=== PATIENT | female | born 1950 | race Caucasian/White ===

== ENCOUNTER → 2017-08-22 | Outpatient (CLI) | payer MEDICAID ==
[~2017-08-22] VITALS: Ht 147.3 cm; Wt 73.0 kg
[~2017-08-22] MED LIST: ASP81CT; ATOR80TA2 PO; CATHETER FLUSH 10 ML SYR IV PRN; DICY10CA12 PO; DICY20TA57 PO; GBPN300C PO; GLIP10TA23; GLUC1000 PO; GLUC500C2; INSU100I16 SQ; LISI20TA; MELO-198 PO; METO25TA2 PO; MTF500T PO; NF-ESOM40C PO; OMEP-10; PHEN100T26 PO; PRAS10TA6 PO; PRAV40TA; QNPR20T PO; REGADENOSON 0.4 MG/5 ML SYR (LEXISCAN) IV ONE; SITA100T PO; TICA90TA PO; VNL75CCR PO
[2017-08-22 08:55] VITALS: BP 124/66
[2017-08-22 09:02] VITALS: BP 126/64
--- NOTE | 2017-08-22 19:55 | STRESS TEST ---
DATE OF SERVICE: 08/22/2017 RESTING AND POST REGADENOSON TECHNETIUM 99M TETROFOSMIN SPECT CT IMAGING ORDERING PHYSICIAN: Dr. Savage. PRIMARY PHYSICIAN: Dr. Johnson. OTHER PHYSICIAN: Arlene Kinney APRN. CLINICAL DIAGNOSES: Shortness of breath. Baseline images were carried out after injection of 10.73 mCi of technetium-99m Tetrofosmin. This was followed by 0.4 mg regadenoson and 29.5 mCi technetium-99m Tetrofosmin for stress imaging. The electrocardiogram showed sinus rhythm with right bundle branch block throughout the study. The electrocardiogram did not change significantly with the regadenoson infusion. Review of images at rest and following stress does not indicate any significant perfusion defects consistent with significant myocardial ischemia or infarction. Gated images show normal global left ventricular systolic function with normal regional wall motion. Left ventricular ejection fraction is calculated to be 74%. Left ventricular end diastolic volume is 17 mL. TID is absent (0.93). CONCLUSIONS: 1. No evidence of any significant myocardial ischemia or infarction on this study. 2. Normal to hyperdynamic left ventricular systolic function with ejection fraction of 74%. 3. No regional wall motion abnormality. Job ID: [id number] DocumentID: [id number] Dictated Date: 08/22/2017 16:32:52 [employer] Worker Date: 08/22/2017 19:55:15 Dictated By: YASSINE SAVAGE MD, MA, FACP, FACC,
== END ==
LOC: CARD 07:20
PROVIDERS: ATTEND Internal Medicine Cardiovascular Disease
DX: I25.10 Atherosclerotic heart disease of native coronary artery without angina pectoris (principal); R06.02 Shortness of breath; I10 Essential (primary) hypertension; E78.4 Other hyperlipidemia; E11.9 Type 2 diabetes mellitus without complications
CPT/HCPCS: 78452; 93017; 93306

== ENCOUNTER 2019-04-13 06:37 | Day surgery (SDC) | payer MEDICARE, MEDICAID ==
[2019-04-13] VITALS (10 sets, daily range): BP systolic 125–150; BP diastolic 59–94
[~2019-04-13] VITALS: Ht 157 cm; Wt 66.0 kg
[~2019-04-13 06:37] MED LIST changes: +AMLO5TAB9 PO; +ANAS1TAB7 PO; +ASPI-983 PO; +ASPI-999 PO; +ATOR40TA70 PO; +BORAGE PO; +CA C1TAB78 PO; -CATHETER FLUSH 10 ML SYR IV PRN; +CLOP75TA69 PO; +EMPA10TA PO; +EXEN2AUT SQ; +EXEN2PEN SQ; +FISH OIL PO; +FLAX PO; +GABA-490 PO; +GLUC100016 PO; +HEParin (CATH LAB) 2,000 ML IV ONE; +INSU100C3 SQ; +INSU100I34 SQ; +LIDOCAINE 1% INJ 20 ML 20 ML VIAL ONE; +LISI-552 PO; +MAGN400T39 PO; +METF-478 PO; +METO-333 PO; +MULT-974 PO; +NS IV 1000 ML 1,000 ML ONE; +OMEP40CA27 PO; +OMG1KC PO; -REGADENOSON 0.4 MG/5 ML SYR (LEXISCAN) IV ONE; +VENL75TA2 PO; +[UNRECOGNIZED DRUG - OTHER] PO
[2019-04-13] MEDS ORDERED: NS IV 1000 ML 1,000 ML IV SCH ×2 (07:00→09:13)
[2019-04-13] MEDS ORDERED: AMLO5TAB9 PO (07:34)
[2019-04-13] MEDS ORDERED: OMG1KC PO (07:34)
[2019-04-13] MEDS ORDERED: CLOP75TA69 PO (07:34)
[2019-04-13] MEDS ORDERED: ACET325T38 PO (07:34)
[2019-04-13] MEDS ORDERED: BUSP15TA60 PO (07:34)
[2019-04-13] MEDS ORDERED: ASPI-999 PO (07:34)
[2019-04-13] MEDS ORDERED: GBPN600T PO ×2 (07:34)
[2019-04-13] MEDS ORDERED: VITA1CAP19 PO (07:34)
[2019-04-13 07:42] LABS: HEMOGLOBIN 11.2 G/DL (11.5-16.0); MEAN PLATELET VOLUME 10.6 FL (7.4-10.4); RED CELL DISTRIBUTION WIDTH 13.4 % (10.0-14.5); WHITE BLOOD COUNT 6.5 10^3/uL (4.3-11.0)
[2019-04-13 07:55] LABS: PROTHROMBIN TIME PATIENT 13.6 SEC (12.2-14.7)
[2019-04-13 07:57] LABS: ALANINE AMINOTRANSFERASE 22 U/L (0-55); ALBUMIN 4.2 GM/DL (3.2-4.5); ALKALINE PHOSPHATASE 60 U/L (40-136); BILIRUBIN,TOTAL 0.3 MG/DL (0.1-1.0); BUN/CREATININE RATIO 20; CALCIUM 9.8 MG/DL (8.5-10.1); CARBON DIOXIDE 22 MMOL/L (21-32); CHLORIDE 105 MMOL/L (98-107); CHOLESTEROL 145 MG/DL (< 200); CREATININE SERUM 0.64 MG/DL (0.60-1.30); GFR ESTIMATED > 60; GLUCOSE 113 MG/DL (70-105); HDL CHOLESTEROL 49 MG/DL (40-60); POTASSIUM 4.1 MMOL/L (3.6-5.0); SODIUM 138 MMOL/L (135-145); TOTAL PROTEIN 7.3 GM/DL (6.4-8.2); TRIGLYCERIDES 119 MG/DL (<150); VLDL CHOLESTEROL 24 MG/DL (5-40)
[2019-04-13] MEDS ORDERED: MIDAZOLAM 5 MG/5 ML (VERSED) VIAL ONE (08:15)
[2019-04-13] MEDS ORDERED: fentaNYL INJECTION 100 MCG/2 ML AMP ONE (08:15)
[2019-04-13] MEDS ORDERED: PATIENT MAY USE OWN MEDS, ALL PO SCH (09:15)
--- NOTE | 2019-04-13 09:17 | Discharge Inst-Cardiology ---
Discharge Inst-Cardiac Discharge Medications Continued Medications: Acetaminophen (Tylenol) 325 Mg Tablet 650 MG PO Q4-6 PRN for PAIN-MILD (1-4) OR TEMPATURE, TAB Amlodipine Besylate (Amlodipine Besylate) 5 Mg Tablet 5 MG PO DAILY, TAB Anastrozole (Anastrozole) 1 Mg Tablet 1 MG PO DAILY, TAB Aspirin (Aspirin) 81 Mg Tab.chew 81 MG PO DAILY, TAB Atorvastatin Calcium (Atorvastatin Calcium) 40 Mg Tablet 40 MG PO DAILY, TAB Buspirone HCl (Buspirone HCl) 15 Mg Tablet 15 MG PO BID PRN for ANXIETY, TAB [Calcium,Magox,Zinc] () 1 CAP PO BID Clopidogrel Bisulfate (Plavix) 75 Mg Tablet 75 MG PO DAILY, TAB Empagliflozin (Jardiance) 10 Mg Tablet 10 MG PO DAILY, TAB Exenatide Microspheres (Bydureon Bcise) 2 Mg/0.85 Ml Auto.injct 2 MG SQ FRIDAY, ML Gabapentin (Gabapentin) 600 Mg Tablet 600 MG PO TID, TAB Gabapentin (Gabapentin) 600 Mg Tablet 600 MG PO HS PRN for FIBROMYALGIA, TAB Glucosamine Sulfate 2Kcl (Glucosamine) 1,000 Mg Tablet 1000 MG PO BID, TAB Insulin Glargine,Hum.rec.anlog (Basaglar Kwikpen U-100) 100 Unit/1 Ml Insuln.pen 40 UNIT SQ HS, EA TAKES BETWEEN 8 AND 9AM Lisinopril (Lisinopril) 20 Mg Tablet 20 MG PO DAILY, TAB Metoprolol Tartrate (Metoprolol Tartrate) 25 Mg Tablet 25 MG PO BID, TAB [place] 3 Polyunsat Fatty Acids (Fish Oil 1,000 mg Capsule) 1,000 Mg Cap 1000 MG PO DAILY, CAP Omeprazole (Omeprazole) 40 Mg Capsule.dr 40 MG PO DAILY, CAP Venlafaxine HCl (Venlafaxine HCl ER) 75 Mg Tab.er.24 75 MG PO DAILY, TAB Vitamin B Complex (Super B-50 Complex) 1 Each Capsule 1 EACH PO DAILY, CAP Discontinued Medications: Metformin HCl (Metformin HCl ER) 500 Mg Tab.er.24 500 MG PO BID, TAB Patient Instructions Patient Instructions: Hold METFORMIN until the evening of 04/15/19; then resume previous home dose YASSINE SAVAGE MD FACP FAC CCDS Apr 13, 2019 09:17
--- NOTE | 2019-04-13 09:18 | Discharge Inst-Post CATH ---
Discharge Inst-CATH/EP Post Cardiac Cath/EP D/C Inst Follow Up/Plan F/u with Dr Savage in 2 weeks ACTIVITY * Go Home directly and rest. * Limit activity of the leg (or wrist if it was used) for 7 days including aerobics, swimming, jogging, bicycling, etc. * Restrict stair-climbing for 7 days if possible, if not, climb up with your n on-cath leg, then bring together on the same step. * Avoid lifting, pushing, pulling or excessive movement of the affected ex tremity for 7 days. * Customary sexual activity may be resumed after 2 days-use caution not to use a position that strains or causes pain to the affected extremity. * No driving for 24 hours. * NO SMOKING. * Avoid straining for bowel movements for 7 days. * Gentle walking on level ground is allowed. * Returning to work will depend on the type of procedure and the results. Your doctor will discuss this with you. CALL YOUR DOCTOR FOR ANY OF THE FOLLOWING: *If bleeding from the puncture site occurs- Apply gentle pressure to site with clean cloth and call your doctor or EMS. * If a knot or lump forms under the skin, increases in size, or causes pain. * If bruising appears to be worsening or moving further down your leg instead of disappearing. * Temperature above 101 F. CARE OF YOUR GROIN INCISION; * Bruising or purple discoloration of the skin near the puncture site is common. * You may shower only, no bathtub bathing for 5 days. Be careful to avoid slipping as your leg may feel stiff. * If a closure device was used on your femoral artery, please see the attached guide regarding care of the device and your leg. * Leave dressing on FOR 24 hours. CARE OF YOUR WRIST INCISION; * Bruising or purple discoloration of the skin near the puncture site is common. * You may shower. * DO NOT submerge wrist. * Leave dressing on FOR 24 hours. YASSINE SAVAGE MD [facility] CCDS Apr 13, 2019 09:18
--- NOTE | 2019-04-13 09:53 | CARDIAC CATHETERIZATION ---
DATE OF SERVICE: 04/13/2019 CARDIAC CATHETERIZATION REPORT The patient is a 68-year-old lady, who is known to have coronary artery disease and who has had coronary stenting in the past. She has been experiencing recurrent chest discomfort. Recurrent angina was suspected. Informed consent was obtained for cardiac catheterization. DESCRIPTION OF PROCEDURE: She was brought to the cardiac catheterization laboratory in a fasting state. Right groin was prepared and draped in the usual sterile fashion. Lidocaine 1% was used for local anesthesia. Modified Seldinger technique was used to advance a 5-Libyan sheath in the right femoral artery. A 5-Libyan JL3.5 catheter was used for left coronary angiography. A 5-Libyan JR4 catheter was used for right coronary angiography. A 5-Libyan pigtail catheter was used for left heart catheterization and left ventricular angiography. Angiography of the right femoral artery was carried out through the sheath after the diagnostic catheter and diagnostic catheters had been removed. Mynx was used to achieve hemostasis. She tolerated the procedure well. HEMODYNAMICS: Left ventricular end-diastolic pressure following coronary angiography was 17 mmHg. There was no significant pressure gradient on pullback across the aortic valve. Ascending aortic pressure was 127/74 with a mean of 99 mmHg. CORONARY ANGIOGRAPHY: Left main coronary artery does not exhibit significant disease. Left anterior descending artery has a patent stented segment in its proximal portion. Beyond the stented segment, the vessel tapers off. There appears to be approximately 30% stenosis in the distal left anterior descending and the main diagonal. The left circumflex artery is nondominant. It does not exhibit significant stenosis. Right coronary artery is dominant and does not exhibit significant stenosis. LEFT VENTRICULAR ANGIOGRAPHY: Left ventricular angiography was carried out in the right anterior oblique projection. Global left ventricular systolic function is normal. Left ventricular ejection fraction is approximately 60%. Mitral annular calcification is seen. There does not appear to be significant mitral regurgitation. CONCLUSIONS: 1. Coronary artery disease, mild. There is a patent proximal stented segment in the left anterior descending. This is known to be Alpine Xience 2.25 x 12 mm stent that overlaps a Promus 2.25 x 16 mm stent. There is no significant in-stent restenosis. 2. Mild to moderate elevation of left ventricular end-diastolic pressure. 3. Normal global left ventricular systolic function with an ejection fraction approximately 60%. DISCUSSION AND RECOMMENDATIONS: Based on results of the study, it appears appropriate to continue a conservative approach. Risk factor modification has been reviewed. Current regimen is being continued. Outpatient followup is advised. Job ID: [id number] DocumentID: [id number] Dictated Date: 04/13/2019 09:00:42 Director Date: 04/13/2019 09:52:28 Dictated By: YASSINE SAVAGE MD, MA, FACP, FACC,
--- NOTE | 2019-04-13 12:52 | NUR ---
Spoke with pt's batch tank controller's in the waiting area. Pt is [employer] and has longtime, supportive relationships with his batch tank controller and who have helped her with transportation and provided emotional and spiritual support through challenging family dynamics.
== END 2019-04-13 12:55 | disposition home or self-care (01) ==
LOC: CATH 06:37 → SDC 09:25 → CATH 12:55
PROVIDERS: ATTEND Internal Medicine Cardiovascular Disease
DX: I25.10 Atherosclerotic heart disease of native coronary artery without angina pectoris (principal); I77.9 Disorder of arteries and arterioles, unspecified; I10 Essential (primary) hypertension; I45.10 Unspecified right bundle-branch block; E11.9 Type 2 diabetes mellitus without complications; E78.49 Other hyperlipidemia; Z79.02 Long term (current) use of antithrombotics/antiplatelets; Z79.84 Long term (current) use of oral hypoglycemic drugs; Z79.899 Other long term (current) drug therapy; Z85.3 Personal history of malignant neoplasm of breast; Z79.82 Long term (current) use of aspirin; Z82.3 Family history of stroke
CPT/HCPCS: 36415; 80053; 80061; 85027; 85610; 85730; 87081; 93005; 93458

== ENCOUNTER → 2021-05-24 | Outpatient (CLI) | payer MEDICARE, MEDICAID ==
[~2021-05-24] VITALS: Ht 154.9 cm; Wt 65.9 kg
[~2021-05-24] MED LIST changes: +ACET325T38 PO; +AMLO-250 PO; +AMLO1TAB5 PO; -AMLO5TAB9 PO; +ANAS1TAB50 PO; +ASPI-1238 PO; -ASPI-983 PO; +BUSP15TA60 PO; +DEXL60CA PO; +EMPA25TA PO; +FLUT9.9S NS; +GBPN600T PO; -HEParin (CATH LAB) 2,000 ML IV ONE; -LIDOCAINE 1% INJ 20 ML 20 ML VIAL ONE; -LISI-552 PO; +LISI20TA26 PO; +MELO-170 PO; +METF-397 PO; +MULT-1136 PO; -NS IV 1000 ML 1,000 ML ONE; -OMEP40CA27 PO; +OMEP40CA6 PO; +ONDA4TAB11 PO; +SEMA1PEN3 SQ; +VITA1CAP19 PO; +[UNRECOGNIZED DRUG - OTHER] PO
== END | disposition home or self-care (01) ==
LOC: PREOP 08:01
PROVIDERS: ATTEND Specialist
DX: Z01.818 Encounter for other preprocedural examination (principal)

== ENCOUNTER → 2021-06-07 | Outpatient (CLI) | payer MEDICARE, MEDICAID | END | disposition home or self-care (01) | LOC: PREOP 05:56 | PROVIDERS: ATTEND Specialist | DX: Z01.818 Encounter for other preprocedural examination (principal) ==

== ENCOUNTER 2021-06-15 10:12 | Day surgery (SDC) | payer MEDICARE, MEDICAID ==
[~2021-06-15] VITALS: Ht 155 cm; Wt 65.9 kg
[2021-06-15 10:10] VITALS: BP 129/62
[2021-06-15] MEDS ORDERED: MOXIFLOXACIN OPHTH SOLN 5 MG/ML 0.3 ML SYRINGE OP ONE (10:30)
[2021-06-15] MEDS ORDERED: LIDOCAINE PF 1% 2 ML VIAL IR PRN (10:30)
[2021-06-15] MEDS ORDERED: POVIDONE (BETADINE) OPHTH SOLN 5% 30 ML OP ONE (10:30)
[2021-06-15] MEDS ORDERED: TIMOLOL MALEATE 0.5% 5 ML (TIMOPTIC) BTL OU PRN (10:30)
[2021-06-15] MEDS ORDERED: MIDAZOLAM 2 MG/2 ML (VERSED) VIAL ONE (10:33)
[2021-06-15] MEDS: TETRACAINE 0.5% OPHTH SOLN 4 ML BTL (SINGLE DOSE ONLY) OU PRN ×4 (10:35→10:52)
[2021-06-15] MEDS: PHENYLEPHRINE 10% OPHTH (NEO-SYN) 5 ML BTL OU SCH ×3 (10:40→10:52)
[2021-06-15] MEDS: TROPICAMIDE 1% OPH SOLN (MYDRIACYL) 15 ML BTL OP SCH ×3 (10:40→10:52)
--- NOTE | 2021-06-15 11:12 | Ophthalmologist Pre-Op Note ---
Pre-Operative Progress Note H&P Reviewed The H&P was reviewed, patient examined and no changes noted. Date H&P Reviewed: Jun 15, 2021 Time H&P Reviewed: 11:12 Pre-Op Dx Cataract, Left Eye ENRIQUE PICKETT MD Jun 15, 2021 11:12
--- NOTE | 2021-06-15 11:34 | Ophthalmology Operative Report ---
Cataract removal/placement IOL PREOPERATIVE DIAGNOSIS: Cataract Left Eye POSTOPERATIVE DIAGNOSIS: Cataract Left Eye PROCEDURE: Cataract removal and placement of posterior chamber implant, left eye SURGEON: Crescencio Pickett ANESTHESIA: Topical with sedation COMPLICATIONS: None ESTIMATED BLOOD LOSS: Minimal DESCRIPTION OF PROCEDURE: After proper informed consent was obtained, the patient, a 70 female, was taken to the Operating Room and the left eye was anesthetized with tetracaine. The left eye was then prepped and draped in the usual manner. A wire lid speculum was placed. A paracentesis was made at the left hand position. Preservative free lidocaine was injected into the anterior chamber followed by viscoelastic. A clear corneal incision was made in the temporal position. A capsulorrhexis was preformed and the central nuclear and cortical material were removed. The posterior capsule was polished and an Abdirahman 17.0 [id number] was placed into the capsular bag. The residual viscoelastic was aspirated and balanced saline solution was injected into the anterior chamber. Moxifloxacin was injected into the anterior chamber. The wound was checked and found to be water tight. The patient tolerated the procedure well without complications. CRESCENCIO PICKETT MD Jun 15, 2021 11:34
[2021-06-15 11:47] VITALS: BP 129/62
[2021-06-15] MEDS ORDERED: acetaZOLAMIDE ER 500 MG CAP (DIAMOX SEQUELS) PO ONE (12:15)
--- NOTE | 2021-06-15 13:21 | Anesthesia-General Post-Op ---
MAC Patient Condition Mental Status/LOC: Same as Preop Cardiovascular: Satisfactory Nausea/Vomiting: Absent Respiratory: Satisfactory Pain: Controlled Complications: Absent Post Op Complications Complications None Follow Up Care/Instructions Patient Instructions None needed. Anesthesiology Discharge Order Discharge Order Patient is doing well, no complaints, stable vital signs, no apparent adverse anesthesia problems. No complications reported per nursing. SHRUTHI BHANDARI CRNA Jun 15, 2021 13:21
== END 2021-06-15 11:48 | disposition home or self-care (01) ==
LOC: SDC 10:12
PROVIDERS: ATTEND Specialist
DX: E11.36 Type 2 diabetes mellitus with diabetic cataract (principal); H25.9 Unspecified age-related cataract; Z85.3 Personal history of malignant neoplasm of breast; Z79.4 Long term (current) use of insulin; Z79.84 Long term (current) use of oral hypoglycemic drugs
CPT/HCPCS: 66984; V2632

== ENCOUNTER 2021-08-11 18:36 | Inpatient (IN) | payer MEDICARE, MEDICAID ==
[~2021-08-11] VITALS: Ht 154.9 cm; Wt 66.9 kg
[2021-08-11] MEDS ORDERED: diphenhydrAMINE 25 MG TAB (BENADRYL) PO PRN (19:30)
[2021-08-11] MEDS ORDERED: CALCIUM CARBONATE 500 MG (TUMS) TAB.CHEW PO PRN (19:30)
[2021-08-11] MEDS ORDERED: ANTACID SUSP 30 ML UDC (MYLANTA) PO PRN (19:30)
[2021-08-11] MEDS ORDERED: MELATONIN 3 MG TABLET PO PRN (19:30)
[2021-08-11] MEDS ORDERED: polyethylene glycoL POWDER 17 GM (MIRALAX) PACK PO PRN (19:30)
[2021-08-11] MEDS ORDERED: morphine INJ 4 MG/ML 1 ML (VIAL/SYRINGE) IV PRN (19:30)
[2021-08-11] MEDS ORDERED: ACETAMINOPHEN 325 MG TABLET PO PRN (19:30)
[2021-08-11] MEDS ORDERED: PATIENT MAY USE OWN MEDS, ALL PO SCH (19:30)
[2021-08-11] MEDS ORDERED: diphenhydrAMINE 50 MG/ML INJ (BENADRYL) IVP PRN (19:30)
[2021-08-11] MEDS ORDERED: LACTULOSE SYRUP 10GM/15ML (ENULOSE) 30ML UDC PO PRN (19:30)
[2021-08-11] MEDS ORDERED: BISACODYL 10 MG SUPP (DULCOLAX) PR PRN (19:30)
[2021-08-11] MEDS ORDERED: MILK OF MAGNESIA 400 MG/5 ML 30 ML UDC PO PRN (19:30)
[2021-08-11] MEDS ORDERED: CALCIUM CHLORIDE 1 GM/10 ML (IMS) SYR INJ ONE (20:45)
[2021-08-11] MEDS ORDERED: ONDANSETRON 4 MG/2 ML (SDV) Z0FRAN IVP ONE (20:45)
--- NOTE | 2021-08-11 20:48 | Tele-ICU Consult ---
History of Present Illness History of Present Illness Date Seen by Provider: Aug 11, 2021 Time Seen by Provider: 20:43 Date of Admission 70 y old lady presented to an outside ED with cc of nausea/ vomiting; pt was found to be bradycardic, in 3rd degree av block; we were told that pt is on beta lazaro. No CaCl/ glucagon or dopamine given. Upon arrival patient continues to have episodes of bradycardia and nausea associated with it. Allergies and Home Medications Allergies Coded Allergies: NKANo Known Allergies (Verified Allergy, Unknown, 06/01/21) Home Medications Acetaminophen 325 Mg Tablet, 650 MG PO Q4-6 PRN for PAIN-MILD (1-4) OR TEMPATURE, (Reported) Amlodipine/Atorvastatin 1 Each Tablet, 1 EACH PO DAILY, (Reported) Anastrozole 1 Mg Tablet, 1 MG PO DAILY, (Reported) Aspirin 81 Mg Tab.chew, 81 MG PO DAILY, (Reported) Buspirone HCl 15 Mg Tablet, 15 MG PO BID PRN for ANXIETY, (Reported) Clopidogrel Bisulfate 75 Mg Tablet, 75 MG PO DAILY, (Reported) Dexlansoprazole 60 Mg Williams., 60 MG PO DAILY, (Reported) Empagliflozin 25 Mg Tablet, 25 MG PO DAILY, (Reported) Fluticasone Propionate 9.9 Ml [place].susp, 1 SPRAY NS BID, (Reported) 1 SPRAY EACH NARE DAILY Gabapentin 600 Mg Tablet, 600 MG PO TID, (Reported) Gabapentin 600 Mg Tablet, 600 MG PO HS PRN for FIBROMYALGIA, (Reported) Insulin Glargine,Hum.rec.anlog 100 Unit/1 Ml Insuln.pen, 40 UNIT SQ HS, (Reported) Lisinopril 20 Mg Tablet, 20 MG PO DAILY, (Reported) Meloxicam 7.5 Mg Tablet, 7.5 MG PO DAILY, (Reported) Metformin HCl 500 Mg Tablet, 500 MG PO BID, (Reported) Metoprolol Tartrate 25 Mg Tablet, 25 MG PO BID, (Reported) Multivitamin 1 Each Tablet, 1 EACH PO DAILY, (Reported) [place] 3 Polyunsat Fatty Acids 1,000 Mg Cap, 1,000 MG PO DAILY, (Reported) Ondansetron 4 Mg Tab.rapdis, 4 MG PO UD, (Reported) Semaglutide 1 Mg/0.75 Ml Pen.injctr, 1 MG SQ WEEK, (Reported) Venlafaxine HCl 75 Mg Tab.er.24, 75 MG PO DAILY, (Reported) [Sm Fiber] , 625 MG PO DAILY, (Reported) Past Medical/Social/Family Hx Immunizations Up To Date Date of Pneumonia Vaccine: Jan 21, 2019 Current Status Primary Language: Azerbaij[place] Past Medical History DM Review of Systems Constitutional: see HPI Focused Exam Height, Weight, BMI Height: 4'10.00" Weight: 161lbs. 0.0oz. 73.455597dp; 26.77 BMI Method: Exam Exam Patient acknowledged, consented, and participated in this virtual visit which was conducted using real time audio/video Height & Weight Height: 4'10.00" Weight: 161lbs. 0.0oz. 73.000065wy; 26.77 BMI Method: General Appearance: Moderate Distress Assessment/Plan Assessment/Plan Bradycardia with 3rd degree av blocks. MAR reviewed: no ccb/ bb ekg/ tsh/ cardiac enzymes basic labs ordered may need dopamine or dobutamine based on BP cardiology on board for possible pacemaker in TONI THOMAS MD Aug 11, 2021 20:48
[2021-08-11] MEDS ORDERED: NS IV 1000 ML 1,000 ML ONE (20:52)
[2021-08-11] MEDS ORDERED: DOBUTamine DRIP 250 ML IV ONE (20:52)
[2021-08-11] MEDS: NS IV 1000 ML 1,000 ML IV SCH (20:59)
[2021-08-11] MEDS ORDERED: DOBUTamine DRIP 250 ML IV SCH (21:00)
[2021-08-11 21:02] LABS: BASOPHILS % (AUTO) 0 % (0-10); EOSINOPHILS % (AUTO) 0 % (0-10); HEMATOCRIT 36 % (35-52); HEMOGLOBIN 12.3 g/dL (11.5-16.0); LYMPHOCYTES # (AUTO) 1.3 10^3/uL (1.0-4.0); LYMPHOCYTES % (AUTO) 13 % (12-44); MEAN CORPUSCULAR HEMOGLOBIN 30 pg (25-34); MEAN CORPUSCULAR HGB CONC 34 g/dL (32-36); MEAN CORPUSCULAR VOLUME 88 fL (80-99); MEAN PLATELET VOLUME 11.1 fL (9.0-12.2); MONOCYTES # (AUTO) 0.6 10^3/uL (0.0-1.0); MONOCYTES % (AUTO) 6 % (0-12); NEUTROPHILS # (AUTO) 7.7 10^3/uL (1.8-7.8); NEUTROPHILS % (AUTO) 80 % (42-75); PLATELET COUNT 319 10^3/uL (130-400); WHITE BLOOD COUNT 9.6 10^3/uL (4.3-11.0)
[2021-08-11 21:22] LABS: ALANINE AMINOTRANSFERASE 18 U/L (0-55); ALBUMIN 4.2 GM/DL (3.2-4.5); ALKALINE PHOSPHATASE 63 U/L (40-136); BILIRUBIN,TOTAL 0.6 MG/DL (0.1-1.0); BUN/CREATININE RATIO 23; CALCIUM 9.4 MG/DL (8.5-10.1); CARBON DIOXIDE 17 MMOL/L (21-32); CHLORIDE 104 MMOL/L (98-107); GFR ESTIMATED 94; GLUCOSE 138 MG/DL (70-105); POTASSIUM 3.5 MMOL/L (3.6-5.0); SODIUM 138 MMOL/L (135-145); TOTAL PROTEIN 7.6 GM/DL (6.4-8.2)
[2021-08-11 21:28] LABS: LYMPHOCYTES % (MANUAL) 15 %; MONOCYTES % (MANUAL) 3 %; NEUTROPHILS % (MANUAL) 82 %; RBC MORPH NORMAL
[2021-08-11] MEDS: SENNOSIDES 8.6 MG (SENOKOT) TAB PO SCH (21:35)
[2021-08-11] MEDS: inSUlin ASPART (NovoLOG) 1 UNIT/0.01 ML (CHARGE PER UNIT) SC SCH (21:35)
[2021-08-11] MEDS: DOCUSATE SODIUM 100 MG (COLACE) CAP PO SCH (21:35)
[2021-08-11] MEDS ORDERED: POTASSIUM CL 10MEQ/50ML IVPB 50 ML IV SCH (22:15)
[2021-08-11] MEDS ORDERED: POTASSIUM CL 10MEQ/50ML IVPB 200 ML IV ONE (22:17)
[2021-08-11] MEDS: POTASSIUM CL 10MEQ/50ML IVPB 50 ML IV SCH ×2 (22:20→23:06)
[2021-08-11 22:29] LABS: MAGNESIUM 1.5 MG/DL (1.6-2.4)
[2021-08-11] MEDS ORDERED: MAGNESIUM 2 GM/50 ML IVPB 50 ML IV ONE (23:00)
[2021-08-11] MEDS ORDERED: MAGNESIUM 1 GM/100 ML IVPB 200 ML IV ONE (23:03)
[2021-08-11] MEDS: MAGNESIUM 1 GM/100 ML IVPB 100 ML IV SCH (23:12)
[2021-08-11] MEDS: DOPamine DRIP 250 ML IV SCH (23:45)
[2021-08-12] MEDS ORDERED: CEFEPIME INJECTION 1,000 MG in NS (IVPB) 50 ML IV ONE ×2
[2021-08-12] MEDS: POTASSIUM CL 10MEQ/50ML IVPB 50 ML IV SCH ×8 (00:03→21:16)
[2021-08-12] MEDS: MAGNESIUM 1 GM/100 ML IVPB 100 ML IV SCH ×2 (00:04→05:27)
[2021-08-12 00:22] LABS: BILIRUBIN,URINE NEGATIVE (NEGATIVE); CLARITY,URINE CLEAR; COLOR,URINE YELLOW; GLUCOSE, URINE (UA) 3+ (NEGATIVE); KETONES,URINE 3+ (NEGATIVE); LEUKOCYTE ESTERASE ,URINE NEGATIVE (NEGATIVE); NITRITE,URINE NEGATIVE (NEGATIVE); PROTEIN,URINE NEGATIVE (NEGATIVE)
[2021-08-12 00:33] LABS: BACTERIA,URINE TRACE /HPF; SQUAMOUS EPITHELIAL CELL,UR 0-2 /HPF; WBC,URINE 0-2 /HPF
[2021-08-12] MEDS: DOPamine DRIP 250 ML IV SCH ×3 (00:38→06:54)
[2021-08-12] MEDS ORDERED: ONDANSETRON 4 MG/2 ML (SDV) Z0FRAN ONE (01:44)
[2021-08-12] MEDS: ONDANSETRON 4 MG/2 ML (SDV) Z0FRAN IV PRN (01:46)
--- NOTE | 2021-08-12 01:57 | Consultation-Cardiology ---
HPI-Cardiology Cardiology Consultation: Date of Consultation 08/12/21 Date of Admission 08/11/21 Attending Physician Judith,Local Physician Admitting Physician Admitting Physician: Vickie Mcarthur DO Attending Physician: Vickie Mcarthur DO Consulting Physician MARLENI ROD JR, MD HPI: Time Seen by a Provider: 01:51 Chief Complaint: REASON FOR CONSULTATION: Severe bradycardia. At the pleasure of seeing Roz in the intensive care unit and [facility] in [place], [place] today. She has a history of coronary artery disease with 2 previous stents in the left anterior descending coronary artery, hypertension, hyperlipidemia, left breast carcinoma, and type 2 diabetes mellitus. On Friday she was at home and had a syncopal spell. She went to an outside emergency room for evaluation. It sounds as though she may have been diagnosed with a urinary tract infection and was discharged home. However, yesterday she had another episode of syncope. She went back to the emergency room and at that time was found to be in sinus rhythm with intermittent complete heart block. She was subsequently transferred to our facility for further treatment and evaluation. She arrived here late in the evening and soon thereafter, developed more severe bradycardia with intermittent heart block. The eICU started the patient on dobutamine infusion. She continued to have symptomatic bradycardia with low blood pressure. She was then started on dopamine. External pacing was applied and she was paced at 65 bpm. She has had persistent nausea and vomiting since arriving here. When the intravenous medications were not working for the bradycardia, they called me for further assistance. She denies any chest discomfort other than discomfort from the external pacer. She denies dyspnea, paroxysmal nocturnal dyspnea, orthopnea, palpitations, or lower extremity edema. She has not had any recent change in her medications. Certain portions of this document may have been dictated utilizing voice recognition technology. Inherent to this technology, typographical and grammatical errors may exist. As much as I am diligent to identify and correct these mistakes, some errors may remain in the document. Review of Systems-Cardiology Review of Systems Other comments Review of 10 organ systems is as per the history of present illness, otherwise negative. VNJ-Uilgoa-Npczhv Hx Patient Social History Smoking Status: Never a Smoker 2nd Hand Smoke Exposure: No Have you traveled recently?: No Alcohol Use?: No Pt feels they are or have been: No Immunizations Up To Date Tetanus Booster (TDap): Unknown Date of Pneumonia Vaccine: Jan 21, 2019 Date of Influenza Vaccine: Jan 21, 2019 Past Medical History PMH As described under Assessment. Family Medical History Family Medical History: Her mother from heart disease. Allergies and Home Medications Allergies Coded Allergies: Lynda Known Allergies (Verified Allergy, Unknown, 06/01/21) Patient Home Medication List Home Medication List Reviewed: Yes Acetaminophen (Tylenol) 325 Mg Tablet, 650 MG PO Q4-6 PRN for PAIN-MILD (1-4) OR TEMPATURE, (Reported) Entered as Reported by: ANASTASIA HUGHES on 04/13/19733 Amlodipine/Atorvastatin (Caduet 5 mg-40 mg Tablet) 1 Each Tablet, 1 EACH PO DAILY, (Reported) Entered as Reported by: ALLI DICKERSON on 05/24/211550 Anastrozole (Arimidex) 1 Mg Tablet, 1 MG PO DAILY, (Reported) Entered as Reported by: ALLI DICKERSON on 05/24/211550 Aspirin (Aspirin) 81 Mg Tab.chew, 81 MG PO DAILY, (Reported) Entered as Reported by: ANASTASIA HUGHES on 04/13/19733 Buspirone HCl (Buspirone HCl) 15 Mg Tablet, 15 MG PO BID PRN for ANXIETY, (Reported) Entered as Reported by: ANASTASIA HUGHES on 04/13/19733 Clopidogrel Bisulfate (Plavix) 75 Mg Tablet, 75 MG PO DAILY, (Reported) Entered as Reported by: ANASTASIA HUGHES on 04/13/19733 Dexlansoprazole (Dexilant) 60 Mg , 60 MG PO DAILY, (Reported) Entered as Reported by: ALLI DICKERSON on 05/24/211550 Empagliflozin (Jardiance) 25 Mg Tablet, 25 MG PO DAILY, (Reported) Entered as Reported by: ALLI DICKERSON on 05/24/211550 Fluticasone Propionate (Flonase Allergy Relief) 9.9 Ml [place].susp, 1 SPRAY NS BID, (Reported) Entered as Reported by: ALLI DICKERSON on 05/24/211550 Gabapentin (Gabapentin) 600 Mg Tablet, 600 MG PO TID, (Reported) Entered as Reported by: ANASTASIA HUGHES on 04/13/19733 Gabapentin (Gabapentin) 600 Mg Tablet, 600 MG PO HS PRN for FIBROMYALGIA, (Reported) Entered as Reported by: ANASTASIA HUGHES on 04/13/19 0734 Insulin Glargine,Hum.rec.anlog (Basaglar Kwikpen U-100) 100 Unit/1 Ml Insuln.pen, 40 UNIT SQ HS, (Reported) Entered as Reported by: ALLI DICKERSON on 05/24/211550 Lisinopril (Lisinopril) 20 Mg Tablet, 20 MG PO DAILY, (Reported) Entered as Reported by: EMILIE VOSS on 11/10/18 1056 Meloxicam (Mobic) 7.5 Mg Tablet, 7.5 MG PO DAILY, (Reported) Entered as Reported by: ALLI DICKERSON on 05/24/211550 Metformin HCl (Metformin HCl) 500 Mg Tablet, 500 MG PO BID, (Reported) Entered as Reported by: ALLI DICKERSON on 05/24/211550 Metoprolol Tartrate (Metoprolol Tartrate) 25 Mg Tablet, 25 MG PO BID, (Reported) Entered as Reported by: BÁRBARA LUNA on 11/10/18 1445 Multivitamin (Multivitamin) 1 Each Tablet, 1 EACH PO DAILY, (Reported) Entered as Reported by: ALLI DICKERSON on 05/24/211550 [place] 3 Polyunsat Fatty Acids (Fish Oil 1,000 mg Capsule) 1,000 Mg Cap, 1,000 MG PO DAILY, (Reported) Entered as Reported by: ANASTASIA HUGHES on 04/13/19 0734 Ondansetron (Ondansetron Odt) 4 Mg Tab.rapdis, 4 MG PO UD, (Reported) Entered as Reported by: ALLI DICKERSON on 05/24/211550 Semaglutide (Ozempic) 1 Mg/0.75 Ml Pen.injctr, 1 MG SQ WEEK, (Reported) Entered as Reported by: ALLI DICKERSON on 05/24/211550 Venlafaxine HCl (Venlafaxine HCl ER) 75 Mg Tab.er.24, 75 MG PO DAILY, (Reported) Entered as Reported by: EMILIE VOSS on 11/10/18 1055 [Sm Fiber] , 625 MG PO DAILY, (Reported) Entered as Reported by: ALLI DICKERSON on 3/31/22 1551 Exam Vital Signs Vital Signs Date Time Temp Pulse Resp B/P (MAP) Pulse Ox O2 Delivery O2 Flow Rate FiO2 08/12/21 01:13 Nasal Cannula 2.00 08/12/21 00:38 45 101/35 08/11/21 23:10 100 08/11/21 23:09 36.5 08/11/21 23:00 37 Physical Exam General: Alert. Mild distress from the external pacing and nausea. Well nourished and appears stated age. She has externally pacing. Eye: Extraocular movements are intact. Conjunctivae are clear. There are no xanthelasma. HENT: Normocephalic. Atraumatic. Carotid pulsations 2/2 without bruits. Neck: Jugular venous pressure does not appear elevated. No thyromegaly darren reciated. Respiratory: Lungs are clear to auscultation. Respirations are non-labored. Breath sounds are equal. Symmetrical chest wall expansion. Cardiovascular: Normal rate. Regular rhythm. No murmur. No gallop. Point of maximal impulse is not appear displaced. Good pulses equal in all extremities. No edema. Gastrointestinal: Soft. Normal bowel sounds. Skin: Skin turgor is normal. There is no pallor. Musculoskeletal: No kyphosis or scoliosis appreciated. Neurologic: Alert and oriented to person, place, time. Cranial nerves 3-12 appear grossly intact. The patient has good motor tone strength in the upper and lower extremities bilaterally. Psychiatric: Cooperative. Appropriate mood & affect. Labs Laboratory Tests Test 08/11/21 20:55 08/11/21 23:00 08/12/21 00:00 Range/Units White Blood Count 9.6 4.3-11.0 10^3/uL Red Blood Count 4.14 3.80-5.11 10^6/uL Hemoglobin 12.3 11.5-16.0 g/dL Hematocrit 36 35-52 % Mean Corpuscular Volume 88 80-99 fL Mean Corpuscular Hemoglobin 30 25-34 pg Mean Corpuscular Hemoglobin Concent 34 32-36 g/dL Red Cell Distribution Width 13.1 10.0-14.5 % Platelet Count 319 130-400 10^3/uL Mean Platelet Volume 11.1 9.0-12.2 fL Immature Granulocyte % (Auto) 0 % Neutrophils (%) (Auto) 80 H 42-75 % Lymphocytes (%) (Auto) 13 12-44 % Monocytes (%) (Auto) 6 0-12 % Eosinophils (%) (Auto) 0 0-10 % Basophils (%) (Auto) 0 0-10 % Neutrophils # (Auto) 7.7 1.8-7.8 10^3/uL Lymphocytes # (Auto) 1.3 1.0-4.0 10^3/uL Monocytes # (Auto) 0.6 0.0-1.0 10^3/uL Eosinophils # (Auto) 0.0 0.0-0.3 10^3/uL Basophils # (Auto) 0.0 0.0-0.1 10^3/uL Immature Granulocyte # (Auto) 0.0 0.0-0.1 10^3/uL Neutrophils % (Manual) 82 % Lymphocytes % (Manual) 15 % Monocytes % (Manual) 3 % Blood Morphology Comment NORMAL Sodium Level 138 135-145 MMOL/L Potassium Level 3.5 L 3.6-5.0 MMOL/L Chloride Level 104 98-107 MMOL/L Carbon Dioxide Level 17 L 21-32 MMOL/L Anion Gap 17 H 5-14 MMOL/L Blood Urea Nitrogen 16 7-18 MG/DL Creatinine 0.70 0.60-1.30 MG/DL Estimat Glomerular Filtration Rate 94 BUN/Creatinine Ratio 23 Glucose Level 138 H 70-105 MG/DL Lactic Acid Level 2.08 *H 2.68 *H 0.50-2.00 MMOL/L Calcium Level 9.4 8.5-10.1 MG/DL Corrected Calcium 9.2 8.5-10.1 MG/DL Phosphorus Level 2.0 L 2.3-4.7 MG/DL Magnesium Level 1.5 L 1.6-2.4 MG/DL Total Bilirubin 0.6 0.1-1.0 MG/DL Aspartate Amino Transf (AST/SGOT) 14 5-34 U/L Alanine Aminotransferase (ALT/SGPT) 18 0-55 U/L Alkaline Phosphatase 63 40-136 U/L Troponin I < 0.028 <0.028 NG/ML Total Protein 7.6 6.4-8.2 GM/DL Albumin 4.2 3.2-4.5 GM/DL Thyroid Stimulating Hormone (TSH) 2.43 0.35-4.94 UIU/ML Urine Color YELLOW Urine Clarity CLEAR Urine pH 6.0 5-9 Urine Specific [place] 1.025 H 1.016-1.022 Urine Protein NEGATIVE NEGATIVE Urine Glucose (UA) 3+ H NEGATIVE Urine Ketones 3+ H NEGATIVE Urine Nitrite NEGATIVE NEGATIVE Urine Bilirubin NEGATIVE NEGATIVE Urine Urobilinogen 0.2 < = 1.0 MG/DL Urine Leukocyte Esterase NEGATIVE NEGATIVE Urine RBC (Auto) NEGATIVE NEGATIVE Urine RBC NONE /HPF Urine WBC 0-2 /HPF Urine Squamous Epithelial Cells 0-2 /HPF Urine Crystals NONE /LPF Urine Bacteria TRACE /HPF Urine Casts NONE /LPF Urine Mucus NEGATIVE /LPF Urine Culture Indicated NO ECG Impression ECG Comment Electrocardiogram on arrival on 08/11 showed sinus bradycardia 58 bpm with right bundle branch block. Diagnosis/Problems Diagnosis/Problems (1) Heart block AV third degree Assessment & Plan: She appears to be having intermittent complete heart block as well as symptomatic bradycardia. She is currently externally pacing and is maximized on intravenous dopamine infusion. I will bring her to the cardiac catheterization laboratory for temporary pacemaker insertion via the right femoral vein. We need to clarify whether or not the patient was taking metoprolol at home. She was last seen in our office in June by Dr. Savage and at that time she was reportedly taking metoprolol tartrate 25 mg twice a day. The outside emergency room provider also told me she was taking metoprolol but the nurses in the intensive care unit states she has not been on this medication. If she has been on metoprolol, we need to give this at least 48 hours to wash out of her system before we decide on whether or not she would need a permanent pacemaker. (2) Coronary artery disease without angina pectoris Assessment & Plan: She is not having any angina. Her troponin level was undetectable. There are no ischemic changes on her electrocardiogram. We will continue the present guideline directed medical therapy that she was taking as an outpatient but discontinue any AV lorene blocking agents. (3) Primary hypertension Assessment & Plan: She is currently hypotensive due to the profound bradycardia. Once this resolved, we can slowly start to resume her outpatient antihypertensive medication. As above, no AV lorene blockers due to the bradycardia. (4) Mixed hyperlipidemia Assessment & Plan: Continue outpatient dose of atorvastatin. (5) Type 2 diabetes mellitus with complication Assessment & Plan: This will be managed by the hospitalist. MARLENI ROD JR, MD Aug 12, 2021 01:57
[2021-08-12] MEDS ORDERED: MIDAZOLAM 5 MG/5 ML (VERSED) VIAL ONE (01:58)
[2021-08-12] MEDS ORDERED: ATROPINE INJECTION 1 MG/10 ML SYR (ABBOTT) ONE (01:58)
[2021-08-12] MEDS ORDERED: HEParin 1000 UNIT/ML (10ML VIAL) FOR BOLUS ONE (01:58)
[2021-08-12] MEDS ORDERED: fentaNYL INJ 100 MCG/2 ML AMP ONE (01:58)
[2021-08-12] MEDS ORDERED: LIDOCAINE 1% INJ 20 ML VIAL ONE (01:58)
[2021-08-12] MEDS ORDERED: NS IV 1000 ML 0 ML ONE (01:59)
[2021-08-12] MEDS ORDERED: HEParin (CATH LAB) 2,000 ML IV ONE (02:00)
--- NOTE | 2021-08-12 02:03 | Pre-Op Note & Conscious Sedat ---
Pre-Operative Progress Note H&P Reviewed The H&P was reviewed, patient examined and no changes noted. Date H&P Reviewed: Aug 12, 2021 Time H&P Reviewed: 02:03 Pre-Op Diagnosis: Complete heart block Conscious Sedation Pre-Proced ASA Score 2 For ASA 3 and 4: Consider anesthesia and medical clearance. Also, for patients with a history of failed moderate sedation consider anesthesia. Airway Lungs Heart ASA score ASA 1: a normal healthy patient ASA 2: a patient with a mild systemic disease (mid diabetes, controlled hypertension, obesity ASA 3: a patient with a severe systemic disease that limits activity (angina, COPD, prior Myocardial infarction) ASA 4: a patient with an incapacitating disease that is a constant threat to life (CHF, renal failure) ASA 5: a moribund patient not expected to survive 24 hrs. (ruptured aneurysm) ASA 6: a declared brain- patient whose organs are being harvested. For emergent operations, add the letter E after the classification Mallampati Classification Grade 2 Sedation Plan Analgesia, Amnesia, Plan communicated to team members, Discussed options with patient/fam, Discussed risks with patient/fam The patient is an appropriate candidate to undergo the planned procedure, sedation, and anesthesia. The patient immediately re-assessed prior to indication. MARLENI ROD JR, MD Aug 12, 2021 02:03
--- NOTE | 2021-08-12 03:01 | Cardiac Cath Report ---
CARDIAC CATHETERIZATION DATE OF PROCEDURE: 08/12/2021 INDICATION: Complete heart block. HISTORY: The patient is a 70 year old female with a history of coronary artery disease but no history of heart block who presented to an outside hospital twice with syncope within the past 48 hours. During her second evaluation in the outside emergency room, she was found to have developed intermittent complete heart block. She was then transferred to her hospital for further treatment and evaluation. She was initially treated with intravenous dobutamine and dopamine as ordered by the eICU physician. External pacing was then applied. I was then contacted for pacemaker insertion. The dobutamine was discontinued and the dopamine was maximized. The heart rate on the temporary pacemaker was reduced to 40 bpm but the patient then developed hypotension. As such, she is now referred for temporary pacemaker insertion. PROCEDURES PERFORMED: 1. Temporary pacemaker insertion under fluoroscopic guidance via right femoral vein. PROCEDURE DESCRIPTION: After informed consent and in the fasting state, the patient was prepped and draped in the usual sterile fashion. 1% lidocaine was used for local anesthesia. I subsequently gained access to the right femoral vein with a micropuncture technique. The micropuncture sheath was then exchanged for a 5 Vincentian sheath. Under fluoroscopic guidance, I then passed a 4 Vincentian balloon tipped pacemaker wire into the right ventricle in the vicinity of the right ventricular apex. The balloon was deflated. The pacemaker wire was attached to the pacemaker generator box. There was good capture. Loss of capture occurred at 0.3 mA. Final settings on the device were output 3 mA and heart rate 60 bpm. The device was sutured in place and a sterile dressing was applied. IMPRESSION: 1. Status post successful temporary pacemaker insertion via the right femoral vein under fluoroscopic guidance with a 4 Vincentian balloon tipped pacemaker wire. Final settings were output 3 mA with a heart rate of 60 bpm. Certain portions of this document may have been dictated utilizing voice recognition technology. Inherent to this technology, typographical and grammatical errors may exist. As much as I am diligent to identify and correct these mistakes, some errors may remain in the document. MARLENI ROD JR, MD Aug 12, 2021 03:01
[2021-08-12] MEDS: NS IV 1000 ML 1,000 ML IV SCH (03:49)
[2021-08-12 04:55] LABS: HEMATOCRIT 38 % (35-52); HEMOGLOBIN 12.3 g/dL (11.5-16.0); MEAN CORPUSCULAR HEMOGLOBIN 30 pg (25-34); MEAN CORPUSCULAR HGB CONC 32 g/dL (32-36); MEAN CORPUSCULAR VOLUME 93 fL (80-99); MEAN PLATELET VOLUME 11.5 fL (9.0-12.2); PLATELET COUNT 339 10^3/uL (130-400); WHITE BLOOD COUNT 24.1 10^3/uL (4.3-11.0)
[2021-08-12 05:06] LABS: POTASSIUM 4.6 MMOL/L (3.6-5.0)
[2021-08-12 05:08] LABS: CALCIUM 8.6 MG/DL (8.5-10.1)
[2021-08-12 05:09] LABS: TOTAL PROTEIN 7.2 GM/DL (6.4-8.2)
[2021-08-12 05:11] LABS: BILIRUBIN,TOTAL 0.7 MG/DL (0.1-1.0)
[2021-08-12 05:12] LABS: PHOSPHORUS 4.8 MG/DL (2.3-4.7)
[2021-08-12 05:13] LABS: CREATININE SERUM 1.05 MG/DL (0.60-1.30)
[2021-08-12 05:15] LABS: MAGNESIUM 2.3 MG/DL (1.6-2.4)
[2021-08-12 05:22] LABS: ANISOCYTOSIS SLIGHT; LYMPHOCYTES % (MANUAL) 6 %; MICROCYTOSIS SLIGHT; MONOCYTES % (MANUAL) 8 %; NEUTROPHILS % (MANUAL) 86 %; POIKILOCYTOSIS SLIGHT; POLYCHROMASIA SLIGHT
[2021-08-12] MEDS: KCL 20 MEQ TAB (K-DUR) PO SCH (05:27)
[2021-08-12] MEDS: inSUlin ASPART (NovoLOG) 1 UNIT/0.01 ML (CHARGE PER UNIT) SC SCH ×4 (05:44→21:17)
[2021-08-12] MEDS ORDERED: POTASSIUM CL 10MEQ/50ML IVPB 50 ML IV SCH (06:00)
[2021-08-12] MEDS ORDERED: NS IV 1000 ML 1,000 ML IV SCH ×2 (06:00→06:15)
[2021-08-12] MEDS: 1/2 NS IV SOLUTION 1,000 ML IV SCH ×4 (06:37→18:00)
--- NOTE | 2021-08-12 07:02 | History & Physical-Hospitalist ---
History of Present Illness HPI/Chief Complaint Chief complaint: Third-degree heart block History present illness: This is a 70-year-old female from [place] who obtains cardiology care from Dr. Savage who presents to the ICU as a direct admission from [facility] ER due to confirmed third-degree heart block. Patient had a syncopal episode yesterday seen in the ER given IV fluids and UTI treated and had another episode at the dinner table and face fell into her plate. DKA diagnosed and insulin drip maintained. Patient is very talkative. Temporary pacemaker was placed at [address] Harden in cathodic protection technician. Source: patient Date Seen 08/12/21 Time Seen by a Provider: 10:00 Attending Physician No,Local Physician PCP Admitting Physician: Vickie Mcarthur DO Attending Physician: Vickie Mcarthur DO Referring Physician Date of Admission Aug 11, 2021 at 20:36 Home Medications & Allergies Home Medications Reviewed patient Home Medication Reconciliation performed by pharmacy medication reconciliations commercial technician and/or nursing. Patients Allergies have been reviewed. Allergies Allergies Coded Allergies NKANo Known Allergies (Verified Allergy, Unknown, 06/01/21) Past Kwhpazp-Aydfdw-Xejcih Hx Patient Social History Marrital Status: single Employed/Student: retired Tobacco Use?: No Smoking Status: Never a Smoker Use of E-Cig and/or Vaping dev: No Substance use?: No Alcohol Use?: No Pt feels they are or have been: No Immunizations Up To Date Date of Influenza Vaccine: Jan 21, 2019 First/Initial COVID19 Vaccinat: Mar Second COVID19 Vaccination Oscar: April Tetanus Booster (TDap): Less Than 5 Years Hepatitis A: No Hepatitis B: No Date of Pneumonia Vaccine: Jan 21, 2019 Current Status status: No status: No Advance Directives: No Communicates: Verbally Primary Language: [place] Citizen Preferred Spoken Language: [place] Citizen Is interpretation needed?: No Implanted or Applied Medical D: None Past Medical History Surgeries: Coronary Stent Currently Using CPAP: No Currently Using BIPAP: No Coronary Artery Disease, High Cholesterol, Hypertension Gastroesophageal Reflux Lymphoma Did You Recieve Any Treatments: Yes What Type of Treatment Did You: Chemotherapy, Radiation, Surgical Intervention Blood Disorders: No Adverse Reaction/Blood Tranf: No DM Review of Systems Constitutional: see HPI, malaise, weakness EENTM: no symptoms reported Respiratory: no symptoms reported Cardiovascular: no symptoms reported Gastrointestinal: no symptoms reported Genitourinary: no symptoms reported Musculoskeletal: no symptoms reported Skin: no symptoms reported Psychiatric/Neurological: No Symptoms Reported All Other Systems Reviewed Negative Unless Noted: Yes Physical Exam Physical Exam Vital Signs Vital Signs - First Documented 08/11/21 08/11/21 08/12/21 20:30 20:38 01:13 Temp 36.4 Pulse 59 Resp 24 B/P (MAP) 176/80 Pulse Ox 100 O2 Delivery Room Air O2 Flow Rate 2.00 Capillary Refill : Less Than 3 Seconds Height, Weight, BMI Height: 4'10.00" Weight: 161lbs. 0.0oz. 73.353960wn; 27.88 BMI Method: General Appearance: No Apparent Distress, Chronically ill Eyes: Right Eye Normal Inspection, Right Eye PERRL HEENT: PERRL/EOMI, Normal ENT Inspection, Pharynx Normal, Moist Mucous Membranes Neck: Full Range of Motion, Normal Inspection, Non Tender Respiratory: Chest Non Tender, Lungs Clear, Normal Breath Sounds, No Accessory Muscle Use, No Respiratory Distress Cardiovascular: Regular Rate, Rhythm, No Edema, No Gallop, No JVD, No Murmur, Normal Peripheral Pulses Gastrointestinal: Normal Bowel Sounds, No Organomegaly, No Pulsatile Mass, Non Tender, Soft Back: Normal Inspection, No CVA Tenderness, No Vertebral Tenderness Extremity: Normal Capillary Refill, Normal Inspection, Normal Range of Motion, Non Tender, No Calf Tenderness, No Pedal Edema Neurologic/Psychiatric: Alert, Oriented x3, No Motor/Sensory Deficits, Normal Mood/Affect Skin: Normal Color, Warm/Dry Lymphatic: No Adenopathy Results Results/Procedures Labs Laboratory Tests 08/11/21 20:55 08/12/21 04:30 08/12/21 08:59 08/12/21 13:00 08/12/21 16:50 Patient resulted labs reviewed. Assessment/Plan Admission Diagnosis Assessment: Syncope due to heart block CAD previous stent remotely DKA DM HTN HLP Plan: Monitor glucose Supportive care Plavix Dr Harden appreciated Admission Status: Inpatient Order (span 2 midnights) Reason for Inpatient Admission: heart block Diagnosis/Problems Diagnosis/Problems (1) Heart block AV third degree (2) Cardiogenic shock (3) Coronary artery disease without angina pectoris (4) DKA (diabetic ketoacidosis) (5) Type 2 diabetes mellitus with complication (6) Primary hypertension (7) Mixed hyperlipidemia VICKIE MCARTHUR DO Aug 12, 2021 07:02
[2021-08-12] MEDS ORDERED: POTASSIUM PHOSPHATE INJ 30 MM in NS (IVPB) 250 ML IV ONE (08:00)
[2021-08-12] MEDS: CEFEPIME INJECTION 1,000 MG in NS (IVPB) 50 ML IV SCH ×3 (08:26→21:16)
[2021-08-12] MEDS: DOCUSATE SODIUM 100 MG (COLACE) CAP PO SCH ×2 (08:27→21:17)
[2021-08-12] MEDS: SENNOSIDES 8.6 MG (SENOKOT) TAB PO SCH ×2 (08:28→21:17)
[2021-08-12] MEDS ORDERED: CLOPIDOGREL 75 MG (PLAVIX) TABLET PO SCH (09:00)
[2021-08-12] MEDS: D5 1/2 NS 1000 ML IV SOLUTION 1,000 ML IV SCH ×3 (09:02→18:14)
[2021-08-12] MEDS ORDERED: NS IV 1000 ML 1,000 ML IV ONE (09:15)
[2021-08-12 09:22] LABS: POTASSIUM 4.4 MMOL/L (3.6-5.0)
[2021-08-12 09:23] LABS: CALCIUM 8.3 MG/DL (8.5-10.1)
--- NOTE | 2021-08-12 09:24 | Cardiology Progress Note ---
Progress Note-Cardiology Events since last exam Date Seen by Provider: Aug 12, 2021 Time Seen by Provider: 09:19 Events since last exam We are following her due to complete heart block. Early this morning I placed a temporary pacemaker wire. This morning she has sinus rhythm with intrinsic AV conduction and a heart rate in the 90s. She is still on low-dose dopamine. The dobutamine that was ordered by the eICU was discontinued last evening. She feels much better this morning. She denies chest discomfort, dyspnea, palpitations, recurrent syncope, or peripheral edema. She does note that she was having nausea and some vomiting off and on for a couple of days prior to that all of this happening. She reports that she does have irritable bowel syndrome and from time to time does have constipation and/or nausea and vomiting. Certain portions of this document may have been dictated utilizing voice r ecognition technology. Inherent to this technology, typographical and grammatical errors may exist. As much as I am diligent to identify and correct these mistakes, some errors may remain in the document. Vitals Last set of Vitals Signs Vital Signs 08/12/21 08/12/21 07:48 08:00 Temp 36.3 Pulse 92 Resp 13 B/P (MAP) 127/64 Pulse Ox 95 O2 Delivery Nasal Cannula O2 Flow Rate 2.00 Labs Labs Laboratory Tests 08/11/21 20:55 08/12/21 04:30 Exam Vital Signs Vital Signs Date Time Temp Pulse Resp B/P (MAP) Pulse Ox O2 Delivery O2 Flow Rate FiO2 08/12/21 08:00 92 13 127/64 95 Nasal Cannula 2.00 08/12/21 07:48 36.3 Physical Exam General: Alert. No acute distress. Eye: No xanthelasma. HENT: Normocephalic. Neck: Jugular venous pressure does not appear elevated. Respiratory: Lungs are clear to auscultation. Respirations are non-labored. Breath sounds are equal. Symmetrical chest wall expansion. Cardiovascular: Normal rate. Regular rhythm. No murmur. No gallop. No edema. Gastrointestinal: Soft. Normal bowel sounds. Skin: Warm. Dry. Neurologic: Alert and oriented to person, place, time. Cranial nerves 3-11 g rossly intact. Psychiatric: Cooperative. Appropriate mood & affect. Labs Laboratory Tests Test 6/18/22 20:55 08/11/21 23:00 08/12/21 00:00 08/12/21 04:30 Range/Units White Blood Count 9.6 24.1 H 4.3-11.0 10^3/uL Red Blood Count 4.14 4.14 3.80-5.11 10^6/uL Hemoglobin 12.3 12.3 11.5-16.0 g/dL Hematocrit 36 38 35-52 % Mean Corpuscular Volume 88 93 80-99 fL Mean Corpuscular Hemoglobin 30 30 25-34 pg Mean Corpuscular Hemoglobin Concent 34 32 32-36 g/dL Red Cell Distribution Width 13.1 13.2 10.0-14.5 % Platelet Count 319 339 130-400 10^3/uL Mean Platelet Volume 11.1 11.5 9.0-12.2 fL Immature Granulocyte % (Auto) 0 % Neutrophils (%) (Auto) 80 H 42-75 % Lymphocytes (%) (Auto) 13 12-44 % Monocytes (%) (Auto) 6 0-12 % Eosinophils (%) (Auto) 0 0-10 % Basophils (%) (Auto) 0 0-10 % Neutrophils # (Auto) 7.7 1.8-7.8 10^3/uL Lymphocytes # (Auto) 1.3 1.0-4.0 10^3/uL Monocytes # (Auto) 0.6 0.0-1.0 10^3/uL Eosinophils # (Auto) 0.0 0.0-0.3 10^3/uL Basophils # (Auto) 0.0 0.0-0.1 10^3/uL Immature Granulocyte # (Auto) 0.0 0.0-0.1 10^3/uL Neutrophils % (Manual) 82 86 % Lymphocytes % (Manual) 15 6 % Monocytes % (Manual) 3 8 % Blood Morphology Comment NORMAL Sodium Level 138 134 L 135-145 MMOL/L Potassium Level 3.5 L 4.6 3.6-5.0 MMOL/L Chloride Level 104 103 98-107 MMOL/L Carbon Dioxide Level 17 L 11 L 21-32 MMOL/L Anion Gap 17 H 20 H 5-14 MMOL/L Blood Urea Nitrogen 16 18 7-18 MG/DL Creatinine 0.70 1.05 0.60-1.30 MG/DL Estimat Glomerular Filtration Rate 94 58 BUN/Creatinine Ratio 23 17 Glucose Level 138 H 402 *H 70-105 MG/DL Lactic Acid Level 2.08 *H 2.68 *H 0.50-2.00 MMOL/L Calcium Level 9.4 8.6 8.5-10.1 MG/DL Corrected Calcium 9.2 8.6 8.5-10.1 MG/DL Phosphorus Level 2.0 L 4.8 H 2.3-4.7 MG/DL Magnesium Level 1.5 L 2.3 1.6-2.4 MG/DL Total Bilirubin 0.6 0.7 0.1-1.0 MG/DL Aspartate Amino Transf (AST/SGOT) 14 15 5-34 U/L Alanine Aminotransferase (ALT/SGPT) 18 20 0-55 U/L Alkaline Phosphatase 63 60 40-136 U/L Troponin I < 0.028 <0.028 NG/ML Total Protein 7.6 7.2 6.4-8.2 GM/DL Albumin 4.2 4.0 3.2-4.5 GM/DL Thyroid Stimulating Hormone (TSH) 2.43 0.35-4.94 UIU/ML Urine Color YELLOW Urine Clarity CLEAR Urine pH 6.0 5-9 Urine Specific [place] 1.025 H 1.016-1.022 Urine Protein NEGATIVE NEGATIVE Urine Glucose (UA) 3+ H NEGATIVE Urine Ketones 3+ H NEGATIVE Urine Nitrite NEGATIVE NEGATIVE Urine Bilirubin NEGATIVE NEGATIVE Urine Urobilinogen 0.2 < = 1.0 MG/DL Urine Leukocyte Esterase NEGATIVE NEGATIVE Urine RBC (Auto) NEGATIVE NEGATIVE Urine RBC NONE /HPF Urine WBC 0-2 /HPF Urine Squamous Epithelial Cells 0-2 /HPF Urine Crystals NONE /LPF Urine Bacteria TRACE /HPF Urine Casts NONE /LPF Urine Mucus NEGATIVE /LPF Urine Culture Indicated NO Lipase 62 8-78 U/L Smudge Cells SLIGHT Polychromasia SLIGHT Poikilocytosis SLIGHT Anisocytosis SLIGHT Microcytosis SLIGHT Beta-Hydroxybutyrate (Chem panel) 3.48 H 0.00-0.27 MMOL/L Test 08/12/21 05:39 08/12/21 05:43 08/12/21 05:50 08/12/21 06:41 Range/Units Urine Ketones 2+ Bedside Blood Gas pH (LAB) 7.267 *L 7.310-7.410 Bedside Blood Gas pCO2 (LAB) 32.7 L 41.0-51.0 mmHg Bedside Blood Gas pO2 (LAB) 94 80-105 mmHg Bedside Blood Gas HCO3 (LAB) 14.9 *L 23.0-28.0 mmol/L POC Blood Gas Total CO2 Calc 16 L 24-29 mmol/L Bedside Bl Gas O2 Saturation (Calc) 96 95-98 % Bedside Arterial Blood Base Excess -12 L -2-3 mmol/L Lactic Acid Level 2.18 *H 0.50-2.00 MMOL/L Glucometer 269 H 70-110 MG/DL Test 08/12/21 07:30 08/12/21 07:57 08/12/21 08:26 08/12/21 08:59 Range/Units Glucometer 213 H 207 H 70-110 MG/DL Lactic Acid Level 1.45 0.50-2.00 MMOL/L Diagnosis/Problems Diagnosis/Problems (1) Heart block AV third degree Assessment & Plan: She appears to be having intermittent complete heart block as well as symptomatic bradycardia. I have verified her medication list from the assisted living and she has in fact been receiving metoprolol tartrate 25 mg twice daily. This medication may be responsible for the heart block. Furthermo re, with all the nausea and vomiting she was having at the time of admission, she likely had some superimposed vagal activity exacerbating the bradycardia and heart block. She has not received any metoprolol since coming to the hospital and the heart block now seems to be improving. We will attempt to wean off the dopamine. She can eat today but I will keep her n.p.o. after midnight in the event that she has recurrent heart block and requires a permanent pacemaker. She should not be given any AV lorene blocking agents. (2) Cardiogenic shock Assessment & Plan: She remains on low-dose dopamine. We will continue to wean this to off. The shock was most likely due to the severe bradycardia and intermittent complete heart block. I will give her half liter normal saline bolus. (3) Coronary artery disease without angina pectoris Assessment & Plan: She is not having any angina. Her troponin level was undetectable. There are no ischemic changes on her electrocardiogram. I will discontinue the clopidogrel she was taking at home in the event she needs a pacemaker. I have reordered aspirin. No beta-lazaro as above. Statin medication has also been reordered. (4) Primary hypertension Assessment & Plan: She is currently hypotensive due to the profound bradycardia. Once this resolves, we can slowly start to resume her outpatient antihypertensive medication. As above, no AV lorene blockers due to the bradycardia and heart block. (5) Mixed hyperlipidemia Assessment & Plan: Continue outpatient dose of atorvastatin. (6) Type 2 diabetes mellitus with complication Assessment & Plan: This is being managed by the hospitalist. MARLENI ROD JR, MD Aug 12, 2021 09:24
[2021-08-12 09:27] LABS: CREATININE SERUM 0.72 MG/DL (0.60-1.30)
[2021-08-12] MEDS ORDERED: ASPIRIN E.C. 81 MG (ECOTRIN) TAB PO NR (09:30)
[2021-08-12] MEDS: PANTOPRAZOLE 40 MG (PROTONIX) VIAL IV SCH (11:11)
[2021-08-12 13:23] LABS: POTASSIUM 3.8 MMOL/L (3.6-5.0)
[2021-08-12 13:28] LABS: CREATININE SERUM 0.67 MG/DL (0.60-1.30)
[2021-08-12 17:07] LABS: POTASSIUM 4.3 MMOL/L (3.6-5.0)
[2021-08-12 17:09] LABS: CALCIUM 8.4 MG/DL (8.5-10.1)
[2021-08-12 17:13] LABS: CREATININE SERUM 0.68 MG/DL (0.60-1.30)
[2021-08-12] MEDS ORDERED: FAMOTIDINE 20 MG (PEPCID) TABLET PO ONE (17:45)
[2021-08-12] MEDS ORDERED: FAMOTIDINE 20 MG (PEPCID) TABLET ONE ×2 (18:03→18:12)
[2021-08-12 21:20] LABS: POTASSIUM 4.2 MMOL/L (3.6-5.0)
[2021-08-12 21:21] LABS: CALCIUM 8.5 MG/DL (8.5-10.1)
[2021-08-12 21:25] LABS: CREATININE SERUM 0.63 MG/DL (0.60-1.30)
[2021-08-13] MEDS: POTASSIUM CL 10MEQ/50ML IVPB 50 ML IV SCH ×4 (00:10→09:08)
[2021-08-13] MEDS: D5 1/2 NS 1000 ML IV SOLUTION 1,000 ML IV SCH ×3 (00:11→06:58)
[2021-08-13] MEDS: CEFEPIME INJECTION 1,000 MG in NS (IVPB) 50 ML IV SCH ×4 (00:11→21:15)
[2021-08-13] MEDS: 1/2 NS IV SOLUTION 1,000 ML IV SCH ×4 (00:20→10:00)
[2021-08-13] MEDS: NS IV 1000 ML 1,000 ML IV SCH ×2 (00:20→14:24)
[2021-08-13 02:18] LABS: POTASSIUM 4.7 MMOL/L (3.6-5.0)
[2021-08-13 02:19] LABS: CALCIUM 8.6 MG/DL (8.5-10.1)
[2021-08-13 02:24] LABS: CREATININE SERUM 0.61 MG/DL (0.60-1.30)
[2021-08-13 04:54] LABS: HEMATOCRIT 34 % (35-52); HEMOGLOBIN 11.3 g/dL (11.5-16.0); MEAN CORPUSCULAR HEMOGLOBIN 30 pg (25-34); MEAN CORPUSCULAR HGB CONC 33 g/dL (32-36); MEAN CORPUSCULAR VOLUME 91 fL (80-99); MEAN PLATELET VOLUME 10.8 fL (9.0-12.2); PLATELET COUNT 260 10^3/uL (130-400); WHITE BLOOD COUNT 9.5 10^3/uL (4.3-11.0)
[2021-08-13 05:06] LABS: ALBUMIN 3.6 GM/DL (3.2-4.5); POTASSIUM 4.4 MMOL/L (3.6-5.0)
[2021-08-13 05:08] LABS: CALCIUM 8.7 MG/DL (8.5-10.1)
[2021-08-13 05:09] LABS: TOTAL PROTEIN 6.6 GM/DL (6.4-8.2)
[2021-08-13 05:11] LABS: BILIRUBIN,TOTAL 0.5 MG/DL (0.1-1.0)
[2021-08-13 05:12] LABS: PHOSPHORUS 1.6 MG/DL (2.3-4.7)
[2021-08-13 05:13] LABS: CREATININE SERUM 0.59 MG/DL (0.60-1.30)
[2021-08-13 05:16] LABS: MAGNESIUM 1.5 MG/DL (1.6-2.4)
[2021-08-13] MEDS: DOPamine DRIP 250 ML IV SCH (06:47)
[2021-08-13] MEDS: MAGNESIUM 1 GM/100 ML IVPB 100 ML IV SCH ×3 (07:28→10:02)
[2021-08-13] MEDS: inSUlin ASPART (NovoLOG) 1 UNIT/0.01 ML (CHARGE PER UNIT) SC SCH ×3 (07:28→20:43)
[2021-08-13] MEDS: KCL 20 MEQ TAB (K-DUR) PO SCH (07:28)
--- NOTE | 2021-08-13 08:03 | Progress Note - Cardiology ---
Cardiology SOAP Progress Note Subjective: Lying in bed States she feels much better No c/o dizziness, CP or SOB Objective: I&O/Vital Signs 08/13/21 08/13/21 08/13/21 08/14/21 20:00 20:50 23:57 01:00 Temp 36.9 36.9 Pulse 82 81 77 Resp 18 18 B/P (MAP) 117/58 127/59 Pulse Ox 97 94 O2 Delivery Room Air Room Air Room Air 08/14/21 08/14/21 08/14/21 04:20 07:32 07:44 Temp 36.6 37.1 Pulse 82 80 Resp 18 20 B/P (MAP) 118/55 135/63 Pulse Ox 96 94 O2 Delivery Room Air Room Air Room Air 08/14/21 00:00 Intake Total 1570 ml Output Total 1725 ml Balance -155 ml Weight (Pounds): 161 Weight (Ounces): 0.0 Weight (Calculated Kilograms): 73.684412 Constitutional: AAO x 3, well-developed, well-nourished Respiratory: No accessory muscle use, No respiratory distress; chest expansion is symmetric, chest is bilaterally symmetric, other (good air entry) Cardiovascular: regular rate-rhythm; No JVD; S1 and S2 Gastrointestional: No tender; soft, round, audible bowel sounds Extremities: no lower extremity edema bilateral Neurologic/Psychiatric: grossly intact (moves all extremities) Skin: No rash on exposed areas, No ulcerations on exposed areas Results/Procedures: Labs Laboratory Tests 08/13/21 09:59: Sodium Level 137, Potassium Level 4.3, Chloride Level 109H, Carbon Dioxide Level 19L, Anion Gap 9, Blood Urea Nitrogen 6L, Creatinine 0.59L, Estimat Glomerular Filtration Rate 98, BUN/Creatinine Ratio 10, Glucose Level 153H, Calcium Level 8.6 08/13/21 11:51: Glucometer 135H 08/13/21 12:07: Sodium Level 137, Potassium Level 3.9, Chloride Level 106, Carbon Dioxide Level 18L, Anion Gap 13, Blood Urea Nitrogen 5L, Creatinine 0.59L, Estimat Glomerular Filtration Rate 98, BUN/Creatinine Ratio 8, Glucose Level 130H, Calcium Level 9.0 08/13/21 14:29: Glucometer 171H 08/13/21 17:38: Glucometer 203H 08/13/21 20:42: Glucometer 121H 08/13/21 23:59: Glucometer 144H 08/14/21 04:21: Glucometer 102 08/14/21 05:32: White Blood Count 8.7, Red Blood Count 3.98, Hemoglobin 11.7, Hematocrit 35, Mean Corpuscular Volume 87, Mean Corpuscular Hemoglobin 29, Mean Corpuscular Hemoglobin Concent 34, Red Cell Distribution Width 13.2, Platelet Count 288, Mean Platelet Volume 11.1, Sodium Level 137, Potassium Level 3.8, Chloride Level 104, Carbon Dioxide Level 22, Anion Gap 11, Blood Urea Nitrogen 9, Creatinine 0.63, Estimat Glomerular Filtration Rate 97, BUN/Creatinine Ratio 14, Glucose Level 109H, Calcium Level 9.1, Corrected Calcium 9.3, Phosphorus Level 2.6, Magnesium Level 1.8, Total Bilirubin 0.7, Aspartate Amino Transf (AST/SGOT) 34, Alanine Aminotransferase (ALT/SGPT) 38, Alkaline Phosphatase 62, Total Protein 7.1, Albumin 3.8 08/14/21 07:35: Glucometer 115H Microbiology 08/12/21 Blood Culture - Preliminary, Resulted No growth 08/12/21 Urine Culture - Final, Complete NO GROWTH 08/11/21 MRSA Screen - Final, Complete MRSA not isolated A/P: Assessment: Episode of symptomatic CHB (syncope) - seen on equipment monitor phototypesetting strips of 08-11-21 from [facility] (symptomatic), in the presence of BB tx - Temp pacemaker inserted by Dr. Harden - has had no further episodes of bradycardia since cessation of BB - advise MPI d/t known h/o CAD with previous intervention - continue ASA N/V - management per medical services - resolved UTI - Management per medical services Hypotension - resolved Electrolytes abnormalities - replace Coronary artery disease - MPI of 08/22/17: no ischemia or infarction: LVEF 74% - Echo of 08/22/17: LVEF 60-65%, grade 1 donaldson dysfunction - cardiac cath of 04/13/19 showed mild CAD, patent stented segment in prox LAD (Alpine Xience 2.25 x 12 mm that overlaps an old stent that is known to be Promus 2.25 x 16 mm). The rest of the coronary arteries have diffuse mild disease. Normal global left ventricular systolic function with an ejection fraction of approximately 60%. Mild to mod elev of left ventricular end- diastolic pressure. - Echocardiogram of 08-12-[address] Harden showes LVEF 55-60%. Grade 2 jarad stolic dysfunction. Mild AoV sclerosis. Mod mitral valve calcification H/O Hypertension - controlled Hyperlipidemia - statin tx - followed by PCP DM II - managed by PCP Carotid dz - Mild carotid art dz on carotid u/s of 06/28/21 Chronic abn ECG: - NSR with RBBB on ECG of 08/18/17. RBBB is chronic Oncology - L Breast Ca treated with surgery and chemo and radiation in the half 2016 (Dr Lamas oncologist in [place], [place]) Raynaud's phenomenon - managed by PCP EMELIA (+) Jan 2020 s/p R carpal tunnel and R elbow surgery in 2020 Plan: Symptomatice CHB seen on tele strips at [facility] - resolved following cessation of BB tx - dc temp pacer today - consider ILR implant prior to discharge Hypotension - resolved Dopamine off Monitor lab - replace electrolytes Management of UTI per medical services Dr. Harden notes from the weekend have been reviewed in detail EVELIO URIOSTEGUI Aug 13, 2021 08:03
[2021-08-13] MEDS ORDERED: SODIUM PHOSPHATE INJ 15 MM in D5W 100 ML IVPB 100 ML IV NR (08:41)
--- NOTE | 2021-08-13 08:51 | Tele-ICU Progress Note ---
Subjective Date Seen by a Provider: Aug 12, 2021 Time Seen by a Provider: 10:24 Subjective/Events-last exam (Tele-ICU Physician , Progress Note ) Available chart/ vitals / labs / Images reviewed Video assessment done using teleICU camera, rest of exam as per RN Discussed with RN , EXAM PER RN Events overnight : Afebrile FiO2 - 2l I/O + Drips: d51/2 250 Pressors: , hemodynamically stable Consultants: Hospital course: 08/11: 70 y/o female admitted direct from OSH-ED with 3rd degree AVB. Dobutamine gtt ordered. 08/12: Dobutamine gtt stopped. Dopamine gtt maxed, . CCL: s/p TPM insertion via R femoral vein. Abx started A/P Bradycardia with shock - 08/12 s/p TPM insertion via R femoral vein(hr 50 - cards follow - to wean off dopa DKA - insulin gtt, follow as per protocol -follow leukocytosis - as per review appraiser chart - CXR in transferred chart reported cleat , cxr here is pending, UA and blood cx done , empiric abx started Lines : peripf (Central Line Necessity Reviewed) Quintana: + OG: Nutrition: to strt soon Analgesia: Anxiety/ delirium na VTE Prophylaxis: scd on left Stress Ulcer Prophylaxis: na Sepsis Event Evaluation Height, Weight, BMI Height: 4'10.00" Weight: 161lbs. 0.0oz. 73.753514io; 27.88 BMI Method: Focused Exam Lactate Level 08/11/21 23:00: Lactic Acid Level 2.68*H 08/12/21 05:50: Lactic Acid Level 2.18*H 08/12/21 07:57: Lactic Acid Level 1.45 Exam Exam Patient acknowledged, consented, and participated in this virtual visit which was conducted using real time audio/video Vital Signs Date Time Temp Pulse Resp B/P (MAP) Pulse Ox O2 Delivery O2 Flow Rate FiO2 08/13/21 08:00 36.2 08/13/21 07:00 77 08/13/21 06:00 82 19 112/55 99 Nasal Cannula 2.00 08/13/21 05:00 77 16 103/49 98 Nasal Cannula 2.00 08/13/21 04:00 80 11 118/57 99 Nasal Cannula 2.00 08/13/21 03:38 98 Nasal Cannula 2.00 08/13/21 03:00 79 9 132/64 97 Nasal Cannula 2.00 08/13/21 02:00 89 11 122/65 100 Nasal Cannula 2.00 08/13/21 01:00 80 12 111/61 96 Nasal Cannula 2.00 08/13/21 01:00 80 08/13/21 00:00 36.9 08/13/21 00:00 80 12 101/61 99 Nasal Cannula 2.00 08/13/21 00:00 98 Nasal Cannula 2.00 08/12/21 23:00 81 14 109/57 96 Nasal Cannula 2.00 08/12/21 22:00 87 12 132/65 99 Nasal Cannula 2.00 08/12/21 21:00 86 10 129/61 96 Nasal Cannula 2.00 08/12/21 20:00 36.7 08/12/21 20:00 90 9 133/62 98 Nasal Cannula 2.00 08/12/21 20:00 98 Nasal Cannula 2.00 08/12/21 19:00 93 18 134/60 97 Nasal Cannula 2.00 08/12/21 19:00 93 08/12/21 18:00 89 13 126/57 96 Nasal Cannula 2.00 08/12/21 17:00 92 9 127/64 98 Nasal Cannula 2.00 08/12/21 16:00 86 14 106/56 97 Nasal Cannula 2.00 08/12/21 16:00 98 Nasal Cannula 2.00 08/12/21 15:46 37.0 08/12/21 15:00 86 11 105/53 97 Nasal Cannula 2.00 08/12/21 14:00 87 13 100/47 95 Nasal Cannula 2.00 08/12/21 13:00 89 08/12/21 13:00 89 14 89/50 96 Nasal Cannula 2.00 08/12/21 12:00 98 Nasal Cannula 2.00 08/12/21 12:00 98 18 110/61 98 Nasal Cannula 2.00 08/12/21 11:55 36.6 08/12/21 11:00 89 11 91/60 98 Nasal Cannula 2.00 08/12/21 10:00 90 110/59 98 Nasal Cannula 2.00 08/12/21 09:37 Nasal Cannula 2.00 08/12/21 09:00 98 Nasal Cannula 2.00 08/12/21 09:00 90 13 105/57 96 Nasal Cannula 2.00 I & O 08/13/21 07:00 Intake Total 4575 ml Output Total 6425 ml Balance -1850 ml Height & Weight Height: 4'10.00" Weight: 161lbs. 0.0oz. 73.916250ou; 27.88 BMI Method: General Appearance: No Apparent Distress, Chronically ill HEENT: PERRL/EOMI, Normal ENT Inspection, Pharynx Normal, Moist Mucous Membranes Neck: Full Range of Motion, Normal Inspection, Non Tender Respiratory: Chest Non Tender, Lungs Clear, Normal Breath Sounds, No Accessory Muscle Use, No Respiratory Distress Cardiovascular: Regular Rate, Rhythm, No Edema, No Gallop, No JVD, No Murmur, Normal Peripheral Pulses Capillary Refill: Less Than 3 Seconds Extremity: Normal Capillary Refill, Normal Inspection, Normal Range of Motion, Non Tender, No Calf Tenderness, No Pedal Edema Neurologic/Psychiatric: Alert, Oriented x3, No Motor/Sensory Deficits, Normal Mood/Affect Skin: Normal Color, Warm/Dry Lymphatic: No Adenopathy Results Lab Laboratory Tests 08/11/21 20:55 08/12/21 04:30 08/12/21 08:59 08/12/21 13:00 08/12/21 16:50 08/12/21 21:04 08/13/21 02:02 08/13/21 04:35 Assessment/Plan Assessment/Plan WALE CONNELLY MD Aug 13, 2021 08:51
[2021-08-13] MEDS: PANTOPRAZOLE 40 MG (PROTONIX) VIAL IV SCH (08:55)
[2021-08-13] MEDS: ASPIRIN E.C. 81 MG (ECOTRIN) TAB PO SCH (08:55)
--- NOTE | 2021-08-13 08:55 | Tele-ICU Progress Note ---
Subjective Date Seen by a Provider: Aug 13, 2021 Time Seen by a Provider: 08:54 Subjective/Events-last exam (Tele-ICU Physician , Progress Note ) Available chart/ vitals / labs / Images reviewed Video assessment done using teleICU camera, rest of exam as per RN Discussed with RN , EXAM PER RN Events overnight : Afebrile FiO2 - 2L I/O = neg 400 Drips: off dopa Pressors: , hemodynamically stable Consultants: Hospital course: 08/11: 70 y/o female admitted direct from OSH-ED with 3rd degree AVB. Dobutamine gtt ordered. 08/12: Dobutamine gtt stopped. Dopamine gtt maxed, . CCL: s/p TPM insertion via R femoral vein. 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 Discussed with RN to reach out if any questions or concerns A total of 31 minutes of critical care time was devoted to this patient today, required to treat and/or prevent further deterioration of critical care condition ( as above) . Sepsis Event Evaluation Height, Weight, BMI Height: 4'10.00" Weight: 161lbs. 0.0oz. 73.714573pm; 27.88 BMI Method: Focused Exam Lactate Level 08/11/21 23:00: Lactic Acid Level 2.68*H 08/12/21 05:50: Lactic Acid Level 2.18*H 08/12/21 07:57: Lactic Acid Level 1.45 Exam Exam Patient acknowledged, consented, and participated in this virtual visit which was conducted using real time audio/video Vital Signs Date Time Temp Pulse Resp B/P (MAP) Pulse Ox O2 Delivery O2 Flow Rate FiO2 08/13/21 08:00 36.2 08/13/21 07:00 77 08/13/21 06:00 82 19 112/55 99 Nasal Cannula 2.00 08/13/21 05:00 77 16 103/49 98 Nasal Cannula 2.00 08/13/21 04:00 80 11 118/57 99 Nasal Cannula 2.00 08/13/21 03:38 98 Nasal Cannula 2.00 08/13/21 03:00 79 9 132/64 97 Nasal Cannula 2.00 08/13/21 02:00 89 11 122/65 100 Nasal Cannula 2.00 08/13/21 01:00 80 12 111/61 96 Nasal Cannula 2.00 08/13/21 01:00 80 08/13/21 00:00 36.9 08/13/21 00:00 80 12 101/61 99 Nasal Cannula 2.00 08/13/21 00:00 98 Nasal Cannula 2.00 08/12/21 23:00 81 14 109/57 96 Nasal Cannula 2.00 08/12/21 22:00 87 12 132/65 99 Nasal Cannula 2.00 08/12/21 21:00 86 10 129/61 96 Nasal Cannula 2.00 08/12/21 20:00 36.7 08/12/21 20:00 90 9 133/62 98 Nasal Cannula 2.00 08/12/21 20:00 98 Nasal Cannula 2.00 08/12/21 19:00 93 18 134/60 97 Nasal Cannula 2.00 08/12/21 19:00 93 08/12/21 18:00 89 13 126/57 96 Nasal Cannula 2.00 08/12/21 17:00 92 9 127/64 98 Nasal Cannula 2.00 08/12/21 16:00 86 14 106/56 97 Nasal Cannula 2.00 08/12/21 16:00 98 Nasal Cannula 2.00 08/12/21 15:46 37.0 08/12/21 15:00 86 11 105/53 97 Nasal Cannula 2.00 08/12/21 14:00 87 13 100/47 95 Nasal Cannula 2.00 08/12/21 13:00 89 08/12/21 13:00 89 14 89/50 96 Nasal Cannula 2.00 08/12/21 12:00 98 Nasal Cannula 2.00 08/12/21 12:00 98 18 110/61 98 Nasal Cannula 2.00 08/12/21 11:55 36.6 08/12/21 11:00 89 11 91/60 98 Nasal Cannula 2.00 08/12/21 10:00 90 110/59 98 Nasal Cannula 2.00 08/12/21 09:37 Nasal Cannula 2.00 08/12/21 09:00 98 Nasal Cannula 2.00 08/12/21 09:00 90 13 105/57 96 Nasal Cannula 2.00 I & O 08/13/21 07:00 Intake Total 4575 ml Output Total 6425 ml Balance -1850 ml Height & Weight Height: 4'10.00" Weight: 161lbs. 0.0oz. 73.371155pg; 27.88 BMI Method: General Appearance: No Apparent Distress, Chronically ill HEENT: PERRL/EOMI, Normal ENT Inspection, Pharynx Normal, Moist Mucous Membra anna Neck: Full Range of Motion, Normal Inspection, Non Tender Respiratory: Chest Non Tender, Lungs Clear, Normal Breath Sounds, No Accessory Muscle Use, No Respiratory Distress Cardiovascular: Regular Rate, Rhythm, No Edema, No Gallop, No JVD, No Murmur, Normal Peripheral Pulses Capillary Refill: Less Than 3 Seconds Extremity: Normal Capillary Refill, Normal Inspection, Normal Range of Motion, Non Tender, No Calf Tenderness, No Pedal Edema Neurologic/Psychiatric: Alert, Oriented x3, No Motor/Sensory Deficits, Normal Mood/Affect Skin: Normal Color, Warm/Dry Lymphatic: No Adenopathy Results Lab Laboratory Tests 08/11/21 20:55 08/12/21 04:30 08/12/21 08:59 08/12/21 13:00 08/12/21 16:50 08/12/21 21:04 08/13/21 02:02 08/13/21 04:35 Assessment/Plan Assessment/Plan ` WALE DAHL MD Aug 13, 2021 08:55
--- NOTE | 2021-08-13 09:07 | Progress Note ---
MICHELLE GOMEZ 08/13/21 0906: Subjective Date Seen by a Provider: Aug 13, 2021 Time Seen by a Provider: 08:30 Subjective/Events-last exam 70 year old female admitted for DKA and syncopal episodes secondary to 3rd degree heart block. Since yesterday she has been able to have dopamine drop discontinued and pulse was in the 80's while I was in the room with her. Spoke with the MAGNET PLACER for Dr. Savage and she said they may try to remove temporary pacemaker today and see how she does without it. Patient's anion gap is within normal range and blood sugars have been more stable since midnight at less than or equal to 160 since then. She has llanos catheter in place that is working well and reports not having a bowel movement since Friday. She has not been walking. She is having a headache, some nausea, chest tightness, SOB, and suprapubic pain at this time. Review of Systems General: No Chills HEENT: Head Aches; No Visual Changes Pulmonary: Dyspnea; No Cough, No Pleuritic Chest Pain Cardiovascular: Other (chest tightness); No: Chest Pain, Edema Gastrointestinal: Nausea, Abdominal Pain (suprapubic); No: Vomiting Genitourinary: No Hematuria; Other (llanos catheter in place) Musculoskeletal: neck pain (neck pain since her fall), shoulder pain (chronic right shoulder pain) Neurological: No: Weakness, Numbness, Change in speech Focused Exam Lactate Level 08/11/21 23:00: Lactic Acid Level 2.68*H 08/12/21 05:50: Lactic Acid Level 2.18*H 08/12/21 07:57: Lactic Acid Level 1.45 Objective Exam Last Set of Vital Signs Vital Signs Date Time Temp Pulse Resp B/P (MAP) Pulse Ox O2 Delivery O2 Flow Rate FiO2 08/13/21 08:00 36.2 08/13/21 08:00 79 25 134/75 99 Nasal Cannula 2.00 Capillary Refill : Less Than 3 Seconds I&O Intake and Output 08/13/21 00:00 Intake Total 4870 ml Output Total 5300 ml Balance -430 ml Intake Oral 570 ml IV Total 4300 ml Output Urine Total 5300 ml General: Alert, Oriented X3 HEENT: Atraumatic, EOMI, Mucous Memb Moist/Munising Neck: Supple, No Thyromegaly, Other (mild tenderness in paraspinal muscles bilaterally) Lungs: Clear to Auscultation Heart: Regular Rate, No Murmurs Abdomen: Normal Bowel Sounds, Other (LLQ tenderness to deep palpation) Extremities: No Edema, Normal Pulses Skin: No Rashes, No Breakdown Neuro: Normal Speech, Cranial Nerves 3-12 NL Results Lab Laboratory Tests 08/12/21 09:28: Glucometer 180H 08/12/21 09:56: Glucometer 163H 08/12/21 10:32: Glucometer 134H 08/12/21 11:36: Glucometer 190H 08/12/21 12:45: Glucometer 222H 08/12/21 13:00: Sodium Level 137, Potassium Level 3.8, Chloride Level 108H, Carbon Dioxide Level 16L, Anion Gap 13, Blood Urea Nitrogen 13, Creatinine 0.67, Estimat Glomerular Filtration Rate 95, BUN/Creatinine Ratio 19, Glucose Level 213H, Calcium Level 8.0L 08/12/21 13:31: Glucometer 247H 08/12/21 14:24: Glucometer 205H 08/12/21 15:33: Glucometer 203H 08/12/21 16:30: Glucometer 186H 08/12/21 16:50: Sodium Level 138, Potassium Level 4.3, Chloride Level 110H, Carbon Dioxide Level 18L, Anion Gap 10, Blood Urea Nitrogen 11, Creatinine 0.68, Estimat Glomerular Filtration Rate 95, BUN/Creatinine Ratio 16, Glucose Level 168H, Calcium Level 8.4L 08/12/21 17:32: Glucometer 165H 08/12/21 18:40: Glucometer 161H 08/12/21 20:46: Glucometer 159H 08/12/21 21:04: Sodium Level 139, Potassium Level 4.2, Chloride Level 110H, Carbon Dioxide Level 19L, Anion Gap 10, Blood Urea Nitrogen 10, Creatinine 0.63, Estimat Glomerular Filtration Rate 97, BUN/Creatinine Ratio 16, Glucose Level 149H, Calcium Level 8.5 08/12/21 22:35: Glucometer 167H 08/13/21 00:48: Glucometer 160H 08/13/21 02:02: Sodium Level 138, Potassium Level 4.7, Chloride Level 109H, Carbon Dioxide Level 20L, Anion Gap 9, Blood Urea Nitrogen 8, Creatinine 0.61, Estimat Glomerular Filtration Rate 97, BUN/Creatinine Ratio 13, Glucose Level 145H, Calcium Level 8.6 08/13/21 04:35: Sodium Level 138, Potassium Level 4.4, Chloride Level 108H, Carbon Dioxide Level 19L, Anion Gap 11, Blood Urea Nitrogen 7, Creatinine 0.59L, Estimat Glomerular Filtration Rate 98, BUN/Creatinine Ratio 12, Glucose Level 111H, Calcium Level 8.7, White Blood Count 9.5, Red Blood Count 3.78L, Hemoglobin 11.3L, Hematocrit 34L, Mean Corpuscular Volume 91, Mean Corpuscular Hemoglobin 30, Mean Corpuscular Hemoglobin Concent 33, Red Cell Distribution Width 13.6, Platelet Count 260, Mean Platelet Volume 10.8, Corrected Calcium 9.0, Phosphorus Level 1.6L, Magnesium Level 1.5L, Total Bilirubin 0.5, Aspartate Amino Transf (AST/SGOT) 19, Alanine Aminotransferase (ALT/SGPT) 16, Alkaline Phosphatase 55, Total Protein 6.6, Albumin 3.6, Beta-Hydroxybutyrate (Chem panel) 0.07 08/13/21 05:27: Glucometer 133H 08/13/21 06:53: Glucometer 139H Microbiology 08/11/21 MRSA Screen - Final, Complete MRSA not isolated Assessment/Plan Assessment/Plan Assess & Plan/Chief Complaint Syncope likely due to 3rd degree heart block -Patient appeared to be in normal sinus rhythm when seen this morning and hard a normal heart rate while not on dobutamine drip. spoke With Dr. Savage's nurse practinioner who was hopefully they will remove temporary pacemaker today. DKA -Patient's DKA appears to be resolving at this time. Will attempt to ween patient off insulin drip at this time, start home meds, and monitor blood sugars closely for now. Leukocytosis -PAtient had WBC of 24.1 yesterday and per nurse was started on cefepime for concern of aspiration pneumonia. Due to temporary cardiac pacemaker she was unable to have chest x ray yesterday. Labs this morning revealed WBC's had improved to 9.5 this morning. Will order chest x ray to look for signs of pneumonia. Possible the leukocytosis was an acute response to the temporary cardiac pacemaker yesterday. PEnding results of imaging may discontiue defepime or choose step down antibiotic. Insulin dependent type 2 diabetes -See DKA plan above Hypertension -BP appears to be within normal range at this time. Will monitor for now and if BP begins to rise will about beta-blockers per cardiology recommendations CAD -Cardiology following at this time. Will continue 81mg aspirin QD and atorvostatin 40mg QD. Will avoid Beta blockers. ILDA HONG MD 08/13/21 1559: Objective Exam General: Alert, Oriented X3 Lungs: Clear to Auscultation Heart: Regular Rate, No Murmurs Abdomen: Normal Bowel Sounds, Soft Extremities: No Edema Neuro: Normal Speech Supervisory-Addendum Brief Verification & Attestation Participated in pt care: history, MDM, physical Personally performed: exam, history, MDM, supervision of care Care discussed with: Medical Student Procedures: n/a I personally saw and examined patient today and did my own exam (see my documentation for my PE) and directed the plan of care as documented by the medical student. At time of my exam, she was lying flat after pacemaker removal. MICHELLE GOMEZ Aug 13, 2021 09:06 ILDA HONG MD Aug 13, 2021 15:59
[2021-08-13] MEDS: DOCUSATE SODIUM 100 MG (COLACE) CAP PO SCH ×2 (09:08→21:15)
[2021-08-13] MEDS: SENNOSIDES 8.6 MG (SENOKOT) TAB PO SCH ×2 (09:08→21:15)
[2021-08-13 10:20] LABS: CALCIUM 8.6 MG/DL (8.5-10.1); CREATININE SERUM 0.59 MG/DL (0.60-1.30); POTASSIUM 4.3 MMOL/L (3.6-5.0)
[2021-08-13] MEDS ORDERED: ATROPINE INJECTION 1 MG/10 ML SYR (ABBOTT) IV ONE (10:30)
[2021-08-13] MEDS ORDERED: ONDA-105 PO (10:40)
[2021-08-13] MEDS ORDERED: MELO7.5T46 PO (10:40)
[2021-08-13] MEDS ORDERED: CEPH500C PO (10:40)
[2021-08-13] MEDS ORDERED: CALC625T14 PO (10:40)
[2021-08-13] MEDS ORDERED: METF-865 PO (10:40)
[2021-08-13] MEDS ORDERED: KETO120S13 TOP (10:40)
[2021-08-13] MEDS ORDERED: FLUT9.9S NSEACH (10:40)
[2021-08-13] MEDS ORDERED: DICL100G13 TOP (10:40)
[2021-08-13] MEDS ORDERED: inSUlin ASPART (NovoLOG) 1 UNIT/0.01 ML (CHARGE PER UNIT) SC SCH ×2 (11:00→14:45)
[2021-08-13 12:50] LABS: CREATININE SERUM 0.59 MG/DL (0.60-1.30); POTASSIUM 3.9 MMOL/L (3.6-5.0)
--- NOTE | 2021-08-13 12:54 | Diagnostic Imaging Report ---
INDICATION: Dyspnea. TIME OF EXAM: 11:48 AM. COMPARISON: Correlation is made with the prior chest from 05/08/2012. FINDINGS: The heart size is normal. There is some patchy infiltrate in the right upper lobe, consistent with pneumonia. The left lung is clear. There is no effusion or pneumothorax. Multiple surgical clips in the left axilla are noted. IMPRESSION: Patchy right upper lobe pneumonia. Dictated by: Dictated on workstation # [id number]
[2021-08-13] MEDS: ONDANSETRON 4 MG/2 ML (SDV) Z0FRAN IV PRN ×2 (13:40→20:47)
--- NOTE | 2021-08-13 16:46 | Progress Note - Cardiology ---
Cardiology SOAP Progress Note Subjective: No cp or palp or syncope or shortness of breath No n/v/d No focal weakness Gen weakness present Objective: I&O/Vital Signs 08/13/21 08/13/21 08/13/21 08/13/21 05:00 06:00 07:00 07:00 Pulse 77 82 77 77 Resp 16 19 25 B/P (MAP) 103/49 112/55 122/62 Pulse Ox 98 99 99 O2 Delivery Nasal Cannula Nasal Cannula Nasal Cannula O2 Flow Rate 2.00 2.00 2.00 08/13/21 08/13/21 08/13/21 08/13/21 08:00 08:00 08:00 09:00 Temp 36.2 Pulse 79 75 Resp 22 B/P (MAP) 134/75 147/75 Pulse Ox 98 99 97 O2 Delivery Nasal Cannula Nasal Cannula Nasal Cannula O2 Flow Rate 2.00 2.00 2.00 08/13/21 08/13/21 08/13/21 08/13/21 10:00 11:00 12:00 12:00 Pulse 74 86 79 Resp 11 28 13 B/P (MAP) 144/71 143/72 142/73 Pulse Ox 99 100 98 97 O2 Delivery Nasal Cannula Nasal Cannula Nasal Cannula Nasal Cannula O2 Flow Rate 2.00 2.00 2.00 2.00 08/13/21 08/13/21 08/13/21 08/13/21 12:49 12:58 13:00 13:55 Temp 37.0 Pulse 81 86 Resp 14 B/P (MAP) 152/73 Pulse Ox 98 97 O2 Delivery Nasal Cannula Nasal Cannula Room Air O2 Flow Rate 2.00 2.00 08/13/21 08/13/21 08/13/21 08/13/21 14:00 15:00 15:26 16:00 Temp 36.6 Pulse 85 85 Resp 14 B/P (MAP) 145/72 117/61 Pulse Ox 98 95 98 O2 Delivery Room Air Room Air Nasal Cannula O2 Flow Rate 2.00 08/13/21 00:00 Intake Total 530 ml Output Total 2800 ml Balance -2270 ml Weight (Pounds): 161 Weight (Ounces): 0.0 Weight (Calculated Kilograms): 73.125022 Constitutional: AAO x 3, well-developed, well-nourished Respiratory: No accessory muscle use, No respiratory distress; chest expansion is symmetric, chest is bilaterally symmetric, other (good air entry) Cardiovascular: regular rate-rhythm; No JVD; S1 and S2 Gastrointestional: No tender; soft, round, audible bowel sounds Extremities: no lower extremity edema bilateral Neurologic/Psychiatric: grossly intact (moves all extremities) Skin: No rash on exposed areas, No ulcerations on exposed areas Results/Procedures: Labs Laboratory Tests 08/12/21 16:50: Sodium Level 138, Potassium Level 4.3, Chloride Level 110H, Carbon Dioxide Level 18L, Anion Gap 10, Blood Urea Nitrogen 11, Creatinine 0.68, Estimat Glomerular Filtration Rate 95, BUN/Creatinine Ratio 16, Glucose Level 168H, Calcium Level 8.4L 08/12/21 17:32: Glucometer 165H 08/12/21 18:40: Glucometer 161H 08/12/21 20:46: Glucometer 159H 08/12/21 21:04: Sodium Level 139, Potassium Level 4.2, Chloride Level 110H, Carbon Dioxide Level 19L, Anion Gap 10, Blood Urea Nitrogen 10, Creatinine 0.63, Estimat Glomerular Filtration Rate 97, BUN/Creatinine Ratio 16, Glucose Level 149H, Calcium Level 8.5 08/12/21 22:35: Glucometer 167H 08/13/21 00:48: Glucometer 160H 08/13/21 02:02: Sodium Level 138, Potassium Level 4.7, Chloride Level 109H, Carbon Dioxide Level 20L, Anion Gap 9, Blood Urea Nitrogen 8, Creatinine 0.61, Estimat Glomerular Filtration Rate 97, BUN/Creatinine Ratio 13, Glucose Level 145H, Calcium Level 8.6 08/13/21 04:35: White Blood Count 9.5, Red Blood Count 3.78L, Hemoglobin 11.3L, Hematocrit 34L, Mean Corpuscular Volume 91, Mean Corpuscular Hemoglobin 30, Mean Corpuscular Hemoglobin Concent 33, Red Cell Distribution Width 13.6, Platelet Count 260, Mean Platelet Volume 10.8, Sodium Level 138, Potassium Level 4.4, Chloride Level 108H, Carbon Dioxide Level 19L, Anion Gap 11, Blood Urea Nitrogen 7, Creatinine 0.59L, Estimat Glomerular Filtration Rate 98, BUN/Creatinine Ratio 12, Glucose Level 111H, Calcium Level 8.7, Corrected Calcium 9.0, Phosphorus Level 1.6L, Magnesium Level 1.5L, Total Bilirubin 0.5, Aspartate Amino Transf (AST/SGOT) 19, Alanine Aminotransferase (ALT/SGPT) 16, Alkaline Phosphatase 55, Total Protein 6.6, Albumin 3.6, Beta-Hydroxybutyrate (Chem panel) 0.07 08/13/21 05:27: Glucometer 133H 08/13/21 06:53: Glucometer 139H 08/13/21 09:59: Sodium Level 137, Potassium Level 4.3, Chloride Level 109H, Carbon Dioxide Level 19L, Anion Gap 9, Blood Urea Nitrogen 6L, Creatinine 0.59L, Estimat Glomerular Filtration Rate 98, BUN/Creatinine Ratio 10, Glucose Level 153H, Calcium Level 8.6 08/13/21 11:51: Glucometer 135H 08/13/21 12:07: Sodium Level 137, Potassium Level 3.9, Chloride Level 106, Carbon Dioxide Level 18L, Anion Gap 13, Blood Urea Nitrogen 5L, Creatinine 0.59L, Estimat Glomerular Filtration Rate 98, BUN/Creatinine Ratio 8, Glucose Level 130H, Calcium Level 9.0 08/13/21 14:29: Glucometer 171H Microbiology 08/12/21 Urine Culture - Final, Complete NO GROWTH 08/11/21 MRSA Screen - Final, Complete MRSA not isolated Laboratory Tests 08/11/21 20:55 08/12/21 04:30 08/12/21 08:59 08/12/21 13:00 08/12/21 16:50 08/12/21 21:04 08/13/21 02:02 08/13/21 04:35 08/13/21 09:59 08/13/21 12:07 A/P: Assessment: Episode of symptomatic CHB (syncope) during treatment with beta-lazaro and presentation with UTI with sepsis - seen on environmental monitoring specialist strips of 08-11-21 from [facility] (symptomatic), in the presence of BB tx - Temp pacemaker inserted by Dr. Harden - has had no further episodes of bradycardia since cessation of BB - advise MPI d/t known h/o CAD with previous intervention - continue ASA - ILR to continue to eval for advanced AV block after removal of temp pacemaker N/V - management per medical services - resolved UTI - Management per medical services Hypotension - resolved Electrolytes abnormalities - replace Coronary artery disease - MPI of 08/22/17: no ischemia or infarction: LVEF 74% - Echo of 08/22/17: LVEF 60-65%, grade 1 donaldson dysfunction - cardiac cath of 04/13/19 showed mild CAD, patent stented segment in prox LAD (Alpine Xience 2.25 x 12 mm that overlaps an old stent that is known to be Promus 2.25 x 16 mm). The rest of the coronary arteries have diffuse mild disease. Normal global left ventricular systolic function with an ejection fraction of approximately 60%. Mild to mod elev of left ventricular end- diastolic pressure. - Echocardiogram of 08-12-[address] Harden showes LVEF 55-60%. Grade 2 diastolic dysfunction. Mild AoV sclerosis. Mod mitral valve calcification H/O Hypertension - controlled Hyperlipidemia - statin tx - followed by PCP DM II - managed by PCP Carotid dz - Mild carotid art dz on carotid u/s of 06/28/21 Chronic abn ECG: - NSR with RBBB on ECG of 08/18/17. RBBB is chronic Oncology - L Breast Ca treated with surgery and chemo and radiation in the half 2016 (Dr Lamas oncologist in [place], [place]) Raynaud's phenomenon - managed by PCP EMELIA (+) Jan 2020 s/p R carpal tunnel and R elbow surgery in 2020 Plan: - dc temp pacer today - keep on tele - ILR implant prior to discharge - monitor lab - replace electrolytes - management of UTI per medical services - we reviewed Dr. Harden notes from the weekend [facility] SAVAGE [facility] Aug 13, 2021 16:46
[2021-08-13] MEDS: ENOXAPARIN 40 MG/0.4 ML (LOVENOX) SYR SC SCH (21:15)
[2021-08-14] MEDS: inSUlin ASPART (NovoLOG) 1 UNIT/0.01 ML (CHARGE PER UNIT) SC SCH ×6 (00:04→20:01)
[2021-08-14] MEDS: NS IV 1000 ML 1,000 ML IV SCH ×2 (04:23→19:09)
[2021-08-14] MEDS: CEFEPIME INJECTION 1,000 MG in NS (IVPB) 50 ML IV SCH ×3 (05:14→21:26)
[2021-08-14 06:20] LABS: HEMATOCRIT 35 % (35-52); HEMOGLOBIN 11.7 g/dL (11.5-16.0); MEAN CORPUSCULAR HEMOGLOBIN 29 pg (25-34); MEAN CORPUSCULAR HGB CONC 34 g/dL (32-36); MEAN CORPUSCULAR VOLUME 87 fL (80-99); MEAN PLATELET VOLUME 11.1 fL (9.0-12.2); PLATELET COUNT 288 10^3/uL (130-400); WHITE BLOOD COUNT 8.7 10^3/uL (4.3-11.0)
[2021-08-14 06:34] LABS: ALBUMIN 3.8 GM/DL (3.2-4.5); POTASSIUM 3.8 MMOL/L (3.6-5.0)
[2021-08-14 06:36] LABS: CALCIUM 9.1 MG/DL (8.5-10.1)
[2021-08-14 06:37] LABS: TOTAL PROTEIN 7.1 GM/DL (6.4-8.2)
[2021-08-14 06:39] LABS: BILIRUBIN,TOTAL 0.7 MG/DL (0.1-1.0)
[2021-08-14 06:40] LABS: PHOSPHORUS 2.6 MG/DL (2.3-4.7)
[2021-08-14 06:41] LABS: CREATININE SERUM 0.63 MG/DL (0.60-1.30)
[2021-08-14 06:43] LABS: MAGNESIUM 1.8 MG/DL (1.6-2.4)
[2021-08-14] MEDS: DOCUSATE SODIUM 100 MG (COLACE) CAP PO SCH ×2 (08:14→20:01)
[2021-08-14] MEDS: PANTOPRAZOLE 40 MG (PROTONIX) VIAL IV SCH (08:14)
[2021-08-14] MEDS: ASPIRIN E.C. 81 MG (ECOTRIN) TAB PO SCH (08:14)
[2021-08-14] MEDS: SENNOSIDES 8.6 MG (SENOKOT) TAB PO SCH ×2 (08:14→20:01)
--- NOTE | 2021-08-14 10:08 | Progress Note - Cardiology ---
Cardiology SOAP Progress Note Subjective: Lying in bed No further c/o syncope or near syncope No c/o CP or SOB Wants to go home today Objective: I&O/Vital Signs 08/14/21 08/15/21 08/15/21 08/15/21 23:50 01:00 04:15 07:00 Temp 36.7 36.6 Pulse 95 87 80 87 Resp 20 20 B/P (MAP) 121/60 (80) 116/58 (77) Pulse Ox 96 97 O2 Delivery Room Air Room Air 08/15/21 07:19 Temp 37.0 Pulse 90 Resp 20 B/P (MAP) 140/65 (90) Pulse Ox 96 O2 Delivery Room Air 08/15/21 00:00 Intake Total 440 ml Output Total 800 ml Balance -360 ml Weight (Pounds): 161 Weight (Ounces): 0.0 Weight (Calculated Kilograms): 73.337284 Constitutional: AAO x 3, well-developed, well-nourished Respiratory: No accessory muscle use, No respiratory distress; chest expansion is symmetric, chest is bilaterally symmetric, other (good air entry) Cardiovascular: regular rate-rhythm; No JVD; S1 and S2 Gastrointestional: No tender; soft, round, audible bowel sounds Extremities: no lower extremity edema bilateral Neurologic/Psychiatric: grossly intact (moves all extremities) Skin: No rash on exposed areas, No ulcerations on exposed areas Results/Procedures: Labs Laboratory Tests 08/14/21 11:46: Glucometer 152H 08/14/21 15:15: Glucometer 99 08/14/21 19:42: Glucometer 238H 08/15/21 00:02: Glucometer 161H 08/15/21 04:18: Glucometer 131H 08/15/21 05:15: White Blood Count 8.8, Red Blood Count 4.31, Hemoglobin 12.7, Hematocrit 37, Mean Corpuscular Volume 87, Mean Corpuscular Hemoglobin 30, Mean Corpuscular Hemoglobin Concent 34, Red Cell Distribution Width 13.1, Platelet Count 301, Mean Platelet Volume 11.0, Sodium Level 138, Potassium Level 3.8, Chloride Level 104, Carbon Dioxide Level 22, Anion Gap 12, Blood Urea Nitrogen 16, Creatinine 0.62, Estimat Glomerular Filtration Rate 97, BUN/Creatinine Ratio 26, Glucose Level 134H, Calcium Level 9.3, Corrected Calcium 9.5, Phosphorus Level 3.1, Magnesium Level 1.7, Total Bilirubin 0.6, Aspartate Amino Transf (AST/SGOT) 19, Alanine Aminotransferase (ALT/SGPT) 34, Alkaline Phosphatase 59, Total Protein 7.1, Albumin 3.8 08/15/21 07:25: Glucometer 126H Microbiology 08/12/21 Blood Culture - Preliminary, Resulted No growth 08/12/21 Urine Culture - Final, Complete NO GROWTH 08/11/21 MRSA Screen - Final, Complete MRSA not isolated A/P: Assessment: Episode of symptomatic CHB (syncope) during treatment with beta-lazaro and presentation with UTI with sepsis - seen on monitoring coordinator strips of 08-11-[address] [facility] (symptomatic), in the presence of BB tx - Temp pacemaker inserted by Dr. Harden - has had no further episodes of bradycardia since cessation of BB - ILR to continue to eval for advanced AV block after removal of temp pacemaker N/V - management per medical services - resolved UTI - Management per medical services Hypotension - resolved Electrolytes abnormalities - replace Coronary artery disease - MPI of 08/22/17: no ischemia or infarction: LVEF 74% - Echo of 08/22/17: LVEF 60-65%, grade 1 donaldson dysfunction - cardiac cath of 04/13/19 showed mild CAD, patent stented segment in prox LAD (Alpine Xience 2.25 x 12 mm that overlaps an old stent that is known to be Promus 2.25 x 16 mm). The rest of the coronary arteries have diffuse mild disease. Normal global left ventricular systolic function with an ejection fraction of approximately 60%. Mild to mod elev of left ventricular end- diastolic pressure. - Echocardiogram of 08-12-[address] Harden showes LVEF 55-60%. Grade 2 diastolic dysfunction. Mild AoV sclerosis. Mod mitral valve calcification H/O Hypertension - controlled Hyperlipidemia - statin tx - followed by PCP DM II - managed by PCP Carotid dz - Mild carotid art dz on carotid u/s of 06/28/21 Chronic abn ECG: - NSR with RBBB on ECG of 08/18/17. RBBB is chronic Oncology - L Breast Ca treated with surgery and chemo and radiation in the half 2016 (Dr Lamas oncologist in [place], [place]) Raynaud's phenomenon - managed by PCP EMELIA (+) Jan 2020 s/p R carpal tunnel and R elbow surgery in 2020 Plan: No further episodes of hypotension or bradycardia - keep on tele - ILR implant today - monitor lab - replace electrolytes - management of UTI per medical services EVELIO URIOSTEGUI Aug 14, 2021 10:08
[2021-08-14] MEDS: ONDANSETRON 4 MG (ZOFRAN) ORAL DISSOLVE TAB PO PRN (11:50)
--- NOTE | 2021-08-14 11:56 | Progress Note - Hospitalist ---
MICHELLE GOMEZ 08/14/21 1156: Subjective HPI/CC On Admission Date Seen by Provider: Aug 14, 2021 Time Seen by Provider: 07:50 Third-degree Heart Block Subjective/Events-last exam Patient was awake and alert in bed when seen today. She reports having some nausea and emesis yesterday evening, but so far feels better today than yesterday. She still has decreased appetite at this time but is tolerating liquids well. She has llanos catheter in place with clear yellow urine present in the bag this morning. She has not been up ambulating but would like to try and do so today. Yesterday she had a chest x ray which showed possible patchy right upper lobe pneumonia and was started on cefepime. She is tolerating it will thus far and denies significant shortness of breath. She does have a mild non- productive cough. Cardiology removed her temporary pacemaker yesterday and has expressed desire to place loop recorder prior to discharge. She had not been seen yet today by cardiology when I saw her. She has no specific questions or concerns at this time. Review of Systems General: No Chills, No Fatigue, No Appetite (mildly decreased) HEENT: Head Aches; No Visual Changes, No Sore Throat Pulmonary: Cough Cardiovascular: Other (chest tightness); No: Palpitations, Edema Gastrointestinal: Nausea, Vomiting; No: Abdominal Pain, Diarrhea, Constipation Genitourinary: No Dysuria, No Hematuria Musculoskeletal: No: neck pain, back pain Neurological: No: Weakness, Numbness Focused Exam Lactate Level 08/11/21 23:00: Lactic Acid Level 2.68*H 08/12/21 05:50: Lactic Acid Level 2.18*H 08/12/21 07:57: Lactic Acid Level 1.45 Objective Exam Vital Signs Vital Signs Date Time Temp Pulse Resp B/P (MAP) Pulse Ox O2 Delivery O2 Flow Rate FiO2 08/14/21 11:43 37.0 85 20 124/63 97 Room Air 08/13/21 16:00 2.00 Capillary Refill : Less Than 3 Seconds General Appearance: No Apparent Distress, WD/WN HEENT: PERRL/EOMI, Pharynx Normal Neck: Normal Inspection, Non Tender, Supple; No Lymphadenopathy (L), No Lymphadenopathy (R), No Thyromegaly Respiratory: Lungs Clear, Normal Breath Sounds, No Accessory Muscle Use, No Respiratory Distress Cardiovascular: Regular Rate, Rhythm, No Murmur, Normal Peripheral Pulses Gastrointestinal: Normal Bowel Sounds, No Pulsatile Mass, Non Tender, Soft Back: Normal Inspection, No Vertebral Tenderness Extremity: Normal Capillary Refill, Non Tender, No Calf Tenderness, No Pedal Edema Neurologic/Psychiatric: Alert, Oriented x3, No Motor/Sensory Deficits, glassblower II- XII Norm as Tested Skin: Normal Color, Warm/Dry Lymphatic: No Adenopathy Results/Procedures Lab Laboratory Tests 08/13/21 12:07 08/14/21 05:32 Patient resulted labs reviewed. Assessment/Plan Assessment and Plan Assess & Plan/Chief Complaint Syncope likely due to 3rd degree heart block -Patient's vitals remain stable without bradycardia or hypotension. Will continue to let cardiology guide care. Will order PT today for patient since she has been up moving very little since admission. DKA -resolved. tolerating sliding scale well at this time with bloodsugars in 100's- 200's Leukocytosis -WBC today of 8.7. Only occurence was the 24.1 on 08/12. Patient was started on cefepime yesterday for concerns of pneumonia per x ray findings. Still possible the acute elevation was a physiologic response to the temporary cardiac pacemaker procedure. Insulin dependent type 2 diabetes -See DKA plan above Hypertension -BP appears to be within normal range at this time. Will monitor for now and if BP begins to rise will about beta-blockers per cardiology recommendations CAD -Cardiology following at this time. Will continue 81mg aspirin QD and atorvostatin 40mg QD. Will avoid Beta blockers. Hospital Acquired Pneumonia -Per X ray yesterday ther were findings indicating patchy right upper lobe pneumonia. Currently on day 2 of cefepime and will continue for now. vitals, labs, and clinical exam are reassuring at this time. Likely could be managed outpatient with oral medications but need to ensure patient is safe with PT and be cleared by cardiology first. Likely won't discharge until tomorrow out of abundance of caution. Acid reflux -Continue IV pantoprazole. VICKIE GOMEZ DO 08/14/212103: Subjective Subjective/Events-last exam Pt is doing a lot better Loop recorder will be placed today Will discontinue catheter PT and OT evaluation will be ordered since she isn't up and walking around In-patient rehab eval Appreciate cardiology Review of Systems General: Fatigue, Malaise Objective Exam General Appearance: No Apparent Distress, WD/WN, Chronically ill Respiratory: Lungs Clear, Normal Breath Sounds Cardiovascular: Regular Rate, Rhythm Neurologic/Psychiatric: Alert, Oriented x3, No Motor/Sensory Deficits, Normal Mood/Affect Assessment/Plan Assessment and Plan Assess & Plan/Chief Complaint Assessment: Syncope due to heart block CAD previous stent remotely DKA DM HTN HLP Plan: Monitor glucose Supportive care Plavix Dr Harden appreciated Supervisory-Addendum Brief Verification & Attestation Participated in pt care: history, MDM, physical Personally performed: exam, history, MDM, supervision of care Care discussed with: Medical Student Procedures: n/a Results interpretation: Verified all documentation Verification and Attestation of Medical Student E/M Service A medical student performed and documented this service in my presence. I reviewed and verified all information documented by the medical student and made modifications to such information, when appropriate. I personally performed the physical exam and medical decision making. Vickie Gomez Aug 14, 2021,21:03 MICHELLE GOMEZ Aug 14, 2021 11:56 VICKIE GOMEZ DO Aug 14, 2021 21:04
[2021-08-14] MEDS ORDERED: LIDOCAINE 1% INJ 20 ML VIAL ONE (12:36)
--- NOTE | 2021-08-14 14:22 | Physical Therapy Progress Note ---
Therapy Progress Note Patient unavailable due to currently in heart cath. Will evaluate patient in AUDELIA Pollock PT Aug 14, 2021 14:22
--- NOTE | 2021-08-14 14:24 | Occ Therapy Progress Note ---
Therapy Progress Note OT orders received, chart reviewed. Patient is currently unavailable due to getting a heart cath. Will evaluate patient in Merry Franco OT Aug 14, 2021 14:24
--- NOTE | 2021-08-14 15:15 | Progress Note - Cardiology ---
Cardiology SOAP Progress Note Subjective: No cp or palp or syncope No shortness of breath Gen weakness and malaise are improving No focal weakness No n/v/d Objective: I&O/Vital Signs 08/14/21 08/14/21 08/14/21 08/14/21 04:20 07:32 07:44 07:50 Temp 36.6 37.1 Pulse 82 80 79 Resp 18 20 B/P (MAP) 118/55 135/63 Pulse Ox 96 94 O2 Delivery Room Air Room Air Room Air 08/14/21 08/14/21 11:43 13:44 Temp 37.0 Pulse 85 80 Resp 20 B/P (MAP) 124/63 Pulse Ox 97 O2 Delivery Room Air 08/14/21 00:00 Intake Total 1570 ml Output Total 1725 ml Balance -155 ml Weight (Pounds): 161 Weight (Ounces): 0.0 Weight (Calculated Kilograms): 73.923984 Constitutional: AAO x 3, well-developed, well-nourished Respiratory: No accessory muscle use, No respiratory distress; chest expansion is symmetric, chest is bilaterally symmetric, other (good air entry) Cardiovascular: regular rate-rhythm; No JVD; S1 and S2 Gastrointestional: No tender; soft, round, audible bowel sounds Extremities: no lower extremity edema bilateral Neurologic/Psychiatric: grossly intact (moves all extremities) Skin: No rash on exposed areas, No ulcerations on exposed areas Results/Procedures: Labs Laboratory Tests 08/13/21 17:38: Glucometer 203H 08/13/21 20:42: Glucometer 121H 08/13/21 23:59: Glucometer 144H 08/14/21 04:21: Glucometer 102 08/14/21 05:32: White Blood Count 8.7, Red Blood Count 3.98, Hemoglobin 11.7, Hematocrit 35, Mean Corpuscular Volume 87, Mean Corpuscular Hemoglobin 29, Mean Corpuscular Hemoglobin Concent 34, Red Cell Distribution Width 13.2, Platelet Count 288, Mean Platelet Volume 11.1, Sodium Level 137, Potassium Level 3.8, Chloride Level 104, Carbon Dioxide Level 22, Anion Gap 11, Blood Urea Nitrogen 9, Creatinine 0.63, Estimat Glomerular Filtration Rate 97, BUN/Creatinine Ratio 14, Glucose Level 109H, Calcium Level 9.1, Corrected Calcium 9.3, Phosphorus Level 2.6, Magnesium Level 1.8, Total Bilirubin 0.7, Aspartate Amino Transf (AST/SGOT) 34, Alanine Aminotransferase (ALT/SGPT) 38, Alkaline Phosphatase 62, Total Protein 7.1, Albumin 3.8 08/14/21 07:35: Glucometer 115H 08/14/21 11:46: Glucometer 152H Microbiology 08/12/21 Blood Culture - Preliminary, Resulted No growth 08/12/21 Urine Culture - Final, Complete NO GROWTH 08/11/21 MRSA Screen - Final, Complete MRSA not isolated Laboratory Tests 08/12/21 16:50 08/12/21 21:04 08/13/21 02:02 08/13/21 04:35 08/13/21 09:59 08/13/21 12:07 08/14/21 05:32 A/P: Assessment: Episode of symptomatic CHB (syncope) during treatment with beta-lazaro and presentation with UTI with sepsis - seen on project reservoir engineer strips of 08-11-21 from [facility] (symptomatic), in the presence of BB tx - Temp pacemaker inserted by Dr. Harden - has had no further episodes of bradycardia since cessation of BB - ILR implanted on 08/14/21 to continue to eval for advanced AV block N/V - management per medical services - resolved UTI - Management per medical services Hypotension - resolved Electrolytes abnormalities - replace Coronary artery disease - MPI of 08/22/17: no ischemia or infarction: LVEF 74% - Echo of 08/22/17: LVEF 60-65%, grade 1 donaldson dysfunction - cardiac cath of 04/13/19 showed mild CAD, patent stented segment in prox LAD (Alpine Xience 2.25 x 12 mm that overlaps an old stent that is known to be Promus 2.25 x 16 mm). The rest of the coronary arteries have diffuse mild disease. Normal global left ventricular systolic function with an ejection fraction of approximately 60%. Mild to mod elev of left ventricular end- diastolic pressure. - Echocardiogram of 08-12-[address] Harden showes LVEF 55-60%. Grade 2 diastolic dysfunction. Mild AoV sclerosis. Mod mitral valve calcification H/O Hypertension - controlled Hyperlipidemia - statin tx - followed by PCP DM II - managed by PCP Carotid dz - Mild carotid art dz on carotid u/s of 06/28/21 Chronic abn ECG: - NSR with RBBB on ECG of 08/18/17. RBBB is chronic Oncology - L Breast Ca treated with surgery and chemo and radiation in the half 2016 (Dr Lamas oncologist in [place], [place]) Raynaud's phenomenon - managed by PCP EMELIA (+) Jan 2020 s/p R carpal tunnel and R elbow surgery in 2020 Plan: No further episodes of hypotension or bradycardia ILR implanted Continue current regimen No beta-lazrao please I discussed her CV issues with her Ok to d/c from cardiac standpoint Close outpt f/u advised YASSINE SAVAGE MD FACP FAC CCDS Aug 14, 2021 15:15
[2021-08-14 15:56] VITALS: BP 140/68
[2021-08-14 19:35] VITALS: BP 131/60
[2021-08-14] MEDS: ENOXAPARIN 40 MG/0.4 ML (LOVENOX) SYR SC SCH (20:02)
--- NOTE | 2021-08-14 23:44 | OPERATIVE REPORT ---
DATE OF SERVICE: 08/14/2021 PREOPERATIVE DIAGNOSIS: Symptomatic bradycardia. POSTOPERATIVE DIAGNOSIS: Symptomatic bradycardia. PROCEDURE PERFORMED: Implantable loop recorder implantation. INDICATIONS: The patient is a 70-year-old lady, who presented with complete heart block that was in the setting of beta-lazaro therapy, septic shock and renal insufficiency. The heart block resolved with cessation of beta blockers and treatment of sepsis. She has had rare episodes of dizziness and near syncope in the past. Implantable loop recorder implantation was carried out today after having obtained an informed consent. [facility] The left prepectoral area was prepared and draped in the usual sterile fashion. Lidocaine 1% was used for local anesthesia. The tools provided with the [employer] LINQ device were used to make a subcutaneous pocket anterior to the fourth intercostal space into which the device was placed. The serial number of the devices are [id number]. The wound edges were closed using Dermabond and Steri-Strips. She tolerated the procedure well. Job ID: [id number] DocumentID: [id number] Dictated Date: 08/14/2021 13:33:46 Site Planner Date: 08/14/2021 23:43:32 Dictated By: YASSINE SAVAGE MD, MA, FACP, FACC,
[2021-08-14 23:50] VITALS: BP 121/60
[2021-08-15] MEDS: inSUlin ASPART (NovoLOG) 1 UNIT/0.01 ML (CHARGE PER UNIT) SC SCH ×6 (01:04→20:32)
[2021-08-15 04:15] VITALS: BP 116/58
[2021-08-15] MEDS: CEFEPIME INJECTION 1,000 MG in NS (IVPB) 50 ML IV SCH ×3 (05:43→22:00)
[2021-08-15 05:58] LABS: HEMATOCRIT 37 % (35-52); HEMOGLOBIN 12.7 g/dL (11.5-16.0); MEAN CORPUSCULAR HEMOGLOBIN 30 pg (25-34); MEAN CORPUSCULAR HGB CONC 34 g/dL (32-36); MEAN CORPUSCULAR VOLUME 87 fL (80-99); PLATELET COUNT 301 10^3/uL (130-400); WHITE BLOOD COUNT 8.8 10^3/uL (4.3-11.0)
[2021-08-15 06:15] LABS: ALBUMIN 3.8 GM/DL (3.2-4.5); POTASSIUM 3.8 MMOL/L (3.6-5.0)
[2021-08-15 06:17] LABS: CALCIUM 9.3 MG/DL (8.5-10.1)
[2021-08-15 06:18] LABS: TOTAL PROTEIN 7.1 GM/DL (6.4-8.2)
[2021-08-15 06:20] LABS: BILIRUBIN,TOTAL 0.6 MG/DL (0.1-1.0)
[2021-08-15 06:21] LABS: PHOSPHORUS 3.1 MG/DL (2.3-4.7)
[2021-08-15 06:22] LABS: CREATININE SERUM 0.62 MG/DL (0.60-1.30)
[2021-08-15 06:24] LABS: MAGNESIUM 1.7 MG/DL (1.6-2.4)
[2021-08-15 07:19] VITALS: BP 140/65
[2021-08-15] MEDS: DOCUSATE SODIUM 100 MG (COLACE) CAP PO SCH ×2 (08:38→20:32)
[2021-08-15] MEDS: SENNOSIDES 8.6 MG (SENOKOT) TAB PO SCH ×2 (08:38→20:32)
[2021-08-15] MEDS: ASPIRIN E.C. 81 MG (ECOTRIN) TAB PO SCH (08:38)
[2021-08-15] MEDS: PANTOPRAZOLE 40 MG (PROTONIX) VIAL IV SCH (08:38)
[2021-08-15] MEDS: NS IV 1000 ML 1,000 ML IV SCH ×2 (10:24→22:21)
--- NOTE | 2021-08-15 10:25 | Physical Therapy Evaluation ---
PT Evaluation-General Medical Diagnosis Admission Date Aug 11, 2021 at 20:36 Medical Diagnosis: Syncope due to heart block Onset Date: Aug 14, 2021 Therapy Diagnosis Therapy Diagnosis: Gait deficit, strength deficit Height/Weight Height (Feet): 4 Height (Inches): 10.00 Weight (Pounds): 161 Weight (Ounces): 0.0 Precautions Precautions/Isolations: Fall Prevention, Standard Precautions Weight Bear Status Right Lower Extremity: Right Full Weight Bearing Left Lower Extremity: Left Full Weight Bearing Referral Physician: Dr. Mcarthur Reason for Referral: Evaluation/Treatment Medical History Reviewed History: Yes Social History Home: Assisted Living Current Living Status: Alone Entry Into Home: Ramp Prior Prior Level of Function SCALE: Activities may be completed with or without assistive devices. 5-Sjyijkfcpv-bxlgjen completes the activity by him/herself with no assistance from a helper. 5-Set-up or Clean-up Assistance-helper sets up or cleans up; patient completes activity. [place] assists only prior to or following the activity. 4-Supervision or Touching Assistance-helper provides verbal cues and/or touching/steadying and/or contact guard assistance as patient completes activity. Assistance may be provided throughout the activity or intermittently. 3-Partial/Moderate Assistance-helper does LESS THAN HALF the effort. [place] lifts, holds or supports trunk or limbs, but provides less than half the effort. 2-Substantial/Maximal Assistance-helper does MORE THAN HALF the effort. [place] lifts or holds trunk or limbs and provides more than half the effort. 7-Uaayszbvm-lovjxd does ALL the effort. Patient does none of the effort to complete the activity. Or, the assistance of 2 or more helpers is required for the patient to complete the activity. If activity was not attempted, code reason: 7-Patient Refused. 9-Not Applicable-not attempted and the patient did not perform the activity before the current illness, exacerbation or injury. 10-Not Attempted due to Environmental Limitations-(lack of equipment, weather restraints, etc.). 88-Not Attempted due to Medical Conditions or Safety Concerns. Bed Mobility: 6 Transfers (B,C,W/C): 6 Gait: 6 Stairs: 6 Indoor Mobility (Ambulation): Independent Stairs: Independent Prior Devices Use: None Patient reports she has a walking stick and a FWW at home, but has not been using either of them. PT Evaluation-Current Subjective Patient sitting in chair upon PT arrival, agreeable to treatment. Patient rates pain currently at 0/10. Objective Patient Orientation: Person, Place, Time, Situation ROM/Strength ROM Lower Extremities WFLs bilaterally all planes Strength Lower Extremities 3/5 Bilaterally all planes Sensory Vision: Functional Hearing: Functional Sensation Right Lower Extremit: Impaired Sensation Left Lower Extremity: Impaired Sensation Lower Extremities Patient reports she has DPN and demonstrates difficulty with L3-S2 dermatomes to light touch bilaterally. Transfers Roll Left to Right (QC): 3 Sit to Lying (QC): 3 Lying to Sitting/Side of Bed(Q: 3 Sit to Stand (QC): 3 Chair/Gvl-ro-Tqxtb Xfer(QC): 3 Gait Does the Patient Walk?: Yes Mode of Locomotion: Walk Anticipated Mode of Locomotion: Walk Walk 10 feet (QC): 3 Distance: 40 feet Gait Assistive Device: FWW Balance Sitting Static: Good Sitting Dynamic: Good Standing Static: Fair Standing Dynamic: Fair Assessment/Needs Patient tolerated treatment fair. Fatigues quickly and reports constant nausea. She also dry heaves 3-4 times during gait which not only contributes to the patients fatigue but also makes gait and standing balance unsafe at this time as she tends to lean forwards and not focus on control of the FWW. Patient ambulates 40 feet in the room with Min a, with FWW, with verbal cues for safety, progression, posture and balance. Patient fatigues quickly though and demonstrates multiple dry heaving episodes during gait. Patient in chair post treatment with all needs met, nursing notified, call light in hand. Rehab Potential: Fair PT Retirement Goals Retirement Goals PT Retirement Goals Time Frame: Sep 07, 2021 Roll Left & Right (QC): 6 Sit to Lying (QC): 6 Lying-Sitting on Side/Bed(QC): 6 Sit to Stand (QC): 6 Chair/Nyz-xq-Kzduo Xfer(QC): 6 Toilet Transfer (QC): 6 Does the Patient Walk: Yes Walk 10 feet (QC): 6 Walk 50ft with 2 Turns (QC): 6 Walk 150 ft (QC): 4 PT Plan Problem List Problem List: Activity Tolerance, Functional Strength, Safety, Balance, Gait, Transfer, Bed Mobility, ROM Treatment/Plan Treatment Plan: Continue Plan of Care Treatment Plan: Bed Mobility, Education, Functional Activity Roxi, Functional Strength, Group Therapy, Gait, Safety, Therapeutic Exercise, Transfers Treatment Duration: Sep 21, 2021 Frequency: 6 times per week Estimated Hrs Per Day: .25 hour per day Safety Risks/Education Patient Education: Gait Training, Transfer Techniques Teaching Recipient: Patient Teaching Methods: Demonstration, Discussion Response to Teaching: Verbalize Understanding, Return Demonstration Time/GCodes Time In: 934 Time Out: 1000 Total Billed Treatment Time: 26 Total Billed Treatment Visit, Dejan IRELAND JOHN A PT Aug 15, 2021 10:25
[2021-08-15 11:36] VITALS: BP 129/58
[2021-08-15] MEDS ORDERED: CEFD300C3 PO (12:43)
--- NOTE | 2021-08-15 12:44 | D/C HH Face to Face Order ---
D/C Face to Face Orders Instructions for Patient Patient Instructions/FollowUp: Follow up with Cardiology as directed. Follow up with primary provider within a week. Physician to follow Patient: Kerrie Santizo Discharge Diet for Home: ADA Diet Patient Problems: Heart block secondary to medication Diabetes Debility Patient Data-Allergies,Ht & Wt Patient Allergies: Coded Allergies: NKANo Known Allergies (Verified Allergy, Unknown, 06/01/21) Height (Feet): 4 Height (Inches): 10.00 Weight (Pounds): 161 Weight (Ounces): 0.0 Home Health Need/Face to Face Date of Face to Face: Aug 15, 2021 Clinical Findings: Generalized weakness and fatigue I have seen Pt [id number]: Yes Discharged To: Home Diagnosis/Conditions: See above Patient is Homebound due to: Muscle weakness Homebound Status Due to the above stated illness, injury or surgical procedure (medical condition or diagnosis) and associated clinical findings, the patient is homebound because of his/her inability to leave home except with aid of a supportive device and/or person AND leaving the home requires a considerable and taxing effort or is medically contraindicated. Pt req the following assistanc: Aid of another person Home Health Nursing Orders Home Health Services Order: Physical Therapy-Evaluate & Treat Certify Stmt I certify that this patient is under my care and that I, a nurse practitioner or a physician; a billing assistant working with me, had a face to face encounter that - meets the physician face to face encounter requirements with this patient as dated. ILDA HONG MD Aug 15, 2021 12:44
--- NOTE | 2021-08-15 13:22 | Occupational Therapy Eval ---
OT Evaluation-General/PLF Medical Diagnosis Admission Date Aug 11, 2021 at 20:36 Medical Diagnosis: Syncope due to heart block Onset Date: Aug 14, 2021 Therapy Diagnosis Therapy Diagnosis: decreased ADL status Height/Weight Height (Feet): 4 Height (Inches): 10.00 Weight (Pounds): 161 Weight (Ounces): 0.0 Precautions Precautions/Isolations: Fall Prevention, Standard Precautions Referral Physician: Dr. Mcarthur Referral Reason: Evaluation/Treatment Medical History Additional Medical History CAD, hypercholesterol, HTN, GERD, lymphoma, DM, DKA Current History ICU from [facility] ED due to 3rd degree heart block, syncopal episode in ED Social History Home: Assisted Living Current Living Status: Alone Entry Into Home: Ramp ADL-Prior Level of Function SCALE: Activities may be completed with or without assistive devices. 3-Ouemkbbesr-wuydskh completes the activity by him/herself with no assistance from a helper. 5-Set-up or Clean-up Assistance-helper sets up or cleans up; patient completes activity. [place] assists only prior to or following the activity. 4-Supervision or Touching Assistance-helper provides verbal cues and/or touching/steadying and/or contact guard assistance as patient completes activity. Assistance may be provided throughout the activity or intermittently. 3-Partial/Moderate Assistance-helper does LESS THAN HALF the effort. [place] lifts, holds or supports trunk or limbs, but provides less than half the effort. 2-Substantial/Maximal Assistance-helper does MORE THAN HALF the effort. [place] lifts or holds trunk or limbs and provides more than half the effort. 5-Cgvdvuwvg-pxscur does ALL the effort. Patient does none of the effort to complete the activity. Or, the assistance of 2 or more helpers is required for the patient to complete the activity. If activity was not attempted, code reason: 7-Patient Refused. 9-Not Applicable-not attempted and the patient did not perform the activity before the current illness, exacerbation or injury. 10-Not Attempted due to Environmental Limitations-(lack of equipment, weather restraints, etc.). 88-Not Attempted due to Medical Conditions or Safety Concerns. ADL PLOF Comments Pt reports IND with ADLs and functional mobility, no AD. She completes dressing tasks laying in bed, does not stand up for pant hike. Self Care: Independent Functional Cognition: Independent DME/Equipment: Bath Chair, Shower OT Current Status Subjective Pt up in recliner, agreeable to OT Tx with encouragement. Pt argumentative throughout session, questioning everything OT says, and appears reluctant to participate in tx. Mental Status/Objective Patient Orientation: Person, Place, Situation Attachments: Telemetry Current Upper Extremity ROM WFL during ADLs. ADL-Treatment Eating (QC): 6 (IND with meal) Lower Body Dressing (QC): 5 Other Treatments Pt in recliner, agreeable to OT Tx with encouragement. Pt provided information about PLOF and home set up, stating she lives in an [place], but IND with all ADLS. Pt requests to get dressed as she is discharging today, OT handed pt her bag of clothes. Pt states she doesn't need any assistance with dressing, OT encouraged pt to complete with OT in the room in order for OT to assess ADLs, she reluctantly agrees. Pt requests OT to call her preacher while she is getting her clothes, OT requests pt to hold off on calling in order to finish dressing. Pt argues with therapist requesting OT to call him and tell him she is leaving the hospital today, but then pt states "don't bother", stating she would do it later. Pt threads pants over LEs without difficulty, OT brought walker over to pt. Pt asks why I brought the walker over, as she doesn't need it. OT educated pt on using it in stand if needed. Pt indicates she did not need to stand for the task. OT asked pt how she completes at home, and she completes dressing at bed level. Pt able to manage LE clothing up over hips, leaning side to side in chair level. Pt adamantly declined further OT services, stating she did not have any deficits. OT attempted education on benefit of continued OT Tx, but pt continued to refuse further tx. Pt picked up room phone and began calling her preacher, dismissing this therapist from her room. Post tx, pt in recliner, call light in reach and all needs met. Education OT Patient Education: Correct positioning, Energy conservation, Modified ADL techniques, Progress toward Goal/Update tx plan, Purpose of tx/functional activities, Safety issues Teaching Recipient: Patient Teaching Methods: Discussion Response to Teaching: Reinforcement Needed OT Opinion Polls Survey Worker Goals Assisted Goals 1=Demonstrate adherence to instructed precautions during ADL tasks. 2=Patient will verbalize/demonstrate understanding of assistive devices/modif ications for ADL. 3=Patient will improve strength/tolerance for activity to enable patient to perform ADL's. OT Education/Plan Problem List/Assessment Assessment: No Skilled OT Needs ID'd Pt would benefit from skilled OT Services in order to focus on safety with ADLs and functional mobility in order to maximize LOF for return to [place]. Pt refused further OT txs, as she believes she is at PLOF and doesn't want further services. D/C from OT at this time per pt request, if further OT needs arise, please send new orders and OT can reevaluate pt. Discharge Recommendations Plan/Recommendations: Discharge/Goals Met Treatment Plan/Plan of Care Patient would benefit from OT for education, treatment and training to promote independence in ADL's, mobility, safety and/or upper extremity function for ADL's. Plan of Care: ADL Retraining Treatment Duration: Aug 15, 2021 Frequency: 1 time per week (eval only) Rehab Potential: Fair Time/GCodes Start Time: 12:38 Stop Time: 12:57 Total Time Billed (hr/min): 19 Billed Treatment Time 1, MARIA VICTORIA BUCIO OT Aug 15, 2021 13:22
--- NOTE | 2021-08-15 14:13 | Progress Note ---
MICHELLE GOMEZ 08/15/21 1413: Subjective Date Seen by a Provider: Aug 15, 2021 Time Seen by a Provider: 07:30 Subjective/Events-last exam Patient alert in bed when seen today. She had internal loop recorder placed by cardiology yesterday and from a cardiac standpoint was cleared for discharge w ith close follow up by them. 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 They plan to see her sometime this morning. Patient denies fever or chills at this time. She does report a cough and shortness of breath that are better today than yesterday, as well as a continued diminished appetite and generalized fatigue/weakness. She has tolerated liquids well and reports good urine output and is defecating well. Review of Systems General: No Chills; Fatigue; No Appetite (slightly diminished) HEENT: No Visual Changes, No Sore Throat Pulmonary: Dyspnea, Cough Cardiovascular: Other (chest tightness unchanged from previous days); No: Palpitations Gastrointestinal: Nausea; No: Vomiting, Abdominal Pain, Diarrhea, Constipation Genitourinary: No Dysuria, No Hematuria Musculoskeletal: neck pain (mild); No: back pain Neurological: Weakness (generalized weakness); No: Numbness Objective Exam Last Set of Vital Signs Vital Signs Date Time Temp Pulse Resp B/P (MAP) Pulse Ox O2 Delivery O2 Flow Rate FiO2 08/15/21 11:36 37.1 95 20 129/58 (81) 97 Room Air 08/13/21 16:00 2.00 Capillary Refill : Less Than 3 Seconds I&O Intake and Output 08/15/21 00:00 Intake Total 540 ml Output Total 1500 ml Balance -960 ml Intake Oral 540 ml Output Urine Total 1500 ml General: Alert, Oriented X3, No Acute Distress HEENT: Atraumatic, PERRLA, EOMI Neck: Supple, No Thyromegaly Lungs: Other (mild inspiratory crackles in RLL) Heart: Regular Rate, No Murmurs Abdomen: Normal Bowel Sounds, Soft, No Tenderness Extremities: No Clubbing, No Edema, Normal Pulses Skin: No Rashes, No Significant Lesion Neuro: Normal Speech, Cranial Nerves 3-12 NL, Other Psych/Mental Status: Mental Status NL Results Lab Laboratory Tests 08/14/21 15:15: Glucometer 99 08/14/21 19:42: Glucometer 238H 08/15/21 00:02: Glucometer 161H 08/15/21 04:18: Glucometer 131H 08/15/21 05:15: White Blood Count 8.8, Red Blood Count 4.31, Hemoglobin 12.7, Hematocrit 37, Mean Corpuscular Volume 87, Mean Corpuscular Hemoglobin 30, Mean Corpuscular Hemoglobin Concent 34, Red Cell Distribution Width 13.1, Platelet Count 301, Mean Platelet Volume 11.0, Sodium Level 138, Potassium Level 3.8, Chloride Level 104, Carbon Dioxide Level 22, Anion Gap 12, Blood Urea Nitrogen 16, Creatinine 0.62, Estimat Glomerular Filtration Rate 97, BUN/Creatinine Ratio 26, Glucose Level 134H, Calcium Level 9.3, Corrected Calcium 9.5, Phosphorus Level 3.1, Magnesium Level 1.7, Total Bilirubin 0.6, Aspartate Amino Transf (AST/SGOT) 19, Alanine Aminotransferase (ALT/SGPT) 34, Alkaline Phosphatase 59, Total Protein 7.1, Albumin 3.8 08/15/21 07:25: Glucometer 126H 08/15/21 11:40: Glucometer 194H Microbiology 08/12/21 Blood Culture - Preliminary, Resulted No growth 08/12/21 Urine Culture - Final, Complete NO GROWTH 08/11/21 MRSA Screen - Final, Complete MRSA not isolated Assessment/Plan Assessment/Plan Assess & Plan/Chief Complaint Syncope likely due to 3rd degree heart block -Patient's vitals remain stable without bradycardia or hypotension. cleared from cardiology standpoint for discharge. PT & OT ordered to assess patient strength and stability and whether he is safe to discharge to assisted living or whether in-patient rehab would be a better option for her.. DKA -resolved. Still tolerating sliding scale well at this time. Leukocytosis -WBC today of 8.8. Only occurrence was the 24.1 on 08/12. Patient is on day 3 of cefepime at this time. Insulin dependent type 2 diabetes -See DKA plan above Hypertension -BP remains stable and in normal range without medical intervention at this time. Will continue for monitor for now and assess home meds at discharge. CAD -Will continue 81mg aspirin QD and atorvostatin 40mg QD. Will avoid Beta blockers. Hospital Acquired Pneumonia -Day 3 of cefepime. Patient reports shortness of breath and cough are improving. Vitals, labs, and clinical exam remain assuring. Pending how she does with PT & OT will consider switching to oral antibiotics (Cefdinir) once discharged. Acid reflux -Continue IV pantoprazole. ILDA HONG MD 08/15/21 1529: Objective Exam General: Alert, No Acute Distress Lungs: Clear to Auscultation Heart: Regular Rate, No Murmurs Abdomen: Normal Bowel Sounds, Soft Extremities: No Edema Neuro: Normal Speech Psych/Mental Status: Mood NL Supervisory-Addendum Brief Verification & Attestation Participated in pt care: history, MDM, physical Personally performed: exam, history, MDM, supervision of care Care discussed with: Medical Student Procedures: n/a I personally saw and examined patient and did my own history and exam (see my exam documentation for my physical findings, I did not repeat the entire exam documented by the medical student). I directed the plan of care as documented by the medical student. MICHELLE GOMEZ Aug 15, 2021 14:13 ILDA HONG MD Aug 15, 2021 15:29
[2021-08-15 16:45] VITALS: BP 120/62
[2021-08-15] MEDS: ONDANSETRON 4 MG (ZOFRAN) ORAL DISSOLVE TAB PO PRN (19:35)
[2021-08-15 20:27] VITALS: BP 128/61
[2021-08-15] MEDS: ENOXAPARIN 40 MG/0.4 ML (LOVENOX) SYR SC SCH (20:32)
[2021-08-16] VITALS (14 sets, daily range): BP systolic 105–148; BP diastolic 57–88
[2021-08-16] MEDS: inSUlin ASPART (NovoLOG) 1 UNIT/0.01 ML (CHARGE PER UNIT) SC SCH ×6 (00:20→20:50)
[2021-08-16] MEDS: CEFEPIME INJECTION 1,000 MG in NS (IVPB) 50 ML IV SCH ×3 (05:50→21:38)
[2021-08-16 06:09] LABS: HEMATOCRIT 38 % (35-52); HEMOGLOBIN 12.5 g/dL (11.5-16.0); MEAN CORPUSCULAR HEMOGLOBIN 30 pg (25-34); MEAN CORPUSCULAR HGB CONC 33 g/dL (32-36); MEAN CORPUSCULAR VOLUME 88 fL (80-99); MEAN PLATELET VOLUME 11.2 fL (9.0-12.2); PLATELET COUNT 345 10^3/uL (130-400); WHITE BLOOD COUNT 9.1 10^3/uL (4.3-11.0)
[2021-08-16 06:16] LABS: ALBUMIN 3.9 GM/DL (3.2-4.5); POTASSIUM 3.8 MMOL/L (3.6-5.0)
[2021-08-16 06:17] LABS: CALCIUM 9.7 MG/DL (8.5-10.1)
[2021-08-16 06:18] LABS: TOTAL PROTEIN 7.3 GM/DL (6.4-8.2)
[2021-08-16 06:20] LABS: BILIRUBIN,TOTAL 0.4 MG/DL (0.1-1.0)
[2021-08-16 06:22] LABS: CREATININE SERUM 0.68 MG/DL (0.60-1.30)
[2021-08-16 06:25] LABS: MAGNESIUM 1.5 MG/DL (1.6-2.4)
[2021-08-16] MEDS: PANTOPRAZOLE 40 MG (PROTONIX) VIAL IV SCH (07:58)
[2021-08-16] MEDS: DOCUSATE SODIUM 100 MG (COLACE) CAP PO SCH ×2 (07:59→20:48)
[2021-08-16] MEDS: ASPIRIN E.C. 81 MG (ECOTRIN) TAB PO SCH (07:59)
[2021-08-16] MEDS: SENNOSIDES 8.6 MG (SENOKOT) TAB PO SCH ×2 (07:59→20:48)
[2021-08-16] MEDS ORDERED: NS IV 1000 ML 1,000 ML IV ONE (08:45)
[2021-08-16] MEDS ORDERED: ceFAZolin INJECTION 1,000 MG VIAL IV ONE (08:45)
[2021-08-16] MEDS ORDERED: NS IV 1000 ML 1,000 ML ONE ×2 (08:50→16:37)
[2021-08-16] MEDS ORDERED: HEParin (CATH LAB) 1,000 ML IV ONE (08:50)
[2021-08-16] MEDS ORDERED: LIDOCAINE 1% INJ 20 ML VIAL ONE (08:50)
[2021-08-16] MEDS: MAGNESIUM 1 GM/100 ML IVPB 100 ML IV SCH ×2 (09:15→10:31)
--- NOTE | 2021-08-16 11:19 | Physical Therapy Progress Note ---
Therapy Progress Note Patient was supposed to come to rehab today but she got a pacemaker placed. Will monitor patient and admit to rehab when appropriate. CHRISTEL TORRES PT Aug 16, 2021 11:19
[2021-08-16] MEDS ORDERED: ceFAZolin INJECTION 1,000 MG ONE (11:39)
[2021-08-16] MEDS: NS IV 1000 ML 1,000 ML IV SCH ×2 (11:51→17:25)
--- NOTE | 2021-08-16 11:53 | Physical Therapy Daily Note ---
PT Daily Note-Current Subjective Patient in bed pre tx, reluctantly agrees to PT but doesn't want to get out of bed because every time she tries to walk to the restroom she gets very nauseated. Agrees to exercises in bed. Appearance Patient in bed post tx with nurse call, phone, tray, all needs met, nurse notified of nausea. Mental Status Patient Orientation: Person, Place, Situation Attachments: Oxygen, IV Transfers SCALE: Activities may be completed with or without assistive devices. 7-Wukcoeqmyg-ulzjgez completes the activity by him/herself with no assistance from a helper. 5-Set-up or Clean-up Assistance-helper sets up or cleans up; patient completes activity. [place] assists only prior to or following the activity. 4-Supervision or Touching Assistance-helper provides verbal cues and/or touching/steadying and/or contact guard assistance as patient completes activity. Assistance may be provided throughout the activity or intermittently. 3-Partial/Moderate Assistance-helper does LESS THAN HALF the effort. [place] lifts, holds or supports trunk or limbs, but provides less than half the effort. 2-Substantial/Maximal Assistance-helper does MORE THAN HALF the effort. [place] lifts or holds trunk or limbs and provides more than half the effort. 3-Vxpdfgoif-rdjbhv does ALL the effort. Patient does none of the effort to complete the activity. Or, the assistance of 2 or more helpers is required for the patient to complete the activity. If activity was not attempted, code reason: 7-Patient Refused. 9-Not Applicable-not attempted and the patient did not perform the activity before the current illness, exacerbation or injury. 10-Not Attempted due to Environmental Limitations-(lack of equipment, weather restraints, etc.). 88-Not Attempted due to Medical Conditions or Safety Concerns. 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 Goals Senior Care Goals PT Senior Care Goals Time Frame: Sep 07, 2021 Roll Left & Right (QC): 6 Sit to Lying (QC): 6 Lying-Sitting on Side/Bed(QC): 6 Sit to Stand (QC): 6 Chair/Mzz-ad-Wtmah Xfer(QC): 6 Toilet Transfer (QC): 6 Does the Patient Walk: Yes Walk 10 feet (QC): 6 Walk 50ft with 2 Turns (QC): 6 Walk 150 ft (QC): 4 PT Plan Problem List Problem List: Activity Tolerance, Functional Strength, Safety, Balance, Gait, Transfer, Bed Mobility, ROM Treatment/Plan Treatment Plan: Continue Plan of Care Treatment Plan: Bed Mobility, Education, Functional Activity [place], Functional Strength, Group Therapy, Gait, Safety, Therapeutic Exercise, Transfers Treatment Duration: Sep 21, 2021 Frequency: 6 times per week Estimated Hrs Per Day: .25 hour per day Safety Risks/Education Patient Education: Correct Positioning, Safety Issues Teaching Recipient: Patient Teaching Methods: Demonstration, Discussion Response to Teaching: Reinforcement Needed Time/GCodes Time In: 1137 Time Out: 1147 Total Billed Treatment Time: 10 Total Billed Treatment 1 visit EX Dickson' CHRISTEL TORRES PT Aug 16, 2021 11:53
--- NOTE | 2021-08-16 12:05 | Progress Note - Cardiology ---
Cardiology SOAP Progress Note Subjective: Near-syncope last night, lasting a few seconds No cp or palp or shortness of breath Some gen malaise and weakness No n/v/d Objective: I&O/Vital Signs 08/16/21 08/16/21 08/16/21 08/16/21 01:00 04:00 07:00 07:58 Temp 36.7 36.5 Pulse 81 84 82 80 Resp 16 18 B/P (MAP) 130/61 (84) 109/70 (83) Pulse Ox 98 97 O2 Delivery Room Air Room Air 08/16/21 08/16/21 08:00 11:40 Temp 36.8 Pulse 88 Resp 18 B/P (MAP) 129/60 (83) Pulse Ox 96 98 O2 Delivery Room Air Room Air 08/15/21 23:59 Intake Total 640 ml Output Total 550 ml Balance 90 ml Weight (Pounds): 161 Weight (Ounces): 0.0 Weight (Calculated Kilograms): 73.974570 Constitutional: AAO x 3, well-developed, well-nourished Respiratory: No accessory muscle use, No respiratory distress; chest expansion is symmetric, chest is bilaterally symmetric, other (good air entry) Cardiovascular: regular rate-rhythm; No JVD; S1 and S2 Gastrointestional: No tender; soft, round, audible bowel sounds Extremities: no lower extremity edema bilateral Neurologic/Psychiatric: other (moves all limbs equally) Skin: No rash on exposed areas, No ulcerations on exposed areas Results/Procedures: Labs Laboratory Tests 08/15/21 16:35: Glucometer 177H 08/15/21 20:13: Glucometer 235H 08/16/21 00:10: Glucometer 175H 08/16/21 04:09: Glucometer 155H 08/16/21 05:21: White Blood Count 9.1, Red Blood Count 4.24, Hemoglobin 12.5, Hematocrit 38, M ilan Corpuscular Volume 88, Mean Corpuscular Hemoglobin 30, Mean Corpuscular Hemoglobin Concent 33, Red Cell Distribution Width 13.3, Platelet Count 345, Mean Platelet Volume 11.2, Sodium Level 138, Potassium Level 3.8, Chloride Level 104, Carbon Dioxide Level 22, Anion Gap 12, Blood Urea Nitrogen 22H, Creatinine 0.68, Estimat Glomerular Filtration Rate 95, BUN/Creatinine Ratio 32, Glucose Level 151H, Calcium Level 9.7, Corrected Calcium 9.8, Phosphorus Level 3.0, Magnesium Level 1.5L, Total Bilirubin 0.4, Aspartate Amino Transf (AST/SGOT) 21, Alanine Aminotransferase (ALT/SGPT) 37, Alkaline Phosphatase 61, Total Protein 7.3, Albumin 3.9 08/16/21 08:09: Glucometer 162H 08/16/21 11:25: Glucometer 211H Microbiology 08/12/21 Blood Culture - Preliminary, Resulted No growth 08/12/21 Urine Culture - Final, Complete NO GROWTH 08/11/21 MRSA Screen - Final, Complete MRSA not isolated Laboratory Tests 08/15/21 05:15 08/16/21 05:21 A/P: Assessment: Episode of symptomatic CHB (syncope) during treatment with beta-lazaro and presentation with UTI with sepsis - seen on patient monitor strips of 08-11-21 from [facility] (symptomatic), in the presence of BB tx - Temp pacemaker inserted by Dr. Harden - has had no further episodes of bradycardia since cessation of BB - ILR implanted on 08/14/21 to continue to eval for advanced AV block - Long pause documented during near-syncope or 08/15/21: perm dual ch pacemaker recommended N/V - management per medical services - resolved UTI - Management per medical services Hypotension - resolved Electrolytes abnormalities - replace Coronary artery disease - MPI of 08/22/17: no ischemia or infarction: LVEF 74% - Echo of 08/22/17: LVEF 60-65%, grade 1 donaldson dysfunction - cardiac cath of 04/13/19 showed mild CAD, patent stented segment in prox LAD (Alpine Xience 2.25 x 12 mm that overlaps an old stent that is known to be Promus 2.25 x 16 mm). The rest of the coronary arteries have diffuse mild disease. Normal global left ventricular systolic function with an ejection fraction of approximately 60%. Mild to mod elev of left ventricular end- diastolic pressure. - Echocardiogram of 08-12-[address] Harden showes LVEF 55-60%. Grade 2 diastolic dysfunction. Mild AoV sclerosis. Mod mitral valve calcification H/O Hypertension - controlled Hyperlipidemia - statin tx - followed by PCP DM II - managed by PCP Carotid dz - Mild carotid art dz on carotid u/s of 06/28/21 Chronic abn ECG: - NSR with RBBB on ECG of 08/18/17. RBBB is chronic Oncology - L Breast Ca treated with surgery and chemo and radiation in the half 2016 (Dr Lamas oncologist in [place], [place]) Raynaud's phenomenon - managed by PCP EMELIA (+) Jan 2020 s/p R carpal tunnel and R elbow surgery in 2020 Plan: Would need dual chamber pacemaker. I spoke with her and explained the rationale, pros, and cons. She understands and is willing to proceed. I'm scheduled to out of town. I have discussed the issue with Dr Calderon who is covering me. Scheduled with Dr Calderon for pacemaker implantation this afternoon YASSINE SAVAGE MD FACP FACC CCDS Aug 16, 2021 12:05
--- NOTE | 2021-08-16 14:59 | Progress Note ---
MICHELLE GOMEZ 08/16/21 1459: Subjective Date Seen by a Provider: Aug 16, 2021 Time Seen by a Provider: 07:15 Subjective/Events-last exam Patient was awake in bed when I spoke with her this morning. She reports near syncopal episode overnight when trying to get to the restroom. Per cardiology, her ILR showed a long pause during this time frame and is planning to place permanent pacemaker this afternoon. She still gets nauseas with movement and when seen by PT yesterday they reported she would begin dry heaving while standing which presented significant safety concern. Her shortness of breath and cough has improved some since yesterday although still there mildly. The [facility] hope was to send her to in-patient rehab today but that is on hold at this time. llanos catheter has been removed. She is drinking fluids well and eating okay. Review of Systems General: Chills (immediately following near syncope) HEENT: No Head Aches, No Visual Changes Pulmonary: Dyspnea (mild), Cough (mild) Cardiovascular: No: Chest Pain, Palpitations, Edema Gastrointestinal: Nausea, Other (has reflux and episodes of dry heaving primariy when trying to walk); No: Vomiting, Abdominal Pain, Diarrhea, Constipa tion Genitourinary: No Dysuria, No Hematuria Musculoskeletal: neck pain; No: back pain Neurological: Weakness (generalized); No: Numbness Objective Exam Last Set of Vital Signs Vital Signs Date Time Temp Pulse Resp B/P (MAP) Pulse Ox O2 Delivery O2 Flow Rate FiO2 08/16/21 13:31 86 08/16/21 11:40 36.8 18 129/60 (83) 98 Room Air 08/13/21 16:00 2.00 Capillary Refill : Less Than 3 Seconds I&O Intake and Output 08/16/21 00:00 Intake Total 740 ml Output Total 950 ml Balance -210 ml Intake Oral 740 ml Output Urine Total 950 ml # Voids 1 # Bowel Movements 2 General: Alert, Oriented X3, No Acute Distress HEENT: EOMI, Mucous Memb Moist/[place] Neck: Supple, No Thyromegaly Lungs: Other (inspiratory crackles in RLL unchanged from yesterday.) Heart: Regular Rate, No Murmurs Abdomen: Normal Bowel Sounds, No Tenderness Extremities: No Clubbing, No Edema, Normal Pulses Skin: No Rashes, No Breakdown Neuro: Normal Speech, Sensation Intact Psych/Mental Status: Mental Status NL Results Lab Laboratory Tests 08/15/21 16:35: Glucometer 177H 08/15/21 20:13: Glucometer 235H 08/16/21 00:10: Glucometer 175H 08/16/21 04:09: Glucometer 155H 08/16/21 05:21: White Blood Count 9.1, Red Blood Count 4.24, Hemoglobin 12.5, Hematocrit 38, Mean Corpuscular Volume 88, Mean Corpuscular Hemoglobin 30, Mean Corpuscular Hemoglobin Concent 33, Red Cell Distribution Width 13.3, Platelet Count 345, Mean Platelet Volume 11.2, Sodium Level 138, Potassium Level 3.8, Chloride Level 104, Carbon Dioxide Level 22, Anion Gap 12, Blood Urea Nitrogen 22H, Creatinine 0.68, Estimat Glomerular Filtration Rate 95, BUN/Creatinine Ratio 32, Glucose Level 151H, Calcium Level 9.7, Corrected Calcium 9.8, Phosphorus Level 3.0, Magnesium Level 1.5L, Total Bilirubin 0.4, Aspartate Amino Transf (AST/SGOT) 21, Alanine Aminotransferase (ALT/SGPT) 37, Alkaline Phosphatase 61, Total Protein 7.3, Albumin 3.9 08/16/21 08:09: Glucometer 162H 08/16/21 11:25: Glucometer 211H Microbiology 08/12/21 Blood Culture - Preliminary, Resulted No growth 08/12/21 Urine Culture - Final, Complete NO GROWTH 08/11/21 MRSA Screen - Final, Complete MRSA not isolated Assessment/Plan Assessment/Plan Assess & Plan/Chief Complaint Syncope likely due to 3rd degree heart block -Originally thought to have resolved and was cleared by cardiology for dischagre with close follow up, but ILR recorded long pause during a near syncopal episode overnight. Going to have permanent pacemaker placed today. Will push back discharge to inpatient rehab at least another day. Vitals appear stable at this time. DKA -resolved. Still tolerating sliding scale well at this time. Leukocytosis -WBC today of 9.1. Only occurrence was the 24.1 on 08/12. Patient is on day 4 of cefepime at this time. Insulin dependent type 2 diabetes -See DKA plan above Hypertension -BP remains stable and in normal range without medical intervention at this time. Will continue for monitor for now and assess home meds at discharge. CAD -Will continue 81mg aspirin QD and atorvostatin 40mg QD. Will avoid Beta blockers. Hospital Acquired Pneumonia -Day 4 of cefepime. Patient reports shortness of breath and cough are improving. Vitals, labs, and clinical exam remain assuring. Acid reflux -Continue IV pantoprazole. FAITH VERNON MD 08/16/215: Subjective Time Seen by a Provider: 10:30 Objective Exam General: Alert, No Acute Distress Lungs: Other (rales at right base) Heart: Regular Rate, No Murmurs Abdomen: Normal Bowel Sounds, No Tenderness Extremities: No Edema Neuro: Normal Speech Psych/Mental Status: Mood NL Supervisory-Addendum Brief Verification & Attestation Participated in pt care: history, MDM, physical Personally performed: exam, history, MDM, supervision of care Care discussed with: Medical Student Procedures: n/a Results interpretation: Verified all documentation Verification and Attestation of Medical Student E/M Service I reviewed and verified all information documented by the medical student and made modifications to such information, when appropriate. I personally repeated the history, performed my own physical exam (see my documentation) and performed the medical decision making. Faith Vernon, Aug 16, 2021,21:03 MICHELLE GOMEZ Aug 16, 2021 14:59 FAITH VERNON MD Aug 16, 2021 21:05
[2021-08-16] MEDS ORDERED: fentaNYL INJ 100 MCG/2 ML AMP ONE ×2 (15:11→16:25)
[2021-08-16] MEDS ORDERED: MIDAZOLAM 5 MG/5 ML (VERSED) VIAL ONE (15:12)
[2021-08-16] MEDS ORDERED: NS (IVPB) 50 ML ONE (15:25)
[2021-08-16] MEDS ORDERED: MIDAZOLAM 2 MG/2 ML (VERSED) VIAL ONE ×2 (16:25→17:04)
[2021-08-16] MEDS ORDERED: NS IV 1000 ML 1,000 ML IV SCH (17:30)
[2021-08-16] MEDS ORDERED: PATIENT MAY USE OWN MEDS, ALL PO SCH (17:30)
--- NOTE | 2021-08-16 17:34 | Permanent Pacemaker Implant ---
Dual Chamber Pacemaker Implant PROCEDURE PHYSICIAN: Elias Calderon DUAL CHAMBER PACEMAKER IMPLANTATION: DATE OF PROCEDURE: 08/16/21 REFERRING PHYSICIAN: Dr. Durga Savage ATTENDING PHYSICIAN: Dr. Faith Vernon INDICATION: Complete heart block PREOPERATIVE DIAGNOSIS: Complete heart block POSTOPERATIVE DIAGNOSIS: Complete heart block HISTORY: Dual-chamber permanent pacemaker was recommended. PROCEDURE PERFORMED: 1. Dual-chamber permanent pacemaker implantation. 2. Fluoroscopy. 3. Central venous access. ANESTHESIA: Local anesthesia, conscious sedation. COMPLICATIONS: None. ESTIMATED BLOOD LOSS:20 mL. SPECIMENS: None. ORAL ANTICOAGULATION: None. FLUOROSCOPY TIME: FLUOROSCOPY DOSE: CONTRAST DOSE: PROCEDURE DETAILS: The patient is a 70 female with intermittent complete heart block and severe bradycardia, she was seen and followed by Dr. Savage, patient had another episode of severe bradycardia and she was scheduled for dual-chamber pacemaker implant. And after all of the patients questions were answered, The patient was brought to the EP Lab. The patient's right side of chest was prepped and draped in sterile fashion. A 2 inch horizontal incision was made 1 cm below the clavicle and dissection carried down to the pectoralis fascia. Using the modified Seldinger technique and under fluoroscopy guidance, the anterior aspect of the left axillary vein was accessed 2 times. The J wires were secured to the drapes with a mosquito clamp. A 7-Dutch sheath was introduced over one of the J-wires. The RV lead was then inserted. The RV lead was directed across the tricuspid valve to the apical septal portion of the right ventricle. The position was checked in UPPER SORBIAN and JENSEN views. The screw was deployed and the lead connected to the surgical endoscopist. Close sensing and pacing thresholds were obtained. Diaphragmatic pacing was ruled out. The lead was secured with 2-0 silk ties to the underlying muscle and fascia. Next, a 7-Dutch sheath was introduced through the remaining J-wire. An atrial lead was then introduced and guided to the level of the right appendage. The screw was deployed and the lead was connected to the interrogator. Good sensing and pacing thresholds were obtained. Diaphragmatic pacing was ruled out. The leads were secured with 2-0 silk ties to the underlying muscle and fascia. The leads were connected to the device in a hermetic fashion. The device and leads were placed in the pocket after being placed in the Jalen patch. Aggressive irrigation with saline solution was done. The device was secured to the underlying muscle and fascia with a 2-0 silk tie. interrogation of the dev ice revealed good integrity of all the leads and good connections. The wound was then closed using 2 layers. The first layer was interrupted 2-0 absorbable Vicryl suture. The last layer was a single subcuticular layer with 4- 0 Vicryl suture. Half inch Steri-Strips and a small dressing were then applied to the wound. The patient tolerated the procedure well and was returned to the recovery room in stable condition with stable vital signs. DEVICE INFORMATION: MAIDA XT DR MRI [id number] RA LEAD: [id number] RV LEAD: [id number] PER-OPERATIVE DEVICE INTERROGATION: Good sensing and capture activity IMMEDIATE POSTOPERATIVE DEVICE INTERROGATION: Right atrium, bipolar, P wave 2.3 mV, impedance 418, threshold 0.4 ms at 0.75 V. Right ventricle, R wave 4.4 mV, impedance 475, threshold 0.45 ms at 0.5 V PLAN: The patient transferred to the telemetry unit. We will continue with two more doses of IV antibiotics. We will check a chest x-ray and interrogate the device in the morning. The patient will continue on oral antibiotics for 5 days. CONCLUSION: Successful implantation of dual-chamber pacemaker with no complication ELIAS CALDERON MD Aug 16, 2021 17:34
--- NOTE | 2021-08-16 17:58 | Diagnostic Imaging Report ---
INDICATION: Pacemaker check. EXAMINATION: Chest from 08/16/2021. COMPARISON: 08/13/2021. FINDINGS: There has been interval placement of right-sided pacemaker which appears unremarkable. There is a loop recorder device over the left lower chest. There is no pneumothorax. The heart and pulmonary vasculature are normal. There are clips in the left axilla. IMPRESSION: 1. Interval placement of pacemaker and a loop recorder device, both of which appear unremarkable. No acute cardiopulmonary process. Dictated by: Dictated on workstation # [id number]
[2021-08-16] MEDS: HYDROcodone/APAP 5 MG/325 MG (LORTAB) TAB PO PRN (18:55)
[2021-08-16] MEDS: ENOXAPARIN 40 MG/0.4 ML (LOVENOX) SYR SC SCH (20:48)
[2021-08-16] MEDS: ceFAZolin INJECTION 1,000 MG in NS (IVPB) 50 ML IV SCH (22:12)
[2021-08-17] VITALS: BP 126/78
[2021-08-17] MEDS: inSUlin ASPART (NovoLOG) 1 UNIT/0.01 ML (CHARGE PER UNIT) SC SCH ×4 (00:07→11:32)
[2021-08-17 00:30] VITALS: BP 126/79
[2021-08-17 04:00] VITALS: BP 127/74
[2021-08-17] MEDS: CEFEPIME INJECTION 1,000 MG in NS (IVPB) 50 ML IV SCH (05:33)
[2021-08-17] MEDS: NS IV 1000 ML 1,000 ML IV SCH (05:33)
[2021-08-17] MEDS: ceFAZolin INJECTION 1,000 MG in NS (IVPB) 50 ML IV SCH (06:04)
[2021-08-17] MEDS: HYDROcodone/APAP 5 MG/325 MG (LORTAB) TAB PO PRN (06:04)
[2021-08-17 07:57] VITALS: BP 141/70
[2021-08-17 08:55] LABS: PHOSPHORUS 2.8 MG/DL (2.3-4.7)
[2021-08-17 08:57] LABS: MAGNESIUM 1.4 MG/DL (1.6-2.4)
[2021-08-17] MEDS ORDERED: PANTOPRAZOLE 40 MG (PROTONIX) TAB PO SCH (09:00)
[2021-08-17] MEDS: SENNOSIDES 8.6 MG (SENOKOT) TAB PO SCH (10:00)
[2021-08-17] MEDS: DOCUSATE SODIUM 100 MG (COLACE) CAP PO SCH (10:00)
[2021-08-17] MEDS: ASPIRIN E.C. 81 MG (ECOTRIN) TAB PO SCH (10:01)
[2021-08-17] MEDS ORDERED: MTP25TSR PO (11:23)
[2021-08-17 11:28] VITALS: BP 129/64
[2021-08-17] MEDS ORDERED: FUROSEMIDE 40 MG/4 ML INJ (LASIX) IVP NR (11:30)
--- NOTE | 2021-08-17 12:49 | Discharge Summary ---
MICHELLE GOMEZ 08/17/21 1249: Discharge Summary Hospital Course Hospital Course Date of Admission: Aug 11, 2021 at 20:36 Admission Diagnosis : Family Physician/Provider: Kerrie Santizo Aprn Date of Discharge: 08/17/21 Discharge Diagnosis: [Syncope due to 3rd degree heart block] Hospital Course: [ Patient was transferred to [facility] on August 11 from an outside ED following syncopal episodes found to be secondary to 3rd degree heart block. She was also found to be in DKA and bradycardic. DKA protocol as well as dopamine drip was started. She was seen by cardiology who placed a temporary pacemaker on August 12. Patient was able to tolerate discontinuation of the dopamine drip by the . It was thought that her heart block was secondary to metoprolol use, which was held during her stay, and the and the temporary pacemaker was able to be removed on the with ILR placement on 08/14. She was weak during her stay but was originally thought to be okay for discharge until she had a near syncopal episode that was associated with a long pause on ILR which led to her have a permanent pacemaker placed on 08/16. During her stay she was found to have a right sided pneumonia with marked WBC elevation on only 1 day of her stay. She received IV cefepime during her stay for the pneumonia which appeared to be improving based on chest x ray following her pacemaker procedure. She was rather weak following the events of her stay and was seen by PT and OT who felt she was still rather weak and unstable. She was discharged to in patient rehab facilities at our hospital where they will work on improving her strength and balance before discharge to the assisted living facility she currently lives at.] Labs and Pending Lab Test: Laboratory Tests 08/16/21 18:02: Glucometer 119H 08/16/21 19:29: Glucometer 126H 08/16/21 23:59: Glucometer 163H 08/17/21 04:14: Glucometer 141H 08/17/21 07:46: Glucometer 121H 08/17/21 07:54: Phosphorus Level 2.8, Magnesium Level 1.4L 08/17/21 11:11: Glucometer 374H Microbiology 08/12/21 Blood Culture - Preliminary, Resulted No growth 08/12/21 Urine Culture - Final, Complete NO GROWTH 08/11/21 MRSA Screen - Final, Complete MRSA not isolated Home Meds Active Metoprolol Succinate 25 Mg Tab.er.24h 25 Mg PO DAILY Reported Diclofenac Sodium 1 % Gel..gram. 1 Applic TOP QID PRN APPLY TO RIGHT UPPER ARM/SHOULDER Ondansetron HCl 4 Mg Tablet 4 Mg PO Q4 -6H PRN Ketoconazole 2 % Shampoo 1 Applic TOP 3XWEEKLY Meloxicam 7.5 Mg Tablet 7.5 Mg PO DAILY Flonase Allergy Relief (Fluticasone Propionate) 50 Mcg/Actuation [place].susp 1 [place] NSEACH BID Fiber (Calcium Polycarbophil) 625 Mg Tablet 625 Mg PO DAILY Metformin HCl ER (Metformin HCl) 500 Mg Tab.er.24h 500 Mg PO 0800,1700 Ozempic (Semaglutide) 1 Mg/0.75 Ml Pen.injctr 1 Mg SQ SUN Caduet 5 mg-40 mg Tablet (Amlodipine/Atorvastatin) 1 Each Tablet 1 Each PO HS Basaglar Kwikpen U-100 (Insulin Glargine,Hum.rec.anlog) 100 Unit/1 Ml Insuln.pen 40 Unit SQ HS Multivitamin 1 Each Tablet 1 Each PO DAILY Jardiance (Empagliflozin) 25 Mg Tablet 25 Mg PO DAILY Arimidex (Anastrozole) 1 Mg Tablet 1 Mg PO DAILY Dexilant (Dexlansoprazole) 60 Mg Cap.bp 60 Mg PO DAILY Tylenol (Acetaminophen) 325 Mg Tablet 650 Mg PO Q4-6 PRN Buspirone HCl 15 Mg Tablet 15 Mg PO BID PRN Gabapentin 600 Mg Tablet 600 Mg PO HS PRN Plavix (Clopidogrel Bisulfate) 75 Mg Tablet 75 Mg PO DAILY Aspirin 81 Mg Tab.chew 81 Mg PO DAILY Fish Oil 1,000 mg Capsule (Vining 3 Polyunsat Fatty Acids) 1,000 Mg Cap 1,000 Mg PO HS Gabapentin 600 Mg Tablet 600 Mg PO 0800,1400,2100 Venlafaxine HCl ER (Venlafaxine HCl) 75 Mg Tab.er.24 75 Mg PO DAILY Assessment/Pt DC Instructions Syncope likely due to 3rd degree heart block -Permanent pacemaker and ILR has been placed and patient isn't complaining of the dizziness and nausea she had prior. Continue 5 day regimen of antibiotics prescribed by cardiology following the pacemaker placement. 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 DKA -Resolved. Leukocytosis -Improved. received 5 days cefepime dring stay. Continue to take cefazolin as prescribed by cardiology to prevent infection following the pacemaker placement. Insulin dependent type 2 diabetes -Continue insulin sliding scale while in rehab. Hypertension -BP remains stable and in normal range without medical intervention at this time. Continue to monitor while in rehab and follow up with PCP on discharge from there. CAD -Continue 81mg aspirin QD and atorvostatin 40mg QD. Avoid Beta blockers. Hospital Acquired Pneumonia -appeared to have resolved by final day. Watch for worsened Labor of breathing, shortness of breath, or fevers. Discharge Diet: Regular Diet Activity as Tolerated: Yes Discharge Physical Examination Allergies: Coded Allergies: NKANo Known Allergies (Verified Allergy, Unknown, 06/01/21) General Appearance: No Apparent Distress, WD/WN, Thin HEENT: PERRL/EOMI, Pharynx Normal, Moist Mucous Membranes Respiratory: Chest Non Tender, Lungs Clear, Normal Breath Sounds, No Respiratory Distress Cardiovascular: Regular Rate, Rhythm, Normal Peripheral Pulses, Systolic Murmur (slight systolic ejection murmur) Gastrointestinal: Normal Bowel Sounds, Non Tender, Soft Extremity: Normal Capillary Refill, Non Tender, No Calf Tenderness, No Pedal Edema, Other (Right arm was placed in a sling following pacemaker placement to decrease movement initially.) Skin: Normal Color, Warm/Dry Neurologic/Psychiatric: Alert, Oriented x3, perforator loader II-XII Norm as Tested Discharge Summary Date of Admission Aug 11, 2021 at 20:36 Date of Discharge Aug 17, 2021 at 11:40 Discharge Date: Aug 17, 2021 Admission Diagnosis Assessment: Syncope due to heart block CAD previous stent remotely DKA DM HTN HLP Plan: Monitor glucose Supportive care Plavix Dr Harden appreciated Consults/Procedures Consulations Cardiology E-ICU Procedures Temporary pacemaker - August 12 ILR- August 14 Permanent Pacemaker - August 16 Discharge Diagnosis -Syncope secondary to 3rd degree heart block -DKA (resolved) -Leukocytosis (resoved) Insulin dependent type 2 diabetes Hypertension CAD Hospital Acquired Pneumonia (resolved/resolving) (1) Heart block AV third degree (2) Cardiogenic shock Status: Resolved (3) Coronary artery disease without angina pectoris (4) DKA (diabetic ketoacidosis) (5) Type 2 diabetes mellitus with complication (6) Primary hypertension (7) Mixed hyperlipidemia GELY,ILDA N MD 08/17/21 1315: Discharge Summary Discharge Physical Examination Allergies: Coded Allergies: NKANo Known Allergies (Verified Allergy, Unknown, 06/01/21) Supervisory-Addendum Brief Verification & Attestation Participated in pt care: history, MDM, physical Personally performed: exam, history, MDM, supervision of care Care discussed with: Medical Student Procedures: n/a Verification and Attestation of Medical Student E/M Service I reviewed and verified all information documented by the medical student and made modifications to such information, when appropriate. I personally performed the history, physical exam and medical decision making. At time of my exam, she was anxious and with increased work of breathing and mildly tachycardic, discussed with Cardiology and restarted metoprolol now that she has pacemaker. Further management per inpatient rehab stay. Cardiology did not recommend continued antibiotics for pacemaker placement after discharge. Ilda Hong, Aug 17, 2021,13:14 MICHELLE GOMEZ Aug 17, 2021 12:49 ILDA HONG MD Aug 17, 2021 13:15
== END 2021-08-17 11:40 | DRG 242 ==
LOC: ICU 20:36 → 4TH 08-13 18:49
PROVIDERS: ADMIT Internal Medicine; ATTEND Family Medicine
PROC: 5A1223Z Performance of Cardiac Pacing, Continuous (ICD-10-PCS; 2021-08-12)
PROC: 0JH632Z Insertion of Monitoring Device into Chest Subcutaneous Tissue and Fascia, Percutaneous Approach (ICD-10-PCS; 2021-08-14)
PROC: 0JH606Z Insertion of Pacemaker, Dual Chamber into Chest Subcutaneous Tissue and Fascia, Open Approach (ICD-10-PCS; principal; 2021-08-16)
PROC: 02H63JZ Insertion of Pacemaker Lead into Right Atrium, Percutaneous Approach (ICD-10-PCS; 2021-08-16)
PROC: 02HK3JZ Insertion of Pacemaker Lead into Right Ventricle, Percutaneous Approach (ICD-10-PCS; 2021-08-16)
PROC: 02HV33Z Insertion of Infusion Device into Superior Vena Cava, Percutaneous Approach (ICD-10-PCS; 2021-08-16)
DX: I44.2 Atrioventricular block, complete (principal); E11.10 Type 2 diabetes mellitus with ketoacidosis without coma; R57.0 Cardiogenic shock; J18.9 Pneumonia, unspecified organism; N39.0 Urinary tract infection, site not specified; Z79.82 Long term (current) use of aspirin; Z79.4 Long term (current) use of insulin; Z79.84 Long term (current) use of oral hypoglycemic drugs; Z79.899 Other long term (current) drug therapy; D72.829 Elevated white blood cell count, unspecified; Y95 Nosocomial condition; E11.9 Type 2 diabetes mellitus without complications; I25.10 Atherosclerotic heart disease of native coronary artery without angina pectoris; E78.00 Pure hypercholesterolemia, unspecified; I10 Essential (primary) hypertension; K21.9 Gastro-esophageal reflux disease without esophagitis; Z85.72 Personal history of non-Hodgkin lymphomas; Z92.21 Personal history of antineoplastic chemotherapy; Z92.3 Personal history of irradiation; Z95.5 Presence of coronary angioplasty implant and graft; E78.2 Mixed hyperlipidemia
CPT/HCPCS: 33285; 36415; 71045; 80048; 80053; 81000; 81002; 82010; 82805; 82947; 83036; 83605; 83690; 83735; 84100; 84443; 84484; 85007; 85027; 87040; 87081; 87088; 93005; 93306

== ENCOUNTER 2021-08-16 16:14 | Inpatient (IN) | payer MEDICARE, MEDICAID ==
[~2021-08-16] VITALS: Ht 154.9 cm; Wt 64.1 kg
[~2021-08-16 16:14] MED LIST changes: +ALPRAZolam 0.25 MG (XANAX) TAB PO PRN; +BISACODYL 10 MG SUPP (DULCOLAX) PR PRN; +CALC625T14 PO; +CALCIUM CARBONATE 500 MG (TUMS) TAB.CHEW PO PRN; +CEFD300C3 PO; +CEPH500C PO; +DICL100G13 TOP; +DOCUSATE SODIUM 100 MG (COLACE) CAP PO PRN; +FLEET ENEMA ADULT 1 EA BTL PR PRN; +FLUT9.9S NSEACH; +KETO120S13 TOP; +LACTULOSE SYRUP 10GM/15ML (ENULOSE) 30ML UDC PO PRN; +LOPERAMIDE 2 MG (IMODIUM) TABLET PO PRN; +MELATONIN 3 MG TABLET PO PRN; +MELO7.5T46 PO; +METF-865 PO; +ONDA-105 PO; +ONDANSETRON 4 MG (ZOFRAN) ORAL DISSOLVE TAB PO PRN; +diphenhydrAMINE 25 MG TAB (BENADRYL) PO PRN; +guaiFENesin/CODEINE (ROBITUSSIN AC) 10ML UDC PO PRN
[2021-08-17 08:07] LABS: BASOPHILS % (AUTO) 0 % (0-10); EOSINOPHILS # (AUTO) 0.2 10^3/uL (0.0-0.3); EOSINOPHILS % (AUTO) 2 % (0-10); HEMATOCRIT 35 % (35-52); HEMOGLOBIN 11.4 g/dL (11.5-16.0); LYMPHOCYTES # (AUTO) 1.2 10^3/uL (1.0-4.0); LYMPHOCYTES % (AUTO) 12 % (12-44); MEAN CORPUSCULAR HEMOGLOBIN 30 pg (25-34); MEAN CORPUSCULAR HGB CONC 33 g/dL (32-36); MEAN CORPUSCULAR VOLUME 90 fL (80-99); MEAN PLATELET VOLUME 11.1 fL (9.0-12.2); MONOCYTES # (AUTO) 0.8 10^3/uL (0.0-1.0); MONOCYTES % (AUTO) 8 % (0-12); NEUTROPHILS # (AUTO) 7.6 10^3/uL (1.8-7.8); NEUTROPHILS % (AUTO) 78 % (42-75); PLATELET COUNT 282 10^3/uL (130-400); WHITE BLOOD COUNT 9.8 10^3/uL (4.3-11.0)
[2021-08-17 08:25] LABS: ALBUMIN 3.4 GM/DL (3.2-4.5); POTASSIUM 3.6 MMOL/L (3.6-5.0)
[2021-08-17 08:26] LABS: CALCIUM 8.5 MG/DL (8.5-10.1)
[2021-08-17 08:28] LABS: TOTAL PROTEIN 6.4 GM/DL (6.4-8.2)
[2021-08-17 08:29] LABS: BILIRUBIN,TOTAL 0.5 MG/DL (0.1-1.0)
[2021-08-17 08:31] LABS: CREATININE SERUM 0.56 MG/DL (0.60-1.30)
[2021-08-17] MEDS ORDERED: MTP25TSR PO (11:23)
--- NOTE | 2021-08-17 11:39 | PM&R Post Admission Assessment ---
PM&R Date of Visit: Aug 17, 2021 Time of Visit: 11:45 History of Present Illness CC: Cardiac dysfunction HPI: This is a 70yoWF clinic patient of [facility] who presents to the ARU in need of strengthening after a lengthy course following complete heart block diagnosed in the ER in [place] and transferred to ICU for Cardiology management which after extensive testing she underwent pacemaker placement. She is currently very weak and considering she is recovering from DKA while she was in ICU we will monitor her glucose closely. She has no pain currently. Dr Calderon reports she should not pull her arm up above her head or risk disrupting the pacemaker. Past Lzvuise-Vmkmhb-Ojhjyv Hx Past Med/Social Hx: Reviewed Nursing Past Med/Soc Hx, Reviewed and Corrections made Patient Social History Marrital Status: single Employed/Student: unemployed Alcohol Use: Denies Use Smoking Status: Former Smoker 2nd Hand Smoke Exposure: No Recent Hopitalizations: Yes (FUSED LUMBAR SPINE) Immunizations Up To Date Tetanus Booster (TDap): Unknown Date of Pneumonia Vaccine: Jan 21, 2019 Date of Influenza Vaccine: Jan 21, 2019 Past Medical History Surgeries: Coronary Stent, Pacemaker Currently Using CPAP: No Currently Using BIPAP: No Cardiac: Coronary Artery Disease, High Cholesterol, Hypertension complete heart block Neurological: Neuropathy Reproductive: No Genitourinary: Bladder Infection Gastrointestinal: Gastroesophageal Reflux Endocrine: Diabetes, Non-Insulin dep Cancer: Lymphoma Did You Recieve Any Treatments: Yes What Type of Treatment Did You: Chemotherapy, Radiation, Surgical Intervention History of Blood Disorders: No Adverse Reaction to Blood Gonzalez: No PM&R Allergy/Meds/Data Review Allergies Coded Allergies: NKANo Known Allergies (Verified Allergy, Unknown, 06/01/21) Home Medications Scheduled Amlodipine/Atorvastatin (Caduet 5 mg-40 mg Tablet), 1 EACH PO HS, (Reported) Anastrozole (Arimidex), 1 MG PO DAILY, (Reported) Aspirin (Aspirin), 81 MG PO DAILY, (Reported) Calcium Polycarbophil (Fiber), 625 MG PO DAILY, (Reported) Clopidogrel Bisulfate (Plavix), 75 MG PO DAILY, (Reported) Dexlansoprazole (Dexilant), 60 MG PO DAILY, (Reported) Empagliflozin (Jardiance), 25 MG PO DAILY, (Reported) Fluticasone Propionate (Flonase Allergy Relief), 1 SPRAY NSEACH BID, (Reported) Gabapentin (Gabapentin), 600 MG PO 0800,1400,2100, (Reported) Insulin Glargine,Hum.rec.anlog (Basaglar Kwikpen U-100), 40 UNIT SQ HS, (Reported) Ketoconazole (Ketoconazole), 1 APPLIC TOP 3XWEEKLY, (Reported) Meloxicam (Meloxicam), 7.5 MG PO DAILY, (Reported) Metformin HCl (Metformin HCl ER), 500 MG PO 0800,1700, (Reported) Metoprolol Succinate (Metoprolol Succinate), 25 MG PO DAILY Multivitamin (Multivitamin), 1 EACH PO DAILY, (Reported) Mesick 3 Polyunsat Fatty Acids (Fish Oil 1,000 mg Capsule), 1,000 MG PO HS, (Reported) Semaglutide (Ozempic), 1 MG SQ SUN, (Reported) Venlafaxine HCl (Venlafaxine HCl ER), 75 MG PO DAILY, (Reported) Scheduled PRN Acetaminophen (Tylenol), 650 MG PO Q4-6 PRN for PAIN-MILD (1-4) OR TEMPATURE, (R eported) Buspirone HCl (Buspirone HCl), 15 MG PO BID PRN for ANXIETY, (Reported) Diclofenac Sodium (Diclofenac Sodium), 1 APPLIC TOP QID PRN for PAIN- BREAKTHROUGH, (Reported) Gabapentin (Gabapentin), 600 MG PO HS PRN for FIBROMYALGIA, (Reported) Ondansetron HCl (Ondansetron HCl), 4 MG PO Q4 -6H PRN for NAUSEA/VOMITING-1ST LINE, (Reported) Discontinued Medications Cephalexin (Cephalexin), 500 MG PO BID, (Reported) Fluticasone Propionate (Flonase Allergy Relief), 1 SPRAY NS BID, (Reported) Discontinued Reason: Duplicate Order Lisinopril (Lisinopril), 20 MG PO DAILY, (Reported) Meloxicam (Mobic), 7.5 MG PO DAILY, (Reported) Discontinued Reason: Duplicate Order Metformin HCl (Metformin HCl), 500 MG PO BID, (Reported) Discontinued Reason: Duplicate Order Metoprolol Tartrate (Metoprolol Tartrate), 25 MG PO BID, (Reported) Ondansetron (Ondansetron Odt), 4 MG PO UD, (Reported) Discontinued Reason: No Longer Taking [Sm Fiber], 625 MG PO DAILY, (Reported) Discontinued Reason: Duplicate Order Current Medications Current Medications Reviewed Laboratory Data Laboratory Tests 08/17/21 07:54: White Blood Count 9.8, Red Blood Count 3.82, Hemoglobin 11.4L, Hematocrit 35, Mean Corpuscular Volume 90, Mean Corpuscular Hemoglobin 30, Mean Corpuscular Hemoglobin Concent 33, Red Cell Distribution Width 13.1, Platelet Count 282, Mean Platelet Volume 11.1, Immature Granulocyte % (Auto) 1, Neutrophils (%) (Auto) 78H, Lymphocytes (%) (Auto) 12, Monocytes (%) (Auto) 8, Eosinophils (%) (Auto) 2, Basophils (%) (Auto) 0, Neutrophils # (Auto) 7.6, Lymphocytes # (Auto) 1.2, Monocytes # (Auto) 0.8, Eosinophils # (Auto) 0.2, Basophils # (Auto) 0.0, Immature Granulocyte # (Auto) 0.1, Sodium Level 137, Potassium Level 3.6, Chloride Level 107, Carbon Dioxide Level 19L, Anion Gap 11, Blood Urea Nitrogen 14, Creatinine 0.56L, Estimat Glomerular Filtration Rate 99, BUN/Creatinine Ratio 25, Glucose Level 133H, Calcium Level 8.5, Corrected Calcium 9.0, Total Bilirubin 0.5, Aspartate Amino Transf (AST/SGOT) 16, Alanine Aminotransferase (ALT/SGPT) 27, Alkaline Phosphatase 56, Total Protein 6.4, Albumin 3.4 Review of Systems Constitutional: see HPI EENTM: no symptoms reported Respiratory: no symptoms reported Cardiovascular: no symptoms reported Gastrointestinal: no symptoms reported Genitourinary: no symptoms reported Musculoskeletal: back pain, joint pain Skin: no symptoms reported Psychiatric/Neurological: Tingling, Tremors, Weakness All Other Systems Reviewed Negative Unless Noted: Yes Physical Exam Physical Exam Vital Signs Capillary Refill : Height, Weight, BMI Height: 4'10.00" Weight: 161lbs. 0.0oz. 73.045704th; 27.88 BMI Method: General Appearance: No Apparent Distress, WD/WN, Chronically ill Eyes: Bilateral Eye Normal Inspection, Bilateral Eye PERRL HEENT: PERRL/EOMI, Normal ENT Inspection, Pharynx Normal Neck: Full Range of Motion, Normal Inspection, Non Tender, Supple, Carotid Bruit Respiratory: Chest Non Tender, Lungs Clear, Normal Breath Sounds, No Accessory Muscle Use, No Respiratory Distress Cardiovascular: Regular Rate, Rhythm, No Edema, No Gallop, No JVD, No Murmur, Normal Peripheral Pulses Gastrointestinal: Normal Bowel Sounds, No Organomegaly, No Pulsatile Mass, Non Tender, Soft Back: Normal Inspection, No CVA Tenderness, No Vertebral Tenderness Extremity: Normal Capillary Refill, Normal Inspection, Normal Range of Motion, Non Tender, No Calf Tenderness, No Pedal Edema Neurologic/Psychiatric: Alert, Oriented x3, Normal Mood/Affect, 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 Norm as Tested, Abnormal Gait, Motor Weakness Skin: Normal Color, Warm/Dry Lymphatic: No Adenopathy PM&R Medical Assessment & Plan REHAB/MEDICAL ASSESSMENT AND PLAN: 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 The comorbidities that impact the patients function and/or functional outcome by: recent heart block, new pacemaker, recent DKA, chronic debility, AL required REHAB PLAN: The patient is being admitted to our comprehensive inpatient rehabilitation facility and can tolerate the intensity of service consisting of at least: 180 minutes of therapy a day, 5 out of 7 days a week Rehab treatment will consist of: PT OT will focus on regaining function with use of assistive devices in order to regain enough function to return to AL The patient/family has a good understanding of our discharge process and will benefit from an interdisciplinary inpatient rehabilitation program. The patient has potential to make improvement and is in need of at least two of the foll owing multidisciplinary therapies including but not limited to physical, occupational, speech, and prosthetics and orthotics. Additionally the patient will need services from respiratory, nutritional services, wound care, psychology, etc. (Customize this to each patient). Given the patients complex condition and risk of further medical complications, rehabilitation services cannot be safely or effectively provided at a lower level of care such as a shelter facility. BARRIERS TO DISCHARGE: Chronic debility requiring AL maintenance ESTIMATED LOS: 10 days DISPOSITION: AL RELEVANT CHANGES SINCE PREADMISSION SCREENING: I have compared the patients medical and functional status at the time of the preadmission screening and there are: no changes PROGNOSIS: Good REHABILITATION GOALS: 1. PT OT will focus on regaining function with use of assistive devices in order to regain enough function to return to AL All the above goals were reviewed with the patient and he/she is in agreement. By signing this document, I acknowledge that I have personally performed a full physical examination on this patient within 24 hours of admission to this inpatient rehabilitation facility and have determined the patient to be able to tolerate the above course of treatment at an intensive level for a reasonable period of time. I will be completing a detailed individualized Plan of Care for this patient by day #4 of the patients stay based upon the Preadmission Screen, the Post-Admission Evaluation, and the therapy evaluations. Admission Dx/Comorbidities: (1) Myopathy ICD Codes: G72.9 - Myopathy, unspecified (2) Status post placement of implantable loop recorder ICD Codes: Z95.818 - Presence of other cardiac implants and grafts (3) DKA (diabetic ketoacidosis) ICD Codes: E11.10 - Type 2 diabetes mellitus with ketoacidosis without coma (4) Coronary artery disease without angina pectoris ICD Codes: I25.10 - Atherosclerotic heart disease of [place] coronary artery without angina pectoris (5) Type 2 diabetes mellitus with complication ICD Codes: E11.8 - Type 2 diabetes mellitus with unspecified complications (6) Heart block AV third degree ICD Codes: I44.2 - Atrioventricular block, complete (7) Primary hypertension ICD Codes: I10 - Essential (primary) hypertension (8) Mixed hyperlipidemia ICD Codes: E78.2 - Mixed hyperlipidemia (9) CAD (coronary artery disease) ICD Codes: I25.10 - Atherosclerotic heart disease of [place] coronary artery without angina pectoris Assessment/Plan Assessment and Plan Assess & Plan/Chief Complaint Assessment: Myopathy 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 08/16/21 Dr Calderon CAD previous stent remotely s/p PNA possible aspiration type s/p Cefepime completed Recent DKA DM HTN HLP Neuropathy Plan: Monitor glucose Supportive care Plavix Dr Calderon appreciated Rehab protocol FREDIS GOMEZ DO Aug 17, 2021 11:39
[2021-08-17 12:14] VITALS: BP 121/57
[2021-08-17] MEDS: DOCUSATE SODIUM 100 MG (COLACE) CAP PO SCH ×3 (12:29→20:42)
[2021-08-17] MEDS ORDERED: polyethylene glycoL POWDER 17 GM (MIRALAX) PACK PO PRN (12:30)
[2021-08-17] MEDS ORDERED: ONDANSETRON 4 MG/2 ML (SDV) Z0FRAN IV PRN (12:30)
[2021-08-17] MEDS ORDERED: MILK OF MAGNESIA 400 MG/5 ML 30 ML UDC PO PRN (12:30)
[2021-08-17] MEDS: SENNA W/DOCUSATE (SENOKOT S) TABLET PO SCH ×2 (12:30→12:37)
[2021-08-17] MEDS ORDERED: HYDROcodone/APAP 5 MG/325 MG (LORTAB) TAB PO PRN (12:30)
[2021-08-17] MEDS ORDERED: ONDANSETRON 4 MG (ZOFRAN) ORAL DISSOLVE TAB PO PRN (12:30)
[2021-08-17] MEDS ORDERED: BISACODYL 10 MG SUPP (DULCOLAX) PR PRN (12:30)
[2021-08-17] MEDS ORDERED: MELATONIN 3 MG TABLET PO PRN (12:30)
[2021-08-17] MEDS ORDERED: CALCIUM CARBONATE 500 MG (TUMS) TAB.CHEW PO PRN (12:30)
[2021-08-17] MEDS: polyethylene glycoL POWDER 17 GM (MIRALAX) PACK PO SCH ×2 (12:30→12:31)
[2021-08-17] MEDS ORDERED: ANTACID SUSP 30 ML UDC (MYLANTA) PO PRN (12:30)
[2021-08-17] MEDS ORDERED: diphenhydrAMINE 50 MG/ML INJ (BENADRYL) IVP PRN (12:30)
[2021-08-17] MEDS ORDERED: LACTULOSE SYRUP 10GM/15ML (ENULOSE) 30ML UDC PO PRN (12:30)
[2021-08-17] MEDS ORDERED: diphenhydrAMINE 25 MG TAB (BENADRYL) PO PRN (12:30)
[2021-08-17] MEDS ORDERED: PATIENT MAY USE OWN MEDS, ALL PO SCH (12:30)
--- NOTE | 2021-08-17 12:37 | Physical Therapy Evaluation ---
PT Evaluation-General Medical Diagnosis Admission Date Aug 17, 2021 at 11:35 Medical Diagnosis: Syncope due to heart block Onset Date: Aug 14, 2021 Therapy Diagnosis Therapy Diagnosis: impaired mobility, strength, endurance Height/Weight Height (Feet): 4 Height (Inches): 10.00 Weight (Pounds): 161 Weight (Ounces): 0.0 Precautions Precautions/Isolations: Fall Prevention, Standard Precautions Referral Physician: Vickie Mcarthur DO Reason for Referral: Evaluation/Treatment Medical History Additional Medical History Past Medical History Surgeries: Coronary Stent Currently Using CPAP: No Currently Using BIPAP: No Coronary Artery Disease, High Cholesterol, Hypertension Gastroesophageal Reflux Lymphoma Did You Recieve Any Treatments: Yes What Type of Treatment Did You: Chemotherapy, Radiation, Surgical Intervention Blood Disorders: No Adverse Reaction/Blood Tranf: No Reviewed History: Yes Social History Home: Assisted Living Current Living Status: Alone Entry Into Home: Ramp Prior Prior Level of Function SCALE: Activities may be completed with or without assistive devices. 7-Miijmzrdnr-ihuszwx completes the activity by him/herself with no assistance from a helper. 5-Set-up or Clean-up Assistance-helper sets up or cleans up; patient completes activity. [place] assists only prior to or following the activity. 4-Supervision or Touching Assistance-helper provides verbal cues and/or touch ing/steadying and/or contact guard assistance as patient completes activity. Assistance may be provided throughout the activity or intermittently. 3-Partial/Moderate Assistance-helper does LESS THAN HALF the effort. [place] lifts, holds or supports trunk or limbs, but provides less than half the effort. 2-Substantial/Maximal Assistance-helper does MORE THAN HALF the effort. [place] lifts or holds trunk or limbs and provides more than half the effort. 0-Nebecmxtl-rchhoe does ALL the effort. Patient does none of the effort to complete the activity. Or, the assistance of 2 or more helpers is required for the patient to complete the activity. If activity was not attempted, code reason: 7-Patient Refused. 9-Not Applicable-not attempted and the patient did not perform the activity before the current illness, exacerbation or injury. 10-Not Attempted due to Environmental Limitations-(lack of equipment, weather restraints, etc.). 88-Not Attempted due to Medical Conditions or Safety Concerns. Bed Mobility: 6 Transfers (B,C,W/C): 6 Gait: 6 Indoor Mobility (Ambulation): Independent Prior Devices Use: None PT Evaluation-Current Subjective Patient in bed pre tx, agrees to PT, has no complaints of pain at rest. Will be co-treating with OT for part of tx due to poor patient mobility, severe debility, nausea with activity, coordinate UE and LE during activity, safety and reduce risk of falls. Pt/Family Goals to be independent at home Objective Patient Orientation: Person, Place, Situation ROM/Strength ROM Lower Extremities WNL Strength Lower Extremities LLE (hip flexion 3/5, knee flexion 3/5, knee extension 3+/5, dorsiflexion 4-/5), RLE (hip flexion 3+/5, knee flexion 3+/5, knee extension 4-/5, dorsiflexion 4/5) Sensory Hearing: Functional Sensation Right Lower Extremit: Impaired Sensation Left Lower Extremity: Impaired Transfers Roll Left & Right (QC): 4 Sit to Lying (QC): 3 Lying to Sitting/Side of Bed(Q: 3 Sit to Stand (QC): 4 Chair/Ipd-pl-Xdlni Xfer(QC): 4 Toilet Transfer (QC): 4 Car Transfer (QC): 4 Patient performs rolling with SBA, supine <-> sit with min assist, sit <-> stand and transfers with CGA, car transfer CGA. Needs occasional cues for positioning and safety. Gait Does the Patient Walk?: Yes Mode of Locomotion: Walk Anticipated Mode of Locomotion: Walk Walk 10 feet (QC): 4 Walk 50 ft with 2 Turns(QC): 4 Walk 150 ft (QC): 88 Walking 10ft/uneven surface-QC: 4 Distance: 100', 30' Gait Assistive Device: FWW Comments/Gait Description Patient can ambulate 100' with a rolling walker with CGA (including 50' with at least 2 turns of 90 degrees and 10' over an uneven surface), ambulation is slow but steady, she can take her sling off for right arm ROM and to use the walker per Dr. Calderon. Wheelchair Training Wheel 50 ft with 2 turns (QC): 9 Wheel 150 ft (QC): 9 Stairs 1 Step (curb) (QC): 10 4 Steps (QC): 10 12 Steps (QC): 10 Balance Sitting Static: Normal Sitting Dynamic: Normal Standing Static: Fair Standing Dynamic: Fair Picking up an Object (QC): 10 Treatment Patient was toileted and dressed during tx, also. PT performed bed mobility and transfer, ambulation, positioning and safety during dressing and toileting, OT performed dressing and toileting, UE positioning and safety during activity. Assessment/Needs Patient in recliner post tx with nurse call, phone, tray, all needs met. Patient has impaired mobility, strength, endurance. She is mostly CGA for mobility but does need assist for supine <-> sit. Rehab Potential: Fair PT Short Term Goals Short Term Goals Time Frame: Aug 24, 2021 Roll Left & Right: 6 Sit to lyin Lying to sitting on side of be: 4 Sit to stand: 4 (SBA) Chair/wup-ov-ltqph transfer: 4 (SBA) Walk 10 feet: 4 (SBA) Walk 50 feet with two turns: 4 (SBA) Walk 150 feet: 4 (SBA) PT Senior Living Goals Senior Living Goals PT Senior Living Goals Time Frame: Sep 07, 2021 Roll Left & Right (QC): 6 Sit to Lying (QC): 6 Lying-Sitting on Side/Bed(QC): 6 Sit to Stand (QC): 6 Chair/Xwt-yl-Cpfsr Xfer(QC): 6 Toilet Transfer (QC): 6 Car Transfer (QC): 6 Does the Patient Walk: Yes Walk 10 feet (QC): 6 Walk 50ft with 2 Turns (QC): 6 Walk 150 ft (QC): 6 Walking 10ft on Uneven Surface: 6 1 Step (curb) (QC): 4 4 Steps (QC): 4 12 Steps (QC): 88 Picking up an Object (QC): 4 (using tape machine tailer) Wheel 50 feet with 2 turns (QC: 9 Wheel 150 feet: 9 PT Plan Problem List Problem List: Activity Tolerance, Functional Strength, Safety, Balance, Gait, Transfer, Bed Mobility, ROM Treatment/Plan Treatment Plan: Continue Plan of Care Treatment Plan: Bed Mobility, Education, Functional Activity [place], Functional Strength, Group Therapy, Gait, Safety, Therapeutic Exercise, Transfers Treatment Duration: Sep 07, 2021 Frequency: At least 5 of 7 days/Wk (IRF) Estimated Hrs Per Day: 1.5 hours per day Patient and/or Family Agrees t: Yes Safety Risks/Education Patient Education: Gait Training, Transfer Techniques, Correct Positioning, Safety Issues Teaching Recipient: Patient Teaching Methods: Demonstration, Discussion Response to Teaching: Reinforcement Needed Discharge Recommendations Plan Patient will perform bed mobility and transfer training, balance and endurance training, functional strengthening, stair training, gait training, and education, to improve functional mobility and independence at home. Therapy Discharge Recommendati: Home & Family, Post Acute PT Time/GCodes Time In: 1135 Time Out: 1210 Total Billed Treatment Time: 25 Total Billed Treatment 1 visit EVM 10' FA 15' PT eval from [id number], OT eval from [id number], co-treat from [id number] CHRISTEL TORRES PT Aug 17, 2021 12:37
--- NOTE | 2021-08-17 13:02 | ST Cognitive Linguistic Eval ---
Speech Evaluation-General Medical Diagnosis Syncope Onset Date: Aug 14, 2021 Therapy Diagnosis Therapy Diagnosis: Minimally Impaired Cognition Precautions Precautions/Isolations: Fall Prevention, Standard Precautions Referral Referring Physician: Dr. Mcarthur Reason for Referral: Evaluation/Treatment Medical History Current History The patient is a 70 year-old female with a past medical history of CAD, high cholesterol, HTN, lymphoma, and GERD, who presented to [facility] following a syncope event due to a heart block. Reviewed History: Yes Social History Current Living Status: Alone Speech PLF-Current Status Prior Level of Function The patient denied challenges or concerns with her speech, language, swallowing, or cognition. Subjective The patient was seated upright in a recliner, awake and alert upon entrance to her room by the clinician. The patient greeted the clinician appropriately and was agreeable to participation in the cognitive linguistic evaluation. Language Eval: Auditory Comprehends Simple Yes/No Ques: Functional Indent/Objects Multiple [place]: Functional Ident/Pics in Multiple [place]: Functional Follows 1-Step Commands: Functional Follows General Conversations: Functional Language Eval: Verbal Language Completes Spontaneous Greeting: Functional Produces Auto, Serial Info: Functional Imitates Simple Words/Phrases: Functional Word Finding: Functional Requests Basic Needs: Functional States Basic Personal Info: Functional Expresses Complex Ideas: Functional Language Evaluation: Reading Follows Simple Written Direct: Functional Language Evaluation: Writing Writes to Simple Dictation: Functional Cognitive Patient Orientation The patient is independently oriented to self, location, month, day of week, date and year. Objective Cognitive Domain Attention: Moderate Memory: Mild Problem Solving: Functional (Simple.) Visuospatial Skills: WNL Composite Severity Rating: Mild Clock Drawing Severity Rating: WNL Objective Formal/Standardized Tests [facility] Mental Status Exam ([facility]) Results The patient demonstrated a result of +28/30 on the UMS correlating to a score of cognitive linguistic function within normal limits. Oral Motor/Speech Production The patient does not display dysarthria or apraxia of speech. The patient is 100% intelligible in known and unknown contexts. Impression While the patient does display cognitive linguistic skills within normal limits, she does display a small deficit in memory and attention. Due to this, the clinician would like to provide services initially to monitor the patient's progress with skilled services. Speech Patient Assess Expression of Ideas/Wants: Expression (4) Understanding Verbal Content: Understands (4) Brief Interview-Mental Status: Yes Repetition of Three Words: Three (3) Temporal Orientation: Year: Correct (3) Temporal Orientation: Month: Accurate within 5 days(2) Temporal Orientation: Day: Correct (1) Recall : Wear to say "Sock": Yes, no cue required (2) Recall : Color: Yes, no cue required (2) Recall : Bed: Yes,after cueing (1) Memory/Recall Ability: Current season, That he or she is in a hsp/hsp unit Speech Short Term Goals Short Term Goals Short Term Goals 1. The patient will demonstrated 80% accuracy with memory exercises with mild clinician verbal and visual cueing. Time Frame-STG: One Week. Speech Mcc Goals Mcc Goals 1. The patient will demonstrate improved cognitive linguistic skills for increased safety with discharge to the least restricted environment. Time Frame: Two Weeks. Speech-Plan Treatment Plan Speech Therapy Treatment Plan: Continue Plan of Care Treatment Duration: Aug 31, 2021 Frequency: 3 times per week (Three to five times per week.) Estimated Hrs Per Day: .5 hour per day Rehab Potential: Fair Pt/Family Agrees to Plan: Yes Safety Risks/Education Teaching Recipient: Patient Teaching Methods: Discussion Response to Teaching: Verbalize Understanding Education Topics Provided: Results of SLUMS, Plan of Care Time Speech Therapy Time In: 12:15 Speech Therapy Time Out: 12:45 Total Billed Time: 30 Billed Treatment Time 1, TAMIKO ARENAS [facility] Aug 17, 2021 13:02
--- NOTE | 2021-08-17 13:16 | Occupational Therapy Eval ---
OT Evaluation-General/PLF Medical Diagnosis Admission Date Aug 17, 2021 at 11:35 Medical Diagnosis: Syncope Onset Date: Aug 14, 2021 Therapy Diagnosis Therapy Diagnosis: decreased ADL Status Height/Weight Height (Feet): 4 Height (Inches): 10.00 Weight (Pounds): 161 Weight (Ounces): 0.0 Precautions Precautions/Isolations: Fall Prevention, Standard Precautions Comments Pacemaker precaution R side. No raising R arm above shoulder level. No showering x1 week per Dr. Calderon (until 08/24/21) Sling worn on R side for comfort, and to keep R arm from raising overhead at night if pt has a tendency to sleep with hand above head. Referral Physician: Vickie Mcarthur DO Referral Reason: Evaluation/Treatment Medical History Additional Medical History coronary stent, CAD, hypercholesterol, HTN, GERD, lymphoma, DM Current History ED with 3rd degree heart block, syncopal episode. s/p pacemaker 08/16 Social History Home: Assisted Living Current Living Status: Alone Entry Into Home: Ramp ADL-Prior Level of Function SCALE: Activities may be completed with or without assistive devices. 0-Ytjbtpxvaz-qhlioaa completes the activity by him/herself with no assistance from a helper. 5-Set-up or Clean-up Assistance-helper sets up or cleans up; patient completes activity. [place] assists only prior to or following the activity. 4-Supervision or Touching Assistance-helper provides verbal cues and/or touching/steadying and/or contact guard assistance as patient completes activity. Assistance may be provided throughout the activity or intermittently. 3-Partial/Moderate Assistance-helper does LESS THAN HALF the effort. [place] lifts, holds or supports trunk or limbs, but provides less than half the effort. 2-Substantial/Maximal Assistance-helper does MORE THAN HALF the effort. [place] lifts or holds trunk or limbs and provides more than half the effort. 7-Bsilxlnws-hfijyp does ALL the effort. Patient does none of the effort to co mplete the activity. Or, the assistance of 2 or more helpers is required for the patient to complete the activity. If activity was not attempted, code reason: 7-Patient Refused. 9-Not Applicable-not attempted and the patient did not perform the activity before the current illness, exacerbation or injury. 10-Not Attempted due to Environmental Limitations-(lack of equipment, weather restraints, etc.). 88-Not Attempted due to Medical Conditions or Safety Concerns. ADL PLOF Comments Pt reports IND with ADLs and functional mobility, no AD. She completes dressing tasks laying in bed, does not stand up for pant hike. Self Care: Independent Functional Cognition: Independent DME/Equipment: Bath Chair, Shower OT Current Status Subjective Pt agreeable to OT evaluation and cotreatment with PT Mental Status/Objective Patient Orientation: Person, Place, Situation Attachments: IV Current Glasses/Contacts: Yes Hearing Aids: No Dentures/Partials: Yes Hand Dominance: Right Upper Extremity ROM RUE not formally tested due to pacemaker precautions. LUE WFL Upper Extremity Coordination decreased due to decreased sensation from Raynauds. Upper Extremity Sensation Decreased bilaterally due to Raynaud's Upper Extremity Strength RUE not tested due to pacemaker, LUE grossly 3/5 ADL-Treatment Eating (QC): 5 (set up with some containers due to decreased coordination and sensation changes.) Oral Hygiene (QC): 4 (SBA for standing balance) Shower/Bathe Self (QC): 3 (Min A. Pt did not wash L UE and lower legs d/t perceived RUE limitations) Upper Body Dressing (QC): 4 (V/c's to maintain pacemaker precautions) Lower Body Dressing (QC): 4 (SBA for standing balance) On/Off Footwear (QC): 5 (gripper socks) Toileting Hygiene (QC): 4 (SBA for standing balance) Other Treatments [id number]: OT evaluation complete. OT/PT cotreat due to skill of 2 clinicians required which a rehabilitation psychologist could not perform in order to coordinate UE/LEs, decrease fall risk, and due to pt's limitations in strength, activity tolerance, transfers/mobility. OT focused on UE placement, cues for sequencing and safety and ADLs, PT focused on LE placement, gross overall movements, transfers and mobility. Pt completed toileting, then functional mobility/transfers using FWW. Post tx, pt in recliner, call light in reach and all needs met. SBA rolling, min A supine to/from sit, CGA sit to/from stand, CGA car transfers. Functional mobility 100' with FWW, CGA. [id number]: OT/PT cotreat due to skill of 2 clinicians required which a rehabilitation psychologist could not perform in order to coordinate UE/LEs, decrease fall risk, and due to pt's limitations in strength, activity tolerance, transfers/mobility. OT focused on UE placement, cues for sequencing and safety and ADLs, PT focused on LE placement, gross overall movements, transfers and mobility. Pt in recliner upon OT arrival. Pt walked to bathroom with FWW, SBA, to complete seated sponge bath, dressing, and oral hygiene tasks. Pt returned to recliner after bathroom tasks, stopping to participate in functional mobility tasks, using FWW, SBA-CGA. Pt donned/doffed gripper socks while seated in recliner. Post tx, pt left in recliner with call light in reach and all needs met. 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 2=Patient will verbalize/demonstrate understanding of assistive devices/modifications for ADL. 3=Patient will improve strength/tolerance for activity to enable patient to perform ADL's. OT Education/Plan Problem List/Assessment Assessment: Decreased Activ Tolerance, Decreased Safety Aware, Decreased UE Strength, Impaired Coordination, Impaired Funct Balance, Impaired I ADL's, Impaired Self-Care Skills, Restricted Funct UE ROM Discharge Recommendations Plan/Recommendations: Continue POC Treatment Plan/Plan of Care Patient would benefit from OT for education, treatment and training to promote independence in ADL's, mobility, safety and/or upper extremity function for ADL's. Plan of Care: ADL Retraining, Functional Mobility, Group Exercise/Act as Ind, UE Funct Exercise/Act Treatment Duration: Aug 31, 2021 Frequency: At least 5 of 7 days/Wk (IRF) Estimated Hrs Per Day: 1.5 hours per day Rehab Potential: Fair Time/GCodes Start Time: 11:35 ([id number]) Stop Time: 13:50 ([id number]) Total Time Billed (hr/min): 75 Billed Treatment Time [id number] OT eval, 6178-3605: OT/PT cotreat 1, EVM (10'), ADL (15') 2323-9338: OT/PT cotreat 1, ADL 3 (50') MARIA VICTORIA FRANCES OT Aug 17, 2021 13:16
--- NOTE | 2021-08-17 14:50 | Physical Therapy Daily Note ---
PT Daily Note-Current Subjective Pt. agrees to PT OT co Rx. Pt. talkative, no c/o pain Pain Location: No Pain Reported Mental Status Patient Orientation: Normal For Age Transfers SCALE: Activities may be completed with or without assistive devices. 1-Sayqnlfebf-fccixzy completes the activity by him/herself with no assistance from a helper. 5-Set-up or Clean-up Assistance-helper sets up or cleans up; patient completes activity. [place] assists only prior to or following the activity. 4-Supervision or Touching Assistance-helper provides verbal cues and/or touching/steadying and/or contact guard assistance as patient completes activity. Assistance may be provided throughout the activity or intermittently. 3-Partial/Moderate Assistance-helper does LESS THAN HALF the effort. [place] lifts, holds or supports trunk or limbs, but provides less than half the effort. 2-Substantial/Maximal Assistance-helper does MORE THAN HALF the effort. [place] lifts or holds trunk or limbs and provides more than half the effort. 1-Oeuldfgjq-obahnv does ALL the effort. Patient does none of the effort to complete the activity. Or, the assistance of 2 or more helpers is required for the patient to complete the activity. If activity was not attempted, code reason: 7-Patient Refused. 9-Not Applicable-not attempted and the patient did not perform the activity before the current illness, exacerbation or injury. 10-Not Attempted due to Environmental Limitations-(lack of equipment, weather restraints, etc.). 88-Not Attempted due to Medical Conditions or Safety Concerns. Sit to Stand (QC): 4 Chair/Jwj-eh-Qaame Xfer(QC): 4 Toilet Transfer (QC): 4 Gait Training Does the Patient Walk?: Yes Gait Assistive Device: FWW 25 ft CGA slow, steady Stair Training Stair Training: Handrails/: uses walker #of Steps: 2 1 Step (curb) (QC): 4 Balance Picking up an Object (QC): 4 Exercises Seated Therapy Exercises: Ankle pumps, Sit to stand, Long arc quads Seated Reps: 10 Assessment Current Status: Good Progress PT Short Term Goals Short Term Goals Time Frame: Aug 24, 2021 Roll Left & Right: 6 Sit to lyin Lying to sitting on side of be: 4 Sit to stand: 4 (SBA) Chair/yfl-wx-pozed transfer: 4 (SBA) Walk 10 feet: 4 (SBA) Walk 50 feet with two turns: 4 (SBA) Walk 150 feet: 4 (SBA) PT Half-Way Goals Half-Way Goals PT Half-Way Goals Time Frame: Sep 07, 2021 Roll Left & Right (QC): 6 Sit to Lying (QC): 6 Lying-Sitting on Side/Bed(QC): 6 Sit to Stand (QC): 6 Chair/Gej-jv-Dkohz Xfer(QC): 6 Toilet Transfer (QC): 6 Car Transfer (QC): 6 Does the Patient Walk: Yes Walk 10 feet (QC): 6 Walk 50ft with 2 Turns (QC): 6 Walk 150 ft (QC): 6 Walking 10ft on Uneven Surface: 6 1 Step (curb) (QC): 4 4 Steps (QC): 4 12 Steps (QC): 88 Picking up an Object (QC): 4 (using maintenance team leader) Wheel 50 feet with 2 turns (QC: 9 Wheel 150 feet: 9 PT Plan Treatment/Plan Treatment Plan: Continue Plan of Care Treatment Plan: Bed Mobility, Education, Functional Activity Roxi, Functional Strength, Group Therapy, Gait, Safety, Therapeutic Exercise, Transfers Treatment Duration: Sep 07, 2021 Frequency: At least 5 of 7 days/Wk (IRF) Estimated Hrs Per Day: 1.5 hours per day Patient and/or Family Agrees t: Yes Safety Risks/Education Patient Education: Gait Training, Transfer Techniques, Reviewed Precautions, Correct Positioning, Safety Issues Teaching Recipient: Patient Teaching Methods: Demonstration, Discussion Response to Teaching: Verbalize Understanding, Return Demonstration, Reinforc ement Needed Time/GCodes Time In: 1300 Time Out: 1350 Total Billed Treatment Time: 50 Total Billed Treatment 1,GT10m,FA40m co Rx OT TIRSO GUZMAN LEGAL ACTIVITY ADJUDICATOR Aug 17, 2021 14:50
[2021-08-17 15:07] VITALS: BP 132/64
--- NOTE | 2021-08-17 15:40 | Cardiology Progress Note ---
Subjective Date Seen by Provider: Aug 17, 2021 Time Seen by Provider: 15:37 Subjective/Events-last exam Patient was seen at bedside, complain of mild nausea and mild shortness of breath. No chest pain. Review of Systems General: No Chills, No Night Sweats, No Fatigue, No Malaise, No Appetite, No Other HEENT: No Head Aches, No Visual Changes, No Eye Pain, No Ear Pain, No Dysphasia, No Sinus Congestion, No Post Nasal Drip, No Sore Throat, No Other Pulmonary: No Dyspnea, No Cough, No Pleuritic Chest Pain, No Other Objective-Cardiology Exam Last Set of Vital Signs Vital Signs 08/17/21 08/17/21 12:14 15:07 Temp 37.0 Pulse 96 Resp 18 B/P (MAP) 132/64 (86) Pulse Ox 96 O2 Delivery Room Air General: Alert, Oriented X3, Cooperative HEENT: Atraumatic, PERRLA Neck: Supple, No JVD, No Thyromegaly Lungs: Clear to Auscultation, Normal Air Movement Heart: Regular Rate, Normal S1, Normal S2, No Murmurs Abdomen: Normal Bowel Sounds, Soft, No Tenderness, No Hepatosplenomegaly, No Masses Extremities: No Clubbing, No Cyanosis, No Edema, Normal Pulses, No Tenderness/Swelling Skin: No Rashes, No Breakdown, No Significant Lesion Neuro: Normal Gait, Normal Speech, Strength at 5/5 X4 Ext, Normal Tone, Sensation Intact Psych/Mental Status: Mental Status NL, Mood NL Results Lab Laboratory Tests 08/17/21 07:54 A/P-Cardiology Admission Diagnosis Complete heart block Hypertension Nausea and vomiting Coronary artery disease Assessment/Plan Intermittent symptomatic complete heart block with syncope. Status post dual-chamber pacemaker implantation, heart rate is stable. I will restart beta-blockers. Nausea and vomiting, has been having it since admission on and off. Managed by medical service UTI receiving antibiotic Status post transient hypotension with severe bradycardia requiring temporary pacemaker initially then we proceeded with dual-chamber pacemaker Restarted beta-blockers, monitor blood pressure Coronary artery disease - MPI of 08/22/17: no ischemia or infarction: LVEF 74% - Echo of 08/22/17: LVEF 60-65%, grade 1 donaldson dysfunction - cardiac cath of 04/13/19 showed mild CAD, patent stented segment in prox LAD (Alpine Xience 2.25 x 12 mm that overlaps an old stent that is known to be Promus 2.25 x 16 mm). The rest of the coronary arteries have diffuse mild disease. Normal global left ventricular systolic function with an ejection fraction of approximately 60%. Mild to mod elev of left ventricular end-di astolic pressure. - Echocardiogram of 08-12-[address] Fina blue LVEF 55-60%. Grade 2 diastolic dysfunction. Mild AoV sclerosis. Mod mitral valve calcification Hyperlipidemia, maintained on statin. Continue to monitor Diabetes mellitus, followed and managed by primary care physician Mild bilateral carotid stenosis, last ultrasound was done with Dr. Savage in June 2021 History of left breast cancer, had surgery and chemotherapy and radiation in the second half of 2016, following with Dr. Lamas in [place] History of Raynaud's phenomena, History of COVID 19 infection January 2020 History of carpal tunnel and right elbow surgery in 2020 ELLIOTT DELEON MD Aug 17, 2021 15:40
[2021-08-17] MEDS ORDERED: LIDOCAINE/EPI 1%-1:100,000 (XYLOCAINE) 10 ML INJ NR (17:00)
[2021-08-17] MEDS: inSUlin ASPART (NovoLOG) 1 UNIT/0.01 ML (CHARGE PER UNIT) SC SCH ×3 (17:37→20:49)
--- NOTE | 2021-08-17 17:47 | Consultation - Surgery ---
History of Present Illness History of Present Illness Patient Consulted On(malissa/time) 08/17/21 17:43 Date Seen by Provider: Aug 17, 2021 Time Seen by Provider: 17:43 History of Present Illness Consult requested by Dr. Calderon for removal of loop recorder left chest. Patient is a 70-year-old female who had a loop recorder placed recently. She not having episodes of heart block and syncope and end up having a pacemaker placed. Patient not having any chest pain at this time. She is not having any syncope. Patient states that she was having some nausea but this is improved. Patient has no complaints at this time she just transferred to the rehab unit an d is happy. Patient with no other complaints at this time. She denies any nausea vomiting fever sweats chills shortness of breath or chest pain at this time. Allergies and Home Medications Allergies Coded Allergies: Lynda Known Allergies (Verified Allergy, Unknown, 06/01/21) Patient Home Medication List Home Medication List Reviewed: Yes Acetaminophen (Tylenol) 325 Mg Tablet, 650 MG PO Q4-6 PRN for PAIN-MILD (1-4) OR TEMPATURE, (Reported) Entered as Reported by: ANASTASIA HUGHES on 04/13/19 07 Amlodipine/Atorvastatin (Caduet 5 mg-40 mg Tablet) 1 Each Tablet, 1 EACH PO HS, (Reported) Entered as Reported by: ALLI DICKERSON on 05/24/21 1551 Anastrozole (Arimidex) 1 Mg Tablet, 1 MG PO DAILY, (Reported) Entered as Reported by: ALLI DICKERSON on 05/24/21 1551 Aspirin (Aspirin) 81 Mg Tab.chew, 81 MG PO DAILY, (Reported) Entered as Reported by: ANASTASIA HUGHES on 04/13/19 0734 Buspirone HCl (Buspirone HCl) 15 Mg Tablet, 15 MG PO BID PRN for ANXIETY, (Reported) Entered as Reported by: ANASTASIA HUGHES on 04/13/19 07 Calcium Polycarbophil (Fiber) 625 Mg Tablet, 625 MG PO DAILY, (Reported) Entered as Reported by: BÁRBARA LUNA on 08/13/21 1040 Clopidogrel Bisulfate (Plavix) 75 Mg Tablet, 75 MG PO DAILY, (Reported) Entered as Reported by: ANASTASIA HUGHES on 04/13/19 0734 Dexlansoprazole (Dexilant) 60 Mg , 60 MG PO DAILY, (Reported) Entered as Reported by: ALLI DICKERSON on 05/24/21 155 Diclofenac Sodium (Diclofenac Sodium) 1 % Gel..gram., 1 APPLIC TOP QID PRN for PAIN-BREAKTHROUGH, (Reported) Entered as Reported by: BÁRBARA LUNA on 08/13/21 104 Empagliflozin (Jardiance) 25 Mg Tablet, 25 MG PO DAILY, (Reported) Entered as Reported by: ALLI DICKERSON on 05/24/211550 Fluticasone Propionate (Flonase Allergy Relief) 50 Mcg/Actuation [place].susp, 1 SPRAY NSEACH BID, (Reported) Entered as Reported by: BÁRBARA LUNA on 08/13/211039 Gabapentin (Gabapentin) 600 Mg Tablet, 600 MG PO 0800,1400,2100, (Reported) Entered as Reported by: ANASTASIA HUGHES on 04/13/19733 Gabapentin (Gabapentin) 600 Mg Tablet, 600 MG PO HS PRN for FIBROMYALGIA, (Reported) Entered as Reported by: ANASTASIA HUGHES on 04/13/19733 Insulin Glargine,Hum.rec.anlog (Basaglar Kwikpen U-100) 100 Unit/1 Ml Insuln.pen, 40 UNIT SQ HS, (Reported) Entered as Reported by: ALLI DICKERSON on 05/24/211550 Ketoconazole (Ketoconazole) 2 % Shampoo, 1 APPLIC TOP 3XWEEKLY, (Reported) Entered as Reported by: BÁRBARA LUNA on 08/13/21 104 Meloxicam (Meloxicam) 7.5 Mg Tablet, 7.5 MG PO DAILY, (Reported) Entered as Reported by: BÁRBARA LUNA on 08/13/21 104 Metformin HCl (Metformin HCl ER) 500 Mg Tab.er.24h, 500 MG PO 0800,1700, (Reported) Entered as Reported by: BÁRBARA LUNA on 08/13/21 104 Metoprolol Succinate (Metoprolol Succinate) 25 Mg Tab.er.24h, 25 MG PO DAILY Prescribed by: ILDA HONG on 08/17/21 1123 Multivitamin (Multivitamin) 1 Each Tablet, 1 EACH PO DAILY, (Reported) Entered as Reported by: ALLI DICKERSON on 05/24/21 155 [place] 3 Polyunsat Fatty Acids (Fish Oil 1,000 mg Capsule) 1,000 Mg Cap, 1,000 MG PO HS, (Reported) Entered as Reported by: ANASTASIA HUGHES on 04/13/19 0734 Ondansetron HCl (Ondansetron HCl) 4 Mg Tablet, 4 MG PO Q4 -6H PRN for NAUSEA/VOMITING-1ST LINE, (Reported) Entered as Reported by: BÁRBARA LUNA on 08/13/21 1040 Semaglutide (Ozempic) 1 Mg/0.75 Ml Pen.injctr, 1 MG SQ SUN, (Reported) Entered as Reported by: ALLI DICKERSON on 05/24/21 155 Venlafaxine HCl (Venlafaxine HCl ER) 75 Mg Tab.er.24, 75 MG PO DAILY, (Reported) Entered as Reported by: EMILIE VOSS on 11/10/18 1055 Discontinued Medications Cephalexin (Cephalexin) 500 Mg Capsule, 500 MG PO BID, (Reported) Entered as Reported by: BÁRBARA LUNA on 08/13/21 1040 Fluticasone Propionate (Flonase Allergy Relief) 9.9 Ml [place].susp, 1 SPRAY NS BID, (Reported) Discontinued Reason: Duplicate Order Entered as Reported by: ALLI DICKERSON on 05/24/21 155 Lisinopril (Lisinopril) 20 Mg Tablet, 20 MG PO DAILY, (Reported) Entered as Reported by: EMILIE VOSS on 11/10/18 1056 Meloxicam (Mobic) 7.5 Mg Tablet, 7.5 MG PO DAILY, (Reported) Discontinued Reason: Duplicate Order Entered as Reported by: ALLI DICKERSON on 05/24/21 155 Metformin HCl (Metformin HCl) 500 Mg Tablet, 500 MG PO BID, (Reported) Discontinued Reason: Duplicate Order Entered as Reported by: ALLI DICKERSON on 05/24/21 155 Metoprolol Tartrate (Metoprolol Tartrate) 25 Mg Tablet, 25 MG PO BID, (Reported) Entered as Reported by: BÁRBARA LUNA on 11/10/18 1445 Ondansetron (Ondansetron Odt) 4 Mg Tab.rapdis, 4 MG PO UD, (Reported) Discontinued Reason: No Longer Taking Entered as Reported by: ALLI DICKERSON on 05/24/21 155 [Sm Fiber] , 625 MG PO DAILY, (Reported) Discontinued Reason: Duplicate Order Entered as Reported by: ALLI DICKERSON on 05/24/211550 Past Qltklxl-Lpalkv-Unxagw Hx Patient Social History 2nd Hand Smoke Exposure: No Recent Hopitalizations: Yes (FUSED LUMBAR SPINE) Alcohol Use?: No Have you traveled recently?: No Immunizations Up To Date Tetanus Booster (TDap): Unknown Date of Pneumonia Vaccine: Jan 21, 2019 Date of Influenza Vaccine: Jan 21, 2019 Surgeries Surgeries: Coronary Stent Respiratory History of Respiratory Disorde: Yes (HX OF TB TWICE) Cardiovascular History of Cardiac Disorders: Yes Cardiac Disorders: Coronary Artery Disease, High Cholesterol, Hypertension Neurological History of Neurological Disord: No Reproductive System Hx Reproductive Disorders: No Genitourinary History of Genitourinary Disor: No Gastrointestinal History of Gastrointestinal Di: Yes Gastrointestinal Disorders: Gastroesophageal Reflux Cancer History of Cancer: No Cancer: Lymphoma Blood Transfusions History of Blood Disorders: No Adverse Reaction to a Blood Tr: No Reviewed Nursing Assessment Reviewed/Agree w Nursing PMH: Yes Family Medical History Significant Family History: No Pertinent Family Hx Review of Systems-General Constitutional: No chills, No diaphoresis EENTM: No blurred vision, No double vision Respiratory: dyspnea on exertion Cardiovascular: No chest pain, No palpitations Gastrointestinal: No abdominal pain; nausea; No vomiting Genitourinary: No decreased output, No discharge Musculoskeletal: No back pain, No joint pain Skin: No change in color, No change in hair/nails Psychiatric/Neurological: Denies Anxiety, Denies Depressed, Denies Emotional Problems All Other Systems Reviewed Negative Unless Noted: Yes (Negative excepted noted.) Physical Exam-General Problems Physical Exam Vital Signs Vital Signs - First Documented 08/17/21 12:14 Temp 37.0 Pulse 109 Resp 18 B/P (MAP) 121/57 (78) Pulse Ox 95 O2 Delivery Room Air Capillary Refill : General Appearance: WD/WN (Very pleasant), no apparent distress HEENT: PERRL/EOMI, normal ENT inspection Neck: non-tender, supple Respiratory: chest non-tender, no respiratory distress, no accessory muscle use Cardiovascular: regular rate, rhythm (Chest pacemaker, left chest foreign body subcutaneous tissue) Gastrointestinal: non tender, soft Rectal: deferred Extremities: non-tender, normal inspection Neurologic/Psychiatric: alert, normal mood/affect, oriented x 3 Skin: normal color, warm/dry Lymphatic: no adenopathy Data Review Labs Laboratory Tests 08/17/21 07:54: White Blood Count 9.8, Red Blood Count 3.82, Hemoglobin 11.4L, Hematocrit 35, Mean Corpuscular Volume 90, Mean Corpuscular Hemoglobin 30, Mean Corpuscular Hemoglobin Concent 33, Red Cell Distribution Width 13.1, Platelet Count 282, Mean Platelet Volume 11.1, Immature Granulocyte % (Auto) 1, Neutrophils (%) (Auto) 78H, Lymphocytes (%) (Auto) 12, Monocytes (%) (Auto) 8, Eosinophils (%) (Auto) 2, Basophils (%) (Auto) 0, Neutrophils # (Auto) 7.6, Lymphocytes # (Auto) 1.2, Monocytes # (Auto) 0.8, Eosinophils # (Auto) 0.2, Basophils # (Auto) 0.0, Immature Granulocyte # (Auto) 0.1, Sodium Level 137, Potassium Level 3.6, Chloride Level 107, Carbon Dioxide Level 19L, Anion Gap 11, Blood Urea Nitrogen 14, Creatinine 0.56L, Estimat Glomerular Filtration Rate 99, BUN/Creatinine Ratio 25, Glucose Level 133H, Calcium Level 8.5, Corrected Calcium 9.0, Total Bilirubin 0.5, Aspartate Amino Transf (AST/SGOT) 16, Alanine Aminotransferase (ALT/SGPT) 27, Alkaline Phosphatase 56, Total Protein 6.4, Albumin 3.4 08/17/21 14:54: Glucometer 298H 08/17/21 16:56: Glucometer 221H Assessment/Plan Assessment/Plan Assessment/Plan Heart block with syncope status post pacemaker placement. Foreign body subcutaneous tissue left chest (loop recorder) Patient understands risk and benefits of having loop recorder removed. She understands and wishes to proceed. We removed it at bedside and had a stitch placed. She will need to have the stitch removed in 1 week. Any issues be seen at that time. We will sign off please call if needed. See dictation for procedure. RAINER CHAMBERS DO Aug 17, 2021 17:47
[2021-08-17 20:17] VITALS: BP 127/60
[2021-08-17] MEDS: ENOXAPARIN 40 MG/0.4 ML (LOVENOX) SYR SC SCH (20:42)
[2021-08-17] MEDS: SENNOSIDES 8.6 MG (SENOKOT) TAB PO SCH (20:42)
[2021-08-17] MEDS: ACETAMINOPHEN 325 MG TABLET PO PRN (23:06)
--- NOTE | 2021-08-18 03:11 | OPERATIVE REPORT ---
DATE OF SERVICE: 08/17/2021 PREOPERATIVE DIAGNOSIS: Foreign body, subcutaneous tissue, left chest. POSTOPERATIVE DIAGNOSIS: Foreign body, subcutaneous tissue, left chest. PROCEDURE: Excision of loop recorder, left chest subcutaneous tissue. INDICATIONS: The patient is a 70-year-old female who had recently placed a loop recorder. Then had to have a defibrillator placed. Dr. Calderon ask that I remove the loop recorder. The patient understands risks and benefits of procedure and wished to proceed. Consent was signed in the chart. DESCRIPTION OF PROCEDURE: The patient was in a room. She was prepped and draped in sterile fashion. Timeout was performed. A 3 mL of 1% lidocaine with epinephrine was used to anesthetize the area over the left chest. The 15-blade scalpel was used to make a small skin incision. The hemostat was used to dissect down through the subcutaneous tissue to grab the foreign body loop recorder and extract it. The skin was then closed using 3-0 nylon in a simple interrupted fashion. The area was washed and dried, sterile bandage was applied. The patient tolerated the procedure well without any complications. Job ID: [id number] DocumentID: [id number] Dictated Date: 08/17/2021 17:41:32 Secondary Art Teacher Date: 08/18/2021 03:10:38 Dictated By: DO MIKI LYON
--- NOTE | 2021-08-18 06:08 | Individualized Plan of Care ---
Individualized Plan of Care Rehab Nursing IPOC Order Admission Date Aug 17, 2021 at 11:35 Current Orders Orders Admission Order(Inpt,Obs,Sdc) (08/16/21 06:16) Vital Signs: Per Unit Policy ( 08,16,00 (08/16/21 06:16) Augie Ramsey (08/16/21 06:16) Sequential Compression Device (08/16/21 06:16) Qualitative Field Project Manager-Inpt Rehab Con (08/16/21 06:16) Rehab Nursing Orders-Ipoc (08/16/21 06:16) Physical Therapy Rehab Orders (08/16/21 06:16) Occupational Therapy Rehab Ord (08/16/21 06:16) Speech Therapy Rehab Orders (08/16/21 06:16) Cbc With Automated Diff (08/17/21 06:00) Comprehensive Metabolic Panel (08/17/21 06:00) Precautions (Aru) (08/16/21 06:16) Weekly Weight WEEK (08/16/21 06:16) Rehab-Intensity Of Therapy (08/16/21 06:16) Initiate Admission Nursing Pro .admission (08/16/21 06:16) Alprazolam Tablet (Xanax Tablet) (08/16/21 06:30) Calcium Carbonate Chew Tablet (Antacid C (08/16/21 06:30) Diphenhydramine Tablet (Benadryl Tablet) (08/16/21 06:30) Docusate Sodium Capsule (Colace Capsule) (08/16/21 09:00) Docusate Sodium Capsule (Colace Capsule) (08/16/21 06:30) Bisacodyl Suppository (Dulcolax Supposit (08/16/21 06:30) Lactulose Oral Solution (Enulose Oral So (08/16/21 06:30) Na Phos/Na Biphos Enema (Fleet Enema Milind (08/16/21 06:30) Guaifenesin/Codeine Syrup (Robitussin Ac (08/16/21 06:30) Loperamide Tablet (Imodium Tablet) (08/16/21 06:30) Melatonin Tablet (Melatonin Tablet) (08/16/21 06:30) Polyethylene Glycol Powder Pkt (Miralax (08/16/21 09:00) Ondansetron Oral Dissolve Tab (Zofran (08/16/21 06:30) Senna S Tablet (Senokot S Tablet) (08/16/21 09:00) Acetaminophen Tablet/Caplet (Tylenol T (08/16/21 06:30) Code/Resuscitation (08/16/21 06:16) Initiate Admission Nursing Pro .admission (08/16/21 06:16) Cbc With Automated Diff (08/18/21 06:00) Comprehensive Metabolic Panel (08/18/21 06:00) Admission Arrival Bed Request (08/17/21 11:58) Sequential Compression Device (08/17/21 12:21) Augie Hose (08/17/21 12:21) Aspirin Enteric Coated Tablet (Ecotrin T (08/18/21 09:00) Atorvastatin Tablet (Lipitor Tablet) (08/17/21 21:00) Diphenhydramine Injection (Benadryl Inje (08/17/21 12:30) Diphenhydramine Tablet (Benadryl Tablet) (08/17/21 12:30) Docusate Sodium Capsule (Colace Capsule) (08/17/21 21:00) Bisacodyl Suppository (Dulcolax Supposit (08/17/21 12:30) Enoxaparin Injection (Lovenox Injection) (08/17/21 21:00) Lactulose Oral Solution (Enulose Oral So (08/17/21 12:30) Hydrocodone/Apap 5/325 Tablet (Lortab 5 (08/17/21 12:30) Melatonin Tablet (Melatonin Tablet) (08/17/21 12:30) Magnesium Hydroxide Oral Susp (Mom Oral (08/17/21 12:30) Polyethylene Glycol Powder Pkt (Miralax (08/17/21 12:30) Antacid Suspension (Mylanta Suspension (08/17/21 12:30) Pantoprazole Tablet (Protonix Tablet) (08/18/21 09:00) Patient May Use Own Meds, All (Patient M (08/17/21 12:30) Sennosides Tablet (Senokot Tablet) (08/17/21 21:00) Calcium Carbonate Chew Tablet (Antacid C (08/17/21 12:30) Acetaminophen Tablet/Caplet (Tylenol T (08/17/21 12:30) Ondansetron Injection (Zofran Injectio (08/17/21 12:30) Ondansetron Oral Dissolve Tab (Zofran (08/17/21 12:30) Metoprolol Succinate (Xl) Tab (Toprol Xl (08/18/21 09:00) Consult Cardiology (08/17/21 12:21) Oxygen-Administer 07,19 (08/17/21 12:21) Po Fluids: Encourage Intake (08/17/21 12:21) Iv Convert To [place] (Order) (08/17/21 12:21) Cho 90g/M 0snack (25-2900 Haseeb) (08/17/21 Lunch) Accucheck Achs ACHS (08/17/21 12:21) Insulin Aspart (Novolog) (Novolog (Charg (08/17/21 16:00) Patient Visit (08/17/21 ) Speech Sound Lang Comp (08/17/21 ) Treat. Speech/Lang/Voice (08/17/21 ) Patient Visit (08/17/21 ) Pt Eval Moderate Complexity (08/17/21 ) Functional Activities, Ea 15 (08/17/21 ) Patient Visit (08/17/21 ) Gait Training, Ea 15 Min (08/17/21 ) Functional Activities, Ea 15 (08/17/21 ) Lidocaine/Epi 1% 1:100,000 (Xylocaine 1% (08/17/21 17:00) Staple/Suture Removal ONCE (08/24/21 09:00) Consult General Surgery (08/17/21 17:45) Insulin Determir (Per Unit) (Levemir (Pe (08/17/21 21:45) Insulin Determir (Per Unit) (Levemir (Pe (08/18/21 09:00) Patient Visit (08/18/21 ) Functional Activities, Ea 15 (08/18/21 ) Calcium Carbonate Chew Tablet (Antacid C (08/18/21 13:00) Rehab Nursing Orders: Ongoing Assess. of Cognitive Status, Ongoing Assess. of Function Status, Bladder Management, Bladder Scan, Bladder Training, Bowel Management, Bowel Training, Disease Management & Educaiton, DVT Prophylaxis, Fall Prevention, Fluid/Electrolyte/Nutrition Mgmt, Infection Prevention, Medication Management & Education, Management of Risks & Complications, Management of Skin Intergrity, Nutrition Management, Pain Management, Patient/Family Support, Safety Management, Wound Management Intensity of Therapy to be met Patient to be seen: Min.3h per day/5 of 7d PT IPOC Problem List: Activity Tolerance, Functional Strength, Safety, Balance, Gait, Transfer, Bed Mobility, ROM Treatment Plan: Continue Plan of Care Bed Mobility, Education, Functional Activity Roxi, Functional Strength, Group Therapy, Gait, Safety, Therapeutic Exercise, Transfers Treatment Duration: Sep 07, 2021 Frequency: At least 5 of 7 days/Wk (IRF) Estimated Hrs Per Day: 1.5 hours per day OT IPOC Problems: Decreased Activ Tolerance, Decreased Safety Aware, Decreased UE Strength, Impaired Coordination, Impaired Funct Balance, Impaired I ADL's, Impaired Self-Care Skills, Restricted Funct UE ROM OT Treatment, Training and Edu: Yes Plan of Care: ADL Retraining, Functional Mobility, Group Exercise/Act as Ind, UE Funct Exercise/Act Treatment Duration: Aug 31, 2021 Frequency: At least 5 of 7 days/Wk (IRF) Estimated Hrs Per Day: 1.[address] IPOC Speech Therapy Treatment Plan: Continue Plan of Care Treatment Duration: Aug 31, 2021 Frequency: 3 times per week Estimated Hrs Per Day: .5 hour per day Qualitative Field Project Manager/Case Mgmt Qualitative Field Project Manager/Case Managemen: Discharge Planning Dietitian/Cardiovascular Rn Dietitian/Cardiovascular Rn to monitor nutritional status and make changes and/or recommendations as needed and work with speech pathology on dietary upgrades as the occur. Physician IPOC Medical Issues being managed closely and that require the 24 hour availability of a physician: Recent complete heart block requiring placement emergently will require close monitoring for any cardiac dysfunction along with recurrent DKA risk Medical Issues: Bowel/Bladder Function, DVT Prophylaxis, Falls Precautions, Fluid/Electrolyte/Nutrition Balance, Infection Protection, Pain Management, Wound Care Brief Synthesis of Preadmission Screen, Post-Admission Evaluation, and Therapy Evaluations: PT and OT will focus on assistive device function in order to go back to independent living at assisted living Medical Prognosis: Good Anticipated Length of Stay: 7 days FREDIS GOMEZ DO Aug 18, 2021 06:08
--- NOTE | 2021-08-18 06:08 | PM&R Progress Note ---
Subjective HPI/CC On Admission Date Seen by Provider: Aug 18, 2021 Time Seen by Provider: 11:30 Subjective/Events-last exam 08/18/2021: Patient doing really well No concerns Pain controlled Reviewed labs No falls Participating in therapy Review of Systems General: Fatigue, Malaise Objective Exam Vital Signs Vital Signs Date Time Temp Pulse Resp B/P (MAP) Pulse Ox O2 Delivery O2 Flow Rate FiO2 08/18/21 21:27 Room Air 08/18/21 20:42 36.3 94 20 145/69 (94) 97 Capillary Refill : General Appearance: No Apparent Distress, WD/WN, Chronically ill HEENT: PERRL/EOMI, Normal ENT Inspection, Pharynx Normal Neck: Full Range of Motion, Normal Inspection, Non Tender, Supple, Carotid Bruit Respiratory: Chest Non Tender, Lungs Clear, Normal Breath Sounds, No Accessory Muscle Use, No Respiratory Distress Cardiovascular: Regular Rate, Rhythm, No Edema, No Gallop, No JVD, No Murmur, Normal Peripheral Pulses Gastrointestinal: Normal Bowel Sounds, No Organomegaly, No Pulsatile Mass, Non Tender, Soft Back: Normal Inspection, No CVA Tenderness, No Vertebral Tenderness Extremity: Normal Capillary Refill, Normal Inspection, Normal Range of Motion, Non Tender, No Calf Tenderness, No Pedal Edema Neurologic/Psychiatric: Alert, Oriented x3, Normal Mood/Affect, parking meter servicer II-XII Norm as Tested, Abnormal Gait, Motor Weakness Skin: Normal Color, Warm/Dry Lymphatic: No Adenopathy Results/Procedures Lab Patient resulted labs reviewed. FIM Transfers Therapy Code Descriptions/Definitions Functional [place] Measure: 0=Not Assessed/NA 4=Minimal Assistance 1=Total Assistance 5=Supervision or Setup 2=Maximal Assistance 6=Modified [place] 3=Moderate Assistance 7=Complete IndependenceSCALE: Activities may be completed with or without assistive devices. 1-Annlskfxfn-hwuprzv completes the activity by him/herself with no assistance from a helper. 5-Set-up or Clean-up Assistance-helper sets up or cleans up; patient completes activity. [place] assists only prior to or following the activity. 4-Supervision or Touching Assistance-helper provides verbal cues and/or touching/steadying and/or contact guard assistance as patient completes activity. Assistance may be provided throughout the activity or intermittently. 3-Partial/Moderate Assistance-helper does LESS THAN HALF the effort. [place] lifts, holds or supports trunk or limbs, but provides less than half the effort. 2-Substantial/Maximal Assistance-helper does MORE THAN HALF the effort. [place] lifts or holds trunk or limbs and provides more than half the effort. 7-Denwcshru-jwdozz does ALL the effort. Patient does none of the effort to com plete the activity. Or, the assistance of 2 or more helpers is required for the patient to complete the activity. If activity was not attempted, code reason: 7-Patient Refused. 9-Not Applicable-not attempted and the patient did not perform the activity before the current illness, exacerbation or injury. 10-Not Attempted due to Environmental Limitations-(lack of equipment, weather restraints, etc.). 88-Not Attempted due to Medical Conditions or Safety Concerns. Roll Left to Right (QC): 4 Sit to Lying (QC): 3 Sit to Stand (QC): 4 Chair/Fug-jk-Rqhlx Xfer(QC): 4 Car Transfer (QC): 4 Gait Training Does the Patient Walk?: Yes Walk 10 feet (QC): 4 Walk 50 ft with 2 Turns(QC): 4 Walk 150 ft (QC): 88 Walking 10ft/uneven surface-QC: 4 Gait Assistive Device: FWW Wheelchair Training Wheel 50 ft with 2 turns (QC): 9 Wheel 150 ft (QC): 9 Stair Training Stair Training: Handrails/: uses walker #of Steps: 2 1 Step (curb) (QC): 4 4 Steps (QC): 10 12 Steps (QC): 10 Balance Picking up an Object (QC): 4 ADL-Treatment Eating (QC): 5 (set up with some containers due to decreased coordination and sensation changes.) Oral Hygiene (QC): 4 (SBA for standing balance) Shower/Bathe Self (QC): 3 (Min A. Pt did not wash L UE and lower legs d/t perceived RUE limitations) Upper Body Dressing (QC): 4 (V/c's to maintain pacemaker precautions) Lower Body Dressing (QC): 4 (SBA for standing balance) On/Off Footwear (QC): 5 (gripper socks) Toileting Hygiene (QC): 4 (SBA for standing balance) Assessment/Plan Assessment and Plan Assess & Plan/Chief Complaint Assessment: Myopathy 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 6/23/22 Dr Calderon CAD previous stent remotely s/p PNA possible aspiration type s/p Cefepime completed Recent DKA DM HTN HLP Neuropathy Plan: Monitor glucose Supportive care Plavix Dr Calderon appreciated Rehab protocol 08/18/2021: Monitor blood sugar Supportive care (1) Myopathy (2) Status post placement of implantable loop recorder (3) DKA (diabetic ketoacidosis) (4) Coronary artery disease without angina pectoris (5) Type 2 diabetes mellitus with complication (6) Heart block AV third degree (7) Primary hypertension (8) Mixed hyperlipidemia (9) CAD (coronary artery disease) FREDIS GOMEZ DO Aug 18, 2021 06:08
[2021-08-18 06:09] LABS: BASOPHILS % (AUTO) 0 % (0-10); EOSINOPHILS # (AUTO) 0.1 10^3/uL (0.0-0.3); EOSINOPHILS % (AUTO) 1 % (0-10); HEMATOCRIT 38 % (35-52); HEMOGLOBIN 12.2 g/dL (11.5-16.0); LYMPHOCYTES % (AUTO) 17 % (12-44); MEAN CORPUSCULAR HEMOGLOBIN 30 pg (25-34); MEAN CORPUSCULAR HGB CONC 32 g/dL (32-36); MEAN CORPUSCULAR VOLUME 91 fL (80-99); MEAN PLATELET VOLUME 10.9 fL (9.0-12.2); MONOCYTES % (AUTO) 9 % (0-12); NEUTROPHILS # (AUTO) 8.3 10^3/uL (1.8-7.8); NEUTROPHILS % (AUTO) 72 % (42-75); PLATELET COUNT 288 10^3/uL (130-400); WHITE BLOOD COUNT 11.5 10^3/uL (4.3-11.0)
[2021-08-18 06:23] LABS: ALBUMIN 3.8 GM/DL (3.2-4.5)
[2021-08-18 06:24] LABS: POTASSIUM 3.5 MMOL/L (3.6-5.0)
[2021-08-18 06:25] LABS: CALCIUM 9.4 MG/DL (8.5-10.1)
[2021-08-18 06:26] LABS: TOTAL PROTEIN 7.1 GM/DL (6.4-8.2)
[2021-08-18 06:28] LABS: BILIRUBIN,TOTAL 0.4 MG/DL (0.1-1.0)
[2021-08-18 06:30] LABS: CREATININE SERUM 0.62 MG/DL (0.60-1.30)
[2021-08-18] MEDS: inSUlin ASPART (NovoLOG) 1 UNIT/0.01 ML (CHARGE PER UNIT) SC SCH ×4 (06:51→20:58)
[2021-08-18 07:36] VITALS: BP 131/81
[2021-08-18] MEDS: DOCUSATE SODIUM 100 MG (COLACE) CAP PO SCH ×2 (07:59→20:57)
[2021-08-18] MEDS: SENNOSIDES 8.6 MG (SENOKOT) TAB PO SCH ×2 (08:00→20:57)
[2021-08-18] MEDS: ASPIRIN E.C. 81 MG (ECOTRIN) TAB PO SCH (08:00)
[2021-08-18] MEDS: PANTOPRAZOLE 40 MG (PROTONIX) TAB PO SCH (08:00)
[2021-08-18] MEDS: ACETAMINOPHEN 325 MG TABLET PO PRN ×2 (08:02→20:57)
--- NOTE | 2021-08-18 10:23 | Physical Therapy Daily Note ---
PT Daily Note-Current Subjective Pt agreeable. Very talkative, requires frequent redirection to remain on task. Mental Status Patient Orientation: Person, Place, Time, Situation Transfers SCALE: Activities may be completed with or without assistive devices. 7-Cqkwqdpqjg-wmmjocn completes the activity by him/herself with no assistance from a helper. 5-Set-up or Clean-up Assistance-helper sets up or cleans up; patient completes activity. [place] assists only prior to or following the activity. 4-Supervision or Touching Assistance-helper provides verbal cues and/or touching/steadying and/or contact guard assistance as patient completes activity. Assistance may be provided throughout the activity or intermittently. 3-Partial/Moderate Assistance-helper does LESS THAN HALF the effort. [place] lifts, holds or supports trunk or limbs, but provides less than half the effort. 2-Substantial/Maximal Assistance-helper does MORE THAN HALF the effort. [place] lifts or holds trunk or limbs and provides more than half the effort. 2-Ixqujwjsd-dkrylq does ALL the effort. Patient does none of the effort to complete the activity. Or, the assistance of 2 or more helpers is required for the patient to complete the activity. If activity was not attempted, code reason: 7-Patient Refused. 9-Not Applicable-not attempted and the patient did not perform the activity before the current illness, exacerbation or injury. 10-Not Attempted due to Environmental Limitations-(lack of equipment, weather restraints, etc.). 88-Not Attempted due to Medical Conditions or Safety Concerns. Lying to Sitting/Side of Bed(Q: 6 Sit to Stand (QC): 4 Toilet Transfer (QC): 4 SBA Weight Bearing Right Lower Extremity: Right Full Weight Bearing Left Lower Extremity: Left Full Weight Bearing Gait Training Does the Patient Walk?: Yes Distance: 160 Walk 10 feet (QC): 4 Walk 50 ft with 2 Turns(QC): 4 Walk 150 ft (QC): 4 Gait Persons Needed: 1 Gait Assistive Device: FWW Pt ambulated with slow gait with FWW but no LOB. SBA for safety this date. Treatments Gait with FWW, toilet transfer. Pt returned to up in chair with needs met. Assessment Current Status: Good Progress Pt more (I) with transfers this date. PT Short Term Goals Short Term Goals Time Frame: Aug 24, 2021 Roll Left & Right: 6 Sit to lyin Lying to sitting on side of be: 4 Sit to stand: 4 (SBA) Chair/mkr-gz-jzaet transfer: 4 (SBA) Walk 10 feet: 4 (SBA) Walk 50 feet with two turns: 4 (SBA) Walk 150 feet: 4 (SBA) PT Retirement Goals Retirement Goals PT Retirement Goals Time Frame: Sep 07, 2021 Roll Left & Right (QC): 6 Sit to Lying (QC): 6 Lying-Sitting on Side/Bed(QC): 6 Sit to Stand (QC): 6 Chair/Unb-nu-Jhpon Xfer(QC): 6 Toilet Transfer (QC): 6 Car Transfer (QC): 6 Does the Patient Walk: Yes Walk 10 feet (QC): 6 Walk 50ft with 2 Turns (QC): 6 Walk 150 ft (QC): 6 Walking 10ft on Uneven Surface: 6 1 Step (curb) (QC): 4 4 Steps (QC): 4 12 Steps (QC): 88 Picking up an Object (QC): 4 (using grain spouter) Wheel 50 feet with 2 turns (QC: 9 Wheel 150 feet: 9 PT Plan Problem List Problem List: Activity Tolerance, Functional Strength, Safety, Balance, Gait, Transfer, Bed Mobility Treatment/Plan Treatment Plan: Continue Plan of Care Treatment Plan: Bed Mobility, Education, Functional Activity Roxi, Functional Strength, Group Therapy, Gait, Safety, Therapeutic Exercise, Transfers Treatment Duration: Sep 07, 2021 Frequency: At least 5 of 7 days/Wk (IRF) Estimated Hrs Per Day: 1.5 hours per day Patient and/or Family Agrees t: Yes Safety Risks/Education Teaching Recipient: Patient Teaching Methods: Discussion Response to Teaching: Verbalize Understanding Pt straining very heavy on toilet; educated Pt to avoid valsalva and discussed with nursing as well. Time/GCodes Time In: 0825 Time Out: 0900 Total Billed Treatment Time: 35 Total Billed Treatment 1, FA x 35' JOHNIE CAREY DPT Aug 18, 2021 10:23
[2021-08-18] MEDS: CALCIUM CARBONATE 500 MG (TUMS) TAB.CHEW PO SCH ×2 (14:22→20:57)
[2021-08-18 20:42] VITALS: BP 145/69
[2021-08-18] MEDS: ENOXAPARIN 40 MG/0.4 ML (LOVENOX) SYR SC SCH (20:56)
[2021-08-19] MEDS: inSUlin ASPART (NovoLOG) 1 UNIT/0.01 ML (CHARGE PER UNIT) SC SCH ×4 (06:36→20:11)
[2021-08-19 07:30] VITALS: BP 121/74
--- NOTE | 2021-08-19 07:35 | PM&R Progress Note ---
Subjective HPI/CC On Admission Date Seen by Provider: Aug 19, 2021 Time Seen by Provider: 12:00 Subjective/Events-last exam 08/19/2021: Patient doing well Sugar 191 today Zofran was given for nausea Lactulose given for constipation Had a fleets enema but still working on bowels 08/18/2021: Patient doing really well No concerns Pain controlled Reviewed labs No falls Participating in therapy Review of Systems General: Fatigue, Malaise Objective Exam Vital Signs Vital Signs Date Time Temp Pulse Resp B/P (MAP) Pulse Ox O2 Delivery O2 Flow Rate FiO2 08/19/21 20:21 Room Air 08/19/21 20:01 36.6 91 18 116/67 (83) 96 Capillary Refill : General Appearance: No Apparent Distress, WD/WN, Chronically ill HEENT: PERRL/EOMI, Normal ENT Inspection, Pharynx Normal Neck: Full Range of Motion, Normal Inspection, Non Tender, Supple, Carotid Bruit Respiratory: Chest Non Tender, Lungs Clear, Normal Breath Sounds, No Accessory Muscle Use, No Respiratory Distress Cardiovascular: Regular Rate, Rhythm, No Edema, No Gallop, No JVD, No Murmur, Normal Peripheral Pulses Gastrointestinal: Normal Bowel Sounds, No Organomegaly, No Pulsatile Mass, Non Tender, Soft Back: Normal Inspection, No CVA Tenderness, No Vertebral Tenderness Extremity: Normal Capillary Refill, Normal Inspection, Normal Range of Motion, Non Tender, No Calf Tenderness, No Pedal Edema Neurologic/Psychiatric: Alert, Oriented x3, Normal Mood/Affect, technical account representative II-XII Norm as Tested, Abnormal Gait, Motor Weakness Skin: Normal Color, Warm/Dry Lymphatic: No Adenopathy Results/Procedures Lab Patient resulted labs reviewed. FIM Transfers Therapy Code Descriptions/Definitions Functional [place] Measure: 0=Not Assessed/NA 4=Minimal Assistance 1=Total Assistance 5=Supervision or Setup 2=Maximal Assistance 6=Modified [place] 3=Moderate Assistance 7=Complete IndependenceSCALE: Activities may be completed with or without assistive devices. 6-Doaymrdioo-frdusii completes the activity by him/herself with no assistance from a helper. 5-Set-up or Clean-up Assistance-helper sets up or cleans up; patient completes activity. [place] assists only prior to or following the activity. 4-Supervision or Touching Assistance-helper provides verbal cues and/or juany rajan/steadying and/or contact guard assistance as patient completes activity. Assistance may be provided throughout the activity or intermittently. 3-Partial/Moderate Assistance-helper does LESS THAN HALF the effort. [place] lifts, holds or supports trunk or limbs, but provides less than half the effort. 2-Substantial/Maximal Assistance-helper does MORE THAN HALF the effort. [place] lifts or holds trunk or limbs and provides more than half the effort. 3-Kalqmrlsk-xpvguz does ALL the effort. Patient does none of the effort to complete the activity. Or, the assistance of 2 or more helpers is required for the patient to complete the activity. If activity was not attempted, code reason: 7-Patient Refused. 9-Not Applicable-not attempted and the patient did not perform the activity before the current illness, exacerbation or injury. 10-Not Attempted due to Environmental Limitations-(lack of equipment, weather restraints, etc.). 88-Not Attempted due to Medical Conditions or Safety Concerns. Roll Left to Right (QC): 4 Sit to Lying (QC): 3 Sit to Stand (QC): 4 Chair/Shw-ka-Hmdwk Xfer(QC): 4 Car Transfer (QC): 4 Gait Training Does the Patient Walk?: Yes Distance: 160 Walk 10 feet (QC): 4 Walk 50 ft with 2 Turns(QC): 4 Walk 150 ft (QC): 4 Walking 10ft/uneven surface-QC: 4 Gait Persons Needed: 1 Gait Assistive Device: FWW Wheelchair Training Wheel 50 ft with 2 turns (QC): 9 Wheel 150 ft (QC): 9 Stair Training Stair Training: Handrails/: uses walker #of Steps: 2 1 Step (curb) (QC): 4 4 Steps (QC): 10 12 Steps (QC): 10 Balance Picking up an Object (QC): 4 ADL-Treatment Eating (QC): 5 (set up with some containers due to decreased coordination and sensation changes.) Oral Hygiene (QC): 4 (SBA for standing balance) Shower/Bathe Self (QC): 3 (Min A. Pt did not wash L UE and lower legs d/t perceived RUE limitations) Upper Body Dressing (QC): 4 (V/c's to maintain pacemaker precautions) Lower Body Dressing (QC): 4 (SBA for standing balance) On/Off Footwear (QC): 5 (gripper socks) Toileting Hygiene (QC): 4 (SBA for standing balance) Assessment/Plan Assessment and Plan Assess & Plan/Chief Complaint Assessment: Myopathy 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 08/16/21 Dr Calderon CAD previous stent remotely s/p PNA possible aspiration type s/p Cefepime completed Recent DKA DM HTN HLP Neuropathy Plan: Monitor glucose Supportive care Plavix Dr Calderon appreciated Rehab protocol 08/18/2021: Monitor blood sugar Supportive care 08/19/2021: Monitor glucose (1) Myopathy (2) Status post placement of implantable loop recorder (3) DKA (diabetic ketoacidosis) (4) Coronary artery disease without angina pectoris (5) Type 2 diabetes mellitus with complication (6) Heart block AV third degree (7) Primary hypertension (8) Mixed hyperlipidemia (9) CAD (coronary artery disease) FREDIS GOMEZ DO Aug 19, 2021 07:35
[2021-08-19] MEDS: SENNOSIDES 8.6 MG (SENOKOT) TAB PO SCH ×2 (07:50→20:10)
[2021-08-19] MEDS: ASPIRIN E.C. 81 MG (ECOTRIN) TAB PO SCH (07:50)
[2021-08-19] MEDS: DOCUSATE SODIUM 100 MG (COLACE) CAP PO SCH ×2 (07:50→20:10)
[2021-08-19] MEDS: PANTOPRAZOLE 40 MG (PROTONIX) TAB PO SCH (07:51)
[2021-08-19] MEDS: CALCIUM CARBONATE 500 MG (TUMS) TAB.CHEW PO SCH ×3 (07:52→20:10)
[2021-08-19] MEDS: ACETAMINOPHEN 325 MG TABLET PO PRN ×2 (11:46→20:10)
[2021-08-19 20:01] VITALS: BP 116/67
[2021-08-19] MEDS: ENOXAPARIN 40 MG/0.4 ML (LOVENOX) SYR SC SCH (20:10)
--- NOTE | 2021-08-20 06:16 | PM&R Progress Note ---
Subjective HPI/CC On Admission Date Seen by Provider: Aug 20, 2021 Time Seen by Provider: 10:30 Subjective/Events-last exam 08/20/2021: Patient doing really well Patient has night sweats but sugars are normal when she has these Overall doing very well Participating in all therapy 08/19/2021: Patient doing well Sugar 191 today Zofran was given for nausea Lactulose given for constipation Had a fleets enema but still working on bowels 08/18/2021: Patient doing really well No concerns Pain controlled Reviewed labs No falls Participating in therapy Review of Systems General: Fatigue, Malaise Objective Exam Vital Signs Vital Signs Date Time Temp Pulse Resp B/P (MAP) Pulse Ox O2 Delivery O2 Flow Rate FiO2 08/20/21 08:03 Room Air 08/20/21 07:31 36.6 86 14 137/66 (89) 96 Capillary Refill : General Appearance: No Apparent Distress, WD/WN, Chronically ill HEENT: PERRL/EOMI, Normal ENT Inspection, Pharynx Normal Neck: Full Range of Motion, Normal Inspection, Non Tender, Supple, Carotid Bruit Respiratory: Chest Non Tender, Lungs Clear, Normal Breath Sounds, No Accessory Muscle Use, No Respiratory Distress Cardiovascular: Regular Rate, Rhythm, No Edema, No Gallop, No JVD, No Murmur, Normal Peripheral Pulses Gastrointestinal: Normal Bowel Sounds, No Organomegaly, No Pulsatile Mass, Non Tender, Soft Back: Normal Inspection, No CVA Tenderness, No Vertebral Tenderness Extremity: Normal Capillary Refill, Normal Inspection, Normal Range of Motion, Non Tender, No Calf Tenderness, No Pedal Edema Neurologic/Psychiatric: Alert, Oriented x3, Normal Mood/Affect, lining folder II-XII Norm as Tested, Abnormal Gait, Motor Weakness Skin: Normal Color, Warm/Dry Lymphatic: No Adenopathy Results/Procedures Lab Patient resulted labs reviewed. FIM Transfers Therapy Code Descriptions/Definitions Functional [place] Measure: 0=Not Assessed/NA 4=Minimal Assistance 1=Total Assistance 5=Supervision or Setup 2=Maximal Assistance 6=Modified [place] 3=Moderate Assistance 7=Complete IndependenceSCALE: Activities may be completed with or without assistive devices. 9-Kceoxezltq-dexvcyw completes the activity by him/herself with no assistance from a helper. 5-Set-up or Clean-up Assistance-helper sets up or cleans up; patient completes activity. [place] assists only prior to or following the activity. 4-Supervision or Touching Assistance-helper provides verbal cues and/or touching/steadying and/or contact guard assistance as patient completes activity. Assistance may be provided throughout the activity or intermittently. 3-Partial/Moderate Assistance-helper does LESS THAN HALF the effort. [place] lifts, holds or supports trunk or limbs, but provides less than half the effort. 2-Substantial/Maximal Assistance-helper does MORE THAN HALF the effort. [place] lifts or holds trunk or limbs and provides more than half the effort. 3-Hhvruacba-prymgr does ALL the effort. Patient does none of the effort to complete the activity. Or, the assistance of 2 or more helpers is required for the patient to complete the activity. If activity was not attempted, code reason: 7-Patient Refused. 9-Not Applicable-not attempted and the patient did not perform the activity before the current illness, exacerbation or injury. 10-Not Attempted due to Environmental Limitations-(lack of equipment, weather restraints, etc.). 88-Not Attempted due to Medical Conditions or Safety Concerns. Roll Left to Right (QC): 4 Sit to Lying (QC): 3 Sit to Stand (QC): 4 Chair/Hmo-yp-Oajkj Xfer(QC): 4 Car Transfer (QC): 4 Gait Training Does the Patient Walk?: Yes Distance: 160 Walk 10 feet (QC): 4 Walk 50 ft with 2 Turns(QC): 4 Walk 150 ft (QC): 4 Walking 10ft/uneven surface-QC: 4 Gait Persons Needed: 1 Gait Assistive Device: FWW Wheelchair Training Wheel 50 ft with 2 turns (QC): 9 Wheel 150 ft (QC): 9 Stair Training Stair Training: Handrails/: uses walker #of Steps: 2 1 Step (curb) (QC): 4 4 Steps (QC): 10 12 Steps (QC): 10 Balance Picking up an Object (QC): 4 ADL-Treatment Eating (QC): 5 (set up with some containers due to decreased coordination and sensation changes.) Oral Hygiene (QC): 4 (SBA for standing balance) Shower/Bathe Self (QC): 3 (Min A. Pt did not wash L UE and lower legs d/t perceived RUE limitations) Upper Body Dressing (QC): 4 (V/c's to maintain pacemaker precautions) Lower Body Dressing (QC): 4 (SBA for standing balance) On/Off Footwear (QC): 5 (gripper socks) Toileting Hygiene (QC): 4 (SBA for standing balance) Assessment/Plan Assessment and Plan Assess & Plan/Chief Complaint Assessment: Myopathy 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 08/16/21 Dr Calderon CAD previous stent remotely s/p PNA possible aspiration type s/p Cefepime completed Recent DKA DM HTN HLP Neuropathy Plan: Monitor glucose Supportive care Plavix Dr Calderon appreciated Rehab protocol 08/18/2021: Monitor blood sugar Supportive care 08/19/2021: Monitor glucose 08/20/2021: Glucose monitoring Monitor pain (1) Myopathy (2) Status post placement of implantable loop recorder (3) DKA (diabetic ketoacidosis) (4) Coronary artery disease without angina pectoris (5) Type 2 diabetes mellitus with complication (6) Heart block AV third degree (7) Primary hypertension (8) Mixed hyperlipidemia (9) CAD (coronary artery disease) FREDIS GOEMZ DO Aug 20, 2021 06:16
[2021-08-20] MEDS: inSUlin ASPART (NovoLOG) 1 UNIT/0.01 ML (CHARGE PER UNIT) SC SCH ×4 (07:01→20:47)
[2021-08-20 07:31] VITALS: BP 137/66
[2021-08-20] MEDS: SENNOSIDES 8.6 MG (SENOKOT) TAB PO SCH ×2 (07:35→20:47)
[2021-08-20] MEDS: PANTOPRAZOLE 40 MG (PROTONIX) TAB PO SCH (07:35)
[2021-08-20] MEDS: CALCIUM CARBONATE 500 MG (TUMS) TAB.CHEW PO SCH ×3 (07:35→20:47)
[2021-08-20] MEDS: DOCUSATE SODIUM 100 MG (COLACE) CAP PO SCH ×2 (07:36→20:47)
[2021-08-20] MEDS: ACETAMINOPHEN 325 MG TABLET PO PRN (07:45)
--- NOTE | 2021-08-20 08:26 | Occupational Ther Daily Note ---
OT Current Status-Daily Note Subjective Pt alert, sitting in recliner. Pt agrees to therapy. Pt takes increased time to complete all tasks due to hyperverbal and slow movements then cues to focus on task. Mental Status/Objective Patient Orientation: Person, Place, Time, Situation Attachments: IV ADL-Treatment Pt able to take shower on 08/24/2021 due to pacemaker precautions. Pt able to set up own meal though increased time to eat. After setup, pt able to complete bathing with SBA for safety. Set up for upper body dressing and footwear. Pt threads feet through pant legs by self then SBA for safety to stand and hike over hips. After session, pt sitting in recliner with call light/phone in reach. All needs met in room. Therapy Code Descriptions/Definitions Functional [place] Measure: 0=Not Assessed/NA 4=Minimal Assistance 1=Total Assistance 5=Supervision or Setup 2=Maximal Assistance 6=Modified [place] 3=Moderate Assistance 7=Complete IndependenceSCALE: Activities may be completed with or without assistive devices. 3-Echtdlpnfy-hpruewx completes the activity by him/herself with no assistance from a helper. 5-Set-up or Clean-up Assistance-helper sets up or cleans up; patient completes activity. [place] assists only prior to or following the activity. 4-Supervision or Touching Assistance-helper provides verbal cues and/or touching/steadying and/or contact guard assistance as patient completes activity. Assistance may be provided throughout the activity or intermittently. 3-Partial/Moderate Assistance-helper does LESS THAN HALF the effort. [place] lifts, holds or supports trunk or limbs, but provides less than half the effort. 2-Substantial/Maximal Assistance-helper does MORE THAN HALF the effort. [place] lifts or holds trunk or limbs and provides more than half the effort. 6-Dsbukfhht-qmxmrp does ALL the effort. Patient does none of the effort to complete the activity. Or, the assistance of 2 or more helpers is required for the patient to complete the activity. If activity was not attempted, code reason: 7-Patient Refused. 9-Not Applicable-not attempted and the patient did not perform the activity before the current illness, exacerbation or injury. 10-Not Attempted due to Environmental Limitations-(lack of equipment, weather restraints, etc.). 88-Not Attempted due to Medical Conditions or Safety Concerns. Eating (QC): 6 Shower/Bathe Self (QC): 4 Upper Body Dressing (QC): 5 Lower Body Dressing (QC): 4 On/Off Footwear: 5 OT Short Term Goals Short Term Goals Time Frame: Aug 23, 2021 Shower/bathe self: 5 Upper body dressin Lower body dressin OT Snf Goals Oracle Fusion Middleware Developer Goals Time Frame: Aug 31, 2021 Eating (QC): 6 Oral Hygiene (QC): 6 Toileting Hygiene (QC): 6 Shower/Bathe Self (QC): 6 Upper Body Dressing (QC): 6 Lower Body Dressing (QC): 6 On/Off Footwear (QC): 6 Additional Goals: 1-Demonstrate ADL Tasks, 2-Verbalize Understanding, 3-ImproveStrength/Roxi 1=Demonstrate adherence to instructed precautions during ADL tasks. 2=Patient will verbalize/demonstrate understanding of assistive devices/modifications for ADL. 3=Patient will improve strength/tolerance for activity to enable patient to perform ADL's. OT Education/Plan Problem List/Assessment Assessment: Decreased Activ Tolerance, Impaired Self-Care Skills, Restricted Funct UE ROM Discharge Recommendations Plan/Recommendations: Continue POC Treatment Plan/Plan of Care Patient would benefit from OT for education, treatment and training to promote independence in ADL's, mobility, safety and/or upper extremity function for ADL's. Plan of Care: ADL Retraining, Functional Mobility, Group Exercise/Act as Ind, UE Funct Exercise/Act Treatment Duration: Aug 31, 2021 Frequency: At least 5 of 7 days/Wk (IRF) Estimated Hrs Per Day: 1.5 hours per day Rehab Potential: Fair Time/GCodes Start Time: 07:15 Stop Time: 08:45 Total Time Billed (hr/min): 90 Billed Treatment Time 1 visit-ADL 6 (90 min) CYNTHIA CAMACHO Aug 20, 2021 08:26
[2021-08-20] MEDS: ASPIRIN E.C. 81 MG (ECOTRIN) TAB PO SCH (09:25)
--- NOTE | 2021-08-20 10:56 | Speech Therapy Daily Note ---
Speech Daily Progress Note Subjective Date Seen by Provider: Aug 20, 2021 Time Seen by Provider: 09:30 The patient was seated upright in a recliner, awake and alert upon entrance to her room by the clinician. The patient greeted the clinician appropriately and was agreeable to participation in the cognitive treatment session. Objective The patient remains extremely difficult to keep on topic and task, frequently requiring verbal redirection to complete an item. - Orientation: The patient remains independently oriented to self, location, month, day of week, date and year. - The patient participated in functional recall of her rehabilitation schedule, as well as, specific tasks included in each discipline. The patient displayed excellent accuracy with the task, recalling specific exercises and treatment times, independently. Assessment Assessment Current Status: Fair Progress Treatment Plan Continue Plan of Care Speech Short Term Goals Short Term Goals Short Term Goals 1. The patient will demonstrated 80% accuracy with memory exercises with mild clinician verbal and visual cueing. Time Frame-STG: One Week. Speech Television Production Clerk Goals Television Production Clerk Goals 1. The patient will demonstrate improved cognitive linguistic skills for increased safety with discharge to the least restricted environment. Time Frame: Two Weeks. Speech-Plan Treatment Plan Speech Therapy Treatment Plan: Continue Plan of Care Treatment Duration: Aug 31, 2021 Frequency: 3 times per week Estimated Hrs Per Day: .5 hour per day Rehab Potential: Fair Safety Risks/Education Teaching Recipient: Patient Teaching Methods: Discussion Response to Teaching: Return Demonstration Education Topics Provided: Orientation Strategies, Functional Recall Time Speech Therapy Time In: 09:30 Speech Therapy Time Out: 10:00 Total Billed Time: 30 Billed Treatment Time AceTAMIKO ELIZABETH ST Aug 20, 2021 10:56
--- NOTE | 2021-08-20 12:11 | Physical Therapy Daily Note ---
PT Daily Note-Current Subjective Pt sitting in recliner upon arrival. Pt agrees to PT. Pt is very talkative and needs redirection at times to stay on task. Pain Location: No Pain Reported Mental Status Patient Orientation: Person, Place, Situation Transfers SCALE: Activities may be completed with or without assistive devices. 9-Brdncvgucz-vgemouy completes the activity by him/herself with no assistance from a helper. 5-Set-up or Clean-up Assistance-helper sets up or cleans up; patient completes activity. [place] assists only prior to or following the activity. 4-Supervision or Touching Assistance-helper provides verbal cues and/or touching/steadying and/or contact guard assistance as patient completes activity. Assistance may be provided throughout the activity or intermittently. 3-Partial/Moderate Assistance-helper does LESS THAN HALF the effort. [place] lifts, holds or supports trunk or limbs, but provides less than half the effort. 2-Substantial/Maximal Assistance-helper does MORE THAN HALF the effort. [place] lifts or holds trunk or limbs and provides more than half the effort. 3-Qwmeyyudq-wojiba does ALL the effort. Patient does none of the effort to complete the activity. Or, the assistance of 2 or more helpers is required for the patient to complete the activity. If activity was not attempted, code reason: 7-Patient Refused. 9-Not Applicable-not attempted and the patient did not perform the activity before the current illness, exacerbation or injury. 10-Not Attempted due to Environmental Limitations-(lack of equipment, weather restraints, etc.). 88-Not Attempted due to Medical Conditions or Safety Concerns. Sit to Stand (QC): 4 Toilet Transfer (QC): 4 Weight Bearing Right Lower Extremity: Right Full Weight Bearing Left Lower Extremity: Left Full Weight Bearing Gait Training Does the Patient Walk?: Yes Distance: 15' Walk 10 feet (QC): 4 Gait Persons Needed: 1 Gait Assistive Device: FWW Exercises Supine Ex: Ankle pumps, Quad Set, Glut sets, Heel Slides, Hip abd/add Supine Reps: 15 Seated Therapy Exercises: Ankle pumps, Long arc quads, Hip flexion, Hip abd/add, Glut set Seated Reps: 15 Treatments ([id number]) Pt completes Supine & Seated EX as well as uses BR during tx. FUEL DOCK ATTENDANT must keep pt on task as pt is easily distracted. Pt is nervous about health concerns as well as occasional dizziness w/standing. Dr Mcarthur checks on pt during tx. Pt returns to recliner to rest at end of tx. All needs met, call light in hand. ([id number]) Pt finishes lunch then FUEL DOCK ATTENDANT has pt stand from recliner and amb. in hallway. Pt returns to room to rest in recliner at end of tx. All needs met, call light in hand. Assessment Current Status: Fair Progress Pt takes extended time to complete tasks and is easily distracted. PT Short Term Goals Short Term Goals Time Frame: Aug 24, 2021 Roll Left & Right: 6 Sit to lyin Lying to sitting on side of be: 4 Sit to stand: 4 (SBA) Chair/yuc-tl-btzno transfer: 4 (SBA) Walk 10 feet: 4 (SBA) Walk 50 feet with two turns: 4 (SBA) Walk 150 feet: 4 (SBA) PT Final Inspector Shuttle Goals Final Inspector Shuttle Goals PT Final Inspector Shuttle Goals Time Frame: Sep 07, 2021 Roll Left & Right (QC): 6 Sit to Lying (QC): 6 Lying-Sitting on Side/Bed(QC): 6 Sit to Stand (QC): 6 Chair/Ere-ef-Kvmsg Xfer(QC): 6 Toilet Transfer (QC): 6 Car Transfer (QC): 6 Does the Patient Walk: Yes Walk 10 feet (QC): 6 Walk 50ft with 2 Turns (QC): 6 Walk 150 ft (QC): 6 Walking 10ft on Uneven Surface: 6 1 Step (curb) (QC): 4 4 Steps (QC): 4 12 Steps (QC): 88 Picking up an Object (QC): 4 (using payroll professional) Wheel 50 feet with 2 turns (QC: 9 Wheel 150 feet: 9 PT Plan Problem List Problem List: Activity Tolerance Treatment/Plan Treatment Plan: Continue Plan of Care Treatment Plan: Bed Mobility, Education, Functional Activity [place], Functional Strength, Group Therapy, Gait, Safety, Therapeutic Exercise, Transfers Treatment Duration: Sep 07, 2021 Frequency: At least 5 of 7 days/Wk (IRF) Estimated Hrs Per Day: 1.5 hours per day Patient and/or Family Agrees t: Yes Time/GCodes Time In: 1000 Time Out: 1100 Total Billed Treatment Time: 60 Total Billed Treatment ([id number]) 1, FA x2 (30m) & EX x2 (30m) ([id number]) 1, GT (20m) FABRICIO FIGUEROA FUEL DOCK ATTENDANT Aug 20, 2021 12:11
[2021-08-20] MEDS: ENOXAPARIN 40 MG/0.4 ML (LOVENOX) SYR SC SCH (20:47)
[2021-08-20 20:55] VITALS: BP 130/60
[2021-08-21] MEDS: inSUlin ASPART (NovoLOG) 1 UNIT/0.01 ML (CHARGE PER UNIT) SC SCH ×2 (05:42→20:10)
[2021-08-21] MEDS: ACETAMINOPHEN 325 MG TABLET PO PRN ×2 (05:42→20:12)
--- NOTE | 2021-08-21 06:07 | PM&R Progress Note ---
Subjective HPI/CC On Admission Date Seen by Provider: Aug 21, 2021 Time Seen by Provider: 10:00 Subjective/Events-last exam 08/21/2021: Patient doing a lot better Blood sugars are really elevated so we will increase long-acting and initiate regular insulin before meals Overall doing very well 08/20/2021: Patient doing really well Patient has night sweats but sugars are normal when she has these Overall doing very well Participating in all therapy 08/19/2021: Patient doing well Sugar 191 today Zofran was given for nausea Lactulose given for constipation Had a fleets enema but still working on bowels 08/18/2021: Patient doing really well No concerns Pain controlled Reviewed labs No falls Participating in therapy Review of Systems General: Fatigue, Malaise Objective Exam Vital Signs Vital Signs Date Time Temp Pulse Resp B/P (MAP) Pulse Ox O2 Delivery O2 Flow Rate FiO2 08/21/21 20:32 Room Air 08/21/21 19:43 36.6 96 16 111/55 (73) 97 Capillary Refill : General Appearance: No Apparent Distress, WD/WN, Chronically ill HEENT: PERRL/EOMI, Normal ENT Inspection, Pharynx Normal Neck: Full Range of Motion, Normal Inspection, Non Tender, Supple, Carotid Bruit Respiratory: Chest Non Tender, Lungs Clear, Normal Breath Sounds, No Accessory Muscle Use, No Respiratory Distress Cardiovascular: Regular Rate, Rhythm, No Edema, No Gallop, No JVD, No Murmur, Normal Peripheral Pulses Gastrointestinal: Normal Bowel Sounds, No Organomegaly, No Pulsatile Mass, Non Tender, Soft Back: Normal Inspection, No CVA Tenderness, No Vertebral Tenderness Extremity: Normal Capillary Refill, Normal Inspection, Normal Range of Motion, Non Tender, No Calf Tenderness, No Pedal Edema Neurologic/Psychiatric: Alert, Oriented x3, Normal Mood/Affect, net lead developer II-XII Norm as Tested, Abnormal Gait, Motor Weakness Skin: Normal Color, Warm/Dry Lymphatic: No Adenopathy Results/Procedures Lab Patient resulted labs reviewed. FIM Transfers Therapy Code Descriptions/Definitions Functional [place] Measure: 0=Not Assessed/NA 4=Minimal Assistance 1=Total Assistance 5=Supervision or Setup 2=Maximal Assistance 6=Modified [place] 3=Moderate Assistance 7=Complete IndependenceSCALE: Activities may be completed with or without assistive devices. 7-Iibqohcctr-vfjffvi completes the activity by him/herself with no assistance from a helper. 5-Set-up or Clean-up Assistance-helper sets up or cleans up; patient completes activity. [place] assists only prior to or following the activity. 4-Supervision or Touching Assistance-helper provides verbal cues and/or touching/steadying and/or contact guard assistance as patient completes activity. Assistance may be provided throughout the activity or intermittently. 3-Partial/Moderate Assistance-helper does LESS THAN HALF the effort. [place] lifts, holds or supports trunk or limbs, but provides less than half the effort. 2-Substantial/Maximal Assistance-helper does MORE THAN HALF the effort. [place] lifts or holds trunk or limbs and provides more than half the effort. 3-Xvwzhuqwb-fhzyxe does ALL the effort. Patient does none of the effort to complete the activity. Or, the assistance of 2 or more helpers is required for the patient to complete the activity. If activity was not attempted, code reason: 7-Patient Refused. 9-Not Applicable-not attempted and the patient did not perform the activity before the current illness, exacerbation or injury. 10-Not Attempted due to Environmental Limitations-(lack of equipment, weather restraints, etc.). 88-Not Attempted due to Medical Conditions or Safety Concerns. Roll Left to Right (QC): 4 Sit to Lying (QC): 3 Sit to Stand (QC): 4 Chair/Qau-ox-Beqce Xfer(QC): 4 Car Transfer (QC): 4 Gait Training Does the Patient Walk?: Yes Distance: 15' Walk 10 feet (QC): 4 Walk 50 ft with 2 Turns(QC): 4 Walk 150 ft (QC): 4 Walking 10ft/uneven surface-QC: 4 Gait Persons Needed: 1 Gait Assistive Device: FWW Wheelchair Training Wheel 50 ft with 2 turns (QC): 9 Wheel 150 ft (QC): 9 Stair Training Stair Training: Handrails/: uses walker #of Steps: 2 1 Step (curb) (QC): 4 4 Steps (QC): 10 12 Steps (QC): 10 Balance Picking up an Object (QC): 4 ADL-Treatment Eating (QC): 6 Oral Hygiene (QC): 4 (SBA for standing balance) Shower/Bathe Self (QC): 4 Upper Body Dressing (QC): 5 Lower Body Dressing (QC): 4 On/Off Footwear (QC): 5 Toileting Hygiene (QC): 4 (SBA for standing balance) Assessment/Plan Assessment and Plan Assess & Plan/Chief Complaint Assessment: Myopathy 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 08/16/21 Dr Calderon CAD previous stent remotely s/p PNA possible aspiration type s/p Cefepime completed Recent DKA DM HTN HLP Neuropathy Plan: Monitor glucose Supportive care Plavix Dr Calderon appreciated Rehab protocol 08/18/2021: Monitor blood sugar Supportive care 08/19/2021: Monitor glucose 08/20/2021: Glucose monitoring Monitor pain 08/21/2021: Monitor sugar Supportive care (1) Myopathy (2) Status post placement of implantable loop recorder (3) DKA (diabetic ketoacidosis) (4) Coronary artery disease without angina pectoris (5) Type 2 diabetes mellitus with complication (6) Heart block AV third degree (7) Primary hypertension (8) Mixed hyperlipidemia (9) CAD (coronary artery disease) FREDIS GOMEZ DO Aug 21, 2021 06:06
[2021-08-21 07:30] VITALS: BP 140/61
--- NOTE | 2021-08-21 07:49 | Occupational Ther Daily Note ---
OT Current Status-Daily Note Subjective Pt alert, sitting in recliner. Pt agrees to therapy. Pt hyperverbal and requires cues to continue progress on tasks to completion. No c/o pain. Mental Status/Objective Patient Orientation: Person, Place, Time, Situation Attachments: Other-See Comments (pacemaker) ADL-Treatment Pt able to take shower on August. Pt declines sponge bath, but willing to use bath pack this am. Pt independent with eating. Set up with bath pack for bathing and dressing. Independent for oral care standing at sink using counter or free standing with no LOB. Pt takes increased time to complete all tasks due to hyperverbal and slow movements, requiring cues to focus, continue and finish task. After session, pt sitting in recliner with call light/phone in reach. Nrsg present in room. Therapy Code Descriptions/Definitions Functional [place] Measure: 0=Not Assessed/NA 4=Minimal Assistance 1=Total Assistance 5=Supervision or Setup 2=Maximal Assistance 6=Modified [place] 3=Moderate Assistance 7=Complete IndependenceSCALE: Activities may be completed with or without assistive devices. 8-Mdxmktobgw-mevkpjy completes the activity by him/herself with no assistance from a helper. 5-Set-up or Clean-up Assistance-helper sets up or cleans up; patient completes activity. [place] assists only prior to or following the activity. 4-Supervision or Touching Assistance-helper provides verbal cues and/or touc katarzyna/steadying and/or contact guard assistance as patient completes activity. Assistance may be provided throughout the activity or intermittently. 3-Partial/Moderate Assistance-helper does LESS THAN HALF the effort. [place] lifts, holds or supports trunk or limbs, but provides less than half the effort. 2-Substantial/Maximal Assistance-helper does MORE THAN HALF the effort. [place] lifts or holds trunk or limbs and provides more than half the effort. 3-Cmpvamniy-hgphki does ALL the effort. Patient does none of the effort to complete the activity. Or, the assistance of 2 or more helpers is required for the patient to complete the activity. If activity was not attempted, code reason: 7-Patient Refused. 9-Not Applicable-not attempted and the patient did not perform the activity before the current illness, exacerbation or injury. 10-Not Attempted due to Environmental Limitations-(lack of equipment, weather restraints, etc.). 88-Not Attempted due to Medical Conditions or Safety Concerns. Eating (QC): 6 Oral Hygiene (QC): 6 Shower/Bathe Self (QC): 5 (sponge bath) Upper Body Dressing (QC): 5 Lower Body Dressing (QC): 5 On/Off Footwear: 5 Toileting Hygiene (QC): 7 Toilet Transfer (QC): 7 OT Short Term Goals Short Term Goals Time Frame: Aug 23, 2021 Shower/bathe self: 5 Upper body dressin Lower body dressin OT Children'S Author Goals Children'S Author Goals Time Frame: Aug 31, 2021 Eating (QC): 6 Oral Hygiene (QC): 6 Toileting Hygiene (QC): 6 Shower/Bathe Self (QC): 6 Upper Body Dressing (QC): 6 Lower Body Dressing (QC): 6 On/Off Footwear (QC): 6 Additional Goals: 1-Demonstrate ADL Tasks, 2-Verbalize Understanding, 3- ImproveStrength/Roxi 1=Demonstrate adherence to instructed precautions during ADL tasks. 2=Patient will verbalize/demonstrate understanding of assistive d evices/modifications for ADL. 3=Patient will improve strength/tolerance for activity to enable patient to perform ADL's. OT Education/Plan Problem List/Assessment Assessment: Decreased Activ Tolerance Discharge Recommendations Plan/Recommendations: Continue POC Treatment Plan/Plan of Care Patient would benefit from OT for education, treatment and training to promote independence in ADL's, mobility, safety and/or upper extremity function for ADL's. Plan of Care: ADL Retraining, Functional Mobility, Group Exercise/Act as Ind, UE Funct Exercise/Act Treatment Duration: Aug 31, 2021 Frequency: At least 5 of 7 days/Wk (IRF) Estimated Hrs Per Day: 1.5 hours per day Rehab Potential: Fair Time/GCodes Start Time: 07:15 Stop Time: 08:30 Total Time Billed (hr/min): 75 Billed Treatment Time 1 visit-ADL 5 (75 min) CYNTHIA CAMACHO Aug 21, 2021 07:49
[2021-08-21] MEDS: DOCUSATE SODIUM 100 MG (COLACE) CAP PO SCH ×2 (08:19→20:11)
[2021-08-21] MEDS: CALCIUM CARBONATE 500 MG (TUMS) TAB.CHEW PO SCH ×3 (08:20→20:14)
[2021-08-21] MEDS: SENNOSIDES 8.6 MG (SENOKOT) TAB PO SCH ×2 (08:20→20:12)
[2021-08-21] MEDS: PANTOPRAZOLE 40 MG (PROTONIX) TAB PO SCH (08:20)
[2021-08-21] MEDS: ASPIRIN E.C. 81 MG (ECOTRIN) TAB PO SCH (09:04)
--- NOTE | 2021-08-21 10:41 | Speech Therapy Daily Note ---
Speech Daily Progress Note Subjective Date Seen by Provider: Aug 21, 2021 Time Seen by Provider: 10:00 The patient was seated upright in her recliner, awake and alert upon entrance to her room. The patient greeted the clinician appropriately and was agreeable to participation in the cognitive linguistic treatment session. Objective The patient requires a large amount of re-direction for completion of structured tasks. The patient frequently directs the task of conversation off-topic and requires a large amount of time to return to the item being addressed. The patient remains independently oriented to self, location, month, day of week, date and year. The patient and clinician discussed external memory strategies on this date. The patient attempted or initiated a discussion regarding her calendar use, however, continued to conversation to involve her relationship with her fellow residents. Sustained attention tasks will be initiated throughout subsequent skilled treatment session. Assessment Assessment Current Status: Fair Progress Treatment Plan Continue Plan of Care Speech Short Term Goals Short Term Goals Short Term Goals 1. The patient will demonstrated 80% accuracy with memory exercises with mild clinician verbal and visual cueing. Time Frame-STG: One Week. Speech Diesel Retrofit Designer Goals Fpc Goals 1. The patient will demonstrate improved cognitive linguistic skills for increased safety with discharge to the least restricted environment. Time Frame: Two Weeks. Speech-Plan Treatment Plan Speech Therapy Treatment Plan: Continue Plan of Care Treatment Duration: Aug 31, 2021 Frequency: 3 times per week Estimated Hrs Per Day: .5 hour per day Rehab Potential: Fair Pt/Family Agrees to Plan: Yes Safety Risks/Education Teaching Recipient: Patient Teaching Methods: Discussion Response to Teaching: Verbalize Understanding Education Topics Provided: External Memory Strategies Time Speech Therapy Time In: 10:00 Speech Therapy Time Out: 10:30 Total Billed Time: 30 Billed Treatment Time Ace SHARLENE LOWRY Aug 21, 2021 10:41
--- NOTE | 2021-08-21 11:12 | Physical Therapy Daily Note ---
PT Daily Note-Current Subjective Pt sitting in recliner upon arrival. Pt agrees to PT. Pain Location: No Pain Reported Mental Status Patient Orientation: Person, Place, Situation Transfers SCALE: Activities may be completed with or without assistive devices. 8-Qkfqagctiq-txnzisx completes the activity by him/herself with no assistance from a helper. 5-Set-up or Clean-up Assistance-helper sets up or cleans up; patient completes activity. [place] assists only prior to or following the activity. 4-Supervision or Touching Assistance-helper provides verbal cues and/or touching/steadying and/or contact guard assistance as patient completes activity. Assistance may be provided throughout the activity or intermittently. 3-Partial/Moderate Assistance-helper does LESS THAN HALF the effort. [place] lifts, holds or supports trunk or limbs, but provides less than half the effort. 2-Substantial/Maximal Assistance-helper does MORE THAN HALF the effort. [place] lifts or holds trunk or limbs and provides more than half the effort. 6-Xmkdxqsvp-vnscbs does ALL the effort. Patient does none of the effort to complete the activity. Or, the assistance of 2 or more helpers is required for the patient to complete the activity. If activity was not attempted, code reason: 7-Patient Refused. 9-Not Applicable-not attempted and the patient did not perform the activity before the current illness, exacerbation or injury. 10-Not Attempted due to Environmental Limitations-(lack of equipment, weather restraints, etc.). 88-Not Attempted due to Medical Conditions or Safety Concerns. Sit to Stand (QC): 5 Toilet Transfer (QC): 5 Weight Bearing Right Lower Extremity: Right Full Weight Bearing Left Lower Extremity: Left Full Weight Bearing Gait Training Does the Patient Walk?: Yes Distance: 250' Walk 10 feet (QC): 5 Walk 50 ft with 2 Turns(QC): 5 Walk 150 ft (QC): 5 Gait Assistive Device: FWW Exercises Seated Therapy Exercises: Ankle pumps, Long arc quads, Hip flexion, Hip abd/add, Glut set Seated Reps: 15 Treatments Pt asks to use BR to start tx. Pt is able to pericare then amb. in hallway. Pt takes RB then completes Seated EX which RECREATIONAL THERAPIST continues to encourage redirection to complete task. Pt amb. in hallway, returning to room & resting in recliner. All needs met, call light in hand. Assessment Current Status: Fair Progress Pt is able to vishal. tx but needs constant redirection as pt will stop and talk instead of completing task. PT Short Term Goals Short Term Goals Time Frame: Aug 24, 2021 Roll Left & Right: 6 Sit to lyin Lying to sitting on side of be: 4 Sit to stand: 4 (SBA) Chair/vor-qb-crqmv transfer: 4 (SBA) Walk 10 feet: 4 (SBA) Walk 50 feet with two turns: 4 (SBA) Walk 150 feet: 4 (SBA) PT Manager Winter Goals Group Home Goals PT Group Home Goals Time Frame: Sep 07, 2021 Roll Left & Right (QC): 6 Sit to Lying (QC): 6 Lying-Sitting on Side/Bed(QC): 6 Sit to Stand (QC): 6 Chair/Euz-tn-Cqbay Xfer(QC): 6 Toilet Transfer (QC): 6 Car Transfer (QC): 6 Does the Patient Walk: Yes Walk 10 feet (QC): 6 Walk 50ft with 2 Turns (QC): 6 Walk 150 ft (QC): 6 Walking 10ft on Uneven Surface: 6 1 Step (curb) (QC): 4 4 Steps (QC): 4 12 Steps (QC): 88 Picking up an Object (QC): 4 (using mobile marketing specialist) Wheel 50 feet with 2 turns (QC: 9 Wheel 150 feet: 9 PT Plan Problem List Problem List: Activity Tolerance Treatment/Plan Treatment Plan: Continue Plan of Care Treatment Plan: Bed Mobility, Education, Functional Activity Roxi, Functional Strength, Group Therapy, Gait, Safety, Therapeutic Exercise, Transfers Treatment Duration: Sep 07, 2021 Frequency: At least 5 of 7 days/Wk (IRF) Estimated Hrs Per Day: 1.5 hours per day Patient and/or Family Agrees t: Yes Safety Risks/Education Patient Education: Gait Training, Correct Positioning Teaching Recipient: Patient Teaching Methods: Discussion Response to Teaching: Verbalize Understanding Time/GCodes Time In: 900 Time Out: 1000 Total Billed Treatment Time: 60 Total Billed Treatment 1, FA (15m), EX (20m) & GT x2 (25m) FABRICIO FIGUEROA RECREATIONAL THERAPIST Aug 21, 2021 11:12
--- NOTE | 2021-08-21 12:21 | Physical Therapy Daily Note ---
PT Daily Note-Current Subjective Pt is sitting in recliner as call light is answered. Pt agrees to PT. Pain Location: No Pain Reported Mental Status Patient Orientation: Person, Place, Situation Transfers SCALE: Activities may be completed with or without assistive devices. 9-Gtvqtthwyg-lemjjpu completes the activity by him/herself with no assistance from a helper. 5-Set-up or Clean-up Assistance-helper sets up or cleans up; patient completes activity. [place] assists only prior to or following the activity. 4-Supervision or Touching Assistance-helper provides verbal cues and/or touching/steadying and/or contact guard assistance as patient completes activity. Assistance may be provided throughout the activity or intermittently. 3-Partial/Moderate Assistance-helper does LESS THAN HALF the effort. [place] lifts, holds or supports trunk or limbs, but provides less than half the effort. 2-Substantial/Maximal Assistance-helper does MORE THAN HALF the effort. [place] lifts or holds trunk or limbs and provides more than half the effort. 5-Grdjvbmws-nnjogy does ALL the effort. Patient does none of the effort to complete the activity. Or, the assistance of 2 or more helpers is required for the patient to complete the activity. If activity was not attempted, code reason: 7-Patient Refused. 9-Not Applicable-not attempted and the patient did not perform the activity before the current illness, exacerbation or injury. 10-Not Attempted due to Environmental Limitations-(lack of equipment, weather restraints, etc.). 88-Not Attempted due to Medical Conditions or Safety Concerns. Sit to Stand (QC): 5 Toilet Transfer (QC): 5 Weight Bearing Right Lower Extremity: Right Full Weight Bearing Left Lower Extremity: Left Full Weight Bearing Gait Training Does the Patient Walk?: Yes Distance: 25' Walk 10 feet (QC): 5 Gait Assistive Device: FWW Treatments TF to standing and amb to BR. After toileting, pt completes pericare and returns to recliner at end of tx. All needs met, call light in hand. Assessment Current Status: Good Progress Pt vishal. tx well. PT Short Term Goals Short Term Goals Time Frame: Aug 24, 2021 Roll Left & Right: 6 Sit to lyin Lying to sitting on side of be: 4 Sit to stand: 4 (SBA) Chair/yvr-xv-rpriy transfer: 4 (SBA) Walk 10 feet: 4 (SBA) Walk 50 feet with two turns: 4 (SBA) Walk 150 feet: 4 (SBA) PT Senior Living Goals Second Watch Sergeant Goals PT Second Watch Sergeant Goals Time Frame: Sep 07, 2021 Roll Left & Right (QC): 6 Sit to Lying (QC): 6 Lying-Sitting on Side/Bed(QC): 6 Sit to Stand (QC): 6 Chair/Uvw-dt-Tvlvi Xfer(QC): 6 Toilet Transfer (QC): 6 Car Transfer (QC): 6 Does the Patient Walk: Yes Walk 10 feet (QC): 6 Walk 50ft with 2 Turns (QC): 6 Walk 150 ft (QC): 6 Walking 10ft on Uneven Surface: 6 1 Step (curb) (QC): 4 4 Steps (QC): 4 12 Steps (QC): 88 Picking up an Object (QC): 4 (using instrument fitter) Wheel 50 feet with 2 turns (QC: 9 Wheel 150 feet: 9 PT Plan Treatment/Plan Treatment Plan: Continue Plan of Care Treatment Plan: Bed Mobility, Education, Functional Activity Roxi, Functional Strength, Group Therapy, Gait, Safety, Therapeutic Exercise, Transfers Treatment Duration: Sep 07, 2021 Frequency: At least 5 of 7 days/Wk (IRF) Estimated Hrs Per Day: 1.5 hours per day Patient and/or Family Agrees t: Yes Time/GCodes Time In: 1115 Time Out: 1130 Total Billed Treatment Time: 15 Total Billed Treatment 1, CURTIS (15m) FABRICIO FIGUEROA FLAT OPTICAL ELEMENT MAKER Aug 21, 2021 12:21
[2021-08-21] MEDS: inSUlin (REGULAR) HUMAN 1 UNIT/0.01 ML (CHARGE PER UNIT) SC SCH ×2 (12:40→17:21)
[2021-08-21 19:43] VITALS: BP 111/55
[2021-08-21] MEDS: ENOXAPARIN 40 MG/0.4 ML (LOVENOX) SYR SC SCH (20:13)
[2021-08-22] MEDS: inSUlin ASPART (NovoLOG) 1 UNIT/0.01 ML (CHARGE PER UNIT) SC SCH ×4 (05:46→20:33)
--- NOTE | 2021-08-22 06:11 | PM&R Progress Note ---
Subjective HPI/CC On Admission Date Seen by Provider: Aug 22, 2021 Time Seen by Provider: 10:00 Subjective/Events-last exam 08/22/2021: Bowels moved two days ago, will initiate laxatives Flonase will be given for nonspecific ear complaints Discharge on Friday08/21/2021: Patient doing a lot better Blood sugars are really elevated so we will increase long-acting and initiate regular insulin before meals Overall doing very well 08/20/2021: Patient doing really well Patient has night sweats but sugars are normal when she has these Overall doing very well Participating in all therapy 08/19/2021: Patient doing well Sugar 191 today Zofran was given for nausea Lactulose given for constipation Had a fleets enema but still working on bowels 08/18/2021: Patient doing really well No concerns Pain controlled Reviewed labs No falls Participating in therapy Review of Systems General: Fatigue, Malaise Objective Exam Vital Signs Vital Signs Date Time Temp Pulse Resp B/P (MAP) Pulse Ox O2 Delivery O2 Flow Rate FiO2 08/22/21 19:58 36.5 86 20 129/60 (83) 96 Room Air Capillary Refill : General Appearance: No Apparent Distress, WD/WN, Chronically ill HEENT: PERRL/EOMI, Normal ENT Inspection, Pharynx Normal Neck: Full Range of Motion, Normal Inspection, Non Tender, Supple, Carotid Bruit Respiratory: Chest Non Tender, Lungs Clear, Normal Breath Sounds, No Accessory Muscle Use, No Respiratory Distress Cardiovascular: Regular Rate, Rhythm, No Edema, No Gallop, No JVD, No Murmur, Normal Peripheral Pulses Gastrointestinal: Normal Bowel Sounds, No Organomegaly, No Pulsatile Mass, Non Tender, Soft Back: Normal Inspection, No CVA Tenderness, No Vertebral Tenderness Extremity: Normal Capillary Refill, Normal Inspection, Normal Range of Motion, Non Tender, No Calf Tenderness, No Pedal Edema Neurologic/Psychiatric: Alert, Oriented x3, Normal Mood/Affect, wood products manufacturer II-XII Norm as Tested, Abnormal Gait, Motor Weakness Skin: Normal Color, Warm/Dry Lymphatic: No Adenopathy Results/Procedures Lab Patient resulted labs reviewed. FIM Transfers Therapy Code Descriptions/Definitions Functional [place] Measure: 0=Not Assessed/NA 4=Minimal Assistance 1=Total Assistance 5=Supervision or Setup 2=Maximal Assistance 6=Modified [place] 3=Moderate Assistance 7=Complete IndependenceSCALE: Activities may be completed with or without assistive devices. 8-Tkfglpsena-rbwcjag completes the activity by him/herself with no assistance from a helper. 5-Set-up or Clean-up Assistance-helper sets up or cleans up; patient completes activity. [place] assists only prior to or following the activity. 4-Supervision or Touching Assistance-helper provides verbal cues and/or touching/steadying and/or contact guard assistance as patient completes activity. Assistance may be provided throughout the activity or intermittently. 3-Partial/Moderate Assistance-helper does LESS THAN HALF the effort. [place] lifts, holds or supports trunk or limbs, but provides less than half the effort. 2-Substantial/Maximal Assistance-helper does MORE THAN HALF the effort. [place] lifts or holds trunk or limbs and provides more than half the effort. 7-Rmvsjsewt-txpoxb does ALL the effort. Patient does none of the effort to complete the activity. Or, the assistance of 2 or more helpers is required for the patient to complete the activity. If activity was not attempted, code reason: 7-Patient Refused. 9-Not Applicable-not attempted and the patient did not perform the activity before the current illness, exacerbation or injury. 10-Not Attempted due to Environmental Limitations-(lack of equipment, weather restraints, etc.). 88-Not Attempted due to Medical Conditions or Safety Concerns. Roll Left to Right (QC): 4 Sit to Lying (QC): 3 Sit to Stand (QC): 5 Chair/Eut-ld-Jeblc Xfer(QC): 4 Car Transfer (QC): 4 Gait Training Does the Patient Walk?: Yes Distance: 25' Walk 10 feet (QC): 5 Walk 50 ft with 2 Turns(QC): 5 Walk 150 ft (QC): 5 Walking 10ft/uneven surface-QC: 4 Gait Persons Needed: 1 Gait Assistive Device: FWW Wheelchair Training Wheel 50 ft with 2 turns (QC): 9 Wheel 150 ft (QC): 9 Stair Training Stair Training: Handrails/: uses walker #of Steps: 2 1 Step (curb) (QC): 4 4 Steps (QC): 10 12 Steps (QC): 10 Balance Picking up an Object (QC): 4 ADL-Treatment Eating (QC): 6 Oral Hygiene (QC): 6 Shower/Bathe Self (QC): 5 (sponge bath) Upper Body Dressing (QC): 5 Lower Body Dressing (QC): 5 On/Off Footwear (QC): 5 Toileting Hygiene (QC): 7 Toilet Transfer (QC): 7 Assessment/Plan Assessment and Plan Assess & Plan/Chief Complaint Assessment: Myopathy 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 08/16/21 Dr Calderon CAD previous stent remotely s/p PNA possible aspiration type s/p Cefepime completed Recent DKA DM HTN HLP Neuropathy Plan: Monitor glucose Supportive care Plavix Dr Calderon appreciated Rehab protocol 08/18/2021: Monitor blood sugar Supportive care 08/19/2021: Monitor glucose 08/20/2021: Glucose monitoring Monitor pain 08/21/2021: Monitor sugar Supportive care 08/22/2021: DC Friday Monitor sugar (1) Myopathy (2) Status post placement of implantable loop recorder (3) DKA (diabetic ketoacidosis) (4) Coronary artery disease without angina pectoris (5) Type 2 diabetes mellitus with complication (6) Heart block AV third degree (7) Primary hypertension (8) Mixed hyperlipidemia (9) CAD (coronary artery disease) FREDIS GOMEZ DO Aug 22, 2021 06:11
[2021-08-22 07:30] VITALS: BP 126/62
--- NOTE | 2021-08-22 07:54 | Occupational Ther Daily Note ---
OT Current Status-Daily Note Subjective Pt alert, sitting in recliner. Pt agrees to therapy. No c/o pain. Mental Status/Objective Patient Orientation: Person, Place, Time, Situation ADL-Treatment Pt declines bathing or dressing stating that she had already washed up for today. Pt ambulates to bathroom and stands at sink to complete oral care independently. Pt independent with eating. Pt takes increased time to complete all tasks/exercises due to hyperverbal and slow movements. Therapy Code Descriptions/Definitions Functional [place] Measure: 0=Not Assessed/NA 4=Minimal Assistance 1=Total Assistance 5=Supervision or Setup 2=Maximal Assistance 6=Modified [place] 3=Moderate Assistance 7=Complete IndependenceSCALE: Activities may be completed with or without assistive devices. 0-Jrjvplozrs-yzurzjd completes the activity by him/herself with no assistance from a helper. 5-Set-up or Clean-up Assistance-helper sets up or cleans up; patient completes activity. [place] assists only prior to or following the activity. 4-Supervision or Touching Assistance-helper provides verbal cues and/or touching/steadying and/or contact guard assistance as patient completes activity. Assistance may be provided throughout the activity or intermittently. 3-Partial/Moderate Assistance-helper does LESS THAN HALF the effort. [place] lifts, holds or supports trunk or limbs, but provides less than half the effort. 2-Substantial/Maximal Assistance-helper does MORE THAN HALF the effort. [place] lifts or holds trunk or limbs and provides more than half the effort. 2-Hxwidcrmi-hotxjv does ALL the effort. Patient does none of the effort to complete the activity. Or, the assistance of 2 or more helpers is required for the patient to complete the activity. If activity was not attempted, code reason: 7-Patient Refused. 9-Not Applicable-not attempted and the patient did not perform the activity before the current illness, exacerbation or injury. 10-Not Attempted due to Environmental Limitations-(lack of equipment, weather restraints, etc.). 88-Not Attempted due to Medical Conditions or Safety Concerns. Eating (QC): 6 Oral Hygiene (QC): 6 Other Treatment Pt ambulates in hallway using FWW with SBA while maneuvering around doorways and objects with no LOB. Pt complete wrist flexion, extension and rad/uln deviation with 2# wt 3 sets 10 reps. Pt given light resistance therapy sponge and verbal HEP to strengthening B hands for daily functional tasks. Skilled instruction given for correct technique and modifications when necessary. After session, pt sitting in recliner with call light/phone in reach. All needs met in room. OT Short Term Goals Short Term Goals Time Frame: Aug 23, 2021 Shower/bathe self: 5 Upper body dressin Lower body dressin OT Finished Hardware Erector Goals Finished Hardware Erector Goals Time Frame: Aug 31, 2021 Eating (QC): 6 Oral Hygiene (QC): 6 Toileting Hygiene (QC): 6 Shower/Bathe Self (QC): 6 Upper Body Dressing (QC): 6 Lower Body Dressing (QC): 6 On/Off Footwear (QC): 6 Additional Goals: 1-Demonstrate ADL Tasks, 2-Verbalize Understanding, 3- ImproveStrength/Roxi 1=Demonstrate adherence to instructed precautions during ADL tasks. 2=Patient will verbalize/demonstrate understanding of assistive devices/mod ifications for ADL. 3=Patient will improve strength/tolerance for activity to enable patient to perform ADL's. OT Education/Plan Problem List/Assessment Assessment: Decreased Activ Tolerance, Decreased UE Strength Discharge Recommendations Plan/Recommendations: Continue POC Treatment Plan/Plan of Care Patient would benefit from OT for education, treatment and training to promote independence in ADL's, mobility, safety and/or upper extremity function for ADL's. Plan of Care: ADL Retraining, Functional Mobility, Group Exercise/Act as Ind, UE Funct Exercise/Act Treatment Duration: Aug 31, 2021 Frequency: At least 5 of 7 days/Wk (IRF) Estimated Hrs Per Day: 1.5 hours per day Rehab Potential: Fair Time/GCodes Start Time: 07:15 Stop Time: 08:30 Total Time Billed (hr/min): 75 Billed Treatment Time 1 visit-ADL 3 (45 min) EX 2 (30 min) CYNTHIA CAMACHO Aug 22, 2021 07:54
[2021-08-22] MEDS: CALCIUM CARBONATE 500 MG (TUMS) TAB.CHEW PO SCH ×3 (08:01→19:43)
[2021-08-22] MEDS: ASPIRIN E.C. 81 MG (ECOTRIN) TAB PO SCH (08:01)
[2021-08-22] MEDS: SENNOSIDES 8.6 MG (SENOKOT) TAB PO SCH ×2 (08:01→19:43)
[2021-08-22] MEDS: PANTOPRAZOLE 40 MG (PROTONIX) TAB PO SCH (08:01)
[2021-08-22] MEDS: DOCUSATE SODIUM 100 MG (COLACE) CAP PO SCH ×2 (08:01→19:43)
--- NOTE | 2021-08-22 08:46 | Speech Therapy Daily Note ---
Speech Daily Progress Note Subjective Date Seen by Provider: Aug 22, 2021 Time Seen by Provider: 11:45 The patient was seated upright in her recliner, awake and alert upon entrance to her room by the clinician. The patient greeted the clinician appropriately and was agreeable to participation in the cognitive linguistic treatment session. Assessment Assessment Current Status: Fair Progress Treatment Plan Continue Plan of Care Speech Short Term Goals Short Term Goals Short Term Goals 1. The patient will demonstrated 80% accuracy with memory exercises with mild clinician verbal and visual cueing. Time Frame-STG: One Week. Speech Spring Former Goals [facility] Goals 1. The patient will demonstrate improved cognitive linguistic skills for increased safety with discharge to the least restricted environment. Time Frame: Two Weeks. Speech-Plan Treatment Plan Speech Therapy Treatment Plan: Continue Plan of Care Treatment Duration: Aug 31, 2021 Frequency: 3 times per week Estimated Hrs Per Day: .5 hour per day Rehab Potential: Fair Safety Risks/Education Teaching Recipient: Patient Teaching Methods: Discussion Response to Teaching: Verbalize Understanding Education Topics Provided: Functional Recall Time Speech Therapy Time In: 11:45 Speech Therapy Time Out: 12:15 Total Billed Time: 30 Billed Treatment Time 1, SHARLENE LOWRY Aug 22, 2021 08:46
--- NOTE | 2021-08-22 10:27 | Physical Therapy Daily Note ---
PT Daily Note-Current Subjective Pt sitting in recliner upon arrival. Pt agrees to PT. Pain Location: No Pain Reported Mental Status Patient Orientation: Person, Place, Time, Situation Transfers SCALE: Activities may be completed with or without assistive devices. 7-Zxefpfxuae-xnhkuch completes the activity by him/herself with no assistance from a helper. 5-Set-up or Clean-up Assistance-helper sets up or cleans up; patient completes activity. [place] assists only prior to or following the activity. 4-Supervision or Touching Assistance-helper provides verbal cues and/or touching/steadying and/or contact guard assistance as patient completes activity. Assistance may be provided throughout the activity or intermittently. 3-Partial/Moderate Assistance-helper does LESS THAN HALF the effort. [place] lifts, holds or supports trunk or limbs, but provides less than half the effort. 2-Substantial/Maximal Assistance-helper does MORE THAN HALF the effort. [place] lifts or holds trunk or limbs and provides more than half the effort. 8-Aslrcqjvq-dwbtty does ALL the effort. Patient does none of the effort to complete the activity. Or, the assistance of 2 or more helpers is required for the patient to complete the activity. If activity was not attempted, code reason: 7-Patient Refused. 9-Not Applicable-not attempted and the patient did not perform the activity bef ore the current illness, exacerbation or injury. 10-Not Attempted due to Environmental Limitations-(lack of equipment, weather r estraints, etc.). 88-Not Attempted due to Medical Conditions or Safety Concerns. Sit to Stand (QC): 6 Toilet Transfer (QC): 5 Weight Bearing Right Lower Extremity: Right Full Weight Bearing Left Lower Extremity: Left Full Weight Bearing Gait Training Does the Patient Walk?: Yes Distance: 150' x2 Walk 10 feet (QC): 5 Walk 50 ft with 2 Turns(QC): 5 Walk 150 ft (QC): 5 Gait Assistive Device: FWW Exercises Seated Therapy Exercises: Ankle pumps, Long arc quads, Hip flexion, Hip abd/add, Glut set Seated Reps: 15 NuStep Minutes: 10 NuStep Workload: 4 Treatments Pt completes Seated EX. TF to standing and uses BR. Pt amb. in hallway then uses NuStep. After short RB, pt amb. in hallway before returning to recliner to rest. All needs met, call light in hand. Assessment Current Status: Fair Progress Pt continues to need redirection to stay on task as pt likes to stop and visit. PT Short Term Goals Short Term Goals Time Frame: Aug 24, 2021 Roll Left & Right: 6 Sit to lyin Lying to sitting on side of be: 4 Sit to stand: 4 (SBA) Chair/sqt-lx-kkhfi transfer: 4 (SBA) Walk 10 feet: 4 (SBA) Walk 50 feet with two turns: 4 (SBA) Walk 150 feet: 4 (SBA) PT Mcc Goals Comber Setter Goals PT Comber Setter Goals Time Frame: Sep 07, 2021 Roll Left & Right (QC): 6 Sit to Lying (QC): 6 Lying-Sitting on Side/Bed(QC): 6 Sit to Stand (QC): 6 Chair/Hqz-ff-Segrj Xfer(QC): 6 Toilet Transfer (QC): 6 Car Transfer (QC): 6 Does the Patient Walk: Yes Walk 10 feet (QC): 6 Walk 50ft with 2 Turns (QC): 6 Walk 150 ft (QC): 6 Walking 10ft on Uneven Surface: 6 1 Step (curb) (QC): 4 4 Steps (QC): 4 12 Steps (QC): 88 Picking up an Object (QC): 4 (using board catcher) Wheel 50 feet with 2 turns (QC: 9 Wheel 150 feet: 9 PT Plan Problem List Problem List: Activity Tolerance Treatment/Plan Treatment Plan: Continue Plan of Care Treatment Plan: Bed Mobility, Education, Functional Activity Roxi, Functional Strength, Group Therapy, Gait, Safety, Therapeutic Exercise, Transfers Treatment Duration: Sep 07, 2021 Frequency: At least 5 of 7 days/Wk (IRF) Estimated Hrs Per Day: 1.5 hours per day Patient and/or Family Agrees t: Yes Time/GCodes Time In: 900 Time Out: 1015 Total Billed Treatment Time: 75 Total Billed Treatment 1, FA (15m), EX x2 (30m) & GT x2 (30m) FABRICIO FIGUEROA TELEPHONE DIAPHRAGM ASSEMBLER Aug 22, 2021 10:27
--- NOTE | 2021-08-22 11:48 | Speech Therapy Daily Note ---
Speech Daily Progress Note Subjective Date Seen by Provider: Aug 22, 2021 Time Seen by Provider: 11:45 The patient was seated upright in her recliner, awake and alert upon entrance to her room by the clinician. The patient greeted the clinician and was agreeable to participation in the cognitive linguistic treatment session. Objective The patient and clinician focused on sustained attention tasks on this date. The patient completes [place] puzzles while explaining her problem solving strategy and sequencing to the clinician. The patient displays appropriate divided attention, working towards puzzle completion while participating in spontaneous conversation with the clinician. The patient displayed good accuracy with the sustained attention task. The patient remains 100%, independently oriented to self, location, month, day of week, date, and year. Assessment Assessment Current Status: Good Progress Treatment Plan Continue Plan of Care Speech Short Term Goals Short Term Goals Short Term Goals 1. The patient will demonstrated 80% accuracy with memory exercises with mild clinician verbal and visual cueing. Time Frame-STG: One Week. Speech [facility] Goals [facility] Goals 1. The patient will demonstrate improved cognitive linguistic skills for increased safety with discharge to the least restricted environment. Time Frame: Two Weeks. Speech-Plan Treatment Plan Speech Therapy Treatment Plan: Continue Plan of Care Treatment Duration: Aug 31, 2021 Frequency: 3 times per week Estimated Hrs Per Day: .5 hour per day Rehab Potential: Fair Safety Risks/Education Teaching Recipient: Patient Teaching Methods: Discussion Response to Teaching: Verbalize Understanding Education Topics Provided: Sustained Attention Strategies Time Speech Therapy Time In: 11:45 Speech Therapy Time Out: 12:15 Total Billed Time: 30 Billed Treatment Time TAMIKO Bello ELIZABEAYLIN HERNÁNDEZ Aug 22, 2021 11:48
[2021-08-22] MEDS: FLUTICASONE NASAL SPRAY (FLONASE) 16 GM BTL NS SCH (13:49)
[2021-08-22] MEDS: ENOXAPARIN 40 MG/0.4 ML (LOVENOX) SYR SC SCH (19:44)
[2021-08-22 19:58] VITALS: BP 129/60
[2021-08-23] MEDS: inSUlin ASPART (NovoLOG) 1 UNIT/0.01 ML (CHARGE PER UNIT) SC SCH ×4 (05:42→21:26)
--- NOTE | 2021-08-23 06:07 | PM&R Progress Note ---
Subjective HPI/CC On Admission Date Seen by Provider: Aug 23, 2021 Time Seen by Provider: 12:30 Subjective/Events-last exam 08/23/2021: Pt is doing really well Participating in therapy Discharge on Friday Bowels moved yesterday No falls 08/22/2021: Bowels moved two days ago, will initiate laxatives Flonase will be given for nonspecific ear complaints Discharge on Friday08/21/2021: Patient doing a lot better Blood sugars are really elevated so we will increase long-acting and initiate regular insulin before meals Overall doing very well 08/20/2021: Patient doing really well Patient has night sweats but sugars are normal when she has these Overall doing very well Participating in all therapy 08/19/2021: Patient doing well Sugar 191 today Zofran was given for nausea Lactulose given for constipation Had a fleets enema but still working on bowels 08/18/2021: Patient doing really well No concerns Pain controlled Reviewed labs No falls Participating in therapy Review of Systems General: Fatigue, Malaise Objective Exam Vital Signs Vital Signs Date Time Temp Pulse Resp B/P (MAP) Pulse Ox O2 Delivery O2 Flow Rate FiO2 08/23/21 19:40 36.3 79 18 134/62 (86) 96 Room Air Capillary Refill : General Appearance: No Apparent Distress, WD/WN, Chronically ill HEENT: PERRL/EOMI, Normal ENT Inspection, Pharynx Normal Neck: Full Range of Motion, Normal Inspection, Non Tender, Supple, Carotid Bruit Respiratory: Chest Non Tender, Lungs Clear, Normal Breath Sounds, No Accessory Muscle Use, No Respiratory Distress Cardiovascular: Regular Rate, Rhythm, No Edema, No Gallop, No JVD, No Murmur, Normal Peripheral Pulses Gastrointestinal: Normal Bowel Sounds, No Organomegaly, No Pulsatile Mass, Non Tender, Soft Back: Normal Inspection, No CVA Tenderness, No Vertebral Tenderness Extremity: Normal Capillary Refill, Normal Inspection, Normal Range of Motion, Non Tender, No Calf Tenderness, No Pedal Edema Neurologic/Psychiatric: Alert, Oriented x3, Normal Mood/Affect, 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 FIM Transfers Therapy Code Descriptions/Definitions Functional [place] Measure: 0=Not Assessed/NA 4=Minimal Assistance 1=Total Assistance 5=Supervision or Setup 2=Maximal Assistance 6=Modified [place] 3=Moderate Assistance 7=Complete IndependenceSCALE: Activities may be completed with or without assistive devices. 2-Cnltkfebgz-vmzledi completes the activity by him/herself with no assistance from a helper. 5-Set-up or Clean-up Assistance-helper sets up or cleans up; patient completes activity. [place] assists only prior to or following the activity. 4-Supervision or Touching Assistance-helper provides verbal cues and/or touching/steadying and/or contact guard assistance as patient completes activity. Assistance may be provided throughout the activity or intermittently. 3-Partial/Moderate Assistance-helper does LESS THAN HALF the effort. [place] lifts, holds or supports trunk or limbs, but provides less than half the effort. 2-Substantial/Maximal Assistance-helper does MORE THAN HALF the effort. [place] lifts or holds trunk or limbs and provides more than half the effort. 5-Mkogjedvs-lxdhty does ALL the effort. Patient does none of the effort to complete the activity. Or, the assistance of 2 or more helpers is required for the patient to complete the activity. If activity was not attempted, code reason: 7-Patient Refused. 9-Not Applicable-not attempted and the patient did not perform the activity before the current illness, exacerbation or injury. 10-Not Attempted due to Environmental Limitations-(lack of equipment, weather restraints, etc.). 88-Not Attempted due to Medical Conditions or Safety Concerns. Roll Left to Right (QC): 4 Sit to Lying (QC): 3 Sit to Stand (QC): 6 Chair/Cps-et-Ggids Xfer(QC): 4 Car Transfer (QC): 4 Gait Training Does the Patient Walk?: Yes Distance: 150' x2 Walk 10 feet (QC): 5 Walk 50 ft with 2 Turns(QC): 5 Walk 150 ft (QC): 5 Walking 10ft/uneven surface-QC: 4 Gait Persons Needed: 1 Gait Assistive Device: FWW Wheelchair Training Does the Pt Use a Wheelchair?: No Wheel 50 ft with 2 turns (QC): 9 Wheel 150 ft (QC): 9 Type of Wheelchair: N/A Stair Training Stair Training: Handrails/: uses walker #of Steps: 2 1 Step (curb) (QC): 4 4 Steps (QC): 10 12 Steps (QC): 10 Balance Picking up an Object (QC): 4 ADL-Treatment Eating (QC): 6 Oral Hygiene (QC): 6 Shower/Bathe Self (QC): 5 (sponge bath) Upper Body Dressing (QC): 5 Lower Body Dressing (QC): 5 On/Off Footwear (QC): 5 Toileting Hygiene (QC): 7 Toilet Transfer (QC): 7 Assessment/Plan Assessment and Plan Assess & Plan/Chief Complaint Assessment: Myopathy 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 08/16/21 Dr Calderon CAD previous stent remotely s/p PNA possible aspiration type s/p Cefepime completed Recent DKA DM HTN HLP Neuropathy Plan: Monitor glucose Supportive care Plavix Dr Calderon appreciated Rehab protocol 08/18/2021: Monitor blood sugar Supportive care 08/19/2021: Monitor glucose 08/20/2021: Glucose monitoring Monitor pain 08/21/2021: Monitor sugar Supportive care 08/22/2021: DC Friday Monitor sugar 08/23/2021: DC planned for Friday (1) Myopathy (2) Status post placement of implantable loop recorder (3) DKA (diabetic ketoacidosis) (4) Coronary artery disease without angina pectoris (5) Type 2 diabetes mellitus with complication (6) Heart block AV third degree (7) Primary hypertension (8) Mixed hyperlipidemia (9) CAD (coronary artery disease) FREDIS GOMEZ DO Aug 23, 2021 06:06
--- NOTE | 2021-08-23 07:48 | Occupational Ther Daily Note ---
OT Current Status-Daily Note Subjective Pt alert, lying in bed. Pt agrees to therapy. No c/o pain. Mental Status/Objective Patient Orientation: Person, Place, Time, Situation Attachments: Other-See Comments (Loop recorder) ADL-Treatment Pt able to take shower 08/24/2021. Sitting at sink, pt completes sponge bath at sink independently. Set up for all dressing. Independent sitting at sink. Pt is able to stand and sit at sink during bathing or grooming without LOB. Pt independent for eating. Pt takes increased time to complete all tasks due to being hyperverbal and slow movements. After session, pt sitting in recliner with call light/phone in reach. All needs met in room. Therapy Code Descriptions/Definitions Functional [place] Measure: 0=Not Assessed/NA 4=Minimal Assistance 1=Total Assistance 5=Supervision or Setup 2=Maximal Assistance 6=Modified [place] 3=Moderate Assistance 7=Complete IndependenceSCALE: Activities may be completed with or without assistive devices. 3-Ikpekladdb-sutklkb completes the activity by him/herself with no assistance from a helper. 5-Set-up or Clean-up Assistance-helper sets up or cleans up; patient completes activity. [place] assists only prior to or following the activity. 4-Supervision or Touching Assistance-helper provides verbal cues and/or touching/steadying and/or contact guard assistance as patient completes activity. Assistance may be provided throughout the activity or intermittently. 3-Partial/Moderate Assistance-helper does LESS THAN HALF the effort. [place] lifts, holds or supports trunk or limbs, but provides less than half the effort. 2-Substantial/Maximal Assistance-helper does MORE THAN HALF the effort. [place] lifts or holds trunk or limbs and provides more than half the effort. 4-Lmavhnmgb-fdraqf does ALL the effort. Patient does none of the effort to complete the activity. Or, the assistance of 2 or more helpers is required for the patient to complete the activity. If activity was not attempted, code reason: 7-Patient Refused. 9-Not Applicable-not attempted and the patient did not perform the activity before the current illness, exacerbation or injury. 10-Not Attempted due to Environmental Limitations-(lack of equipment, weather restraints, etc.). 88-Not Attempted due to Medical Conditions or Safety Concerns. Eating (QC): 6 Oral Hygiene (QC): 6 Shower/Bathe Self (QC): 6 (sponge bath) Upper Body Dressing (QC): 5 Lower Body Dressing (QC): 5 On/Off Footwear: 5 OT Short Term Goals Short Term Goals Time Frame: Aug 23, 2021 Shower/bathe self: 5 Upper body dressin Lower body dressin OT Prison Goals Warehouse Forklift Operator Goals Time Frame: Aug 31, 2021 Eating (QC): 6 Oral Hygiene (QC): 6 Toileting Hygiene (QC): 6 Shower/Bathe Self (QC): 6 Upper Body Dressing (QC): 6 Lower Body Dressing (QC): 6 On/Off Footwear (QC): 6 Additional Goals: 1-Demonstrate ADL Tasks, 2-Verbalize Understanding, 3- ImproveStrength/Roxi 1=Demonstrate adherence to instructed precautions during ADL tasks. 2=Patient will verbalize/demonstrate understanding of assistive devices/modifications for ADL. 3=Patient will improve strength/tolerance for activity to enable patient to perform ADL's. OT Education/Plan Problem List/Assessment Assessment: Decreased Activ Tolerance, Decreased UE Strength Discharge Recommendations Plan/Recommendations: Continue POC Treatment Plan/Plan of Care Patient would benefit from OT for education, treatment and training to promote independence in ADL's, mobility, safety and/or upper extremity function for ADL's. Plan of Care: ADL Retraining, Functional Mobility, Group Exercise/Act as Ind, UE Funct Exercise/Act Treatment Duration: Aug 31, 2021 Frequency: At least 5 of 7 days/Wk (IRF) Estimated Hrs Per Day: 1.5 hours per day Rehab Potential: Fair Time/GCodes Start Time: 07:15 Stop Time: 08:30 Total Time Billed (hr/min): 75 Billed Treatment Time 1 visit-ADL 5 (75 min) CYNTHIA CAMACHO Aug 23, 2021 07:48
[2021-08-23 07:58] VITALS: BP 143/66
[2021-08-23] MEDS: ASPIRIN E.C. 81 MG (ECOTRIN) TAB PO SCH (08:31)
[2021-08-23] MEDS: CALCIUM CARBONATE 500 MG (TUMS) TAB.CHEW PO SCH ×3 (08:32→21:25)
[2021-08-23] MEDS: PANTOPRAZOLE 40 MG (PROTONIX) TAB PO SCH (08:32)
[2021-08-23] MEDS: DOCUSATE SODIUM 100 MG (COLACE) CAP PO SCH ×2 (08:32→21:25)
[2021-08-23] MEDS: SENNOSIDES 8.6 MG (SENOKOT) TAB PO SCH ×2 (08:33→21:31)
[2021-08-23] MEDS: FLUTICASONE NASAL SPRAY (FLONASE) 16 GM BTL NS SCH (08:35)
--- NOTE | 2021-08-23 10:08 | Physical Therapy Daily Note ---
PT Daily Note-Current Subjective Patient in recliner pre tx, agrees to PT, has no complaints of pain. Patient needs to use the restroom, does so without assistance. Appearance Patient in recliner post tx with nurse call, phone, tray, all needs met. Mental Status Patient Orientation: Person, Place, Situation Transfers SCALE: Activities may be completed with or without assistive devices. 1-Ncsdztzxrf-fsewvql completes the activity by him/herself with no assistance from a helper. 5-Set-up or Clean-up Assistance-helper sets up or cleans up; patient completes activity. [place] assists only prior to or following the activity. 4-Supervision or Touching Assistance-helper provides verbal cues and/or touching/steadying and/or contact guard assistance as patient completes activity. Assistance may be provided throughout the activity or intermittently. 3-Partial/Moderate Assistance-helper does LESS THAN HALF the effort. [place] lifts, holds or supports trunk or limbs, but provides less than half the effort. 2-Substantial/Maximal Assistance-helper does MORE THAN HALF the effort. [place] lifts or holds trunk or limbs and provides more than half the effort. 5-Iiribxbyd-mtvsft does ALL the effort. Patient does none of the effort to complete the activity. Or, the assistance of 2 or more helpers is required for the patient to complete the activity. If activity was not attempted, code reason: 7-Patient Refused. 9-Not Applicable-not attempted and the patient did not perform the activity before the current illness, exacerbation or injury. 10-Not Attempted due to Environmental Limitations-(lack of equipment, weather restraints, etc.). 88-Not Attempted due to Medical Conditions or Safety Concerns. Sit to Stand (QC): 4 Chair/Lgo-po-Iicns Xfer(QC): 4 SBA Weight Bearing Right Lower Extremity: Right Full Weight Bearing Left Lower Extremity: Left Full Weight Bearing Gait Training Distance: 150'x2, 100' Walk 10 feet (QC): 4 Walk 50 ft with 2 Turns(QC): 4 Walk 150 ft (QC): 4 Gait Persons Needed: 1 Gait Assistive Device: FWW very slow ambulation, no LOB or unsteadiness Exercises Seated Therapy Exercises: Hip abd/add (with ball and RTB) Standing: Heel/toe raises, Mini squats Standing Reps: 15 LAQ alternating for 5 min NuStep Minutes: 15 NuStep Workload: 4 Treatments transfers, ambulation, LE strengthening Assessment Current Status: Fair Progress improving endurance PT Short Term Goals Short Term Goals Time Frame: Aug 24, 2021 Roll Left & Right: 6 Sit to lyin Lying to sitting on side of be: 4 Sit to stand: 4 (SBA) Chair/qww-jm-zuzdp transfer: 4 (SBA) Walk 10 feet: 4 (SBA) Walk 50 feet with two turns: 4 (SBA) Walk 150 feet: 4 (SBA) PT Server Engineer Goals Server Engineer Goals PT Longterm Goals Time Frame: Sep 07, 2021 Roll Left & Right (QC): 6 Sit to Lying (QC): 6 Lying-Sitting on Side/Bed(QC): 6 Sit to Stand (QC): 6 Chair/Ezv-ja-Mwbog Xfer(QC): 6 Toilet Transfer (QC): 6 Car Transfer (QC): 6 Does the Patient Walk: Yes Walk 10 feet (QC): 6 Walk 50ft with 2 Turns (QC): 6 Walk 150 ft (QC): 6 Walking 10ft on Uneven Surface: 6 1 Step (curb) (QC): 4 4 Steps (QC): 4 12 Steps (QC): 88 Picking up an Object (QC): 4 (using screen writer) Wheel 50 feet with 2 turns (QC: 9 Wheel 150 feet: 9 PT Plan Problem List Problem List: Activity Tolerance, Functional Strength, Safety, Balance, Gait, Transfer, Bed Mobility, ROM Treatment/Plan Treatment Plan: Continue Plan of Care Treatment Plan: Bed Mobility, Education, Functional Activity Roxi, Functional Strength, Group Therapy, Gait, Safety, Therapeutic Exercise, Transfers Treatment Duration: Sep 07, 2021 Frequency: At least 5 of 7 days/Wk (IRF) Estimated Hrs Per Day: 1.5 hours per day Patient and/or Family Agrees t: Yes Safety Risks/Education Patient Education: Gait Training, Transfer Techniques, Correct Positioning, Safety Issues Teaching Recipient: Patient Teaching Methods: Demonstration, Discussion Response to Teaching: Reinforcement Needed Time/GCodes Time In: 0900 Time Out: 1015 Total Billed Treatment Time: 75 Total Billed Treatment 1 visit EX 30' FA 45' CHRISTEL TORRES PT Aug 23, 2021 10:08
[2021-08-23] MEDS ORDERED: INSU100I34 SQ (12:35)
[2021-08-23] MEDS ORDERED: ATOR40TA PO (12:35)
[2021-08-23] MEDS ORDERED: MTP25TSR PO (12:35)
[2021-08-23] MEDS ORDERED: INSU100I14 SQ (12:37)
--- NOTE | 2021-08-23 13:46 | Speech Therapy Daily Note ---
Speech Daily Progress Note Subjective Date Seen by Provider: Aug 23, 2021 Time Seen by Provider: 12:30 The patient was seated upright in her recliner, awake and alert upon entrance to her room by the clinician. The patient greeted the clinician appropriately and was agreeable to participation in the cognitive linguistic treatment session. Objective - Visual Memory: The patient was provided a picture and asked to "study" the picture for approximately two to three minutes. Following, the clinician asked the patient specific questions regarding the picture while the picture was not present. The patient displayed excellent accuracy (100%), independently, on the initial attempt. - Orientation: The patient remains 100% oriented to self, location, month, day of the week, date, and year. Assessment Assessment Current Status: Excellent Progress Treatment Plan Continue Plan of Care Speech Short Term Goals Short Term Goals Short Term Goals 1. The patient will demonstrated 80% accuracy with memory exercises with mild clinician verbal and visual cueing. Time Frame-STG: One Week. Speech Can Filling And Closing Machine Tender Goals Can Filling And Closing Machine Tender Goals 1. The patient will demonstrate improved cognitive linguistic skills for increased safety with discharge to the least restricted environment. Time Frame: Two Weeks. Speech-Plan Treatment Plan Speech Therapy Treatment Plan: Continue Plan of Care Treatment Duration: Aug 31, 2021 Frequency: 3 times per week Estimated Hrs Per Day: .5 hour per day Rehab Potential: Fair Safety Risks/Education Teaching Recipient: Patient Teaching Methods: Discussion Response to Teaching: Verbalize Understanding Education Topics Provided: Internal Memory Strategies Time Speech Therapy Time In: 12:30 Speech Therapy Time Out: 13:00 Total Billed Time: 30 Billed Treatment Time TAMIKO Bello SHARLENE ARCE Aug 23, 2021 13:46
[2021-08-23 19:40] VITALS: BP 134/62
[2021-08-23] MEDS: ENOXAPARIN 40 MG/0.4 ML (LOVENOX) SYR SC SCH (21:25)
[2021-08-23] MEDS: ACETAMINOPHEN 325 MG TABLET PO PRN (21:26)
[2021-08-24] MEDS: inSUlin ASPART (NovoLOG) 1 UNIT/0.01 ML (CHARGE PER UNIT) SC SCH ×4 (05:52→20:48)
--- NOTE | 2021-08-24 06:09 | PM&R Progress Note ---
Subjective HPI/CC On Admission Date Seen by Provider: Aug 24, 2021 Time Seen by Provider: 11:30 Subjective/Events-last exam 08/24/2021: Pt is doing really well Ready for discharge on Friday [facility] medications sent in Home health orders initiated 08/23/2021: Pt is doing really well Participating in therapy Discharge on Friday Bowels moved yesterday No falls 08/22/2021: Bowels moved two days ago, will initiate laxatives Flonase will be given for nonspecific ear complaints Discharge on Friday08/21/2021: Patient doing a lot better Blood sugars are really elevated so we will increase long-acting and initiate regular insulin before meals Overall doing very well 08/20/2021: Patient doing really well Patient has night sweats but sugars are normal when she has these Overall doing very well Participating in all therapy 08/19/2021: Patient doing well Sugar 191 today Zofran was given for nausea Lactulose given for constipation Had a fleets enema but still working on bowels 08/18/2021: Patient doing really well No concerns Pain controlled Reviewed labs No falls Participating in therapy Review of Systems General: Fatigue, Malaise Objective Exam Vital Signs Vital Signs Date Time Temp Pulse Resp B/P (MAP) Pulse Ox O2 Delivery O2 Flow Rate FiO2 08/24/21 20:11 36.6 84 16 124/78 (93) 98 Room Air Capillary Refill : General Appearance: No Apparent Distress, WD/WN, Chronically ill HEENT: PERRL/EOMI, Normal ENT Inspection, Pharynx Normal Neck: Full Range of Motion, Normal Inspection, Non Tender, Supple, Carotid Bruit Respiratory: Chest Non Tender, Lungs Clear, Normal Breath Sounds, No Accessory Muscle Use, No Respiratory Distress Cardiovascular: Regular Rate, Rhythm, No Edema, No Gallop, No JVD, No Murmur, Normal Peripheral Pulses Gastrointestinal: Normal Bowel Sounds, No Organomegaly, No Pulsatile Mass, Non Tender, Soft Back: Normal Inspection, No CVA Tenderness, No Vertebral Tenderness Extremity: Normal Capillary Refill, Normal Inspection, Normal Range of Motion, Non Tender, No Calf Tenderness, No Pedal Edema Neurologic/Psychiatric: Alert, Oriented x3, Normal Mood/Affect, interactive graphic designer II-XII Norm as Tested, Abnormal Gait, Motor Weakness Skin: Normal Color, Warm/Dry Lymphatic: No Adenopathy Results/Procedures Lab Patient resulted labs reviewed. FIM Transfers Therapy Code Descriptions/Definitions Functional [place] Measure: 0=Not Assessed/NA 4=Minimal Assistance 1=Total Assistance 5=Supervision or Setup 2=Maximal Assistance 6=Modified [place] 3=Moderate Assistance 7=Complete IndependenceSCALE: Activities may be completed with or without assistive devices. 0-Njgcvudivx-vzfkxpf completes the activity by him/herself with no assistance from a helper. 5-Set-up or Clean-up Assistance-helper sets up or cleans up; patient completes activity. [place] assists only prior to or following the activity. 4-Supervision or Touching Assistance-helper provides verbal cues and/or touching/steadying and/or contact guard assistance as patient completes activity. Assistance may be provided throughout the activity or intermittently. 3-Partial/Moderate Assistance-helper does LESS THAN HALF the effort. [place] lifts, holds or supports trunk or limbs, but provides less than half the effort. 2-Substantial/Maximal Assistance-helper does MORE THAN HALF the effort. [place] lifts or holds trunk or limbs and provides more than half the effort. 1-Xirynpcty-zyidfj does ALL the effort. Patient does none of the effort to complete the activity. Or, the assistance of 2 or more helpers is required for the patient to complete the activity. If activity was not attempted, code reason: 7-Patient Refused. 9-Not Applicable-not attempted and the patient did not perform the activity before the current illness, exacerbation or injury. 10-Not Attempted due to Environmental Limitations-(lack of equipment, weather restraints, etc.). 88-Not Attempted due to Medical Conditions or Safety Concerns. Roll Left to Right (QC): 4 Sit to Lying (QC): 3 Sit to Stand (QC): 4 Chair/Nzj-qs-Nzihy Xfer(QC): 4 Car Transfer (QC): 4 Gait Training Does the Patient Walk?: Yes Distance: 150'x2, 100' Walk 10 feet (QC): 4 Walk 50 ft with 2 Turns(QC): 4 Walk 150 ft (QC): 4 Walking 10ft/uneven surface-QC: 4 Gait Persons Needed: 1 Gait Assistive Device: FWW Wheelchair Training Does the Pt Use a Wheelchair?: No Wheel 50 ft with 2 turns (QC): 9 Wheel 150 ft (QC): 9 Type of Wheelchair: N/A Stair Training Stair Training: Handrails/: uses walker #of Steps: 2 1 Step (curb) (QC): 4 4 Steps (QC): 10 12 Steps (QC): 10 Balance Picking up an Object (QC): 4 ADL-Treatment Eating (QC): 6 Oral Hygiene (QC): 6 Shower/Bathe Self (QC): 6 (sponge bath) Upper Body Dressing (QC): 5 Lower Body Dressing (QC): 5 On/Off Footwear (QC): 5 Toileting Hygiene (QC): 7 Toilet Transfer (QC): 7 Assessment/Plan Assessment and Plan Assess & Plan/Chief Complaint Assessment: Myopathy 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 08/16/21 Dr Calderon CAD previous stent remotely s/p PNA possible aspiration type s/p Cefepime completed Recent DKA DM HTN HLP Neuropathy Plan: Monitor glucose Supportive care Plavix Dr Calderon appreciated Rehab protocol 08/18/2021: Monitor blood sugar Supportive care 08/19/2021: Monitor glucose 08/20/2021: Glucose monitoring Monitor pain 08/21/2021: Monitor sugar Supportive care 08/22/2021: DC Friday Monitor sugar 08/23/2021: DC planned for Friday08/24/2021: DC planned (1) Myopathy (2) Status post placement of implantable loop recorder (3) DKA (diabetic ketoacidosis) (4) Coronary artery disease without angina pectoris (5) Type 2 diabetes mellitus with complication (6) Heart block AV third degree (7) Primary hypertension (8) Mixed hyperlipidemia (9) CAD (coronary artery disease) FREDIS GOMEZ DO Aug 24, 2021 06:08
[2021-08-24 07:24] VITALS: BP 147/65
[2021-08-24] MEDS: CALCIUM CARBONATE 500 MG (TUMS) TAB.CHEW PO SCH ×3 (08:51→20:50)
[2021-08-24] MEDS: DOCUSATE SODIUM 100 MG (COLACE) CAP PO SCH ×2 (08:51→20:47)
[2021-08-24] MEDS: ASPIRIN E.C. 81 MG (ECOTRIN) TAB PO SCH (08:51)
[2021-08-24] MEDS: PANTOPRAZOLE 40 MG (PROTONIX) TAB PO SCH (08:52)
[2021-08-24] MEDS: SENNOSIDES 8.6 MG (SENOKOT) TAB PO SCH ×2 (08:53→20:47)
[2021-08-24] MEDS: FLUTICASONE NASAL SPRAY (FLONASE) 16 GM BTL NS SCH (08:54)
--- NOTE | 2021-08-24 09:53 | Physical Therapy Daily Note ---
PT Daily Note-Current Subjective Patient in recliner pre tx, agrees to PT, has no complaints of pain. Appearance Patient in restroom on toilet post tx, has nurse call to use when done. Mental Status Patient Orientation: Person, Place, Situation Transfers SCALE: Activities may be completed with or without assistive devices. 0-Undtxlnjbt-hsfizvi completes the activity by him/herself with no assistance from a helper. 5-Set-up or Clean-up Assistance-helper sets up or cleans up; patient completes activity. [place] assists only prior to or following the activity. 4-Supervision or Touching Assistance-helper provides verbal cues and/or touc katarzyna/steadying and/or contact guard assistance as patient completes activity. Assistance may be provided throughout the activity or intermittently. 3-Partial/Moderate Assistance-helper does LESS THAN HALF the effort. [place] lifts, holds or supports trunk or limbs, but provides less than half the effort. 2-Substantial/Maximal Assistance-helper does MORE THAN HALF the effort. [place] lifts or holds trunk or limbs and provides more than half the effort. 5-Xeweydwcu-wsybld does ALL the effort. Patient does none of the effort to complete the activity. Or, the assistance of 2 or more helpers is required for the patient to complete the activity. If activity was not attempted, code reason: 7-Patient Refused. 9-Not Applicable-not attempted and the patient did not perform the activity before the current illness, exacerbation or injury. 10-Not Attempted due to Environmental Limitations-(lack of equipment, weather restraints, etc.). 88-Not Attempted due to Medical Conditions or Safety Concerns. Roll Left & Right (QC): 6 Sit to Lying (QC): 6 Lying to Sitting/Side of Bed(Q: 6 Sit to Stand (QC): 6 Chair/Zgi-sv-Wzswd Xfer(QC): 4 Toilet Transfer (QC): 4 Car Transfer (QC): 4 Patient performs rolling and supine <-> sit with independence, sit <-> stand independent, transfers and car transfer SBA. Occasional cues for safety or direction, sometimes patient has anxiety and/or slight dizziness. Weight Bearing Right Lower Extremity: Right Full Weight Bearing Left Lower Extremity: Left Full Weight Bearing Gait Training Distance: 150'x2, 100' Walk 10 feet (QC): 4 Walk 50 ft with 2 Turns(QC): 4 Walk 150 ft (QC): 4 Walking 10ft/uneven surface-QC: 4 Gait Persons Needed: 1 Gait Assistive Device: FWW Patient can ambulate 150' with a rolling walker with SBA (including 50' with at least 2 turns of 90 degrees and 10' over an uneven surface), ambulation is very slow Wheelchair Training Does the Pt Use a Wheelchair?: No Wheel 50 ft with 2 turns (QC): 9 Wheel 150 ft (QC): 9 Stair Training Stair Training: Handrails/: 2 handrails #of Steps: 4 1 Step (curb) (QC): 4 4 Steps (QC): 4 12 Steps (QC): 88 Stairs: Pattern: Step to Patient can go up and down 4 steps using 2 handrails with CGA, cues for safety, patient gets very anxious, says she is afraid of heights Balance Picking up an Object (QC): 4 (SBA, without nurse reviewer) Exercises NuStep Minutes: 15 NuStep Workload: 4 (right arm not used) Neuromuscular Patient scored 21/28 on the Tinetti Assessment Tool Treatments bed mobility and transfers, ambulation, stairs, LE strengthening Assessment Current Status: Fair Progress improvements in strength and endurance but patient still has balance impairments PT Short Term Goals Short Term Goals Time Frame: Aug 24, 2021 Roll Left & Right: 6 Sit to lyin Lying to sitting on side of be: 4 Sit to stand: 4 (SBA) Chair/cyl-br-bmwto transfer: 4 (SBA) Walk 10 feet: 4 (SBA) Walk 50 feet with two turns: 4 (SBA) Walk 150 feet: 4 (SBA) PT Human Resources Vice President Goals Human Resources Vice President Goals PT Retirement Goals Time Frame: Sep 07, 2021 Roll Left & Right (QC): 6 Sit to Lying (QC): 6 Lying-Sitting on Side/Bed(QC): 6 Sit to Stand (QC): 6 Chair/Txc-ul-Aexkg Xfer(QC): 6 Toilet Transfer (QC): 6 Car Transfer (QC): 6 Does the Patient Walk: Yes Walk 10 feet (QC): 6 Walk 50ft with 2 Turns (QC): 6 Walk 150 ft (QC): 6 Walking 10ft on Uneven Surface: 6 1 Step (curb) (QC): 4 4 Steps (QC): 4 12 Steps (QC): 88 Picking up an Object (QC): 4 (using nurse reviewer) Wheel 50 feet with 2 turns (QC: 9 Wheel 150 feet: 9 PT Plan Problem List Problem List: Activity Tolerance, Functional Strength, Safety, Balance, Gait, Transfer, Bed Mobility, ROM Treatment/Plan Treatment Plan: Continue Plan of Care Treatment Plan: Bed Mobility, Education, Functional Activity Roxi, Functional Strength, Group Therapy, Gait, Safety, Therapeutic Exercise, Transfers Treatment Duration: Sep 07, 2021 Frequency: At least 5 of 7 days/Wk (IRF) Estimated Hrs Per Day: 1.5 hours per day Patient and/or Family Agrees t: Yes Safety Risks/Education Patient Education: Gait Training, Transfer Techniques, Steps, Correct Positioning, Safety Issues Teaching Recipient: Patient Teaching Methods: Demonstration, Discussion Response to Teaching: Reinforcement Needed Time/GCodes Time In: 0900 Time Out: 1000 Total Billed Treatment Time: 60 Total Billed Treatment 1 visit EX 15' FA 45' CHRISTEL TORRES PT Aug 24, 2021 09:53
--- NOTE | 2021-08-24 11:21 | Occupational Ther Daily Note ---
OT Current Status-Daily Note Subjective Pt alert, lying in bed. Pt agrees to therapy. No c/o pain. Mental Status/Objective Patient Orientation: Person, Place, Time, Situation Attachments: Other-See Comments (pacemaker) ADL-Treatment Pt agrees to shower. Pt retrieved own clothes from closet using FWW, independently. Pt transported to place where she wanted to dress after shower. Using FWW, pt able to transfer into shower by self. Pt completed shower using shower bench, grabbar and hand held shower independently. Pt stood at sink to complete oral care then requested to use toilet. Transfer on/off toilet independently using FWW and grabbar. Completed clothing manipulation and hygiene independently. Independent with dressing. After session, pt sitting in recliner with call light/phone in reach. All needs met in room. Therapy Code Descriptions/Definitions Functional [place] Measure: 0=Not Assessed/NA 4=Minimal Assistance 1=Total Assistance 5=Supervision or Setup 2=Maximal Assistance 6=Modified [place] 3=Moderate Assistance 7=Complete IndependenceSCALE: Activities may be completed with or without assistive devices. 6-Efljrcxjur-uaobzln completes the activity by him/herself with no assistance from a helper. 5-Set-up or Clean-up Assistance-helper sets up or cleans up; patient completes activity. [place] assists only prior to or following the activity. 4-Supervision or Touching Assistance-helper provides verbal cues and/or touching/steadying and/or contact guard assistance as patient completes activity. Assistance may be provided throughout the activity or intermittently. 3-Partial/Moderate Assistance-helper does LESS THAN HALF the effort. [place] lifts, holds or supports trunk or limbs, but provides less than half the effort. 2-Substantial/Maximal Assistance-helper does MORE THAN HALF the effort. [place] lifts or holds trunk or limbs and provides more than half the effort. 7-Gklajyeqi-uyxhuc does ALL the effort. Patient does none of the effort to complete the activity. Or, the assistance of 2 or more helpers is required for the patient to complete the activity. If activity was not attempted, code reason: 7-Patient Refused. 9-Not Applicable-not attempted and the patient did not perform the activity before the current illness, exacerbation or injury. 10-Not Attempted due to Environmental Limitations-(lack of equipment, weather restraints, etc.). 88-Not Attempted due to Medical Conditions or Safety Concerns. Eating (QC): 6 Oral Hygiene (QC): 6 Shower/Bathe Self (QC): 6 Upper Body Dressing (QC): 6 Lower Body Dressing (QC): 6 On/Off Footwear: 6 Toileting Hygiene (QC): 6 Toilet Transfer (QC): 6 OT Short Term Goals Short Term Goals Time Frame: Aug 23, 2021 Shower/bathe self: 5 Upper body dressin Lower body dressin OT [facility] Goals Manager File Goals Time Frame: Aug 31, 2021 Eating (QC): 6 (met) Oral Hygiene (QC): 6 (met) Toileting Hygiene (QC): 6 (met) Shower/Bathe Self (QC): 6 (met) Upper Body Dressing (QC): 6 (met) Lower Body Dressing (QC): 6 (met) On/Off Footwear (QC): 6 (met) Additional Goals: 1-Demonstrate ADL Tasks, 2-Verbalize Understanding, 3- ImproveStrength/[place]oxi 1=Demonstrate adherence to instructed precautions during ADL tasks. 2=Patient will verbalize/demonstrate understanding of assistive devices/modifications for ADL. 3=Patient will improve strength/tolerance for activity to enable patient to perform ADL's. OT Education/Plan Problem List/Assessment Assessment: Decreased Activ Tolerance Discharge Recommendations Plan/Recommendations: Continue POC Treatment Plan/Plan of Care Patient would benefit from OT for education, treatment and training to promote independence in ADL's, mobility, safety and/or upper extremity function for ADL's. Plan of Care: ADL Retraining, Functional Mobility, Group Exercise/Act as Ind, UE Funct Exercise/Act Treatment Duration: Aug 31, 2021 Frequency: At least 5 of 7 days/Wk (IRF) Estimated Hrs Per Day: 1.5 hours per day Rehab Potential: Fair Time/GCodes Start Time: 07:15 Stop Time: 08:30 Total Time Billed (hr/min): 75 Billed Treatment Time 1 visit-ADL 5 (75 min) CYNTHIA CAMACHO Aug 24, 2021 11:21
--- NOTE | 2021-08-24 11:58 | D/C HH Face to Face Order ---
D/C HH Face to Face Orders Reconcile Patient Problems Problems Reviewed?: Yes Instructions for Patient HH Patient Instructions/FollowUp: PCP 1 week Physician to follow Patient: PCP Discharge Diet for Home: ADA Diet Patient Problems: Complete heart block Patient Data-Allergies,Ht & Wt Patient Allergies: Coded Allergies: NKANo Known Allergies (Verified Allergy, Unknown, 06/01/21) Height (Feet): 4 Height (Inches): 10.00 Weight (Pounds): 161 Weight (Ounces): 0.0 Home Health Need/Face to Face Date of Face to Face: Aug 24, 2021 Clinical Findings: Generalized weakness and fatigue, Instability, Muscle weakness, Unsteady gait I have seen Pt plyf-zu-mnso: Yes Discharged To: Home Diagnosis/Conditions: Debility Patient is Homebound due to: CognItive deficits, Muscle weakness Homebound Status Due to the above stated illness, injury or surgical procedure (medical condition or diagnosis) and associated clinical findings, the patient is homebound because of his/her inability to leave home except with aid of a supportive device and/or person AND leaving the home requires a considerable and taxing effort or is medically contraindicated. Pt req the following assistanc: Walker Home Health Nursing Orders Home Health Services Order: Wind Field Service Manager-Evaluate & Treat, Physical Therapy-Evaluate & Treat Certify Stmt I certify that this patient is under my care and that I, a nurse practitioner or a physician; a biology research assistant working with me, had a face to face encounter that - meets the physician face to face encounter requirements with this patient as dated. FREDIS GOMEZ DO Aug 24, 2021 11:58
[2021-08-24] MEDS ORDERED: INSU100I14 SQ ×2 (12:00→12:20)
[2021-08-24] MEDS ORDERED: MTP25TSR PO ×2 (12:00→12:20)
[2021-08-24] MEDS ORDERED: ATOR40TA PO ×2 (12:00→12:20)
--- NOTE | 2021-08-24 12:04 | Speech Therapy Daily Note ---
Speech Daily Progress Note Subjective Date Seen by Provider: Aug 24, 2021 Time Seen by Provider: 11:10 The patient was seated upright in her recliner upon entrance to her room by the clinician. The patient greeted the clinician appropriately and was agreeable to participation in the cognitive linguistic treatment session. Objective Expression of Ideas/Wants: Expression (4) Understanding Verbal Content: Understands (4) Brief Interview-Mental Status: Yes Repetition of Three Words: Three (3) Temporal Orientation: Year: Correct (3) Temporal Orientation: Month: Accurate within 5 days(2) Temporal Orientation: Day: Correct (1) Recall : Wear to say "Sock": Yes, no cue required (2) Recall : Color: Yes, no cue required (2) Recall : Bed: Yes,after cueing (1) Memory/Recall Ability: Current season, That he or she is in a hsp/hsp unit The patient participated in functional recall of morning exercises with OT and PT. The patient stated she was able to shower with "some help" but "mostly all by myself." As discharge is in the near future, the clinician discussed safety in the patient's home environment, including requesting assistance from staff when necessary. The patient remains difficult to keep on task, often requiring redirection for completion. Assessment Assessment Current Status: Good Progress Treatment Plan Continue Plan of Care Speech Short Term Goals Short Term Goals Short Term Goals 1. The patient will demonstrated 80% accuracy with memory exercises with mild clinician verbal and visual cueing. Time Frame-STG: One Week. Speech Scaffold Worker Goals Scaffold Worker Goals 1. The patient will demonstrate improved cognitive linguistic skills for increased safety with discharge to the least restricted environment. Time Frame: Two Weeks. Speech-Plan Treatment Plan Speech Therapy Treatment Plan: Continue Plan of Care Treatment Duration: Aug 31, 2021 Frequency: 3 times per week Estimated Hrs Per Day: .5 hour per day Rehab Potential: Fair Safety Risks/Education Teaching Recipient: Patient Teaching Methods: Discussion Response to Teaching: Verbalize Understanding Education Topics Provided: Functional Recall Time Speech Therapy Time In: 11:10 Speech Therapy Time Out: 11:40 Total Billed Time: 30 Billed Treatment Time TAMIKO Bello [facility] Aug 24, 2021 12:04
--- NOTE | 2021-08-24 12:05 | Therapy Team Discharge Summary ---
Therapy Discharge Summary Discharge Recommendations Date of Discharge Physical Therapy Roll Left to Right (QC): 6 Sit to Lying (QC): 6 Lying to Sitting/Side of Bed(Q: 6 Sit to Stand (QC): 6 Chair/Yhp-vo-Yssdl Xfer(QC): 4 Toilet Transfer (QC): 4 Car Transfer (QC): 4 Does the Patient Walk: Yes Mode of Locomotion: Walk Anticipated Mode of Locomotion: Walk Walk 10 feet (QC): 4 Walk 50 ft with 2 Turns(QC): 4 Walk 150 ft (QC): 4 Walking 10ft on uneven surface: 4 Distance: 100', 30' Gait Assistive Device: FWW Does the Pt Use a Wheelchair: No Wheel 50 ft with 2 turns (QC): 9 Wheel 150 ft (QC): 9 Type of Wheelchair: N/A #of Steps: 4 1 Step (curb) (QC): 4 4 Steps (QC): 4 12 Steps (QC): 88 Balance Sitting Static: Normal Balance Sitting Dynamic: Normal Balance-Standing Static: Fair Picking up an Object (QC): 4 (SBA, without municipal engineer) Occupational Therapy Decreased Activ Tolerance Eating (QC): 6 Oral Hygiene (QC): 6 Shower/Bathe Self (QC): 6 Upper Body Dressing (QC): 6 Lower Body Dressing (QC): 6 On/Off Footwear (QC): 6 Toileting Hygiene (QC): 6 Speech-Language Pathology Expression of Ideas/Wants: Expression (4) Understanding Verbal Content: Understands (4) Brief Interview-Mental Status: Yes Repetition of Three Words: Three (3) Temporal Orientation: Year: Correct (3) Temporal Orientation: Month: Accurate within 5 days(2) Temporal Orientation: Day: Correct (1) Recall : Wear to say "Sock": Yes, no cue required (2) Recall : Color: Yes, no cue required (2) Recall : Bed: Yes,after cueing (1) Memory/Recall Ability: Current season, That he or she is in a hsp/hsp unit The patient displayed excellent progress with goals placed by speech pathology, however, does require frequent redirection to tasks. PT Lead Mechanic Goals Lead Mechanic Goals PT Custodial Goals Time Frame: Sep 07, 2021 Roll Left to Right (QC): 6 Sit to Lying (QC): 6 Lying-Sitting on Side/Bed(QC): 6 Sit to Stand (QC): 6 Chair/Xtc-te-Nngke Xfer(QC): 6 Car Transfer (QC): 6 Does the Patient Walk: Yes Walk 10 feet (QC): 6 Walk 10ft-Uneven Surface(QC): 6 Walk 50ft with 2 Turns (QC): 6 Walk 150 ft (QC): 6 Wheel 50 feet with 2 turns (QC: 9 1 Step (curb) (QC): 4 4 Steps (QC): 4 12 Steps (QC): 88 Picking up an Object (QC): 4 (using municipal engineer) OT Lead Mechanic Goals Lead Mechanic Goals Time Frame: Aug 31, 2021 Eating (FIM): 6 Eating (QC): 6 (met) Oral Hygiene (QC): 6 (met) Shower/Bathe Self (QC): 6 (met) Upper Body Dressing (QC): 6 (met) Lower Body Dressing (QC): 6 (met) On/Off Footwear (QC): 6 (met) Toileting(FIM): 6 Toileting Hygiene (QC): 6 (met) Toilet/Commode Transfer (QC): 6 Additional Goals: 1-Demonstrate ADL Tasks, 2-Verbalize Understanding, 3- ImproveStrength/Roxi 1=Demonstrate adherence to instructed precautions during ADL tasks. 2=Patient will verbalize/demonstrate understanding of assistive devices/modifications for ADL. 3=Patient will improve strength/tolerance for activity to enable patient to perform ADL's. Speech Custodial Goals Lead Mechanic Goals 1. The patient will demonstrate improved cognitive linguistic skills for increased safety with discharge to the least restricted environment. Time Frame: Two Weeks. SHARLENE ARCE Aug 24, 2021 12:05
--- NOTE | 2021-08-24 13:43 | Physical Therapy Daily Note ---
PT Daily Note-Current Subjective Patient in recliner pre tx, agrees to PT, has no complaints of pain. Patient needs to use the restroom and does so on her own. Appearance Patient in recliner post tx with nurse call, phone, tray,all needs met. Mental Status Patient Orientation: Person, Place, Situation Transfers SCALE: Activities may be completed with or without assistive devices. 1-Nofnaxncep-wjlbpzl completes the activity by him/herself with no assistance from a helper. 5-Set-up or Clean-up Assistance-helper sets up or cleans up; patient completes activity. [place] assists only prior to or following the activity. 4-Supervision or Touching Assistance-helper provides verbal cues and/or touching/steadying and/or contact guard assistance as patient completes a ctivity. Assistance may be provided throughout the activity or intermittently. 3-Partial/Moderate Assistance-helper does LESS THAN HALF the effort. [place] lifts, holds or supports trunk or limbs, but provides less than half the effort. 2-Substantial/Maximal Assistance-helper does MORE THAN HALF the effort. [place] lifts or holds trunk or limbs and provides more than half the effort. 4-Rwrifbxke-hyhrub does ALL the effort. Patient does none of the effort to complete the activity. Or, the assistance of 2 or more helpers is required for the patient to complete the activity. If activity was not attempted, code reason: 7-Patient Refused. 9-Not Applicable-not attempted and the patient did not perform the activity before the current illness, exacerbation or injury. 10-Not Attempted due to Environmental Limitations-(lack of equipment, weather restraints, etc.). 88-Not Attempted due to Medical Conditions or Safety Concerns. Sit to Stand (QC): 4 Chair/Hxk-he-Rfckf Xfer(QC): 4 Toilet Transfer (QC): 4 Weight Bearing Right Lower Extremity: Right Full Weight Bearing Left Lower Extremity: Left Full Weight Bearing Gait Training Does the Patient Walk?: Yes Distance: 150'x2 Walk 10 feet (QC): 4 Walk 50 ft with 2 Turns(QC): 4 Walk 150 ft (QC): 4 Gait Persons Needed: 1 Gait Assistive Device: FWW slow but steady ambulation Treatments toileting, ambulation, transfers Assessment Current Status: Fair Progress patient cooperative and pleasant PT Short Term Goals Short Term Goals Time Frame: Aug 24, 2021 Roll Left & Right: 6 Sit to lyin Lying to sitting on side of be: 4 Sit to stand: 4 (SBA) Chair/xrl-nl-hfblp transfer: 4 (SBA) Walk 10 feet: 4 (SBA) Walk 50 feet with two turns: 4 (SBA) Walk 150 feet: 4 (SBA) PT Prison Goals Prison Goals PT [employer] Packing Header Goals Time Frame: Sep 07, 2021 Roll Left & Right (QC): 6 Sit to Lying (QC): 6 Lying-Sitting on Side/Bed(QC): 6 Sit to Stand (QC): 6 Chair/Ofm-qn-Euldh Xfer(QC): 6 Toilet Transfer (QC): 6 Car Transfer (QC): 6 Does the Patient Walk: Yes Walk 10 feet (QC): 6 Walk 50ft with 2 Turns (QC): 6 Walk 150 ft (QC): 6 Walking 10ft on Uneven Surface: 6 1 Step (curb) (QC): 4 4 Steps (QC): 4 12 Steps (QC): 88 Picking up an Object (QC): 4 (using dryer feeder) Wheel 50 feet with 2 turns (QC: 9 Wheel 150 feet: 9 PT Plan Problem List Problem List: Activity Tolerance, Functional Strength, Safety, Balance, Gait, Transfer, Bed Mobility, ROM Treatment/Plan Treatment Plan: Continue Plan of Care Treatment Plan: Bed Mobility, Education, Functional Activity [place], Functional Strength, Group Therapy, Gait, Safety, Therapeutic Exercise, Transfers Treatment Duration: Sep 07, 2021 Frequency: At least 5 of 7 days/Wk (IRF) Estimated Hrs Per Day: 1.5 hours per day Patient and/or Family Agrees t: Yes Safety Risks/Education Patient Education: Gait Training, Transfer Techniques, Correct Positioning, Safety Issues Teaching Recipient: Patient Teaching Methods: Demonstration, Discussion Response to Teaching: Reinforcement Needed Time/GCodes Time In: 1300 Time Out: 1315 Total Billed Treatment Time: 15 Total Billed Treatment 1 visit GT 15' CHRISTEL TORRES PT Aug 24, 2021 13:43
[2021-08-24 20:11] VITALS: BP 124/78
[2021-08-24] MEDS: ENOXAPARIN 40 MG/0.4 ML (LOVENOX) SYR SC SCH (20:48)
[2021-08-24] MEDS: ACETAMINOPHEN 325 MG TABLET PO PRN (20:56)
--- NOTE | 2021-08-25 05:37 | PM&R Progress Note ---
Subjective HPI/CC On Admission Date Seen by Provider: Aug 25, 2021 Subjective/Events-last exam 08/25/2021: Pt doing well Ready for discharge tomorrow Medications sent to [facility] No falls 08/24/2021: Pt is doing really well Ready for discharge on Friday [facility] medications sent in Home health orders initiated 08/23/2021: Pt is doing really well Participating in therapy Discharge on Friday Bowels moved yesterday No falls 08/22/2021: Bowels moved two days ago, will initiate laxatives Flonase will be given for nonspecific ear complaints Discharge on Friday08/21/2021: Patient doing a lot better Blood sugars are really elevated so we will increase long-acting and initiate regular insulin before meals Overall doing very well 08/20/2021: Patient doing really well Patient has night sweats but sugars are normal when she has these Overall doing very well Participating in all therapy 08/19/2021: Patient doing well Sugar 191 today Zofran was given for nausea Lactulose given for constipation Had a fleets enema but still working on bowels 08/18/2021: Patient doing really well No concerns Pain controlled Reviewed labs No falls Participating in therapy Review of Systems General: Fatigue, Malaise Objective Exam Vital Signs Vital Signs Date Time Temp Pulse Resp B/P (MAP) Pulse Ox O2 Delivery O2 Flow Rate FiO2 08/25/21 09:22 Room Air 08/25/21 07:05 36.7 76 18 120/73 (89) 100 Capillary Refill : General Appearance: No Apparent Distress, WD/WN, Chronically ill HEENT: PERRL/EOMI, Normal ENT Inspection, Pharynx Normal Neck: Full Range of Motion, Normal Inspection, Non Tender, Supple, Carotid Bruit Respiratory: Chest Non Tender, Lungs Clear, Normal Breath Sounds, No Accessory Muscle Use, No Respiratory Distress Cardiovascular: Regular Rate, Rhythm, No Edema, No Gallop, No JVD, No Murmur, Normal Peripheral Pulses Gastrointestinal: Normal Bowel Sounds, No Organomegaly, No Pulsatile Mass, Non Tender, Soft Back: Normal Inspection, No CVA Tenderness, No Vertebral Tenderness Extremity: Normal Capillary Refill, Normal Inspection, Normal Range of Motion, Non Tender, No Calf Tenderness, No Pedal Edema Neurologic/Psychiatric: Alert, Oriented x3, Normal Mood/Affect, biology instructor II-XII Norm as Tested, Abnormal Gait, Motor Weakness Skin: Normal Color, Warm/Dry Lymphatic: No Adenopathy Results/Procedures Lab Patient resulted labs reviewed. FIM Transfers Therapy Code Descriptions/Definitions Functional [place] Measure: 0=Not Assessed/NA 4=Minimal Assistance 1=Total Assistance 5=Supervision or Setup 2=Maximal Assistance 6=Modified [place] 3=Moderate Assistance 7=Complete IndependenceSCALE: Activities may be completed with or without assistive devices. 0-Tjjcwzeats-atxeqkx completes the activity by him/herself with no assistance from a helper. 5-Set-up or Clean-up Assistance-helper sets up or cleans up; patient completes activity. [place] assists only prior to or following the activity. 4-Supervision or Touching Assistance-helper provides verbal cues and/or touching/steadying and/or contact guard assistance as patient completes activity. Assistance may be provided throughout the activity or intermittently. 3-Partial/Moderate Assistance-helper does LESS THAN HALF the effort. [place] lifts, holds or supports trunk or limbs, but provides less than half the effort. 2-Substantial/Maximal Assistance-helper does MORE THAN HALF the effort. [place] lifts or holds trunk or limbs and provides more than half the effort. 1-Xlvjindmp-zixckb does ALL the effort. Patient does none of the effort to complete the activity. Or, the assistance of 2 or more helpers is required for the patient to complete the activity. If activity was not attempted, code reason: 7-Patient Refused. 9-Not Applicable-not attempted and the patient did not perform the activity before the current illness, exacerbation or injury. 10-Not Attempted due to Environmental Limitations-(lack of equipment, weather restraints, etc.). 88-Not Attempted due to Medical Conditions or Safety Concerns. Roll Left to Right (QC): 6 Sit to Lying (QC): 6 Sit to Stand (QC): 4 Chair/Cjd-mz-Puvne Xfer(QC): 4 Car Transfer (QC): 4 Gait Training Does the Patient Walk?: Yes Distance: 150'x2 Walk 10 feet (QC): 4 Walk 50 ft with 2 Turns(QC): 4 Walk 150 ft (QC): 4 Walking 10ft/uneven surface-QC: 4 Gait Persons Needed: 1 Gait Assistive Device: FWW Wheelchair Training Does the Pt Use a Wheelchair?: No Wheel 50 ft with 2 turns (QC): 9 Wheel 150 ft (QC): 9 Type of Wheelchair: N/A Stair Training Stair Training: Handrails/: 2 handrails #of Steps: 4 1 Step (curb) (QC): 4 4 Steps (QC): 4 12 Steps (QC): 88 Stairs: Pattern: Step to Balance Picking up an Object (QC): 4 (SBA, without painter helper) ADL-Treatment Eating (QC): 6 Oral Hygiene (QC): 6 Shower/Bathe Self (QC): 6 Upper Body Dressing (QC): 6 Lower Body Dressing (QC): 6 On/Off Footwear (QC): 6 Toileting Hygiene (QC): 6 Toilet Transfer (QC): 6 Assessment/Plan Assessment and Plan Assess & Plan/Chief Complaint Assessment: Myopathy 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 08/16/21 Dr Calderon CAD previous stent remotely s/p PNA possible aspiration type s/p Cefepime completed Recent DKA DM HTN HLP Neuropathy Plan: Monitor glucose Supportive care Plavix Dr Calderon appreciated Rehab protocol 08/18/2021: Monitor blood sugar Supportive care 08/19/2021: Monitor glucose 08/20/2021: Glucose monitoring Monitor pain 08/21/2021: Monitor sugar Supportive care 08/22/2021: DC Friday Monitor sugar 08/23/2021: DC planned for Friday08/24/2021: DC planned 08/25/2021: Discharge home tomorrow (1) Myopathy (2) Status post placement of implantable loop recorder (3) DKA (diabetic ketoacidosis) (4) Coronary artery disease without angina pectoris (5) Type 2 diabetes mellitus with complication (6) Heart block AV third degree (7) Primary hypertension (8) Mixed hyperlipidemia (9) CAD (coronary artery disease) FREDIS GOMEZ DO Aug 25, 2021 05:37
[2021-08-25] MEDS: inSUlin ASPART (NovoLOG) 1 UNIT/0.01 ML (CHARGE PER UNIT) SC SCH ×4 (06:34→22:42)
[2021-08-25 07:05] VITALS: BP 120/73
[2021-08-25] MEDS: CALCIUM CARBONATE 500 MG (TUMS) TAB.CHEW PO SCH ×3 (07:58→23:05)
[2021-08-25] MEDS: ASPIRIN E.C. 81 MG (ECOTRIN) TAB PO SCH (07:58)
[2021-08-25] MEDS: DOCUSATE SODIUM 100 MG (COLACE) CAP PO SCH ×2 (07:59→22:41)
[2021-08-25] MEDS: PANTOPRAZOLE 40 MG (PROTONIX) TAB PO SCH (07:59)
[2021-08-25] MEDS: SENNOSIDES 8.6 MG (SENOKOT) TAB PO SCH ×2 (07:59→23:05)
[2021-08-25] MEDS: FLUTICASONE NASAL SPRAY (FLONASE) 16 GM BTL NS SCH (08:01)
--- NOTE | 2021-08-25 13:03 | Physical Therapy Daily Note ---
PT Daily Note-Current Subjective No complaints voiced on arrival or during treatment. Mental Status Patient Orientation: Person, Place, Time, Situation Transfers SCALE: Activities may be completed with or without assistive devices. 1-Hiyfqmqewp-ptosgye completes the activity by him/herself with no assistance from a helper. 5-Set-up or Clean-up Assistance-helper sets up or cleans up; patient completes activity. [place] assists only prior to or following the activity. 4-Supervision or Touching Assistance-helper provides verbal cues and/or touching/steadying and/or contact guard assistance as patient completes activity. Assistance may be provided throughout the activity or intermittently. 3-Partial/Moderate Assistance-helper does LESS THAN HALF the effort. [place] lifts, holds or supports trunk or limbs, but provides less than half the effort. 2-Substantial/Maximal Assistance-helper does MORE THAN HALF the effort. [place] lifts or holds trunk or limbs and provides more than half the effort. 4-Nlkfktfuo-jcogxn does ALL the effort. Patient does none of the effort to complete the activity. Or, the assistance of 2 or more helpers is required for the patient to complete the activity. If activity was not attempted, code reason: 7-Patient Refused. 9-Not Applicable-not attempted and the patient did not perform the activity before the current illness, exacerbation or injury. 10-Not Attempted due to Environmental Limitations-(lack of equipment, weather restraints, etc.). 88-Not Attempted due to Medical Conditions or Safety Concerns. Roll Left & Right (QC): 6 Sit to Lying (QC): 6 Lying to Sitting/Side of Bed(Q: 6 Sit to Stand (QC): 6 Weight Bearing Right Lower Extremity: Right Full Weight Bearing Left Lower Extremity: Left Full Weight Bearing Gait Training Does the Patient Walk?: Yes Distance: [id number] Walk 10 feet (QC): 6 Walk 50 ft with 2 Turns(QC): 6 Walk 150 ft (QC): 6 Gait Assistive Device: FWW Exercises Seated Therapy Exercises: LE Protocol Seated Reps: 20 Assessment Current Status: Excellent Progress Good stability with transfers and all aspects of gait. PT Short Term Goals Short Term Goals Time Frame: Aug 24, 2021 Roll Left & Right: 6 Sit to lyin Lying to sitting on side of be: 4 Sit to stand: 4 (SBA) Chair/sqb-wp-zgdsm transfer: 4 (SBA) Walk 10 feet: 4 (SBA) Walk 50 feet with two turns: 4 (SBA) Walk 150 feet: 4 (SBA) PT Delivery Helper Goals Delivery Helper Goals PT Nursing Home Goals Time Frame: Sep 07, 2021 Roll Left & Right (QC): 6 Sit to Lying (QC): 6 Lying-Sitting on Side/Bed(QC): 6 Sit to Stand (QC): 6 Chair/Xeh-nr-Xncor Xfer(QC): 6 Toilet Transfer (QC): 6 Car Transfer (QC): 6 Does the Patient Walk: Yes Walk 10 feet (QC): 6 Walk 50ft with 2 Turns (QC): 6 Walk 150 ft (QC): 6 Walking 10ft on Uneven Surface: 6 1 Step (curb) (QC): 4 4 Steps (QC): 4 12 Steps (QC): 88 Picking up an Object (QC): 4 (using pool coordinator) Wheel 50 feet with 2 turns (QC: 9 Wheel 150 feet: 9 PT Plan Treatment/Plan Treatment Plan: Continue Plan of Care Treatment Plan: Bed Mobility, Education, Functional Activity [place], Functional Strength, Group Therapy, Gait, Safety, Therapeutic Exercise, Transfers Treatment Duration: Sep 07, 2021 Frequency: At least 5 of 7 days/Wk (IRF) Estimated Hrs Per Day: 1.5 hours per day Patient and/or Family Agrees t: Yes Time/GCodes Time In: 0935 Time Out: 0950 Total Billed Treatment Time: 15 Total Billed Treatment 1, gt 15 JENNIFER BENDER PT Aug 25, 2021 13:03
[2021-08-25 20:09] VITALS: BP 113/65
[2021-08-25] MEDS: ENOXAPARIN 40 MG/0.4 ML (LOVENOX) SYR SC SCH (22:43)
--- NOTE | 2021-08-26 05:49 | Discharge Summary ---
Diagnosis/Chief Complaint Date of Admission Aug 17, 2021 at 11:35 Date of Discharge Discharge Date: Aug 26, 2021 Discharge Diagnosis Assessment: Myopathy 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 08/16/21 Dr Calderon CAD previous stent remotely s/p PNA possible aspiration type s/p Cefepime completed Recent DKA DM HTN HLP Neuropathy Plan: Monitor glucose Supportive care Plavix Dr Calderon appreciated Rehab protocol 08/18/2021: Monitor blood sugar Supportive care 08/19/2021: Monitor glucose 08/20/2021: Glucose monitoring Monitor pain 08/21/2021: Monitor sugar Supportive care 08/22/2021: DC Friday Monitor sugar 08/23/2021: DC planned for Friday08/24/2021: DC planned 08/25/2021: Discharge home tomorrow (1) Myopathy (2) Status post placement of implantable loop recorder (3) DKA (diabetic ketoacidosis) (4) Coronary artery disease without angina pectoris (5) Type 2 diabetes mellitus with complication (6) Heart block AV third degree (7) Primary hypertension (8) Mixed hyperlipidemia (9) CAD (coronary artery disease) Discharge Summary Discharge Physical Examination Allergies: Coded Allergies: NKANo Known Allergies (Verified Allergy, Unknown, 06/01/21) Vitals & I&Os Vital Signs Date Time Temp Pulse Resp B/P (MAP) Pulse Ox O2 Delivery O2 Flow Rate FiO2 08/26/21 10:02 Room Air 08/26/21 07:09 37.0 81 16 119/73 (88) 96 General Appearance: Alert, Oriented X3, Cooperative Respiratory: Clear to Auscultation Cardiovascular: Regular Rate Neuro: Normal Gait, Normal Speech, Strength at 5/5 X4 Ext Psych/Mental Status: Mental Status NL Hospital Course Was the Problem List Reviewed?: Yes Patient had an uneventful but lengthy hospital course in inpatient rehab after critical illness with DKA and complete heart block requiring pacemaker and insulin drip. Patient requiring insulin regimen overall in addition to monitoring closely per cardiology. She was very weak but ultimately regain enough strength to return back to assisted living to remain independent. All goals attained and patient was back to baseline using a walker. Labs (last 24 hrs) Laboratory Tests 08/17/21 07:54: White Blood Count 9.8, Red Blood Count 3.82, Hemoglobin 11.4L, Hematocrit 35, Mean Corpuscular Volume 90, Mean Corpuscular Hemoglobin 30, Mean Corpuscular H emoglobin Concent 33, Red Cell Distribution Width 13.1, Platelet Count 282, Mean Platelet Volume 11.1, Immature Granulocyte % (Auto) 1, Neutrophils (%) (Auto) 78H, Lymphocytes (%) (Auto) 12, Monocytes (%) (Auto) 8, Eosinophils (%) (Auto) 2, Basophils (%) (Auto) 0, Neutrophils # (Auto) 7.6, Lymphocytes # (Auto) 1.2, Monocytes # (Auto) 0.8, Eosinophils # (Auto) 0.2, Basophils # (Auto) 0.0, Immature Granulocyte # (Auto) 0.1, Sodium Level 137, Potassium Level 3.6, Chloride Level 107, Carbon Dioxide Level 19L, Anion Gap 11, Blood Urea Nitrogen 14, Creatinine 0.56L, Estimat Glomerular Filtration Rate 99, BUN/Creatinine Ratio 25, Glucose Level 133H, Calcium Level 8.5, Corrected Calcium 9.0, Total Bilirubin 0.5, Aspartate Amino Transf (AST/SGOT) 16, Alanine Aminotransferase (ALT/SGPT) 27, Alkaline Phosphatase 56, Total Protein 6.4, Albumin 3.4 08/17/21 14:54: Glucometer 298H 08/17/21 16:56: Glucometer 221H 08/17/21 20:30: Glucometer 183H 08/18/21 06:00: White Blood Count 11.5H, Red Blood Count 4.13, Hemoglobin 12.2, Hematocrit 38, Mean Corpuscular Volume 91, Mean Corpuscular Hemoglobin 30, Mean Corpuscular Hemoglobin Concent 32, Red Cell Distribution Width 13.3, Platelet Count 288, Mean Platelet Volume 10.9, Immature Granulocyte % (Auto) 1, Neutrophils (%) (Auto) 72, Lymphocytes (%) (Auto) 17, Monocytes (%) (Auto) 9, Eosinophils (%) (Auto) 1, Basophils (%) (Auto) 0, Neutrophils # (Auto) 8.3H, Lymphocytes # (Auto) 2.0, Monocytes # (Auto) 1.0, Eosinophils # (Auto) 0.1, Basophils # (Auto) 0.0, Immature Granulocyte # (Auto) 0.1, Sodium Level 138, Potassium Level 3.5L, Chloride Level 105, Carbon Dioxide Level 20L, Anion Gap 13, Blood Urea Nitrogen 14, Creatinine 0.62, Estimat Glomerular Filtration Rate 97, BUN/Creatinine Ratio 23, Glucose Level 172H, Calcium Level 9.4, Corrected Calcium 9.6, Total Bilirubin 0.4, Aspartate Amino Transf (AST/SGOT) 13, Alanine Aminotransferase (ALT/SGPT) 25, Alkaline Phosphatase 58, Total Protein 7.1, Albumin 3.8 08/18/21 11:17: Glucometer 193H 08/18/21 16:57: Glucometer 249H 08/18/21 20:45: Glucometer 238H 08/19/21 06:32: Glucometer 157H 08/19/21 11:31: Glucometer 191H 08/19/21 16:55: Glucometer 176H 08/19/21 20:04: Glucometer 239H 08/20/21 06:25: Glucometer 194H 08/20/21 12:48: Glucometer 183H 08/20/21 15:23: Glucometer 310H 08/20/21 20:39: Glucometer 259H 08/21/21 05:38: Glucometer 214H 08/21/21 09:38: Glucometer 355H 08/21/21 11:21: Glucometer 255H 08/21/21 15:46: Glucometer 213H 08/21/21 20:01: Glucometer 162H 08/22/21 05:44: Glucometer 173H 08/22/21 11:02: Glucometer 266H 08/22/21 15:19: Glucometer 174H 08/22/21 20:14: Glucometer 222H 08/23/21 05:39: Glucometer 214H 08/23/21 10:49: Glucometer 285H 08/23/21 15:17: Glucometer 216H 08/23/21 21:09: Glucometer 183H 08/24/21 05:50: Glucometer 156H 08/24/21 11:11: Glucometer 243H 08/24/21 15:21: Glucometer 193H 08/24/21 20:10: Glucometer 259H 08/25/21 01:02: Glucometer 211H 08/25/21 05:56: Glucometer 217H 08/25/21 10:34: Glucometer 263H 08/25/21 15:17: Glucometer 272H 08/25/21 20:24: Glucometer 247H 08/26/21 05:37: Glucometer 255H 08/26/21 11:11: Glucometer 249H Pending Labs Laboratory Tests 08/17/21 07:54: White Blood Count 9.8, Red Blood Count 3.82, Hemoglobin 11.4, Hematocrit 35, Mean Corpuscular Volume 90, Mean Corpuscular Hemoglobin 30, Mean Corpuscular Hemoglobin Concent 33, Red Cell Distribution Width 13.1, Platelet Count 282, Mean Platelet Volume 11.1, Immature Granulocyte % (Auto) 1, Neutrophils (%) (Auto) 78, Lymphocytes (%) (Auto) 12, Monocytes (%) (Auto) 8, Eosinophils (%) (Auto) 2, Basophils (%) (Auto) 0, Neutrophils # (Auto) 7.6, Lymphocytes # (Auto) 1.2, Monocytes # (Auto) 0.8, Eosinophils # (Auto) 0.2, Basophils # (Auto) 0.0, Immature Granulocyte # (Auto) 0.1, Sodium Level 137, Potassium Level 3.6, Chloride Level 107, Carbon Dioxide Level 19, Anion Gap 11, Blood Urea Nitrogen 14, Creatinine 0.56, Estimat Glomerular Filtration Rate 99, BUN/Creatinine Ratio 25, Glucose Level 133, Calcium Level 8.5, Corrected Calcium 9.0, Total Bilirubin 0.5, Aspartate Amino Transf (AST/SGOT) 16, Alanine Aminotransferase (ALT/SGPT) 27, Alkaline Phosphatase 56, Total Protein 6.4, Albumin 3.4 08/17/21 14:54: Glucometer 298 08/17/21 16:56: Glucometer 221 08/17/21 20:30: Glucometer 183 08/18/21 06:00: White Blood Count 11.5, Red Blood Count 4.13, Hemoglobin 12.2, Hematocrit 38, Mean Corpuscular Volume 91, Mean Corpuscular Hemoglobin 30, Mean Corpuscular Hemoglobin Concent 32, Red Cell Distribution Width 13.3, Platelet Count 288, Mean Platelet Volume 10.9, Immature Granulocyte % (Auto) 1, Neutrophils (%) (Auto) 72, Lymphocytes (%) (Auto) 17, Monocytes (%) (Auto) 9, Eosinophils (%) (Auto) 1, Basophils (%) (Auto) 0, Neutrophils # (Auto) 8.3, Lymphocytes # (Auto) 2.0, Monocytes # (Auto) 1.0, Eosinophils # (Auto) 0.1, Basophils # (Auto) 0.0, Immature Granulocyte # (Auto) 0.1, Sodium Level 138, Potassium Level 3.5, Chloride Level 105, Carbon Dioxide Level 20, Anion Gap 13, Blood Urea Nitrogen 14, Creatinine 0.62, Estimat Glomerular Filtration Rate 97, BUN/Creatinine Ratio 23, Glucose Level 172, Calcium Level 9.4, Corrected Calcium 9.6, Total Bilirubin 0.4, Aspartate Amino Transf (AST/SGOT) 13, Alanine Aminotransferase (ALT/SGPT) 25, Alkaline Phosphatase 58, Total Protein 7.1, Albumin 3.8 08/18/21 11:17: Glucometer 193 08/18/21 16:57: Glucometer 249 08/18/21 20:45: Glucometer 238 08/19/21 06:32: Glucometer 157 08/19/21 11:31: Glucometer 191 08/19/21 16:55: Glucometer 176 08/19/21 20:04: Glucometer 239 08/20/21 06:25: Glucometer 194 08/20/21 12:48: Glucometer 183 08/20/21 15:23: Glucometer 310 08/20/21 20:39: Glucometer 259 08/21/21 05:38: Glucometer 214 08/21/21 09:38: Glucometer 355 08/21/21 11:21: Glucometer 255 08/21/21 15:46: Glucometer 213 08/21/21 20:01: Glucometer 162 08/22/21 05:44: Glucometer 173 08/22/21 11:02: Glucometer 266 08/22/21 15:19: Glucometer 174 08/22/21 20:14: Glucometer 222 08/23/21 05:39: Glucometer 214 08/23/21 10:49: Glucometer 285 08/23/21 15:17: Glucometer 216 08/23/21 21:09: Glucometer 183 08/24/21 05:50: Glucometer 156 08/24/21 11:11: Glucometer 243 08/24/21 15:21: Glucometer 193 08/24/21 20:10: Glucometer 259 08/25/21 01:02: Glucometer 211 08/25/21 05:56: Glucometer 217 08/25/21 10:34: Glucometer 263 08/25/21 15:17: Glucometer 272 08/25/21 20:24: Glucometer 247 08/26/21 05:37: Glucometer 255 08/26/21 11:11: Glucometer 249 Discharge Home Medications: Active Scripts Active Novolog Flexpen (Insulin Aspart) 100 Unit/Ml (3 Ml) Solution 8 Units SQ AC Metoprolol Succinate 25 Mg Tab.er.24h 25 Mg PO DAILY Lipitor (Atorvastatin Calcium) 40 Mg Tablet 40 Mg PO HS Basaglar Kwikpen U-100 (Insulin Glargine,Hum.rec.anlog) 100 Unit/1 Ml Insuln.pen 20 Unit SQ BID 14 Days Reported Diclofenac Sodium 1 % Gel..gram. 1 Applic TOP QID PRN APPLY TO RIGHT UPPER ARM/SHOULDER Ondansetron HCl 4 Mg Tablet 4 Mg PO Q4 -6H PRN Ketoconazole 2 % Shampoo 1 Applic TOP 3XWEEKLY Meloxicam 7.5 Mg Tablet 7.5 Mg PO DAILY Flonase Allergy Relief (Fluticasone Propionate) 50 Mcg/Actuation [place].susp 1 [place] NSEACH BID Fiber (Calcium Polycarbophil) 625 Mg Tablet 625 Mg PO DAILY Metformin HCl ER (Metformin HCl) 500 Mg Tab.er.24h 500 Mg PO 0800,1700 Ozempic (Semaglutide) 1 Mg/0.75 Ml Pen.injctr 1 Mg SQ SUN Multivitamin 1 Each Tablet 1 Each PO DAILY Jardiance (Empagliflozin) 25 Mg Tablet 25 Mg PO DAILY Arimidex (Anastrozole) 1 Mg Tablet 1 Mg PO DAILY Dexilant (Dexlansoprazole) 60 Mg Cap.dr.bp 60 Mg PO DAILY Tylenol (Acetaminophen) 325 Mg Tablet 650 Mg PO Q4-6 PRN Buspirone HCl 15 Mg Tablet 15 Mg PO BID PRN Gabapentin 600 Mg Tablet 600 Mg PO HS PRN Aspirin 81 Mg Tab.chew 81 Mg PO DAILY Fish Oil 1,000 mg Capsule ([place] 3 Polyunsat Fatty Acids) 1,000 Mg Cap 1,000 Mg PO HS Gabapentin 600 Mg Tablet 600 Mg PO 0800,1400,2100 Venlafaxine HCl ER (Venlafaxine HCl) 75 Mg Tab.er.24 75 Mg PO DAILY Instructions to patient/family Please see electronic discharge instructions given to patient. Diagnosis/Problems Diagnosis/Problems (1) Myopathy (2) Status post placement of implantable loop recorder (3) DKA (diabetic ketoacidosis) (4) Coronary artery disease without angina pectoris (5) Type 2 diabetes mellitus with complication (6) Heart block AV third degree (7) Primary hypertension (8) Mixed hyperlipidemia (9) CAD (coronary artery disease) FREDIS GOMEZ DO Aug 26, 2021 05:49
[2021-08-26 07:09] VITALS: BP 119/73
[2021-08-26] MEDS: inSUlin ASPART (NovoLOG) 1 UNIT/0.01 ML (CHARGE PER UNIT) SC SCH ×3 (07:21→16:00)
[2021-08-26] MEDS: DOCUSATE SODIUM 100 MG (COLACE) CAP PO SCH (08:00)
[2021-08-26] MEDS: SENNOSIDES 8.6 MG (SENOKOT) TAB PO SCH (08:00)
[2021-08-26] MEDS: ASPIRIN E.C. 81 MG (ECOTRIN) TAB PO SCH (08:00)
[2021-08-26] MEDS: CALCIUM CARBONATE 500 MG (TUMS) TAB.CHEW PO SCH ×2 (08:01→12:15)
[2021-08-26] MEDS: PANTOPRAZOLE 40 MG (PROTONIX) TAB PO SCH (08:01)
[2021-08-26] MEDS: FLUTICASONE NASAL SPRAY (FLONASE) 16 GM BTL NS SCH (08:01)
[2021-08-26 16:19] VITALS: BP 119/73
--- NOTE | 2021-08-27 08:28 | Therapy Team Discharge Summary ---
Therapy Discharge Summary Discharge Recommendations Date of Discharge Aug 26, 2021 at 16:26 Physical Therapy Roll Left to Right (QC): 6 Sit to Lying (QC): 6 Lying to Sitting/Side of Bed(Q: 6 Sit to Stand (QC): 6 Chair/Piv-vl-Bqeol Xfer(QC): 4 Toilet Transfer (QC): 5 Car Transfer (QC): 4 Does the Patient Walk: Yes Mode of Locomotion: Walk Anticipated Mode of Locomotion: Walk Walk 10 feet (QC): 6 Walk 50 ft with 2 Turns(QC): 6 Walk 150 ft (QC): 6 Walking 10ft on uneven surface: 4 Distance: 100', 30' Gait Assistive Device: FWW Does the Pt Use a Wheelchair: No Wheel 50 ft with 2 turns (QC): 9 Wheel 150 ft (QC): 9 Type of Wheelchair: N/A #of Steps: 4 1 Step (curb) (QC): 4 4 Steps (QC): 4 12 Steps (QC): 88 Balance Sitting Static: Normal Balance Sitting Dynamic: Normal Balance-Standing Static: Fair Picking up an Object (QC): 4 (SBA, without universal worker assisted living) Occupational Therapy Pt admitted to ARU with dx of syncope. At OF, pt was independent with ADLs and functional mobility, no AD. Upon initial evaluation, pt required set up assistance with eating and footwear, SBA oral care, UE dressing, LE dressing and toileting, and min A showering. OT tx focused on increasing BUE strength and activity tolerance, and increasing independence and safety with ADLS and functional mobility. Pt made good progress towards goals, attaining IND level with all ADLS. Pt discharged from facility, d/c from OT. Decreased Activ Tolerance Eating (QC): 6 Oral Hygiene (QC): 6 Shower/Bathe Self (QC): 6 Upper Body Dressing (QC): 6 Lower Body Dressing (QC): 6 On/Off Footwear (QC): 6 Toileting Hygiene (QC): 6 PT Tug Master Goals Chcf Goals PT Chcf Goals Time Frame: Sep 07, 2021 Roll Left to Right (QC): 6 Sit to Lying (QC): 6 Lying-Sitting on Side/Bed(QC): 6 Sit to Stand (QC): 6 Chair/Qcc-oz-Pnnga Xfer(QC): 6 Car Transfer (QC): 6 Does the Patient Walk: Yes Walk 10 feet (QC): 6 Walk 10ft-Uneven Surface(QC): 6 Walk 50ft with 2 Turns (QC): 6 Walk 150 ft (QC): 6 Wheel 50 feet with 2 turns (QC: 9 1 Step (curb) (QC): 4 4 Steps (QC): 4 12 Steps (QC): 88 Picking up an Object (QC): 4 (using universal worker assisted living) OT Chcf Goals Chcf Goals Time Frame: Aug 31, 2021 Eating (FIM): 6 Eating (QC): 6 (met) Oral Hygiene (QC): 6 (met) Shower/Bathe Self (QC): 6 (met) Upper Body Dressing (QC): 6 (met) Lower Body Dressing (QC): 6 (met) On/Off Footwear (QC): 6 (met) Toileting(FIM): 6 Toileting Hygiene (QC): 6 (met) Toilet/Commode Transfer (QC): 6 Additional Goals: 1-Demonstrate ADL Tasks, 2-Verbalize Understanding, 3- ImproveStrength/Roxi 1=Demonstrate adherence to instructed precautions during ADL tasks. 2=Patient will verbalize/demonstrate understanding of assistive devices/modifications for ADL. 3=Patient will improve strength/tolerance for activity to enable patient to perform ADL's. Speech Chcf Goals Tug Master Goals 1. The patient will demonstrate improved cognitive linguistic skills for increased safety with discharge to the least restricted environment. Time Frame: Two Weeks. MARIA VICTORIA FRANCES OT Aug 27, 2021 08:28
--- NOTE | 2021-08-27 12:05 | Therapy Team Discharge Summary ---
Therapy Discharge Summary Discharge Recommendations Date of Discharge Aug 26, 2021 at 16:26 Physical Therapy Patient came to rehab with Syncope due to heart block. Upon evaluation patient performs rolling with SBA, supine <-> sit with min assist, sit <-> stand and transfers with CGA, car transfer CGA, ambulate 100' with a rolling walker with CGA (including 50' with at least 2 turns of 90 degrees and 10' over an uneven surface), went up and down 2 steps using a rolling walker with CGA, and picked up an object from the floor using a customs and border protection officer with CGA. Patient has been p erforming bed mobility and transfer training, balance and endurance training, functional strengthening, stair training, gait training, and education. Patient has made some progress but has not met her terminal makeup operator goals for transfers, car transfer, and ambulation. Now, patient performs rolling and supine <-> sit with independence, sit <-> stand independent, transfers and car transfer SBA, ambulate 150' with a rolling walker with SBA (including 50' with at least 2 turns of 90 degrees and 10' over an uneven surface), can go up and down 4 steps using 2 handrails with CGA, and can pick up operator an object from the floor without using a customs and border protection officer with SBA. Patient has been discharged from this facility and will be discharged from PT at this time. Roll Left to Right (QC): 6 Sit to Lying (QC): 6 Lying to Sitting/Side of Bed(Q: 6 Sit to Stand (QC): 6 Chair/Hiv-gp-Zkzhu Xfer(QC): 4 Toilet Transfer (QC): 5 Car Transfer (QC): 4 Does the Patient Walk: Yes Mode of Locomotion: Walk Anticipated Mode of Locomotion: Walk Walk 10 feet (QC): 6 Walk 50 ft with 2 Turns(QC): 6 Walk 150 ft (QC): 6 Walking 10ft on uneven surface: 4 Distance: 100', 30' Gait Assistive Device: FWW Does the Pt Use a Wheelchair: No Wheel 50 ft with 2 turns (QC): 9 Wheel 150 ft (QC): 9 Type of Wheelchair: N/A #of Steps: 4 1 Step (curb) (QC): 4 4 Steps (QC): 4 12 Steps (QC): 88 Balance Sitting Static: Normal Balance Sitting Dynamic: Normal Balance-Standing Static: Fair Picking up an Object (QC): 4 (SBA, without customs and border protection officer) Occupational Therapy Decreased Activ Tolerance Eating (QC): 6 Oral Hygiene (QC): 6 Shower/Bathe Self (QC): 6 Upper Body Dressing (QC): 6 Lower Body Dressing (QC): 6 On/Off Footwear (QC): 6 Toileting Hygiene (QC): 6 PT [place] Goals [place] Goals PT Mcc Goals Time Frame: Sep 07, 2021 Roll Left to Right (QC): 6 Sit to Lying (QC): 6 Lying-Sitting on Side/Bed(QC): 6 Sit to Stand (QC): 6 Chair/Jqc-yl-Zspps Xfer(QC): 6 Car Transfer (QC): 6 Does the Patient Walk: Yes Walk 10 feet (QC): 6 Walk 10ft-Uneven Surface(QC): 6 Walk 50ft with 2 Turns (QC): 6 Walk 150 ft (QC): 6 Wheel 50 feet with 2 turns (QC: 9 1 Step (curb) (QC): 4 4 Steps (QC): 4 12 Steps (QC): 88 Picking up an Object (QC): 4 (using customs and border protection officer) OT Mcc Goals Mcc Goals Time Frame: Aug 31, 2021 Eating (FIM): 6 Eating (QC): 6 (met) Oral Hygiene (QC): 6 (met) Shower/Bathe Self (QC): 6 (met) Upper Body Dressing (QC): 6 (met) Lower Body Dressing (QC): 6 (met) On/Off Footwear (QC): 6 (met) Toileting(FIM): 6 Toileting Hygiene (QC): 6 (met) Toilet/Commode Transfer (QC): 6 Additional Goals: 1-Demonstrate ADL Tasks, 2-Verbalize Understanding, 3-ImproveStrength/Roxi 1=Demonstrate adherence to instructed precautions during ADL tasks. 2=Patient will verbalize/demonstrate understanding of assistive devices/modifications for ADL. 3=Patient will improve strength/tolerance for activity to enable patient to per form ADL's. Speech Mcc Goals Mcc Goals 1. The patient will demonstrate improved cognitive linguistic skills for increased safety with discharge to the least restricted environment. Time Frame: Two Weeks. CHRISTEL TORRES PT Aug 27, 2021 12:05
== END 2021-08-26 16:26 | DRG 92 ==
PROVIDERS: ADMIT Internal Medicine; ATTEND Internal Medicine
DX: G72.81 Critical illness myopathy (principal); C85.90 Non-Hodgkin lymphoma, unspecified, unspecified site; I10 Essential (primary) hypertension; I25.10 Atherosclerotic heart disease of native coronary artery without angina pectoris; E11.40 Type 2 diabetes mellitus with diabetic neuropathy, unspecified; K21.9 Gastro-esophageal reflux disease without esophagitis; E78.2 Mixed hyperlipidemia; R11.2 Nausea with vomiting, unspecified; I65.23 Occlusion and stenosis of bilateral carotid arteries; K59.00 Constipation, unspecified; Z95.0 Presence of cardiac pacemaker; Z87.891 Personal history of nicotine dependence; Z98.1 Arthrodesis status; Z95.5 Presence of coronary angioplasty implant and graft; Z87.01 Personal history of pneumonia (recurrent); Z92.21 Personal history of antineoplastic chemotherapy; Z92.3 Personal history of irradiation; Z79.4 Long term (current) use of insulin; Z79.84 Long term (current) use of oral hypoglycemic drugs; Z79.899 Other long term (current) drug therapy; Z79.82 Long term (current) use of aspirin; Z95.818 Presence of other cardiac implants and grafts; Z86.16 Personal history of COVID-19; Z85.3 Personal history of malignant neoplasm of breast; Z86.11 Personal history of tuberculosis
CPT/HCPCS: 33208; 36415; 80053; 82947; 85025

== ENCOUNTER 2022-05-14 10:40 | Emergency (ER) | payer MEDICARE, MEDICAID ==
[~2022-05-14] VITALS: Ht 155 cm; Wt 71.6 kg
[~2022-05-14 10:40] MED LIST changes: -ALPRAZolam 0.25 MG (XANAX) TAB PO PRN; +ATOR40TA PO; -BISACODYL 10 MG SUPP (DULCOLAX) PR PRN; -CALCIUM CARBONATE 500 MG (TUMS) TAB.CHEW PO PRN; +CLOP-31 PO; -CLOP75TA69 PO; -DOCUSATE SODIUM 100 MG (COLACE) CAP PO PRN; -FLEET ENEMA ADULT 1 EA BTL PR PRN; +INSU100I14 SQ; -LACTULOSE SYRUP 10GM/15ML (ENULOSE) 30ML UDC PO PRN; -LOPERAMIDE 2 MG (IMODIUM) TABLET PO PRN; -MELATONIN 3 MG TABLET PO PRN; +MTP25TSR PO; -ONDANSETRON 4 MG (ZOFRAN) ORAL DISSOLVE TAB PO PRN; -diphenhydrAMINE 25 MG TAB (BENADRYL) PO PRN; -guaiFENesin/CODEINE (ROBITUSSIN AC) 10ML UDC PO PRN
[2022-05-14] MEDS ORDERED: NS IV 1000 ML 1,000 ML IV STA (11:53)
--- NOTE | 2022-05-14 11:55 | ED GI ---
General Chief Complaint: Abdominal/GI Problems Stated Complaint: ABD PAIN | Nursing Triage Note: PT STATES SHE HAS NOT HAD A BM FOR ABOUT A WEEK, DIARRHEA BEFORE THAT, PASSING GAS, VOMITING IN THE EVENING AFTER SHE EATS Source of Information: Patient Exam Limitations: No Limitations History of Present Illness Date Seen by Provider: May 14, 2022 Time Seen by Provider: 11:55 Initial Comments Patient is a 71-year-old female with a history of coronary artery disease, hypertension, breast cancer, pacemaker who presents ED with generalized abdominal pain. Abdominal pain over the past week. Described as crampy, fullness and states she feels bloated. She states she has been passing gas but has been having intermittent vomiting of bile and chunks of food. Limited oral and food intake. She states that 2 weeks prior she had intermittent vomiting and diarrhea which eventually resolved itself. She was not on any antibiotics. She denies of any history of previous abdominal surgery, history of IBS, history of inflammatory bowel disease. Denies of any urinary symptoms, chest pain, cough, shortness of breath, headache, dizziness. She reports been taking laxative MiraLAX, senna, docusate without much improvement Allergies and Home Medications Allergies Coded Allergies: NKANo Known Allergies (Verified Allergy, Unknown, 06/01/21) Patient Home Medication List Home Medication List Reviewed: Yes Acetaminophen (Tylenol) 325 Mg Tablet, 650 MG PO Q4-6 PRN for PAIN-MILD (1-4) OR TEMPATURE, (Reported) Entered as Reported by: ANASTASIA HUGHES on 04/13/19 0734 Anastrozole (Arimidex) 1 Mg Tablet, 1 MG PO DAILY, (Reported) Entered as Reported by: ALLI DICKERSON on 05/24/21 1551 Aspirin (Aspirin) 81 Mg Tab.chew, 81 MG PO DAILY, (Reported) Entered as Reported by: ANASTASIA HUGHES on 04/13/19 0734 Atorvastatin Calcium (Lipitor) 40 Mg Tablet, 40 MG PO HS Prescribed by: FREDIS GOMEZ on 08/24/21 1220 Buspirone HCl (Buspirone HCl) 15 Mg Tablet, 15 MG PO BID PRN for ANXIETY, (Reported) Entered as Reported by: ANASTASIA HUGHES on 04/13/19 0734 Calcium Polycarbophil (Fiber) 625 Mg Tablet, 625 MG PO DAILY, (Reported) Entered as Reported by: BÁRBARA LUNA on 08/13/21 1040 Cephalexin (Cephalexin) 500 Mg Tablet, 500 MG PO BID Prescribed by: RAFFY RODRÍGUEZ on 05/14/22 1428 Dexlansoprazole (Dexilant) 60 Mg Williams., 60 MG PO DAILY, (Reported) Entered as Reported by: ALLI DICKERSON on 05/24/21 1551 Diclofenac Sodium (Diclofenac Sodium) 1 % Gel..gram., 1 APPLIC TOP QID PRN for PAIN-BREAKTHROUGH, (Reported) Entered as Reported by: BÁRBARA LUNA on 08/13/21 1040 Empagliflozin (Jardiance) 25 Mg Tablet, 25 MG PO DAILY, (Reported) Entered as Reported by: ALLI DICKERSON on 05/24/21 1551 Fluticasone Propionate (Flonase Allergy Relief) 50 Mcg/Actuation [place].susp, 1 SPRAY NSEACH BID, (Reported) Entered as Reported by: BÁRBARA LUNA on 08/13/21 1040 Gabapentin (Gabapentin) 600 Mg Tablet, 600 MG PO 0800,1400,2100, (Reported) Entered as Reported by: ANASTASIA HUGHES on 04/13/19 0734 Gabapentin (Gabapentin) 600 Mg Tablet, 600 MG PO HS PRN for FIBROMYALGIA, (Reported) Entered as Reported by: ANASTASIA HUGHES on 04/13/19 0734 Insulin Aspart (Novolog Flexpen) 100 Unit/Ml (3 Ml) Solution, 8 UNITS SQ AC Prescribed by: FREDIS GOMEZ on 08/24/21 1220 Insulin Glargine,Hum.rec.anlog (Basaglar Kwikpen U-100) 100 Unit/1 Ml Insu ln.pen, 20 UNIT SQ BID Prescribed by: FREDIS GOMEZ on 08/23/21 1235 Ketoconazole (Ketoconazole) 2 % Shampoo, 1 APPLIC TOP 3XWEEKLY, (Reported) Entered as Reported by: BÁRBARA LUNA on 08/13/21 1040 Magnesium Citrate (Magnesium Citrate) 296 Ml Solution, 296 ML PO DAILY Prescribed by: RFAFY RODRÍGUEZ on 05/14/22 1426 Meloxicam (Meloxicam) 7.5 Mg Tablet, 7.5 MG PO DAILY, (Reported) Entered as Reported by: BÁRBARA LUNA on 08/13/21 1040 Metformin HCl (Metformin HCl ER) 500 Mg Tab.er.24h, 500 MG PO 0800,1700, (Reported) Entered as Reported by: BÁRBARA LUNA on 08/13/21 1040 Metoprolol Succinate (Metoprolol Succinate) 25 Mg Tab.er.24h, 25 MG PO DAILY Prescribed by: FREDIS GOMEZ on 08/24/21 1220 Multivitamin (Multivitamin) 1 Each Tablet, 1 EACH PO DAILY, (Reported) Entered as Reported by: ALLI DICKERSON on 05/24/21 1551 Na Phos,M-B/Na Phos,Di-Ba (Fleet Enema Extra) 19 Gram-7 Gram/197 Ml Enema, 230 ML RC DAILY PRN PRN for CONSTIPATION Prescribed by: RAFFY RODRÍGUEZ on 05/14/22 1425 [place] 3 Polyunsat Fatty Acids (Fish Oil 1,000 mg Capsule) 1,000 Mg Cap, 1,000 MG PO HS, (Reported) Entered as Reported by: ANASTASIA HUGHES on 04/13/19 0734 Ondansetron HCl (Ondansetron HCl) 4 Mg Tablet, 4 MG PO Q4 -6H PRN for NA USEA/VOMITING-1ST LINE, (Reported) Entered as Reported by: BÁRBARA LUNA on 08/13/21 1040 Semaglutide (Ozempic) 1 Mg/0.75 Ml Pen.injctr, 1 MG SQ SUN, (Reported) Entered as Reported by: ALLI DICKERSON on 05/24/21 1551 Venlafaxine HCl (Venlafaxine HCl ER) 75 Mg Tab.er.24, 75 MG PO DAILY, (Reported) Entered as Reported by: EMILIE VOSS on 11/10/18 1055 Review of Systems Review of Systems Constitutional: No chills, No diaphoresis, No malaise, No weakness EENTM: No Eye Pain Respiratory: Denies Cough, Denies Orthopnea, Denies SOA at Rest Cardiovascular: Denies Chest Pain Gastrointestinal: Abdominal Pain, Constipated; Denies Diarrhea; Nausea, Vomiting Genitourinary: Denies Burning, Denies Discharge, Denies Drainage, Denies Frequency Musculoskeletal: No back pain, No joint pain Skin: No change in color, No change in hair/nails All Other Systems Reviewed Negative Unless Noted: Yes Past Kmlrevr-Jbnhzo-Jgdtav Hx Patient Social History Tobacco Use?: No Substance use?: No Alcohol Use?: No Immunizations Up To Date Tetanus Booster (TDap): Unknown First/Initial COVID19 Vaccinat: Mar COVID19 Vaccination Oscar: April COVID19 Vaccination Date: Mar Past Medical History Surgery/Hospitalization HX: DM, DUAL CHAMBER PERMANENT PACEMAKER, HTN, HIGH CHOLESTEROL, LEFT BREAST CANCER WITH LUMPECTOMY, RAYNAUD'S, GERD, IBS. Coronary Stent, Pacemaker Respiratory: Yes (HX OF TB TWICE) Currently Using CPAP: No Currently Using BIPAP: No Cardiac: Yes Coronary Artery Disease, High Cholesterol, Hypertension Neurological: No Neuropathy Reproductive Disorders: No Genitourinary: No Bladder Infection Gastrointestinal: Yes Gastroesophageal Reflux Diabetes, Non-Insulin dep Cancer: No Lymphoma Did You Recieve Any Treatments: Yes What Type of Treatment Did You: Chemotherapy, Radiation, Surgical Intervention Blood Disorders: No Adverse Reaction/Blood Tranf: No Family Medical History No Pertinent Family Hx Physical Exam Vital Signs Vital Signs - First Documented 05/14/22 11:20 Temp 37.0 Pulse 81 Resp 18 B/P (MAP) 141/75 (97) Pulse Ox 97 O2 Delivery Room Air Capillary Refill : Less Than 3 Seconds Height/Weight/BMI Height: 4'10.00" Weight: 161lbs. 0.0oz. [id number]; 29.00 BMI Method: General Appearance: WD/WN, no apparent distress HEENT: PERRL/EOMI, normal ENT inspection, TMs normal, pharynx normal Neck: non-tender, full range of motion, supple Respiratory: chest non-tender, lungs clear, normal breath sounds, no respiratory distress, no accessory muscle use Cardiovascular: regular rate, rhythm, no edema, no gallop Gastrointestinal: normal bowel sounds, soft, no organomegaly, tenderness (generalzied abdominal tenderness on palpation. Normal bowel sounds. No rebound or guarding) Extremities: normal range of motion, non-tender, normal inspection, no pedal edema, no calf tenderness Back: normal inspection, no CVA tenderness, no vertebral tenderness Neurologic/Psychiatric: director of vocational training II-XII nml as tested, no motor/sensory deficits, alert, normal mood/affect Skin: normal color, warm/dry Progress/Results/Core Measures Results/Orders Lab Results Laboratory Tests Test 05/14/22 12:15 05/14/22 12:30 Range/Units White Blood Count 6.7 4.3-11.0 10^3/uL Red Blood Count 4.33 3.80-5.11 10^6/uL Hemoglobin 12.6 11.5-16.0 g/dL Hematocrit 38 35-52 % Mean Corpuscular Volume 87 80-99 fL Mean Corpuscular Hemoglobin 29 25-34 pg Mean Corpuscular Hemoglobin Concent 34 32-36 g/dL Red Cell Distribution Width 13.4 10.0-14.5 % Platelet Count 269 130-400 10^3/uL Mean Platelet Volume 10.8 9.0-12.2 fL Immature Granulocyte % (Auto) 0 % Neutrophils (%) (Auto) 71 42-75 % Lymphocytes (%) (Auto) 18 12-44 % Monocytes (%) (Auto) 10 0-12 % Eosinophils (%) (Auto) 2 0-10 % Basophils (%) (Auto) 0 0-10 % Neutrophils # (Auto) 4.7 1.8-7.8 10^3/uL Lymphocytes # (Auto) 1.2 1.0-4.0 10^3/uL Monocytes # (Auto) 0.6 0.0-1.0 10^3/uL Eosinophils # (Auto) 0.1 0.0-0.3 10^3/uL Basophils # (Auto) 0.0 0.0-0.1 10^3/uL Immature Granulocyte # (Auto) 0.0 0.0-0.1 10^3/uL Sodium Level 139 135-145 MMOL/L Potassium Level 4.2 3.6-5.0 MMOL/L Chloride Level 105 98-107 MMOL/L Carbon Dioxide Level 21 21-32 MMOL/L Anion Gap 13 5-14 MMOL/L Blood Urea Nitrogen 18 7-18 MG/DL Creatinine 0.63 0.60-1.30 MG/DL Estimat Glomerular Filtration Rate 96 BUN/Creatinine Ratio 29 Glucose Level 119 H 70-105 MG/DL Calcium Level 9.5 8.5-10.1 MG/DL Corrected Calcium 9.4 8.5-10.1 MG/DL Total Bilirubin 0.4 0.1-1.0 MG/DL Aspartate Amino Transf (AST/SGOT) 15 5-34 U/L Alanine Aminotransferase (ALT/SGPT) 23 0-55 U/L Alkaline Phosphatase 83 40-136 U/L Total Protein 7.4 6.4-8.2 GM/DL Albumin 4.1 3.2-4.5 GM/DL Lipase 70 8-78 U/L Urine Color YELLOW Urine Clarity CLEAR Urine pH 5.5 5-9 Urine Specific [place] 1.010 L 1.016-1.022 Urine Protein NEGATIVE NEGATIVE Urine Glucose (UA) 3+ H NEGATIVE Urine Ketones NEGATIVE NEGATIVE Urine Nitrite NEGATIVE NEGATIVE Urine Bilirubin NEGATIVE NEGATIVE Urine Urobilinogen 0.2 < = 1.0 MG/DL Urine Leukocyte Esterase 1+ H NEGATIVE Urine RBC (Auto) TRACE-I H NEGATIVE Urine RBC 2-5 H /HPF Urine WBC 5-10 H /HPF Urine Squamous Epithelial Cells 0-2 /HPF Urine Crystals NONE /LPF Urine Bacteria LARGE H /HPF Urine Casts NONE /LPF Urine Mucus NEGATIVE /LPF Urine Culture Indicated YES My Orders Orders - BERTHA RAIN Cbc With Automated Diff (05/14/22 11:53) Comprehensive Metabolic Panel (05/14/22 11:53) Lipase (05/14/22 11:53) Ns Iv 1000 Ml (Sodium Chloride 0.9%) (05/14/22 11:53) Ondansetron Injection (Zofran Injectio (05/14/22 12:00) Ct Abdomen/Pelvis W (05/14/22 11:53) Ua Culture If Indicated (05/14/22 11:54) Urine Culture (05/14/22 12:30) Iohexol Injection (Omnipaque 350 Mg/Ml 1 (05/14/22 13:15) Received Contrast (Hold Metformin- Contr (05/14/22 13:15) Ns (Ivpb) (Sodium Chloride 0.9% Ivpb Bag (05/14/22 13:15) Medications Given in ED Current Medications Medications Dose Ordered Sig/Guido Route Start Time Stop Time Status Last Admin Dose Admin Iohexol 100 ml ONCE ONCE IV 05/14/22 13:15 05/14/22 13:18 DC 05/14/22 13:31 80 ML Ondansetron HCl 4 mg ONCE ONCE IVP 05/14/22 12:00 05/14/22 12:01 DC 05/14/22 12:21 4 MG Sodium Chloride 100 ml ONCE ONCE IV 05/14/22 13:15 05/14/22 13:18 DC 05/14/22 13:32 80 ML Vital Signs/I&O 05/14/22 05/14/22 11:20 14:35 Temp 37.0 36.9 Pulse 81 79 Resp 18 20 B/P (MAP) 141/75 (97) 146/70 Pulse Ox 97 97 O2 Delivery Room Air Room Air Blood Pressure Mean: 97 Departure Communication (PCP) Reviewed previous ER visits, H&P, lab testing. Patient reports the ED with generalized abdominal pain. Patient reports passing gas. She reports indigestion, burping that has a odor with vomiting. Patient without any active vomiting here in the ED. patient was given Zofran and a liter of fluid. Refused anything for pain. Urinalysis, CBC, CMP and lipase was ordered secondary to her current complaint. Differential diagnosis of constipation, gastroenteritis, colitis, inflammatory bowel disease, UTI. She has no chest pain, shortness of breath or cough. She does not appear in acute distress. Patient with normal white blood count, kidney function, liver function. Urinalysis concerning for UTI. CT abdomen and pelvis shows fecal load concerning for constipation without evidence impaction obstruction. Refused rectal exam. Normal appendix. No evidence of diverticulitis. Solitary gallstone but no features of cholecystitis or bile duct dilation. Discussed all results with patient. Did offer an enema and/or suppository. She states she has been on laxatives for several years. Discussed continue with laxatives but added Fleet enema and suppositories to help. Discussed high-fiber diet drinking plenty of fluids. She states at the care home they do not eat well. Discussed better diet and medication will likely improve a lot of her symptoms. Discussed magnesium citrate with Fleet enema with Dulcolax. She agrees with this plan of action. If any worsening symptoms return back to ED for further evaluation. Vital signs stable. Follow-up with PCP in 2 to 3 days for reevaluation Impression Primary Impression: Constipation Additional Impression: UTI (urinary tract infection) Disposition: HOME, SELF-CARE Condition: Stable Departure-Patient Inst. Decision time for Depature: 14:23 Referrals: NIKKI KOEHLER APRN (PCP/Family) Primary Care Physician Patient Instructions: Constipation, Adult (DC) Add. Discharge Instructions: Recommend oral Dulcolax, MiraLAX continue daily. Recommend Metamucil high-fiber diet daily. Recommend 1 Fleet enema daily if no bowel movement. Consider oral magnesium citrate bottle daily for bowel movement consider Dulcolax suppository. If any worsening symptoms return back to ED. Recommend staying hydrated drink plenty of fluids. All discharge instructions reviewed with patient and/or family. Voiced understanding. Scripts Cephalexin (Cephalexin) 500 Mg Tablet 500 MG PO BID for 7 Days, #14 TAB Prov: BERTHA RAIN 05/14/22 Magnesium Citrate (Magnesium Citrate) 296 Ml Solution 296 ML PO DAILY, #2 EA Prov: BERTHA RAIN 05/14/22 Na Phos,M-B/Na Phos,Di-Ba (Fleet Enema Extra) 19 Gram-7 Gram/197 Ml Enema 230 ML RC DAILY PRN PRN for CONSTIPATION, #3 EA Prov: BERTHA RAIN 05/14/22 BERTHA RAIN May 14, 2022 11:55
[2022-05-14] MEDS ORDERED: ONDANSETRON 4 MG/2 ML (SDV) Z0FRAN IVP ONE (12:00)
[2022-05-14 12:26] LABS: BASOPHILS % (AUTO) 0 % (0-10); EOSINOPHILS # (AUTO) 0.1 10^3/uL (0.0-0.3); EOSINOPHILS % (AUTO) 2 % (0-10); HEMATOCRIT 38 % (35-52); HEMOGLOBIN 12.6 g/dL (11.5-16.0); LYMPHOCYTES # (AUTO) 1.2 10^3/uL (1.0-4.0); LYMPHOCYTES % (AUTO) 18 % (12-44); MEAN CORPUSCULAR HEMOGLOBIN 29 pg (25-34); MEAN CORPUSCULAR HGB CONC 34 g/dL (32-36); MEAN CORPUSCULAR VOLUME 87 fL (80-99); MEAN PLATELET VOLUME 10.8 fL (9.0-12.2); MONOCYTES # (AUTO) 0.6 10^3/uL (0.0-1.0); MONOCYTES % (AUTO) 10 % (0-12); NEUTROPHILS # (AUTO) 4.7 10^3/uL (1.8-7.8); NEUTROPHILS % (AUTO) 71 % (42-75); PLATELET COUNT 269 10^3/uL (130-400); WHITE BLOOD COUNT 6.7 10^3/uL (4.3-11.0)
[2022-05-14 12:38] LABS: BILIRUBIN,URINE NEGATIVE (NEGATIVE); CLARITY,URINE CLEAR; COLOR,URINE YELLOW; GLUCOSE, URINE (UA) 3+ (NEGATIVE); KETONES,URINE NEGATIVE (NEGATIVE); LEUKOCYTE ESTERASE ,URINE 1+ (NEGATIVE); NITRITE,URINE NEGATIVE (NEGATIVE); PH,URINE 5.5 (5-9); PROTEIN,URINE NEGATIVE (NEGATIVE)
[2022-05-14 12:53] LABS: BACTERIA,URINE LARGE /HPF; SQUAMOUS EPITHELIAL CELL,UR 0-2 /HPF
[2022-05-14 13:05] LABS: ALBUMIN 4.1 GM/DL (3.2-4.5)
[2022-05-14 13:06] LABS: POTASSIUM 4.2 MMOL/L (3.6-5.0)
[2022-05-14 13:07] LABS: CALCIUM 9.5 MG/DL (8.5-10.1)
[2022-05-14 13:08] LABS: TOTAL PROTEIN 7.4 GM/DL (6.4-8.2)
[2022-05-14 13:10] LABS: BILIRUBIN,TOTAL 0.4 MG/DL (0.1-1.0)
[2022-05-14 13:12] LABS: CREATININE SERUM 0.63 MG/DL (0.60-1.30)
[2022-05-14] MEDS ORDERED: HOLD METFORMIN - RECEIVED CONTRAST 20 ML VIAL IV SCH (13:15)
[2022-05-14] MEDS ORDERED: NS 100 ML (IVPB) BAG IV ONE (13:15)
[2022-05-14] MEDS ORDERED: IOHEXOL 350 MG/ML 100 ML (OMNIPAQUE 350) VIAL IV ONE (13:15)
--- NOTE | 2022-05-14 13:56 | Diagnostic Imaging Report ---
PROCEDURE: CT abdomen and pelvis with contrast. TECHNIQUE: Multiple contiguous axial images were obtained through the abdomen and pelvis after administration of intravenous contrast. Auto Exposure Controls were utilized during the CT exam to meet ALARA standards for radiation dose reduction. All CT scans use one or more of the following dose optimizing techniques: automated exposure control, MA and/or KvP adjustment based on patient size and exam type or iterative reconstruction. INDICATION: Generalized pain. Constipation and bloating. COMPARISON: I have no priors. FINDINGS: The lung bases are clear. There is a tiny hiatal hernia. A tiny hyperdensity within the gallbladder lumen may reflect a minute stone but is equivocal. There are, however, no secondary features to suggest acute cholecystitis. There is no intra or extrahepatic bile duct dilatation. The pancreas, its duct, and the peripancreatic fat are normal. The spleen and adrenals are unremarkable. There is no hydroureteronephrosis. There are a few simple benign renal cortical cysts. No opaque urinary tract calculi. The appendix is well visualized and normal. The uterus, adnexa, and urinary bladder are unremarkable. There are a few noninflamed sigmoidal diverticula. There is a mildly elevated colonic fecal load from the cecum to the rectum without transition zone or focal impaction. Mild to moderate constipation is suspected, correlate clinically. No bowel wall thickening. No pericolonic or perienteric edema. No pneumatosis or free gas. There is no ascites, abscess, hematoma, or acute fluid collection. The bony structures are nonacute. IMPRESSION: 1. The elevated fecal load suggests constipation without impaction or obstruction. 2. Normal appendix. No diverticulitis. Unobstructed and nonacute urinary tracts. 3. Equivocal findings for a solitary gallstone but no features of cholecystitis or biliary ductal dilatation. Dictated by: Dictated on workstation # [id number]
[2022-05-14] MEDS ORDERED: NA P230E RC (14:25)
[2022-05-14] MEDS ORDERED: MAGN296S68 PO (14:26)
[2022-05-14] MEDS ORDERED: CEPH500T PO (14:28)
[2022-05-14 14:35] VITALS: BP 146/70
== END 2022-05-14 14:35 | disposition home or self-care (01) ==
LOC: EDUNIT# 10:40 → ER 10:43
DX: K59.00 Constipation, unspecified (principal); N39.0 Urinary tract infection, site not specified; I10 Essential (primary) hypertension
CPT/HCPCS: 36415; 74177; 80053; 81000; 83690; 85025; 87077; 87088; 87186

== ENCOUNTER → 2022-11-22 | Outpatient (CLI) | payer MEDICARE, MEDICAID ==
[~2022-11-22] VITALS: Ht 154 cm; Wt 71.0 kg
[~2022-11-22] MED LIST changes: +CATHETER FLUSH 10 ML SYR IVP PRN; +CEPH500T PO; -DICL100G13 TOP; +DICL100G60 TOP; -GABA-490 PO; +GABA-491 PO; +MAGN296S68 PO; +NA P230E RC; +REGADENOSON 0.4 MG/5 ML SYR IV ONE
[2022-11-22 09:06] VITALS: BP 152/75
--- NOTE | 2022-11-26 20:29 | STRESS TEST ---
DATE OF SERVICE: 11/22/2022 RESTING AND POST REGADENOSON TECHNETIUM-99M TETROFOSMIN SPECT CT IMAGING ORDERING PHYSICIAN: Andreia Grayson APRN. PRIMARY PHYSICIAN: Kerrie Santizo APRN CLINICAL DIAGNOSIS: Coronary artery disease. Baseline images were carried out after injection of 10.33 mCi of technetium-99m tetrofosmin. This was followed by 0.4 mg regadenoson and 32.2 mCi of technetium-99m tetrofosmin for stress imaging. The patient tolerated the procedure well. The electrocardiogram showed sinus rhythm with a paced ventricular rhythm. The electrocardiogram did not change significantly with the regadenoson infusion. Review of images at rest and following stress does not indicate any significant perfusion defects consistent with myocardial ischemia or infarction. Gated images show normal to hyperdynamic left ventricular systolic function with a calculated ejection fraction of 80%. No wall motion abnormalities. CONCLUSIONS: 1. No evidence of any significant myocardial ischemia or infarction on the study. 2. Normal to hyperdynamic left ventricular systolic function without regional wall motion abnormality and with a calculated ejection fraction of 80%. Job ID: [id number] DocumentID: [id number] Dictated Date: 11/26/2022 15:29:57 Distillery Supervisor Date: 11/26/2022 20:26:00 Dictated By: YASSINE SAVAGE MD; CHEVY; FACP; FACC;
== END ==
LOC: CARD 07:35
PROVIDERS: ATTEND Nurse Practitioner Family
DX: I25.10 Atherosclerotic heart disease of native coronary artery without angina pectoris (principal)
CPT/HCPCS: 78452; 93017; A9502